=== PATIENT | male | born 1960 | race Caucasian/White ===

== ENCOUNTER 2018-07-02 23:09 | Emergency (ER) | payer MEDICARE, SELFPAY ==
[2018-07-02 23:13] VITALS: BP 109/74; PULSE 81; RESP 18; TEMP 36.6; O2SAT 94
[2018-07-02 23:22] VITALS: RESP 18
--- NOTE | 2018-07-02 23:46 | ED.GENADUL_ITS ---
Discharge Plan Disposition Patient Disposition: HOME Condition: Good Discharge Details Chief Complaint: GenMedical Clinical Impression: Encounter for post surgical wound check Primary Care Provider: Shalonda Neil ED Provider: Roman Chavez Meds and New Rx's Prescriptions: Continued furosemide 40 MG tablet 120 mg PO DAILY AM RF: 0 metformin 500 MG tablet 1,000 mg PO BID RF: 0 spironolactone 25 MG tablet 50 mg PO DAILY RF: 0 Xifaxan 550 MG tablet 550 mg PO BID RF: 0 carvedilol 6.25 MG tablet 1 tab PO BID RF: 0 Lantus U-100 Insulin 100 unit/mL Solution 30 unit subcut DAILY RF: 0 Victoza 2-Elías 0.6 MG/0.1 ML pen injector 1.2 mg SQ QPM RF: 0 Discharge Instructions Additional Instructions: Everything looks okay. Stitches are intact. Some oozing from the stitch site but nothing concerning. No evidence of infection. Gently clean area 2-3 times a day as we discussed. Continue to apply bacitracin. Follow-up with urologist next week if any concerns. Return to ED for uncontrolled bleeding, fever, increased swelling and pain. Referrals: [facility] [Provider Group] Medical Decision Making Surgical wound check for bleeding post circumcision. Little bit of oozing and clot at the stitch site. Otherwise looks fine. There is no active bleeding. There is no evidence of infection. No significant swelling. No overt wound care, cleaning, expectations. Patient and family report understanding of directions. Patient discharged home. HPI General Mode of arrival: ambulatory . Date/Time Provider Initiated Documentation: 07/02/18 23:30 . Limitations to Documentation: no limitations . Information obtained by: patient . HPI Narrative: Patient presents for wound check. He had a circumcision for phimosis done at [facility] yesterday. He has been having some bleeding this evening. He has not had increased pain or swelling. They contacted urology at [facility] who referred him into the ED for evaluation. Related Data Home Medications Medication Instructions Recorded Confirmed furosemide 120 mg PO DAILY AM 06/15/12 07/02/18 metformin 1,000 mg PO BID 06/15/12 07/02/18 spironolactone 50 mg PO DAILY 06/15/12 07/02/18 Xifaxan 550 mg PO BID 11/03/12 07/02/18 carvedilol 1 tab PO BID 11/07/15 07/02/18 Victoza 2-Elías 1.2 mg SQ QPM 09/08/17 07/02/18 Lantus U-100 Insulin 30 unit SUBCUT DAILY 07/02/18 07/02/18 Allergies Allergy/AdvReac Type Severity Reaction Status Date / Time oxycodone AdvReac Psychosis Unverified 07/02/18 23:24 General Stated Complaint: GenMedical KRYSTLE: 4 Review of Systems Review of Systems As documented in HPI otherwise negative as below. Const: no fever, chills, weakness Resp: no cough, SOB, pleuritic pain CV: no CP, diaphoresis, edema, syncope GI: no abdominal pain, nausea, vomiting, diarrhea Neuro: no headache, numbness, focal weakness, confusion PFSH Medical History Diabetes (Chronic) Cirrhosis of liver (Chronic) Hypertension (Chronic) Pancreatitis (Resolved) Esophageal varices (Chronic) Surgical History Hx of circumcision (Acute) S/P hernia repair (Inactive) Social History Smoking/Tobacco Use Status: Current every day Alcohol Intake: never Drug use: Never Do you feel safe in your relationship?: Yes Exam Const General: cooperative, comfortable and no acute distress Orientation: alert and oriented x3 Other: Scrotum and shaft of penis normal. Head of penis erythematous. Foreskin has been resected. Stitches are present and intact. There is no active bleeding. There is some mild oozing and clot at the stitch site. There is no sign of infection. Course Vital Signs Temperature 97.9 F 07/02/18 23:13 Pulse 81 07/02/18 23:13 Respiratory Rate 18 07/02/18 23:13 Blood Pressure 109/74 07/02/18 23:13 Pulse Oximetry 94 L 07/02/18 23:13 Temperature 97.9 F 07/02/18 23:13 Temperature Source Temporal Artery Scan 07/02/18 23:13 Pulse 81 07/02/18 23:13 Respiratory Rate 18 07/02/18 23:22 Respiratory Effort 07/02/18 23:22 Respiratory Depth Normal 07/02/18 23:22 Respiratory Pattern Normal 07/02/18 23:22 Blood Pressure 109/74 07/02/18 23:13 Pulse Oximetry 94 L 07/02/18 23:13 Oxygen Delivery Method Room Air 07/02/18 23:13 Oxygen Flow Rate 0 07/02/18 23:13 Pain Level 1 07/02/18 23:13
== END 2018-07-02 23:50 | disposition home or self-care (01) ==
PROVIDERS: Emergency Provider Emergency Medicine; PCP Internal Medicine
DX: N99.89 Other postprocedural complications and disorders of genitourinary system (principal)
CPT/HCPCS: 99281

== ENCOUNTER 2018-08-10 12:33 | Emergency (ER) | payer MEDICARE, SELFPAY ==
[2018-08-10 12:38] VITALS: BP 128/99; PULSE 80; RESP 18; TEMP 36.6; O2SAT 95
[2018-08-10] MEDS: Lidocaine 2% Viscous 15 ML CUP (12:45)
--- NOTE | 2018-08-10 12:47 | W.ED.GENAD ---
Discharge Plan Disposition Patient Disposition: HOME Condition: Good Discharge Details Chief Complaint: Sorethroat Clinical Impression: URI (upper respiratory infection), Acute sore throat Primary Care Provider: Shalonda Neil ED Provider: Hair Peters Home Meds and New Rx's Prescriptions: New loratadine 10 mg capsule 10 mg PO DAILY Qty: 10 RF: 0 No Action furosemide 40 MG tablet 120 mg PO DAILY AM RF: 0 metformin 500 MG tablet 1,000 mg PO BID RF: 0 spironolactone 25 MG tablet 50 mg PO DAILY RF: 0 Xifaxan 550 MG tablet 550 mg PO BID RF: 0 carvedilol 6.25 MG tablet 1 tab PO BID RF: 0 Lantus U-100 Insulin 100 unit/mL Solution 30 unit subcut DAILY RF: 0 Victoza 2-Elías 0.6 MG/0.1 ML pen injector 1.2 mg SQ QPM RF: 0 Discharge Instructions Instructions: Upper Respiratory Infection (ED) Additional Instructions: Please take the loratadine as needed for congestion and upper respiratory symptoms. Please follow-up with your vp customer service and your family doctor at your scheduled appointment this week. Please do not swallow your tobacco chew. If you notice any worsening of your symptoms, or any new symptoms such as vomiting, diarrhea, fever, chills, shortness of breath, chest pain, numbness, weakness, or fainting , please return immediately to the emergency department for reevaluation. Please follow up with your primary care provider as soon as possible for reassessment and reevaluation. As always, it was a pleasure participating in your medical care today. Referrals: Shalonda Neil [Primary Care Provider] - Medical Decision Making This is a pleasant 58-year-old male who presents for evaluation chief complaint of right ear congestion, nasal congestion mild sore throat. Physical exam demonstrates notable reassuring vital signs, no fever or tachycardia. Minimal erythema in the posterior oropharynx, no evidence of tonsillar exudate, tonsillar enlargement or other abnormality. No nuchal rigidity or signs of meningitis. Minimal clear serous fluid collection can the right tympanic membrane. No evidence of otitis media or externa. Signs and symptoms appear consistent with mild viral upper respiratory infection. We did give viscous lidocaine the patient had complete resolution of his sore throat. No evidence of paratracheal mass, blood weeks angina, and no clinical history of dysphasia or difficulty swallowing. Lung sounds are clear. With a notably reassuring physical exam, no evidence of strep infection, no evidence of meningitis or septicemia I do feel that he can be safely discharged. With his main complaint being his congestion right ear pain we will give a prescription for loratadine for the antihistamine component of the will be at his right ear. Recommend close follow-up with his already scheduled appointment on at [facility] later this week. I have extensively reviewed the treatment plan and discharge instructions with the patient. I have addressed all patient concerns at this time. The patient was made aware of what symptoms to monitor for that would warrant a return to the emergency department. Discussed the plan with the patient, they demonstrate verbal understanding and agreement with our assessment and plan at this time. [facility] General Date/Time Provider Initiated Documentation: 08/10/18 12:34. [facility] Narrative: This is a 58-year-old male with a past medical history of diabetes, cirrhosis of his liver, hypertension, who was scheduled to have a cardiac catheterization outpatient this Wednesday, who presents today for evaluation of mild sore throat, right-sided ear pain and congestion, and a mild cough. Patient states that the symptoms have been present for the last few days. He did contact [facility] because of the symptoms and they recommended that he be seen and evaluated by a physician. He denies any fever, chills, chest pain, shortness of breath, pleuritic chest pain, nausea, vomiting, diarrhea, headache, hearing changes. Does admit to mild nasal and frontal congestion, in conjunction with a sore throat and right ear pain. He denies any difficulty swallowing, but does have an irritated sensation in his posterior oropharynx when he swallows. He denies any recent nosebleeds, trauma, or blood thinner use. He does admit to blowing his nose a significant amount over the last 2 to 3 days ago because of the congestion. No other modifying factors. No dysphasia, choking, difficulty swallowing, or other abnormalities. Related Data Home Medications Medication Instructions Recorded Confirmed furosemide 120 mg PO DAILY AM 06/15/12 07/02/18 metformin 1,000 mg PO BID 06/15/12 07/02/18 spironolactone 50 mg PO DAILY 06/15/12 07/02/18 Xifaxan 550 mg PO BID 11/03/12 07/02/18 carvedilol 1 tab PO BID 11/07/15 07/02/18 Victoza 2-Elías 1.2 mg SQ QPM 09/08/17 07/02/18 Lantus U-100 Insulin 30 unit SUBCUT DAILY 07/02/18 07/02/18 loratadine 10 mg PO DAILY #10 cap 08/10/18 Previous Rx's Medication Instructions Recorded loratadine 10 mg PO DAILY #10 cap 08/10/18 Allergies Allergy/AdvReac Type Severity Reaction Status Date / Time oxycodone AdvReac Psychosis Unverified 07/02/18 23:24 General Stated Complaint: Sorethroat KRYSTLE: 4 Review of Systems Review of Systems All systems reviewed & are unremarkable except as noted in HPI and below PFSH Social History Smoking/Tobacco Use Status: Current every day Tobacco Type: smokeless tobacco Alcohol Intake: never Drug use: Never Do you feel safe at home: Yes Do you feel safe in your relationship?: Yes Exam Narrative Exam Narrative: 1.Const: Well-nourished, Well-developed, appearing stated age 2.Eyes: PERRL, no conjunctival injection, and symmetrical lids. 3.ENT: Atraumatic external nose and ears. Moist MM. Neck: Symmetric, trachea midline, No thyromegaly. Right ear demonstrates minimal clear serous fluid, no evidence of purulent discharge or bulging of the tympanic membrane. No evidence of otitis media or externa. Posterior oropharynx demonstrates mild erythema in the posterior pharynx, minimal cobblestoning. Tonsils are very small, no enlargement, no exudates. He does have a very small amount of dried crusted blood on the posterior oropharynx versus a retained tube product. No evidence of active bleeding. Evaluation of his nose and nares demonstrates no signs of bleeding or significant erythema. Mild runniness. Neck demonstrates no lymphadenopathy, no bulge, or mass. No clinical evidence of Lorenzo angina, paratracheal abscess, or other abnormality. 4.CVS: +S1/S2, No murmurs or gallops. Peripheral pulses 2+ and equal in all extremities. Brisk capillary refill in all extremities. 5.RESP: Unlabored respiratory effort. Clear to auscultation bilaterally. No wheezes rales or rhonchi 6.GI: Soft, Nontender/Nondistended, No hepatosplenomegaly. No guarding or rebound. 7.MSK: Normocephalic/Atraumatic, Extremities w/o deformity or ttp No cyanosis or clubbing, Normal movement of all extremities 8.Skin: Warm, Dry. No rashes or lesions. 9.Neuro: lease examiner II-XII grossly intact. Sensation grossly intact, no focal neurologic deficits. 10.Psych: (AAO) x3. Appropriate mood and affect Course Vital Signs Temperature 36.6 C 08/10/18 12:38 Pulse 80 08/10/18 12:38 Respiratory Rate 18 08/10/18 12:38 Blood Pressure 128/99 H 08/10/18 12:38 Pulse Oximetry 95 08/10/18 12:38 Temperature 36.6 C 08/10/18 12:38 Temperature Source Skin 08/10/18 12:38 Pulse 80 08/10/18 12:38 Respiratory Rate 18 08/10/18 12:38 Respiratory Effort Non-Labored 08/10/18 12:43 Blood Pressure 128/99 H 08/10/18 12:38 Blood Pressure Position Sitting 08/10/18 12:38 Pulse Oximetry 95 08/10/18 12:38 Oxygen Delivery Method Room Air 08/10/18 12:38 Oxygen Flow Rate 0 08/10/18 12:38
[2018-08-10 12:55] VITALS: BP 128/99; PULSE 80; RESP 18; TEMP 36.6; O2SAT 95
== END 2018-08-10 12:52 | disposition home or self-care (01) ==
PROVIDERS: Emergency Provider Student in an Organized Health Care Education/Training Program; PCP Internal Medicine
DX: J06.9 Acute upper respiratory infection, unspecified (principal); E11.9 Type 2 diabetes mellitus without complications; I10 Essential (primary) hypertension; Z79.4 Long term (current) use of insulin
CPT/HCPCS: 99283

== ENCOUNTER 2019-01-15 16:48 | Emergency (ER) | payer MEDICARE, SELFPAY ==
[2019-01-15] VITALS (29 sets, daily range): BP systolic 77–118; BP diastolic 51–68; PULSE 58–85; RESP 9–16; TEMP 36.6–36.9; O2SAT 94–99
[2019-01-15] MEDS: Normal Saline Flush 10 ML SYR IVP ×2 (17:15→18:51)
--- NOTE | 2019-01-15 17:22 | DI.CT_ITS ---
EXAM: CT ABDOMEN PELVIS W CLINICAL HISTORY: upper abd pain, h/o cirrhosis/liver CA. TECHNIQUE: The examination of the abdomen and pelvis was carried out with intravenous administration of 100 cc of Omnipaque 350. COMPARISON: CTA THORAX/ABDOMEN/PELVIS from 09/08/2017 FINDINGS: The liver is nodular and would be consistent with cirrhosis. Multiple regions of diminished absorpti on representing masses are demonstrated, the largest is in the right posterior hepatic lobe measuring 4.5 cm in diameter. A region within this mass reveals slight enhancement and possible washout, the findings could represent a hepatoma. Cholelithiasis is demonstrated without evidence of wall thicken ing. There is perhaps a trace of pericholecystic fluid. The main portal vein in the region of the pa ncreatic head is partially attenuated with calcification in this region. The spleen is enlarged. The adrenals are normal. Kidneys are intact. Multiple dilated proximal small bowel loops containing flu id and scattered articulate material are noted. The distal small bowel loops are partially collapsed with evidence of mild wall thickening. There is possible mild irregular wall thickening involving th e distal stomach. Note is made of a region of diminished density along the wall of the greater curva ture of the stomach which may be artifactual. Fluid in the colon would be consistent with diarrhea. There is no evidence of an acute appendix. Note is made of scattered mesenteric edema. There is a s mall quantity of ascites. There are atherosclerotic changes involving the aorta without evidence of an aneurysm. There are no enlarged lymph nodes. Note is made of bladder wall thickening which may b e on the basis of suboptimal distension. The reproductive organs as visualized are intact. There ar e degenerative changes involving the spine. Note is made of mild tissue anasarca. Note is made of a small right inguinal hernia. Note is made of periesophageal varices. Evidence of portosystemic chris aterals. IMPRESSION: Multiple dilated proximal small bowel loops containing fluid with scattered fecal material are identi fied. The distal small bowel loops are partially collapsed with evidence of mild thickening. The find ing could represent enteritis with superimposed partial obstruction. There is low-density fluid in th e colon consistent with diarrhea. The liver appears cirrhotic. Multiple hypoechoic enhancing masses i n the liver with the largest in the right posterior lobe measuring 4.5 cm. A mass within this area de monstrates slight enhancement with possible washout which could represent a hepatoma. Cholelithiasis with a trace amount of pericholecystic fluid. If clinically warranted, further assessment with ultras ound could be considered. Spleen is enlarged. Varices are identified. Note is made of partial attenua tion of the portal vein in the region of the pancreatic head with calcification. The possibility of c hronic portal vein thrombosis could not be excluded. There is a small amount of ascites. Scattered m esenteric edema is demonstrated. There is bladder wall thickening which is likely related to suboptim al distension. Atherosclerotic changes are identified. There is no evidence of an aortic aneurysm.
--- NOTE | 2019-01-15 17:28 | ED.GENADUL_ITS ---
Discharge Plan Disposition Patient Disposition: [facility] Condition: Stable Discharge Details Chief Complaint: Abd Prob Clinical Impression: Cholelithiasis, Thickening of wall of gallbladder, Small bowel obstruction Primary Care Provider: Shalonda Neil ED Provider: Angelia Chu Home Meds and New Rx's Prescriptions: No Action Xifaxan 550 MG tablet 550 mg PO BID RF: 0 carvedilol 6.25 MG tablet 1 tab PO BID RF: 0 Lantus U-100 Insulin 100 unit/mL Solution 30 unit subcut BID INSULIN RF: 0 spironolactone 100 mg Tablet 100 mg PO DAILY RF: 0 tadalafil 20 mg Tablet 20 mg PO BID RF: 0 Combivent Respimat 20-100 mcg/actuation Mist INHALATION RF: 0 furosemide 40 mg Tablet 80 mg PO DAILY AM RF: 0 Victoza 2-Elías 0.6 MG/0.1 ML pen injector 1.2 mg SQ QPM RF: 0 loratadine 10 mg capsule 10 mg PO DAILY Qty: 10 RF: 0 Discharge Data Discharge Date/Time-TO BE ENTERED AT DEPARTURE: 01/15/19 21:25 Medical Decision Making 58-year-old male with a history of diabetes, obesity, hypertension, cirrhosis, liver cancer and esophageal varices who presents with abdominal pain, bloating, belching and lower back pain since yesterday. Patient was recently treated for bacteremia possibly associated with a dental infection and was on antibiotics last month and developed similar symptoms 1 week ago with an resolved and returned yesterday. Its possible his symptoms are associated with altered gut bacteria with antibiotics. Vitals within normal limits. He appears nontoxic and comfortable. EKG done on arrival due to patient's age and history and notes a rate of 75, sinus with no acute ST ischemic changes. Abdomen soft and tender in the upper quadrants. Lungs clear. No lower extremity edema. Differential diagnosis includes complications associated with his chronic liver disease, small bowel obstruction, appendicitis, gastroenteritis. Will place an IV, bolus IV fluids, screening labs, CT abdomen pelvis and give a dose of morphine. 1755 --nurse call me to room for patient in severe pain. Patient given 2 mg morphine a few minutes ago. Systolic blood pressure 80s to 90s while patient sitting up on edge of bed. Bedside US no obvious acute aortic bleed/dissection. Liter IV fluids started. Systolic blood pressure improved to 100s and patient's pain improving. Will send for stat CT abdomen. Possible his hypotension due to morphine in the setting of pain/orthostatic/vasovagal. 1900 -- CT reviewed and notes findings concerning for SBO and cholelithiasis with GB wall thickening and fluid which could be cholecystitis. In the setting of pt w/ significant liver disease and thrombocytopenia, would be more beneficial to send pt to [facility] where he is followed and we also do not have ultrasound available at this time. Case discussed with [facility] general surgery and she accepts patient for transfer to the ED. Accepting physician Dr. Rainey. Patient is agreeable with plan. Blood pressure has remained stable. Medical Records Medical records reviewed: Yes I reviewed the patient's medical records. Imaging Data Radiologic Study: Radiologist's impression: CT Abdomen And Pelvis With Contrast Exam date and time: 01/15/2019 6:33 PM Clinical history: 58 years old, male; Other: Upper abd paim, h/o cirrhosis/ liver CA; Prior surgery; Surgery date: 6+ months; Surgery type: Hernia/? Biopsy of liver; Additional info: Biphasic liver exam TECHNIQUE: Imaging protocol: Computed tomography of the abdomen and pelvis with intravenous contrast. Radiation optimization: All CT scans at this facility use at least one of these dose optimization techniques: automated exposure control; mA and/or kV adjustment per patient size (includes targeted exams where dose is matched to clinical indication); or iterative reconstruction. Contrast material: OMNIPAQUE 350; Contrast volume: 100 ml; Contrast route: IV; COMPARISON: CTA THORAX/ABDOMEN/PELVIS 09/08/2017 1:31 PM FINDINGS: Liver: Nodular liver is compatible with cirrhosis. Multiple hypoenhancing masses in the liver with the largest in the right posterior hepatic lobe measuring 4.5 cm. An area within this mass demonstrate slight enhancement with possible washout and possibly represent hepatoma. Gallbladder and bile ducts: Cholelithiasis is noted with apparent gallbladder wall thickening. Trace pericholecystic fluid. Pancreas: The main portal vein in the region of the pancreatic head is partially attenuated, with a calcification in this region. Spleen: Splenomegaly. Adrenals: No mass. Kidneys and ureters: No hydronephrosis. Stomach and bowel: Multiple proximal small bowel loops are mildly dilated, containing fluid with scattered fecal material. The more distal small bowel loops are partially collapsed with evidence of mild wall thickening. Possible mild irregular wall thickening in the distal stomach, can be from nondistention. An area of low density along the wall at the greater curvature, series 11 image 248, can be artifactual. Low-density fluid is noted in the colon, suggesting diarrhea. Appendix: No evidence of appendicitis. Intraperitoneal space: Scattered mesentery edema and small ascites. Vasculature: Atherosclerotic disease. Lymph nodes: No enlarged lymph nodes. Bladder: Apparent mild circumferential bladder wall thickening, may be exaggerated by non-maximal distention. Reproductive: Unremarkable as visualized. Bones/joints: Scattered degenerative disease of the spine. Soft tissues: Mild subcutaneous soft tissue anasarca. Small fat-containing right inguinal hernia. Other findings: Portosystemic collaterals, including periesophageal varices. IMPRESSION: 1. Multiple proximal small bowel loops are mildly dilated, containing fluid with scattered fecal material. The more distal small bowel loops are partially collapsed with evidence of mild wall thickening. This finding may represent enteritis with superimposed partial obstruction. 2. Low-density fluid is noted in the colon, suggesting diarrhea. 3. Nodular liver is compatible with cirrhosis. Multiple hypoenhancing masses in the liver with the largest in the right posterior hepatic lobe measuring 4.5 cm. An area within this mass demonstrate slight enhancement with possible washout and possibly represent hepatoma. 4. Cholelithiasis is noted with apparent gallbladder wall thickening. Trace pericholecystic fluid. Correlate to rule out inflammation. 5. Splenomegaly. 6. Portosystemic collaterals, including periesophageal varices. 7. The main portal vein in the region of the pancreatic head is partially attenuated, with a calcification in this region. Given this finding, cannot rule out chronic portal vein thrombosis. 8. Scattered mesentery edema and small ascites. 9. Apparent mild circumferential bladder wall thickening, may be exaggerated by non-maximal distention. Correlation to rule out cystitis. 10. Atherosclerotic disease. Lab Data Lab results reviewed: Yes I reviewed the patient's lab results. Labs: Laboratory Tests Range/Units 01/15/19 01/15/19 01/15/19 17:40 17:40 17:40 WBC (4.4-10.8) k/cumm 2.56 L RBC (4.50-6.00) m/cumm 4.34 L Hgb (13.5-17.5) g/dL 14.1 Hct (40.0-50.0) % 40.2 MCV (80-95) fL 92.6 MCH (27.0-33.0) pg 32.5 MCHC (32.0-36.0) g/dL 35.1 RDW (11.8-14.1) % 14.1 Plt Count (130-400) x1000/uL 58 L MPV (8.0-11.0) fL 11.2 H Immature Gran % 0.0 Neutrophils % 72.6 Lymphocytes % 14.5 Monocytes % 6.6 Eosinophils % 5.5 Basophils % 0.8 Absolute Neutrophils (1.2-6.7) k/cumm 1.86 Absolute Lymphocytes (1.2-3.4) k/cumm 0.37 L Absolute Monocytes (0.11-0.7) k/cumm 0.17 Absolute Eosinophils (0.0-0.7) k/cumm 0.14 Absolute Basophils (0.0-0.2) k/cumm 0.02 Sodium (136-145) mmol/L 137 Potassium (3.5-5.1) mmol/L 3.5 Chloride (98-107) mmol/L 98 Carbon Dioxide (21.0-32.0) mmol/L 33.1 H Anion Gap (3-11) mmol/L 5.9 BUN (7-18) mg/dL 9 Creatinine (0.70-1.30) mg/dL 1.00 Estimated GFR/1.73 m2 (mL/min/1.73m2) >= 60.00 Glucose (70-100) mg/dL 284 H Calcium (8.5-10.1) mg/dL 8.2 L Magnesium (1.8-2.4) mg/dL 1.3 L Total Bilirubin (0.2-1.0) mg/dL 3.5 H AST (15-37) U/L 63 H ALT (16-63) U/L 30 Alkaline Phosphatase (46-116) U/L 320 H Troponin I (0.00-0.06) ng/mL < 0.05 Total Protein (6.4-8.2) g/dL 6.5 Albumin (3.4-5.0) g/dL 2.3 L Lipase (73-393) U/L 341 Range/Units 01/15/19 20:23 WBC (4.4-10.8) k/cumm RBC (4.50-6.00) m/cumm Hgb (13.5-17.5) g/dL Hct (40.0-50.0) % MCV (80-95) fL MCH (27.0-33.0) pg MCHC (32.0-36.0) g/dL RDW (11.8-14.1) % Plt Count (130-400) x1000/uL MPV (8.0-11.0) fL Immature Gran % Neutrophils % Lymphocytes % Monocytes % Eosinophils % Basophils % Absolute Neutrophils (1.2-6.7) k/cumm Absolute Lymphocytes (1.2-3.4) k/cumm Absolute Monocytes (0.11-0.7) k/cumm Absolute Eosinophils (0.0-0.7) k/cumm Absolute Basophils (0.0-0.2) k/cumm Sodium (136-145) mmol/L Potassium (3.5-5.1) mmol/L Chloride (98-107) mmol/L Carbon Dioxide (21.0-32.0) mmol/L Anion Gap (3-11) mmol/L BUN (7-18) mg/dL Creatinine (0.70-1.30) mg/dL Estimated GFR/1.73 m2 (mL/min/1.73m2) Glucose (70-100) mg/dL Calcium (8.5-10.1) mg/dL Magnesium (1.8-2.4) mg/dL Total Bilirubin (0.2-1.0) mg/dL AST (15-37) U/L ALT (16-63) U/L Alkaline Phosphatase (46-116) U/L Troponin I (0.00-0.06) ng/mL Cancelled Total Protein (6.4-8.2) g/dL Albumin (3.4-5.0) g/dL Lipase (73-393) U/L ECG Data Attestation: I personally reviewed and interpreted this ECG (s) as follows: Interpretation: Rate of 75, sinus, no acute ST elevation or depression. FL 164. QTc 462. QRS 92. HPI General Mode of arrival: ambulatory . Date/Time Provider Initiated Documentation: 01/15/19 16:50 . Limitations to Documentation: no limitations . Information obtained by: patient . HPI Narrative: Pt is a 58yo M with a history of nonalcoholic steatohepatitis, diabetes, cirrhosis, esophageal varices, pancreatitis who presents to the ED with a complaint of abdominal pain, bloating and belching, passing awful gas and lower back pain since yesterday. Patient describes the pain as gas-like pains and feels aching and currently 8/10. He states the pain is diffuse around his whole belly. He states he has been having regular bowel movements but states they are loose. He denies any rectal bleeding. He states he has not been passing much gas which is unusual for him. He states he has been able to eat normally. He denies any fever, nausea, vomiting, urinary symptoms, saddle anesthesia, leg pain weakness or numbness. He states he had similar symptoms 1 week ago after finishing antibiotics for bacteremia possibly associated with a dental infection at [facility] but states that resolved until yesterday. Related Data Home Medications Medication Instructions Recorded Confirmed Xifaxan 550 mg PO BID 11/03/12 01/15/19 carvedilol 1 tab PO BID 11/07/15 01/15/19 Victoza 2-Elías 1.2 mg SQ QPM 09/08/17 01/15/19 Lantus U-100 Insulin 30 unit SUBCUT BID INSULIN 07/02/18 01/15/19 loratadine 10 mg PO DAILY #10 cap 08/10/18 furosemide 80 mg PO DAILY AM 01/15/19 01/15/19 ipratropium-albuterol [Combivent INHALATION 01/15/19 Respimat] spironolactone 100 mg PO DAILY 01/15/19 01/15/19 tadalafil 20 mg PO BID 01/15/19 01/15/19 Previous Rx's Medication Instructions Recorded loratadine 10 mg PO DAILY #10 cap 08/10/18 Allergies Allergy/AdvReac Type Severity Reaction Status Date / Time oxycodone AdvReac Psychosis Unverified 01/15/19 17:03 General Stated Complaint: Abd Prob KRYSTLE: 2 Review of Systems Review of Systems ROS Unobtainable: All systems reviewed & are unremarkable except as noted in HPI and below Constitutional Constitutional: Reports as per HPI, Denies chills and Denies fever(s) Eyes Eyes: Denies blurry vision ENT Ears, Nose, Mouth, and Throat: Denies dizziness, Denies sore throat and Denies throat swelling Cardiovascular Cardiovascular: Denies chest pain and Denies dyspnea Respiratory Respiratory: Denies cough and Denies dyspnea Gastrointestinal Gastrointestinal: Reports abdominal pain, Reports belching, Reports bloating, Denies diarrhea and Denies vomiting Genitourinary Genitourinary: Denies hematuria and Denies dysuria Musculoskeletal Musculoskeletal: Reports back pain and Denies numbness Integumentary/Breasts Skin/Breast: Denies lesions and Denies rash Neurologic Neurologic: Denies dizziness, Denies focal weakness and Denies numbness Allergic/Immunologic Allergic/Immunologic: Denies throat swelling [facility] Medical History Cirrhosis of liver (Chronic) Diabetes (Chronic) Esophageal varices (Chronic) Hypertension (Chronic) Pancreatitis (Resolved) Surgical History Hx of circumcision (Acute) S/P hernia repair (Inactive) Social History Smoking/Tobacco Use Status: Current every day Tobacco Type: smokeless tobacco Alcohol Intake: never Drug use: Never Do you feel safe at home: Yes Do you feel safe in your relationship?: Yes Exam Const General: cooperative, healthy appearing and no acute distress HENMT Head: normal to inspection Face and sinus: normal facial exam Eyes General: appearance normal, both eyes and all related structures Pupils: PERRL EOM: EOM intact bilaterally Neck Neck: normal visual inspection and No submandibular swelling Lymphatic: no lymphadenopathy noted Chest Chest: normal inspection of the chest and no tenderness Resp Effort & Inspection: normal respiratory effort and able to speak in complete sentences Auscultation: clear to auscultation bilaterally Cardio Rate: regular rate Rhythm: regular rhythm GI Inspection: normal to inspection Palpation: soft, not firm, not rigid and tender (upper abdomen) Auscultation: hypoactive bowel sounds Back/Spine/Pelvis Back: no CVA tenderness Thoracic/Lumbar Spine: thoracic and lumbar spine normal to inspection Skin General skin exam: no rashes or lesions noted Neuro General: alert, awake and oriented x3 Cognition: normal cognition Speech: speech normal Motor: muscle tone normal throughout and strength 5/5 throughout Sensory Exam: no sensory deficits noted Other: B/L DP/PT pulses intact. Extrem General: normal to inspection, full ROM, normal capillary refill, no calf tenderness bilaterally and no edema Psych Appearance: grossly normal Mental Status: mental status grossly normal Speech and Movement: speech and movement normal Affect: normal affect Course Vital Signs Vital signs: Vital Signs Temperature 97.9 F 01/15/19 16:55 Pulse 74 01/15/19 16:55 Respiratory Rate 16 01/15/19 16:55 Blood Pressure 112/68 01/15/19 16:55 Pulse Oximetry 97 01/15/19 16:55 Temperature 97.9 F 01/15/19 16:55 Temperature Source Temporal Artery Scan 01/15/19 16:55 Pulse 74 01/15/19 16:55 Respiratory Rate 16 01/15/19 16:55 Respiratory Effort 01/15/19 17:01 Blood Pressure 112/68 01/15/19 16:55 Pulse Oximetry 97 01/15/19 16:55 Oxygen Delivery Method Room Air 01/15/19 16:55 Oxygen Flow Rate 0 01/15/19 16:55 Pain Level 8 01/15/19 16:55 Lab/Test Results Lab/Test Results: Laboratory Tests Range/Units 01/15/19 20:23 Troponin I Cancelled
[2019-01-15 17:45] LABS: Absolute Basophil Count 0.02 k/cumm (0.0-0.2); Absolute Eosinophil Count 0.14 k/cumm (0.0-0.7); Absolute Lymphocyte Count 0.37 k/cumm (1.2-3.4); Absolute Monocyte Count 0.17 k/cumm (0.11-0.7); Absolute Neutrophil Count 1.86 k/cumm (1.2-6.7); Basophils % 0.8; Eosinophils % 5.5; HCT 40.2 % (40.0-50.0); HGB 14.1 g/dL (13.5-17.5); Lymphocytes % 14.5; Mean Corp. HGB Concentration 35.1 g/dL (32.0-36.0); Mean Corpuscular Hemoglobin 32.5 pg (27.0-33.0); Mean Corpuscular Volume 92.6 fL (80-95); Mean Platelet Volume 11.2 fL (8.0-11.0); Monocytes % 6.6; Neutrophils % 72.6; RBC 4.34 m/cumm (4.50-6.00); RBC Distribution Width 14.1 % (11.8-14.1); White Blood Cell Count 2.56 k/cumm (4.4-10.8)
[2019-01-15] MEDS: Normal Saline 500 ML IV (17:45)
[2019-01-15 17:53] LABS: Lipase 341 U/L (73-393); Magnesium 1.3 mg/dL (1.8-2.4)
[2019-01-15 18:00] LABS: ALT 30 U/L (16-63); AST 63 U/L (15-37); Albumin 2.3 g/dL (3.4-5.0); Alkaline Phosphatase 320 U/L (46-116); Anion Gap 5.9 mmol/L (3-11); BUN 9 mg/dL (7-18); Bilirubin, Total 3.5 mg/dL (0.2-1.0); CO2 33.1 mmol/L (21.0-32.0); Calcium 8.2 mg/dL (8.5-10.1); Chloride 98 mmol/L (98-107); Glucose 284 mg/dL (70-100); Potassium 3.5 mmol/L (3.5-5.1); Sodium 137 mmol/L (136-145); Total Protein 6.5 g/dL (6.4-8.2)
[2019-01-15 18:01] LABS: Troponin I < 0.05 ng/mL (0.00-0.06)
[2019-01-15 18:04] LABS: Platelet Count 58 x1000/uL (130-400)
[2019-01-15] MEDS: Omnipaque 350 MG/ML 100 ML BTL IJ (18:50)
--- NOTE | 2019-01-15 19:25 | DI.VRAD_ITS ---
PROCEDURE INFORMATION: Exam: CT Abdomen And Pelvis With Contrast Exam date and time: 01/15/2019 6:33 PM Clinical history: 58 years old, male; Other: Upper abd paim, h/o cirrhosis/ liver CA; Prior surgery; Surgery date: 6+ months; Surgery type: Hernia/? Biopsy of liver; Additional info: Biphasic liver exam TECHNIQUE: Imaging protocol: Computed tomography of the abdomen and pelvis with intravenous contrast. Radiation optimization: All CT scans at this facility use at least one of these dose optimization techniques: automated exposure control; mA and/or kV adjustment per patient size (includes targeted exams where dose is matched to clinical indication); or iterative reconstruction. Contrast material: OMNIPAQUE 350; Contrast volume: 100 ml; Contrast route: IV; COMPARISON: CTA THORAX/ABDOMEN/PELVIS 09/08/2017 1:31 PM FINDINGS: Liver: Nodular liver is compatible with cirrhosis. Multiple hypoenhancing masses in the liver with the largest in the right posterior hepatic lobe measuring 4.5 cm. An area within this mass demonstrate slight enhancement with possible washout and possibly represent hepatoma. Gallbladder and bile ducts: Cholelithiasis is noted with apparent gallbladder wall thickening. Trace pericholecystic fluid. Pancreas: The main portal vein in the region of the pancreatic head is partially attenuated, with a calcification in this region. Spleen: Splenomegaly. Adrenals: No mass. Kidneys and ureters: No hydronephrosis. Stomach and bowel: Multiple proximal small bowel loops are mildly dilated, containing fluid with scattered fecal material. The more distal small bowel loops are partially collapsed with evidence of mild wall thickening. Possible mild irregular wall thickening in the distal stomach, can be from nondistention. An area of low density along the wall at the greater curvature, series 11 image 248, can be artifactual. Low-density fluid is noted in the colon, suggesting diarrhea. Appendix: No evidence of appendicitis. Intraperitoneal space: Scattered mesentery edema and small ascites. Vasculature: Atherosclerotic disease. Lymph nodes: No enlarged lymph nodes. Bladder: Apparent mild circumferential bladder wall thickening, may be exaggerated by non-maximal distention. Reproductive: Unremarkable as visualized. Bones/joints: Scattered degenerative disease of the spine. Soft tissues: Mild subcutaneous soft tissue anasarca. Small fat-containing right inguinal hernia. Other findings: Portosystemic collaterals, including periesophageal varices. IMPRESSION: 1. Multiple proximal small bowel loops are mildly dilated, containing fluid with scattered fecal material. The more distal small bowel loops are partially collapsed with evidence of mild wall thickening. This finding may represent enteritis with superimposed partial obstruction. 2. Low-density fluid is noted in the colon, suggesting diarrhea. 3. Nodular liver is compatible with cirrhosis. Multiple hypoenhancing masses in the liver with the largest in the right posterior hepatic lobe measuring 4.5 cm. An area within this mass demonstrate slight enhancement with possible washout and possibly represent hepatoma. 4. Cholelithiasis is noted with apparent gallbladder wall thickening. Trace pericholecystic fluid. Correlate to rule out inflammation. 5. Splenomegaly. 6. Portosystemic collaterals, including periesophageal varices. 7. The main portal vein in the region of the pancreatic head is partially attenuated, with a calcification in this region. Given this finding, cannot rule out chronic portal vein thrombosis. 8. Scattered mesentery edema and small ascites. 9. Apparent mild circumferential bladder wall thickening, may be exaggerated by non-maximal distention. Correlation to rule out cystitis. 10. Atherosclerotic disease. Dictated and Authenticated by: Chapo Pettit MD. Ordering:ANNE Galan MD
[2019-01-15] MEDS: Normal Saline 1,000 ML 125 ML IV (20:30)
== END 2019-01-15 21:25 | disposition short-term general hospital (02) ==
PROVIDERS: Emergency Provider Physician Assistant; PCP Internal Medicine
DX: K80.30 Calculus of bile duct with cholangitis, unspecified, without obstruction (principal); K56.609 Unspecified intestinal obstruction, unspecified as to partial versus complete obstruction; I10 Essential (primary) hypertension; E11.9 Type 2 diabetes mellitus without complications
CPT/HCPCS: 36415; 80053; 83690; 93005; 96361; 96374; 96376; 99285; 74177; 83735; 84484; 85025; 93010; J3490

== ENCOUNTER 2019-02-20 13:43 | Observation (INO) | payer MEDICARE, SELFPAY ==
[2019-02-20] VITALS (49 sets, daily range): BP systolic 102–129; BP diastolic 59–81; PULSE 69–86; RESP 18–20; TEMP 36.6–38; O2SAT 77–99
--- NOTE | 2019-02-20 14:28 | DI.RAD_ITS ---
EXAM: XR CHEST 2V PA AND LATERAL INDICATION: fever, on chemo. COMPARISON: CHEST 2 VIEWS PA,LAT from 05/12/2016 TECHNIQUE: 2D digital imaging was performed. FINDINGS: Heart size is normal. Lungs are suboptimally inflated but appear clear. No infiltrate or effusion i s seen. There is no pneumothorax. IMPRESSION: No acute abnormality.
[2019-02-20 14:52] LABS: Clarity Clear (Clear)
[2019-02-20 14:53] LABS: Bilirubin Color Interference (Negative); Blood Color Interference (Negative); Glucose Color Interference mg/dL (Negative); Ketones Color Interference mg/dL (Negative); Leukocyte Esterase Color Interference (Negative); Nitrite Color Interference (Negative); Specific Gravity 1.011 (1.005-1.025); Urobilinogen Color Interference EU/dL (Up TO 0.2)
[2019-02-20] MEDS: Normal Saline 250 ML 500 ML IV (15:05)
[2019-02-20 15:06] LABS: Epithelial Cells Few HPF (Negative); WBC 0-2 HPF (0-5)
[2019-02-20 15:07] LABS: Bacteria Few HPF (Negative); C & S Indicated? No; Casts Negative LPF (Negative); Crystals Negative HPF (Negative); Mucus Trace (Negative); Other Cells Rare Renal (Negative)
[2019-02-20 15:16] LABS: Abs Immature Grans 0.01 k/cumm (0.0-0.09); Absolute Basophil Count 0.01 k/cumm (0.0-0.2); Absolute Eosinophil Count 0.16 k/cumm (0.0-0.7); Absolute Lymphocyte Count 0.15 k/cumm (1.2-3.4); Absolute Monocyte Count 0.11 k/cumm (0.11-0.7); Absolute Neutrophil Count 1.53 k/cumm (1.2-6.7); Basophils % 0.5; Eosinophils % 8.1; HCT 42.4 % (40.0-50.0); Immature Grans % 0.5; Lymphocytes % 7.6; Mean Corp. HGB Concentration 35.4 g/dL (32.0-36.0); Mean Corpuscular Hemoglobin 32.4 pg (27.0-33.0); Mean Corpuscular Volume 91.6 fL (80-95); Monocytes % 5.6; Neutrophils % 77.7; RBC 4.63 m/cumm (4.50-6.00); RBC Distribution Width 14.4 % (11.8-14.1)
[2019-02-20 15:17] LABS: Lactate 1.7 mmol/L (0.6-1.4)
[2019-02-20 15:44] LABS: Diff Comment Diff Reviewed; Platelet Count 47 x1000/uL (130-400); RBC Morphology Normal; White Blood Cell Count 1.97 k/cumm (4.4-10.8)
[2019-02-20 15:45] LABS: ALT 71 U/L (16-63); AST 165 U/L (15-37); Albumin 2.2 g/dL (3.4-5.0); Alkaline Phosphatase 306 U/L (46-116); Anion Gap 9.6 mmol/L (3-11); BUN 10 mg/dL (7-18); Bilirubin, Total 4.4 mg/dL (0.2-1.0); CO2 26.4 mmol/L (21.0-32.0); CREATININE 0.99 mg/dL (0.70-1.30); Calcium 7.5 mg/dL (8.5-10.1); Chloride 99 mmol/L (98-107); Glucose 209 mg/dL (74-106); NT-proBNP 146 pg/mL (<300); Potassium 3.8 mmol/L (3.5-5.1); Sodium 135 mmol/L (136-145); Total Protein 6.5 g/dL (6.4-8.2)
--- NOTE | 2019-02-20 15:50 | ED.GENADUL_ITS ---
Discharge Plan Discharge Details Chief Complaint: Fever Primary Care Provider: Shalonda Neil ED Provider: Elizabeth Wilks Home Meds and New Rx's Prescriptions: No Action Xifaxan 550 MG tablet 550 mg PO BID RF: 0 carvedilol 6.25 MG tablet 1 tab PO BID RF: 0 Lantus U-100 Insulin 100 unit/mL Solution 30 unit subcut BID INSULIN RF: 0 spironolactone 100 mg Tablet 100 mg PO DAILY RF: 0 tadalafil 20 mg Tablet 20 mg PO BID RF: 0 Combivent Respimat 20-100 mcg/actuation Mist INHALATION RF: 0 furosemide 40 mg Tablet 80 mg PO DAILY AM RF: 0 Victoza 2-Elías 0.6 MG/0.1 ML pen injector 1.2 mg SQ QPM RF: 0 loratadine 10 mg capsule 10 mg PO DAILY Qty: 10 RF: 0 Medical Decision Making Ms. Osorio is a 59-year-old man with a history of hypertension, thrombocytopenia, nqz-hrghajk-yjipbwpsq diabetes, liver cancer currently on oral chemotherapy who presented to the emergency department with fever last night and at noon today, has not taken antipyretic since very early this morning. On exam patient is somewhat chronically ill but acutely nontoxic appearing. Benign cardiopulmonary exam, benign abdominal exam. No apparent source of fever at this time. Concern for neutropenic fever with unknown source. Exam/history is not consistent with acute coronary syndrome, meningitis, sepsis. Plan for screening labs, chest x-ray, UA, IV fluid hydration. Patient with ANC 1540. Thrombocytopenia and patient's typical range. UA and chest x-ray negative. No fever in the emergency department to this point (1600). Call placed to oncology at [facility]. 1617: Discussed patient presentation and lab results with Dr. Antoine Holley of oncology at [facility], she will give call back. Patient now with temp 100.3. He continues to report no symptoms other than feeling tired. I did discuss this with Dr. Antoine Holley of oncology, who requested patient be admitted at [facility] with Patricia with plan to follow cultures. Pgdzi-ea-ynoa bedside ultrasound performed, no free fluid in Morison's pouch, left upper quadrant, or pelvis, splenomegaly noted. During ultrasound examination, patient does note that he is been having gas pains that feels somewhat worse than usual over the past week but are not currently occurring. As no other source of fever identified at this time, plan for CT abdomen pelvis, flu swab. Clinical impression: Fever Disposition: [facility] inpatient Medical Records Medical records reviewed: Yes I reviewed the patient's medical records. Imaging Data Radiologic Study: Attestation: I personally reviewed and interpreted this imaging study as follows: Radiologist's impression: EXAM: XR CHEST 2V PA AND LATERAL INDICATION: fever, on chemo. COMPARISON: CHEST 2 VIEWS PA,LAT from 05/12/2016 TECHNIQUE: 2D digital imaging was performed. FINDINGS: Heart size is normal. Lungs are suboptimally inflated but appear clear. No infiltrate or effusion is seen. There is no pneumothorax. IMPRESSION: No acute abnormality. Lab Data Lab results reviewed: Yes I reviewed the patient's lab results. Labs: 02/20/19 15:47 Blood Blood Culture - Pending 02/20/19 15:00 Blood Blood Culture - Pending Laboratory Tests Range/Units 02/20/19 02/20/19 02/20/19 14:40 15:00 15:00 WBC (4.4-10.8) k/cumm RBC (4.50-6.00) m/cumm Hgb (13.5-17.5) g/dL Hct (40.0-50.0) % MCV (80-95) fL MCH (27.0-33.0) pg MCHC (32.0-36.0) g/dL RDW (11.8-14.1) % Plt Count (130-400) x1000/uL MPV (8.0-11.0) fL Immature Gran % Neutrophils % Lymphocytes % Monocytes % Eosinophils % Basophils % Absolute Neutrophils (1.2-6.7) k/cumm Absolute Lymphocytes (1.2-3.4) k/cumm Absolute Monocytes (0.11-0.7) k/cumm Absolute Eosinophils (0.0-0.7) k/cumm Absolute Basophils (0.0-0.2) k/cumm Differential Comment RBC Morphology Sodium (136-145) mmol/L 135 L Potassium (3.5-5.1) mmol/L 3.8 Chloride (98-107) mmol/L 99 Carbon Dioxide (21.0-32.0) mmol/L 26.4 Anion Gap (3-11) mmol/L 9.6 BUN (7-18) mg/dL 10 Creatinine (0.70-1.30) mg/dL 0.99 Estimated GFR/1.73 m2 (mL/min/1.73m2) >= 60.00 Glucose (74-106) mg/dL 209 H Lactate (0.6-1.4) mmol/L 1.7 H Calcium (8.5-10.1) mg/dL 7.5 L Total Bilirubin (0.2-1.0) mg/dL 4.4 H AST (15-37) U/L 165 H ALT (16-63) U/L 71 H Alkaline Phosphatase (46-116) U/L 306 H NT-Pro-B Natriuret Pep (<300) pg/mL 146 Total Protein (6.4-8.2) g/dL 6.5 Albumin (3.4-5.0) g/dL 2.2 L Urine Color (Yellow) [place] Urine Clarity (Clear) Clear Urine pH Not Applicable Ur Specific [place] (1.005-1.025) 1.011 Urine Protein (Negative) mg/dL Color interference Urine Ketones (Negative) mg/dL Color interference Urine Blood (Negative) Color interference Urine Nitrite (Negative) Color interference Urine Bilirubin (Negative) Color interference Urine Urobilinogen (Up TO 0.2) EU/dL Color interference Ur Leukocyte Esterase (Negative) Color interference Urine RBC (0-2) HPF 3-5 H Urine WBC (0-5) HPF 0-2 Ur Epithelial Cells (Negative) HPF Few Urine Crystals (Negative) HPF Negative Urine Bacteria (Negative) HPF Few Urine Casts (Negative) LPF Negative Urine Mucus (Negative) Trace Urine Other (Negative) Rare renal Ur Culture Indicated? No Urine Glucose (Negative) mg/dL Color interference Range/Units 02/20/ 15:00 WBC (4.4-10.8) k/cumm 1.97 L* RBC (4.50-6.00) m/cumm 4.63 Hgb (13.5-17.5) g/dL 15.0 Hct (40.0-50.0) % 42.4 MCV (80-95) fL 91.6 MCH (27.0-33.0) pg 32.4 MCHC (32.0-36.0) g/dL 35.4 RDW (11.8-14.1) % 14.4 H Plt Count (130-400) x1000/uL 47 L MPV (8.0-11.0) fL 12.0 H Immature Gran % 0.5 Neutrophils % 77.7 Lymphocytes % 7.6 Monocytes % 5.6 Eosinophils % 8.1 Basophils % 0.5 Absolute Neutrophils (1.2-6.7) k/cumm 1.53 Absolute Lymphocytes (1.2-3.4) k/cumm 0.15 L Absolute Monocytes (0.11-0.7) k/cumm 0.11 Absolute Eosinophils (0.0-0.7) k/cumm 0.16 Absolute Basophils (0.0-0.2) k/cumm 0.01 Differential Comment Diff reviewed RBC Morphology Normal Sodium (136-145) mmol/L Potassium (3.5-5.1) mmol/L Chloride (98-107) mmol/L Carbon Dioxide (21.0-32.0) mmol/L Anion Gap (3-11) mmol/L BUN (7-18) mg/dL Creatinine (0.70-1.30) mg/dL Estimated GFR/1.73 m2 (mL/min/1.73m2) Glucose (74-106) mg/dL Lactate (0.6-1.4) mmol/L Calcium (8.5-10.1) mg/dL Total Bilirubin (0.2-1.0) mg/dL AST (15-37) U/L ALT (16-63) U/L Alkaline Phosphatase (46-116) U/L NT-Pro-B Natriuret Pep (<300) pg/mL Total Protein (6.4-8.2) g/dL Albumin (3.4-5.0) g/dL Urine Color (Yellow) Urine Clarity (Clear) Urine pH Ur Specific [place] (1.005-1.025) Urine Protein (Negative) mg/dL Urine Ketones (Negative) mg/dL Urine Blood (Negative) Urine Nitrite (Negative) Urine Bilirubin (Negative) Urine Urobilinogen (Up TO 0.2) EU/dL Ur Leukocyte Esterase (Negative) Urine RBC (0-2) HPF Urine WBC (0-5) HPF Ur Epithelial Cells (Negative) HPF Urine Crystals (Negative) HPF Urine Bacteria (Negative) HPF Urine Casts (Negative) LPF Urine Mucus (Negative) Urine Other (Negative) Ur Culture Indicated? Urine Glucose (Negative) mg/dL HPI General Mode of arrival: ambulatory . Date/Time Provider Initiated Documentation: 02/20/19 14:28 . Limitations to Documentation: no limitations . Information obtained by: patient, RN notes reviewed and old records reviewed . HPI Narrative: Discomforts and is a 59-year-old man with a history of hypertension, thrombocytopenia, kkx-qnseovw-kezthhysr diabetes, liver cancer on chemotherapy presenting to the emergency department with fever. Patient reports that he has had multiple liver resections for cancer, with last resection October 2018. Patient reports that he started taking oral chemotherapy proximal he 3 weeks ago, and takes pills twice daily. He has been taking these as prescribed. Patient reports that last night in the middle of the night he woke up and had a temperature of 100.4. Patient took Tylenol at that time and had a normal temp this morning when he woke up. This morning at approximately noon he had a temperature of 100.8. Did not take Tylenol or ibuprofen for that fever. Patient reports that he has felt more fatigued than usual in the past few days. Patient reports that he has no other symptoms, denies vomiting, diarrhea, constipation, any pain, shortness of breath, cough, dysuria, numbness, weakness. Patient sees Dr. Martinez for oncology. Related Data Home Medications Medication Instructions Recorded Confirmed Xifaxan 550 mg PO BID 11/03/12 02/20/19 carvedilol 1 tab PO BID 11/07/15 02/20/19 Victoza 2-Elías 1.2 mg SQ QPM 09/08/17 02/20/19 Lantus U-100 Insulin 30 unit SUBCUT BID INSULIN 07/02/18 02/20/19 loratadine 10 mg PO DAILY #10 cap 08/10/18 02/20/19 furosemide 80 mg PO DAILY AM 01/15/19 02/20/19 ipratropium-albuterol [Combivent INHALATION 01/15/19 Respimat] spironolactone 100 mg PO DAILY 01/15/19 02/20/19 tadalafil 20 mg PO BID 01/15/19 02/20/19 Previous Rx's Medication Instructions Recorded loratadine 10 mg PO DAILY #10 cap 08/10/18 Allergies Allergy/AdvReac Type Severity Reaction Status Date / Time oxycodone AdvReac Psychosis Unverified 02/20/19 13:58 General Stated Complaint: Fever KRYSTLE: 3 Review of Systems Narrative: Constitutional: Reports fatigue, fevers Eyes: denies eye pain ENT: denies facial pain, dental pain, sore throat Cardiovascular: denies chest pain, edema Respiratory: denies SOB, cough GI: denies abdominal pain, vomiting, diarrhea : denies flank pain MSK: denies back pain, neck pain, arthralgias, myalgias Skin: denies rash Neuro: denies headaches, numbness, weakness PFSH Medical History Cirrhosis of liver (Chronic) Diabetes (Chronic) Esophageal varices (Chronic) Hypertension (Chronic) Pancreatitis (Resolved) Social History Smoking/Tobacco Use Status: Current every day Tobacco Type: smokeless tobacco Alcohol Intake: never Drug use: Never Do you feel safe at home: Yes Do you feel safe in your relationship?: Yes Exam Narrative Exam Narrative: Constitutional: Somewhat chronically ill but acutely [id number]-wjhersxgt, pleasant, conversing normally HENT: head atraumatic/normocephalic/normal inspection, mucous membranes mildly dry Eyes: conjunctiva normal, sclera normal, pupils 3mm b/l Neck: no stridor, normal ROM, trachea midline Chest: normal inspection Resp: normal work of breathing, LCTAB Cardio: normal rate, normal rhythm, no murmur appreciated GI: abdomen soft, non-tender, non-distended Skin: warm, dry, normal color, no rash Neuro: alert, not altered, grossly non-focal, normal tone Ext: no edema, no posterior calf tenderness to palpation Psych: normal mood, normal affect, normal behavior Course Vital Signs Vital signs: Vital Signs Pulse 80 02/20/19 13:54 Blood Pressure 129/72 02/20/19 13:54 Pulse Oximetry 99 02/20/19 13:54 Temperature 36.6 C 02/20/19 14:58 Temperature Source Temporal Artery Scan 02/20/19 14:58 Pulse 81 02/20/19 15:31 Respiratory Rate 20 02/20/19 13:55 Respiratory Effort Non-Labored 02/20/19 13:57 Blood Pressure 115/65 02/20/19 15:31 Blood Pressure Mean 76 02/20/19 15:31 Blood Pressure Position Supine 02/20/19 13:55 Pulse Oximetry 94 L 02/20/19 15:32 Oxygen Delivery Method Room Air 02/20/19 13:55 Oxygen Flow Rate 0 02/20/19 13:55 Pain Level 0 02/20/19 13:55 Lab/Test Results Lab/Test Results: 02/20/19 15:00 Blood Blood Culture - Pending 02/20/19 14:28 Blood Blood Culture - Pending Laboratory Tests Range/Units 02/20/19 02/20/19 02/20/19 14:40 15:00 15:00 WBC (4.4-10.8) k/cumm 1.97 L* RBC (4.50-6.00) m/cumm 4.63 Hgb (13.5-17.5) g/dL 15.0 Hct (40.0-50.0) % 42.4 MCV (80-95) fL 91.6 MCH (27.0-33.0) pg 32.4 MCHC (32.0-36.0) g/dL 35.4 RDW (11.8-14.1) % 14.4 H Plt Count (130-400) x1000/uL 47 L MPV (8.0-11.0) fL 12.0 H Immature Gran % 0.5 Neutrophils % 77.7 Lymphocytes % 7.6 Monocytes % 5.6 Eosinophils % 8.1 Basophils % 0.5 Absolute Neutrophils (1.2-6.7) k/cumm 1.53 Absolute Lymphocytes (1.2-3.4) k/cumm 0.15 L Absolute Monocytes (0.11-0.7) k/cumm 0.11 Absolute Eosinophils (0.0-0.7) k/cumm 0.16 Absolute Basophils (0.0-0.2) k/cumm 0.01 Differential Comment Diff reviewed RBC Morphology Normal Lactate (0.6-1.4) mmol/L 1.7 H Urine Color (Yellow) [place] Urine Clarity (Clear) Clear Urine pH Not Applicable Ur Specific [place] (1.005-1.025) 1.011 Urine Protein (Negative) mg/dL Color interference Urine Ketones (Negative) mg/dL Color interference Urine Blood (Negative) Color interference Urine Nitrite (Negative) Color interference Urine Bilirubin (Negative) Color interference Urine Urobilinogen (Up TO 0.2) EU/dL Color interference Ur Leukocyte Esterase (Negative) Color interference Urine RBC (0-2) HPF 3-5 H Urine WBC (0-5) HPF 0-2 Ur Epithelial Cells (Negative) HPF Few Urine Crystals (Negative) HPF Negative Urine Bacteria (Negative) HPF Few Urine Casts (Negative) LPF Negative Urine Mucus (Negative) Trace Urine Other (Negative) Rare renal Ur Culture Indicated? No Urine Glucose (Negative) mg/dL Color interference
[2019-02-20] MEDS: PIPERACILLIN/TAZO 4.5 GM in Normal Saline 100 ML IVPB (17:27)
--- NOTE | 2019-02-20 17:39 | DI.CT_ITS ---
EXAM: CT ABDOMEN PELVIS W CLINICAL HISTORY: fever, abd pain TECHNIQUE: Post IV contrast. 100 cc's of Omnipaque 350 was used. COMPARISON: UPPER ABD WITH CONTRAST (P) from 05/05/2011 HEAD WITHOUT CONTRAST from 07/08/2012 CTA THORAX/ABDOMEN/PELVIS from 09/08/2017 CT ABDOMEN PELVIS W from 01/15/2019 FINDINGS: The visualized portions of the heart are unremarkable. The lung bases are clear. The liver again chapa s a nodular, cirrhotic appearance. There are stable numerous low-density lesions throughout the live r, the largest posteriorly in the right lobe. Marked splenomegaly and varices are unchanged. Cholel ithiasis is again noted. There is mild gallbladder wall thickening, likely secondary to cirrhosis. There is no biliary dilatation. The pancreas, kidneys and adrenals are unremarkable. There has been interval resolution of previously noted dilated small bowel. The appendix appears normal. There ar e diverticula of the sigmoid region but no evidence of diverticulitis. Colon is relatively free of s tool. There is diffuse bladder wall thickening. The prostate is slightly enlarged. No free air, fr ee fluid or abscess is seen. There is a right fatty containing inguinal hernia. The aorta is normal in diameter. There is also a stable small fatty containing umbilical hernia. IMPRESSION: 1. Interval improvement in small bowel dilatation. 2. Stable appearance of cirrhotic liver, splenomegaly and cholelithiasis. 3. Diffuse bladder wall thickening which could be secondary to cystitis or bladder outlet obstruction .
[2019-02-20 18:18] LABS: Procalcitonin 0.3 ng/mL
--- NOTE | 2019-02-20 18:30 | NUR.NOTE ---
pt ate 1/2 sandwichNursing Note:
[2019-02-20] MEDS: Omnipaque 350 MG/ML 100 ML BTL IJ (18:35)
[2019-02-20 18:36] LABS: Lactate 1.7 mmol/L (0.6-1.4)
--- NOTE | 2019-02-20 19:15 | DI.VRAD_ITS ---
PROCEDURE INFORMATION: Exam: CT Abdomen And Pelvis With Contrast Exam date and time: 02/20/2019 5:40 PM Age: 59 years old Clinical history: Abdominal pain; Patient HX: Fever TECHNIQUE: Imaging protocol: Computed tomography of the abdomen and pelvis with intravenous contrast. COMPARISON: CT ABDOMEN PELVIS W 01/15/2019 6:35 PM FINDINGS: Lungs: The lungs are normal. Mediastinum: Small hiatal hernia. Liver: Cirrhosis. Unchanged numerous hypoenhancing lesions in the liver measuring up to 4.5 cm and hepatic segment 6. There is possible mild enhancement within the largest segment 6 and segment 5/4 lesions. Gallbladder and bile ducts: Cholelithiasis with distended gallbladder and mild pericholecystic fluid. There is no intrahepatic bile duct dilation. Pancreas: Normal. No ductal dilation. Spleen: Unchanged Splenomegaly. Adrenals: The adrenal glands are normal. Kidneys and ureters: The kidneys are normal. Stomach and bowel: Resolution of prior mildly dilated loops of small bowel. Relative hypoenhancement of the ascending colon (see series 4, image 39). Appendix: A normal appendix is identified. Intraperitoneal space: Unremarkable. No free air. No significant fluid collection. Vasculature: Again seen is gastroesophageal varices and portosystemic collaterals. Unchanged non-specific calcification at the portosplenic confluence. Lymph nodes: Unremarkable. No enlarged lymph nodes. Bladder: Circumferential bladder wall thickening. Reproductive: Unremarkable as visualized. Bones/joints: Stable degenerative changes of the visualized spine. No suspicious osseous lesion. Soft tissues: Unremarkable. IMPRESSION: 1. Cholelithiasis with mild gallbladder wall thickening and pericholecystic fluid. Findings are favored secondary to cirrhosis though acute cholecystitis cannot be excluded in the appropriate clinical setting. 2. Subtle hypoenhancement of the ascending colon is favored artifactual or secondary to portal colopathy. Bowel wall edema and ischemia is a less likely differential consideration. 3. Resolution of prior small bowel dilation. 4. Nonspecific circumferential bladder wall thickening. Recommend clinical correlation for cystitis. 5. Cirrhosis with sequela of portal hypertension. Numerous hypoenhancing lesions in the liver appear unchanged. Dictated and Authenticated by: Alexander Xei MD. Ordering:KASANDRA Johnson MD
[2019-02-21] VITALS (8 sets, daily range): BP systolic 99–117; BP diastolic 62–79; PULSE 65–84; RESP 14–18; TEMP 36–38.2; O2SAT 92–96
--- NOTE | 2019-02-21 01:38 | HPE_ITS ---
Date of service: 02/20/19 Time of Service: 20:00 Assessment and Plan Assessment and plan (1) Neutropenic fever: Status: Acute Assessment and plan: await blood culture results; continue Zosyn pending blood culture results. Clinically he does not appear to have acute cholecystitis despite his GB wall thickening and cholelithiasis and pericholecystic fluid. He has had this all along. Because of his severe liver disease his specialist have been reluctant to perform surgery. 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 If his blood cultures show no growth and no focalizing symptoms develope to help determine source of his fever then perhaps a WBC nuclear scan would be appropriate. It may be that his fevers are due to his new anti cancer drug, Sorafenib. I am holding his Sorafenib until we have determined that there is no underlying infection. His ANC remains acceptable at 1500 otherwise I would consider giving him Neupogen. (2) Diabetes: Status: Chronic Assessment and plan: continue his Lantus and Victoza and use sliding scale Novolog for coverage of elevated glucose readings. Qualifiers: Diabetes mellitus complication status: without complication Diabetes mellitus intermediate school teacher insulin use: with mcc use Diabetes mellitus type: type 2 Qualified Code(s): E11.9 - Type 2 diabetes mellitus without complications; Z79.4 - retirement (current) use of insulin (3) Hypertension: Status: Chronic Assessment and plan: resume his home meds of carvedilol, spironolactone. He is also on Tadalafil for PHTN. (systolic PA pressure of upwards of 70 mm). Qualifiers: Hypertension type: essential hypertension Qualified Code(s): I10 - Essential (primary) hypertension History of Present Illness History of Present Illness Chief Complaint: fevers Narrative: 59-year-old male with a history of advanced hepatocellular carcinoma currently on oral chemotherapy with sorafenib, history of nonalcoholic steatohepatitis, cirrhosis, hepatic encephalopathy, portal hypertension with esophageal varices status post banding, splenomegaly, diabetes mellitus type 2 requiring insulin and Victoza, obstructive sleep apnea treated with CPAP who presents emergency department with acute onset of fevers beginning last night. Had a low-grade fevers of 100.5 last night and 100.8 this afternoon. He called his oncologist office Dr. Wesley Martinez and was advised to present to the emergency department. Patient gets all of his care through [facility] his primary care provider is Dr. Shalonda Hamilton and is health analyst is Dr. Rylee Garibay. Patient was just recently started on sorafenib 200 mg twice a day beginning February 03, 2019 after his most recent MRI from December was reviewed by [facility] and they concluded that he is no longer a candidate for liver transplant because he now has diffuse infiltrative hepatocellular carcinoma. Previously he had had multiple liver nodules that had undergone radiofrequency ablative therapy. Patient denies any cough or shortness of breath or sputum production. He has no rigors. He denies any dysuria or hematuria. He does complain of a lot of gas including belching and passing flatus but is still able to move his bowels. His GI history is also significant for small bowel obstruction for which she was treated at [facility] January 15, 2019. He has a history of cholelithiasis and has chronic gallbladder wall thickening and chronic pericholecystic fluid but because of his advanced liver disease his physicians have been reluctant to perform a cholecystectomy. Work-up was performed in the emergency room by Dr. Elizabeth Wilks who reviewed his case with the on-call oncology fellow Dr. James who recommended hospitalization and initiation of IV Zosyn. Work-up in the emergency department included routine CBC that shows a leukopenia of 1970 with an ANC of 1530. No anemia and chronic stable thrombocytopenia of 47,000. CMP demonstrated normal electrolytes and normal BUN and creatinine. Glucose was 209. Blood lactate was 1.7. Calcium is low at 7.5 but corrected for his low albumin of 2.2. He has chronically elevated liver transaminases with an AST of 165, ALT 71, alkaline phosphatase 306 and a chronically elevated total bilirubin 4.4. His BNP was normal. Chest x-ray showed no acute abnormalities. CT of his abdomen and p dawna demonstrated chronic cholelithiasis and chronic mild gallbladder wall thickening with pericholecystic fluid. These are unchanged from previous exams. He has subtle hypoenhancement of the ascending colon but the radiologist favored artifactual versus portal colopathy. He has nonspecific circumferential bladder wall thickening. He has cirrhosis with portal hypertension and numerous hypoenhancing lesions in his liver. Patient was given a bolus of IV fluids in the ER and started on Zosyn 4.5 g IV. Patient is now being admitted for evaluation and treatment of neutropenic fevers in the setting of advanced hepatocellular carcinoma. Review of Systems Narrative: 10 system review of systems is negative except as listed in HPI. Specifically he denies any headaches sinus congestion sinus pressure or nasal discharge or drainage or earache. Denies any chest pain pressure palpitations. He denies a shortness of breath cough or sputum production. GI review of systems as listed in HPI. He denies abdominal pain has had flatus and a lot of belching and some loose stools but not profuse watery diarrhea and no melena nor hematochezia. he denies any dysuria or hematuria or urgency. Dermatologic he denies any skin rash bruising bleeding or skin ulcerations. [facility] Medical History Cirrhosis of liver (Chronic) Diabetes (Chronic) Esophageal varices (Chronic) Hypertension (Chronic) Pancreatitis (Resolved) Social History Smoking/Tobacco Use Status: Current every day Tobacco Type: smokeless tobacco Alcohol Intake: never Drug use: Never Do you feel safe at home: Yes Do you feel safe in your relationship?: Yes Meds Home Medications and Allergies Home Medications Medication Instructions Recorded Confirmed Type Xifaxan 550 mg PO BID 11/03/12 02/20/19 History carvedilol 1 tab PO BID 11/07/15 02/20/19 History Victoza 2-Elías 1.2 mg SQ QPM 09/08/17 02/20/19 History Lantus U-100 Insulin 30 unit SUBCUT BID INSULIN 07/02/18 02/20/19 History loratadine 10 mg PO DAILY #10 cap 08/10/18 02/20/19 Rx furosemide 80 mg PO DAILY AM 01/15/19 02/20/19 History ipratropium-albuterol [Combivent INHALATION 01/15/19 History Respimat] spironolactone 100 mg PO DAILY 01/15/19 02/20/19 History tadalafil 20 mg PO BID 01/15/19 02/20/19 History acetaminophen [Acetaminophen Extra 1,000 mg PO .Q 24H PRN MDD 1000 02/20/19 02/20/19 History Strength] sorafenib [Nexavar] 200 mg PO BID 02/21/19 02/21/19 History Allergies Allergy/AdvReac Type Severity Reaction Status Date / Time oxycodone AdvReac Psychosis Unverified 02/20/19 13:58 Exam Narrative Exam Narrative: 59-year-old male who is alert and oriented person place time circumstance. Lying in bed in semi-taylor position in no acute distress. HEENT is unremarkable. Specifically TMs are intact without erythema or bulging nares is moist without epistaxis or purulent discharge. There is no sinus tenderness to palpation oropharynx is noninjected he is edentulous. He has no exudates. Neck is supple without JVD normal carotid pulses no bruits no thyromegaly no cervical lymph adenopathy. Lungs are clear to auscultation and percussion. Heart is regular rate and rhythm without audible murmur rub or gallop no thrill heave. Abdomen is obese soft nontender there is no rebound tenderness and no guarding. No palpable pulsatile masses. He does have palpable hepatosplenomegaly. Bowel sounds are normal. Lower extremities without peripheral cyanosis or edema. There is no skin ulcerations over his feet. Pedal pulses are normal. Neurologic exam is grossly intact no facial asymmetry no dysarthric speech full extraocular motion intact. No gross motor or sensory deficits. Results Imaging Chest x-ray: report reviewed Abdomen CT scan report/results: report reviewed Labs Result diagrams: 02/21/19 06:23 02/21/19 06:23 Labs: Laboratory Results - last 24 hr 02/20/19 02/20/19 02/20/19 14:40 15:00 15:00 WBC RBC Hgb Hct MCV MCH MCHC RDW Plt Count MPV Immature Gran % Neutrophils % Lymphocytes % Monocytes % Eosinophils % Basophils % Absolute Neutrophils Absolute Lymphocytes Absolute Monocytes Absolute Eosinophils Absolute Basophils Differential Comment RBC Morphology Sodium 135 L Potassium 3.8 Chloride 99 Carbon Dioxide 26.4 Anion Gap 9.6 BUN 10 Creatinine 0.99 Estimated GFR/1.73 m2 >= 60.00 Glucose 209 H Lactate 1.7 H Calcium 7.5 L Total Bilirubin 4.4 H AST 165 H ALT 71 H Alkaline Phosphatase 306 H NT-Pro-B Natriuret Pep 146 Total Protein 6.5 Albumin 2.2 L Procalcitonin Urine Color [place] Urine Clarity Clear Urine pH Not Applicable Ur Specific [place] 1.011 Urine Protein Color interference Urine Ketones Color interference Urine Blood Color interference Urine Nitrite Color interference Urine Bilirubin Color interference Urine Urobilinogen Color interference Ur Leukocyte Esterase Color interference Urine RBC 3-5 H Urine WBC 0-2 Ur Epithelial Cells Few Urine Crystals Negative Urine Bacteria Few Urine Casts Negative Urine Mucus Trace Urine Other Rare renal Ur Culture Indicated? No Urine Glucose Color interference 02/20/19 02/20/19 02/20/19 15:00 15:00 18:30 WBC 1.97 L* RBC 4.63 Hgb 15.0 Hct 42.4 MCV 91.6 MCH 32.4 MCHC 35.4 RDW 14.4 H Plt Count 47 L MPV 12.0 H Immature Gran % 0.5 Neutrophils % 77.7 Lymphocytes % 7.6 Monocytes % 5.6 Eosinophils % 8.1 Basophils % 0.5 Absolute Neutrophils 1.53 Absolute Lymphocytes 0.15 L Absolute Monocytes 0.11 Absolute Eosinophils 0.16 Absolute Basophils 0.01 Differential Comment Diff reviewed RBC Morphology Normal Sodium Potassium Chloride Carbon Dioxide Anion Gap BUN Creatinine Estimated GFR/1.73 m2 Glucose Lactate 1.7 H Calcium Total Bilirubin AST ALT Alkaline Phosphatase NT-Pro-B Natriuret Pep Total Protein Albumin Procalcitonin 0.3 Urine Color Urine Clarity Urine pH Ur Specific [place] Urine Protein Urine Ketones Urine Blood Urine Nitrite Urine Bilirubin Urine Urobilinogen Ur Leukocyte Esterase Urine RBC Urine WBC Ur Epithelial Cells Urine Crystals Urine Bacteria Urine Casts Urine Mucus Urine Other Ur Culture Indicated? Urine Glucose Last Vital Signs Temp 38.2 C H 02/21/19 00:05 Pulse 84 02/21/19 00:05 Resp 16 02/21/19 00:05 BP 104/66 02/21/19 00:05 Pulse Ox 96 02/21/19 00:05
[2019-02-21] MEDS: Normal Saline Flush 10 ML SYR IVP ×3 (01:43→17:16)
[2019-02-21] MEDS: PIPERACILLIN/TAZO 4.5 GM in Normal Saline 100 ML IVPB ×3 (01:45→17:57)
[2019-02-21] MEDS: Furosemide 40 MG TAB 80 MG PO (05:31)
[2019-02-21 06:45] LABS: Lactate 1.2 mmol/L (0.6-1.4)
[2019-02-21 07:03] LABS: Absolute Basophil Count 0.01 k/cumm (0.0-0.2); Absolute Eosinophil Count 0.21 k/cumm (0.0-0.7); Absolute Monocyte Count 0.15 k/cumm (0.11-0.7); Absolute Neutrophil Count 0.83 k/cumm (1.2-6.7); Basophils % 0.7; HCT 39.1 % (40.0-50.0); HGB 13.6 g/dL (13.5-17.5); Mean Corp. HGB Concentration 34.8 g/dL (32.0-36.0); Mean Corpuscular Hemoglobin 31.7 pg (27.0-33.0); Mean Corpuscular Volume 91.1 fL (80-95); Mean Platelet Volume 11.6 fL (8.0-11.0); Neutrophils % 55.3; RBC 4.29 m/cumm (4.50-6.00); RBC Distribution Width 14.2 % (11.8-14.1)
[2019-02-21 07:04] LABS: ALT 62 U/L (16-63); AST 147 U/L (15-37); Albumin 1.9 g/dL (3.4-5.0); Alkaline Phosphatase 237 U/L (46-116); Anion Gap 8.5 mmol/L (3-11); BUN 9 mg/dL (7-18); Bilirubin, Total 3.1 mg/dL (0.2-1.0); CO2 23.5 mmol/L (21.0-32.0); CREATININE 0.91 mg/dL (0.70-1.30); Calcium 7.2 mg/dL (8.5-10.1); Chloride 105 mmol/L (98-107); Glucose 106 mg/dL (74-106); Magnesium 1.5 mg/dL (1.8-2.4); Potassium 3.5 mmol/L (3.5-5.1); Sodium 137 mmol/L (136-145); TSH (W/Ref FT4) 2.67 uIU/mL (0.36-3.74); Total Protein 5.7 g/dL (6.4-8.2)
[2019-02-21 07:05] LABS: INR 1.3 (0.9-1.1); Prothrombin Time 13.1 sec (9.3-11.0)
[2019-02-21 07:15] LABS: Platelet Count 44 x1000/uL (130-400)
[2019-02-21 07:16] LABS: Diff Comment Agrees w/ Instrument
[2019-02-21 07:17] LABS: RBC Morphology Normal
[2019-02-21 08:07] LABS: Procalcitonin 0.2 ng/mL
[2019-02-21] MEDS: Ipratropium/Albuterol 4 GM 120 PUFF INH IH ×4 (08:40→19:47)
[2019-02-21] MEDS: Spironolactone 50 MG TAB 100 MG PO (09:15)
[2019-02-21] MEDS: Carvedilol 6.25 MG TAB PO ×2 (09:16→19:48)
[2019-02-21] MEDS: Rifaximin 550 MG TAB PO ×2 (09:16→19:48)
[2019-02-21] MEDS: Insulin Glargine 300 UNITS/3 ML PEN 30 UNITS SC ×2 (10:33→19:49)
[2019-02-21] MEDS: MAGNESIUM SULFATE 2 GM/50 ML BAG IVPB (13:00)
[2019-02-21] MEDS: Potassium Chloride 20 MEQ TABCR 40 MEQ PO (13:04)
[2019-02-21] MEDS: Insulin Aspart 300 UNITS/3 ML PEN SC ×2 (13:05→17:15)
--- NOTE | 2019-02-21 14:10 | W.PM.PROGNOT ---
Date of Service Date of service: 02/21/19 Time of Service: 14:10 Assessment and Plan Assessment and plan (1) Fever: Status: Acute Assessment and plan: Fevers along with low WBC, borderline neutropenic this morning. According to discussion in the ED with Oncology, patient was initiated on antibiotic therapy with Pip-Iraj. Source unclear. - Continue Pipercillin Tazobactam, day #2. - CXR negative for infection. - Influenza checked and negative. - Urinalysis difficult to interpret, but without WBCs. CT with bladder wall thickening. - Complaints of diarrhea - C.Diff negative, but fecal Leukocytes +. Cultures pending. - Blood Cultures pending at this time. - Currently appears stable. Continue to monitor culture results, vitals, and WBC. Also noted - Mr. Osorio has only recently started treatment with Sorafenib - known side effects of Diarrhea (common finding), Neutropenia, elevated LFTs, and Fevers (11%), in addition to known increase risk in infection. Symptoms may be medication induced as well. (2) Thrombocytopenia: Status: Chronic Assessment and plan: Secondary to known underlying Cirrhosis. Platelet count low but stable. Monitor. (3) Diabetes: Status: Chronic Assessment and plan: Continue basal insulin, sliding scale coverage, and ADA diet. Qualifiers: Diabetes mellitus type: type 2 Diabetes mellitus medical terminologist insulin use: with detention use Diabetes mellitus complication status: without complication Qualified Code(s): E11.9 - Type 2 diabetes mellitus without complications; Z79.4 - custodial (current) use of insulin (4) HCA (hepatocellular adenoma): Status: Acute Assessment and plan: Following with oncology. Continue Sorafenib. (5) DVT prophylaxis: Status: Acute Assessment and plan: Continue SCDs, Tele. Avoid chemical prophylaxis for now given thrombocytopenia. Subjective Subjective Interval history since last seen: 59-year-old man with a prior history of advanced HCCa on chemotherapy, admitted from [facility] Emergency Department with a diagnosis of Fever. Mr. Osorio has a past Medical History significant for advanced Hepatocellular Carcinoma, currently on oral Chemotherapy with Sorafenib - the patient had apparently been treated with Radiofrequency Ablation in the past, and was a transplant candidate until review of his recent MRI from December by [facility] [place] [facility] concluded worsening diffuse infiltrative HCCa. He has known Cirrhosis from ORTIZ, with concurrent Portal hypertension, hepatic encephalopathy, Esophageal Varices with bleeding s/p banding in 2017, and Splenomegally. His other history includes DM, BRIANDA on CPAP, HTN, PHTN (PAPs in the 70's). He was also recently admitted at [facility] (01/15-01/16) with potential SBO which improved with conservative management. Mr. Osorio presented to the ED with onset of fevers on the night prior to his admission, reportedly upwards of 100.8. Following a discussion with his Oncologist's office (Dr. Wesley Martinez) he presented to the ED. Initial evaluation was pertinent for leukopenia without true neutropenia, thrombocytopenia that appeared chronic, mildly elevated Lactate, chronically elevated Bilirubin, worsening AST/ALT values, and Procalcitonin of 0.3.CXR showed no acute abnormality, and CT a/p showed interval improvement in small bowel dilation, stable cirrhosis, and diffuse bladder wall thickening secondary to either cystitis or bladder outlet obstruction - urinalysis however showed no evidence of WBCs (Leukocyte Esterase & Nitrite interpretation with color interference due to discoloration of urine from likely high levels of bilirubin). There was also note of gallbladder wall thickening and cholelithiasis with pericholecystic fluid, which appears to be a chronic finding and attributed to patient's cirrhosis. He was referred for admission for further evaluation and treatment. This morning Mr. Osorio feels improved, and has remained afebrile since approximately midnight. He complains of loose stools and diarrhea, along with stomach cramping. Labwork shows worsening leukopenia, with development of a low absolute neutrophil count at 0.8. No other events reported overnight. Exam Narrative Exam Narrative: General: Patient appears comfortable, AAOX3, NAD Neck: Supple CV: Regular, nontachycardic, S1S2, No rubs, murmurs, or gallops. Pulmonary: Clear to auscultation bilaterally, no crackles, wheezing, or rhonchi Abdomen: + Bowel Sounds, soft, nontender, nondistended, obese in contour Vascular: Mild b/l lower extremity edema Psych: Normal mood and affect. Objective Objective Clinical Data: Abnormal lab results 02/20/19 02/20/19 02/20/19 Range/Units 14:40 15:00 15:00 WBC (4.4-10.8) k/cumm RBC (4.50-6.00) m/cumm Hct (40.0-50.0) % RDW (11.8-14.1) % Plt Count (130-400) x1000/uL MPV (8.0-11.0) fL Absolute Neutrophils (1.2-6.7) k/cumm Absolute Lymphocytes (1.2-3.4) k/cumm PT (9.3-11.0) sec INR (0.9-1.1) Sodium 135 L (136-145) mmol/L Glucose 209 H (74-106) mg/dL Lactate 1.7 H (0.6-1.4) mmol/L Calcium 7.5 L (8.5-10.1) mg/dL Magnesium (1.8-2.4) mg/dL Total Bilirubin 4.4 H (0.2-1.0) mg/dL AST 165 H (15-37) U/L ALT 71 H (16-63) U/L Alkaline Phosphatase 306 H (46-116) U/L Total Protein (6.4-8.2) g/dL Albumin 2.2 L (3.4-5.0) g/dL Urine RBC 3-5 H (0-2) HPF 02/20/19 02/20/19 02/21/19 Range/Units 15:00 18:30 06:23 WBC 1.97 L* (4.4-10.8) k/cumm RBC (4.50-6.00) m/cumm Hct (40.0-50.0) % RDW 14.4 H (11.8-14.1) % Plt Count 47 L (130-400) x1000/uL MPV 12.0 H (8.0-11.0) fL Absolute Neutrophils (1.2-6.7) k/cumm Absolute Lymphocytes 0.15 L (1.2-3.4) k/cumm PT (9.3-11.0) sec INR (0.9-1.1) Sodium (136-145) mmol/L Glucose (74-106) mg/dL Lactate 1.7 H (0.6-1.4) mmol/L Calcium 7.2 L (8.5-10.1) mg/dL Magnesium 1.5 L (1.8-2.4) mg/dL Total Bilirubin 3.1 H (0.2-1.0) mg/dL AST 147 H (15-37) U/L ALT (16-63) U/L Alkaline Phosphatase 237 H (46-116) U/L Total Protein 5.7 L (6.4-8.2) g/dL Albumin 1.9 L (3.4-5.0) g/dL Urine RBC (0-2) HPF 02/21/19 02/21/19 Range/Units 06:23 06:23 WBC 1.50 L* (4.4-10.8) k/cumm RBC 4.29 L (4.50-6.00) m/cumm Hct 39.1 L (40.0-50.0) % RDW 14.2 H (11.8-14.1) % Plt Count 44 L (130-400) x1000/uL MPV 11.6 H (8.0-11.0) fL Absolute Neutrophils 0.83 L (1.2-6.7) k/cumm Absolute Lymphocytes 0.30 L (1.2-3.4) k/cumm PT 13.1 H (9.3-11.0) sec INR 1.3 H (0.9-1.1) Sodium (136-145) mmol/L Glucose (74-106) mg/dL Lactate (0.6-1.4) mmol/L Calcium (8.5-10.1) mg/dL Magnesium (1.8-2.4) mg/dL Total Bilirubin (0.2-1.0) mg/dL AST (15-37) U/L ALT (16-63) U/L Alkaline Phosphatase (46-116) U/L Total Protein (6.4-8.2) g/dL Albumin (3.4-5.0) g/dL Urine RBC (0-2) HPF Vital Signs Temperature 36.7 C 02/21/19 07:30 Temperature Source Tympanic 02/21/19 07:30 Pulse 78 02/21/19 07:30 Pulse Rhythm Regular 02/20/19 18:50 Respiratory Rate 17 02/21/19 07:30 Respiratory Effort Non-Labored 02/20/19 18:50 Respiratory Depth Normal 02/20/19 18:50 Respiratory Pattern Normal 02/20/19 18:50 Blood Pressure 106/67 02/21/19 07:30 Blood Pressure Mean 78 02/20/19 18:24 Blood Pressure Position Supine 02/20/19 13:55 Pulse Oximetry 94 L 02/21/19 07:30 Oxygen Delivery Method Room Air 02/21/19 07:30 Oxygen Flow Rate 0 02/21/19 07:30 Pain Level 0 02/21/19 13:54 Comment 02/21/19 04:00 Intake & Output 02/20/19 02/21/19 02/21/19 23:59 11:59 23:59 Intake Total 1300 / 1300 100 / 100 Output Total 800 / 800 200 / 200 Balance 500 / 500 -100 / -100 Weight 105.4 kg 103.9 kg Intake: IV 1100 / 1100 100 / 100 Oral 200 / 200 Output: Urine 400 / 400 200 / 200 Stool 400 / 400 Other: Urine Color Straw Urine Appearance Clear Clear Urine Odor Normal Normal Comment unable to assess urine. pt voiding ad neto in toilet; urine not assessed at this time. pt denies issues at this time Stool Size Moderate Stool Characteristics Liquid Liquid Green Voiding Methods Toilet Toilet Laboratory Results WBC 1.50 k/cumm (4.4-10.8) L* 02/21/19 06:23 RBC 4.29 m/cumm (4.50-6.00) L 02/21/19 06:23 Hgb 13.6 g/dL (13.5-17.5) 02/21/19 06:23 Hct 39.1 % (40.0-50.0) L 02/21/19 06:23 MCV 91.1 fL (80-95) 02/21/19 06:23 MCH 31.7 pg (27.0-33.0) 02/21/19 06:23 MCHC 34.8 g/dL (32.0-36.0) 02/21/19 06:23 RDW 14.2 % (11.8-14.1) H 02/21/19 06:23 Plt Count 44 x1000/uL (130-400) L 02/21/19 06:23 MPV 11.6 fL (8.0-11.0) H 02/21/19 06:23 Immature Gran % 0.0 02/21/19 06:23 Neutrophils % 55.3 02/21/19 06:23 Lymphocytes % 20.0 02/21/19 06:23 Monocytes % 10.0 02/21/19 06:23 Eosinophils % 14.0 02/21/19 06:23 Basophils % 0.7 02/21/19 06:23 Absolute Neutrophils 0.83 k/cumm (1.2-6.7) L 02/21/19 06:23 Absolute Lymphocytes 0.30 k/cumm (1.2-3.4) L 02/21/19 06:23 Absolute Monocytes 0.15 k/cumm (0.11-0.7) 02/21/19 06:23 Absolute Eosinophils 0.21 k/cumm (0.0-0.7) 02/21/19 06:23 Absolute Basophils 0.01 k/cumm (0.0-0.2) 02/21/19 06:23 Differential Comment Agrees w/ instrument 02/21/19 06:23 RBC Morphology Normal 02/21/19 06:23 PT 13.1 sec (9.3-11.0) H 02/21/19 06:23 INR 1.3 (0.9-1.1) H 02/21/19 06:23 Sodium 137 mmol/L (136-145) 02/21/19 06:23 Potassium 3.5 mmol/L (3.5-5.1) 02/21/19 06:23 Chloride 105 mmol/L (98-107) 02/21/19 06:23 Carbon Dioxide 23.5 mmol/L (21.0-32.0) 02/21/19 06:23 Anion Gap 8.5 mmol/L (3-11) 02/21/19 06:23 BUN 9 mg/dL (7-18) 02/21/19 06:23 Creatinine 0.91 mg/dL (0.70-1.30) 02/21/19 06:23 Estimated GFR/1.73 m2 >= 60.00 (mL/min/1.73m2) 02/21/19 06:23 Glucose 106 mg/dL (74-106) D 02/21/19 06:23 Lactate Cancelled 02/21/19 21:30 Calcium 7.2 mg/dL (8.5-10.1) L 02/21/19 06:23 Magnesium 1.5 mg/dL (1.8-2.4) L 02/21/19 06:23 Total Bilirubin 3.1 mg/dL (0.2-1.0) H 02/21/19 06:23 AST 147 U/L (15-37) H 02/21/19 06:23 ALT 62 U/L (16-63) 02/21/19 06:23 Alkaline Phosphatase 237 U/L (46-116) H 02/21/19 06:23 NT-Pro-B Natriuret Pep 146 pg/mL (<300) 02/20/19 15:00 Total Protein 5.7 g/dL (6.4-8.2) L 02/21/19 06:23 Albumin 1.9 g/dL (3.4-5.0) L 02/21/19 06:23 Procalcitonin 0.2 ng/mL 02/21/19 06:23 TSH 2.67 uIU/mL (0.36-3.74) 02/21/19 06:23 Urine Color [place] (Yellow) 02/20/19 14:40 Urine Clarity Clear (Clear) 02/20/19 14:40 Urine pH Not Applicable 02/20/19 14:40 Ur Specific [place] 1.011 (1.005-1.025) 02/20/19 14:40 Urine Protein Color interference mg/dL (Negative) 02/20/19 14:40 Urine Ketones Color interference mg/dL (Negative) 02/20/19 14:40 Urine Blood Color interference (Negative) 02/20/19 14:40 Urine Nitrite Color interference (Negative) 02/20/19 14:40 Urine Bilirubin Color interference (Negative) 02/20/19 14:40 Urine Urobilinogen Color interference EU/dL (Up TO 0.2) 02/20/19 14:40 Ur Leukocyte Esterase Color interference (Negative) 02/20/19 14:40 Urine RBC 3-5 HPF (0-2) H 02/20/19 14:40 Urine WBC 0-2 HPF (0-5) 02/20/19 14:40 Ur Epithelial Cells Few HPF (Negative) 02/20/19 14:40 Urine Crystals Negative HPF (Negative) 02/20/19 14:40 Urine Bacteria Few HPF (Negative) 02/20/19 14:40 Urine Casts Negative LPF (Negative) 02/20/19 14:40 Urine Mucus Trace (Negative) 02/20/19 14:40 Urine Other Rare renal (Negative) 02/20/19 14:40 Ur Culture Indicated? No 02/20/19 14:40 Urine Glucose Color interference mg/dL (Negative) 02/20/19 14:40
--- NOTE | 2019-02-21 14:38 | PDOC.CMIN ---
- If Service Date Differs Date of service: 02/21/19 Time of Service: 14:41 Care Management Initial Assess REASON FOR HOSPITALIZATION:: Neutropenic fever. PAST MEDICAL HISTORY/PAST SURGICAL HISTORY:: Medical History: GERD, H/O idiopathic thrombocytopenia purpura, Cirrhosis of the liver, H/O hepatic cancer & esophageal varices, Diabetes, Hypertension, and Pancreatitis (Resolved). Surgical History: Hernia repair, Banding of esophageal varices, Lap procedure to remove cancer from liver, H/O nasal surgery for deviated septum. PREVIOUS FUNCTIONAL STATUS/SOCIAL/FAMILY SUPPORTS:: Flash resides in a farmhouse in [place]. He is . Shortly after the of his 9 months ago, a cousin and her two young sons moved into the home with him. He has three daughters, one whom lives locally. Flash states his oldest daughter is a nurse at [employer] and he stays with her when he goes [place] [facility] [place]. He reports that all three of his children are supportive. Flash states he cooks, cleans, drives, and is independent in his ADLs. CURRENT FUNCTIONAL STATUS:: Flash is sitting in a chair watching television when CM comes to meet with him. He is pleasant and easily engages in conversation. He talks about his daughters and 9 grandchildren. He also talks about some of his medical issues and shares that he feels fine and is ready to return home. ADVANCE DIRECTIVES:: None on file. Has patient been provided with information about the portal?: Yes Did the patient sign up for the portal?: No CODE STATUS:: Full Code INSURANCE COVERAGE / FINANCIAL ISSUES:: Medicare CURRENT HOME/COMMUNITY SERVICES/EQUIPMENT:: Flash reports he has a CPAP but states since losing 100 lbs he no longer needs it. Flash receives all of his services at [facility]. PRIMARY CARE PHYSICIAN:: Shalonda Neil MD POTENTIAL DISCHARGE NEEDS:: Follow-up with primary care physician and [facility] providers. PATIENT/FAMILY EDUCATION NEEDS:: Review discharge plan, limitations, and follow-up plan of care, including Ask Me Three and self-management. ANTICIPATED BARRIERS TO DISCHARGE:: None anticipated at this time. TRANSPORTATION:: Family member will transport Flash home via private vehicle when ready. PLAN:: Flash will be discharged home when medically cleared by provider. Anticipate no additional services needed at time of discharge. Family member will transport patient home upon discharge.
--- NOTE | 2019-02-21 15:59 | CHAPLAIN ---
Flash reminded me that his 9 months ago, and both his parents within a few months of his . He shared some experiences about grieving for his and said he has been surprised by the small things that have triggered memories and grief. He occasionally gets away to [place] to visit a friend and that time is helpful and relaxing, he said. He talked about caring for his and the last day of her life. Flash seems to be comfortable talking about his grief and his experience with missing his . I will continue to visit him.
[2019-02-22] MEDS: Normal Saline Flush 10 ML SYR IVP (02:18)
[2019-02-22] MEDS: PIPERACILLIN/TAZO 4.5 GM in Normal Saline 100 ML IVPB (02:18)
[2019-02-22] MEDS: Furosemide 40 MG TAB 80 MG PO (06:23)
[2019-02-22 07:19] LABS: Abs Immature Grans 0.01 k/cumm (0.0-0.09); Absolute Basophil Count 0.02 k/cumm (0.0-0.2); Absolute Eosinophil Count 0.47 k/cumm (0.0-0.7); Absolute Lymphocyte Count 0.48 k/cumm (1.2-3.4); Absolute Monocyte Count 0.25 k/cumm (0.11-0.7); Basophils % 0.7; Eosinophils % 17.2; HGB 14.7 g/dL (13.5-17.5); Immature Grans % 0.4; Lymphocytes % 17.6; Mean Corpuscular Hemoglobin 31.5 pg (27.0-33.0); Mean Corpuscular Volume 89.9 fL (80-95); Mean Platelet Volume 11.7 fL (8.0-11.0); Monocytes % 9.2; Neutrophils % 54.9; RBC 4.67 m/cumm (4.50-6.00); RBC Distribution Width 14.3 % (11.8-14.1); White Blood Cell Count 2.73 k/cumm (4.4-10.8)
[2019-02-22 07:20] LABS: ALT 67 U/L (16-63); AST 168 U/L (15-37); Alkaline Phosphatase 272 U/L (46-116); Anion Gap 7.7 mmol/L (3-11); BUN 12 mg/dL (7-18); CO2 22.3 mmol/L (21.0-32.0); Calcium 7.9 mg/dL (8.5-10.1); Chloride 108 mmol/L (98-107); Glucose 80 mg/dL (74-106); Magnesium 1.8 mg/dL (1.8-2.4); Potassium 3.6 mmol/L (3.5-5.1); Sodium 138 mmol/L (136-145); Total Protein 5.9 g/dL (6.4-8.2)
[2019-02-22 07:31] LABS: Diff Comment RBC Morph Reviewed; Platelet Count 55 x1000/uL (130-400)
[2019-02-22 07:32] LABS: RBC Morphology Normal
[2019-02-22 07:40] VITALS: BP 108/72; PULSE 68; RESP 18; TEMP 36.8; O2SAT 99
[2019-02-22] MEDS: Ipratropium/Albuterol 4 GM 120 PUFF INH IH ×2 (09:18→11:25)
[2019-02-22] MEDS: Spironolactone 50 MG TAB 100 MG PO (09:39)
[2019-02-22] MEDS: Carvedilol 6.25 MG TAB PO (09:39)
[2019-02-22] MEDS: Rifaximin 550 MG TAB PO (09:39)
[2019-02-22] MEDS: Insulin Glargine 300 UNITS/3 ML PEN 30 UNITS SC (09:41)
[2019-02-22] MEDS: Magnesium Oxide 400 MG TAB PO (10:04)
[2019-02-22] MEDS: Potassium Chloride 20 MEQ TABCR 40 MEQ PO (10:04)
[2019-02-22 11:14] LABS: Campylobacter PCR Negative (Negative); Salmonella PCR Negative (Negative); Shiga Toxin PCR Negative (Negative); Shigella/Enteroinvasive Ecoli Negative (Negative)
--- NOTE | 2019-02-22 11:16 | DSE_ITS ---
Date of service: 02/22/19 Time of Service: 11:16 DS: Diagnosis Discharge Diagnosis (1) Fever: Status: Acute (2) Thrombocytopenia: Status: Chronic (3) Diabetes: Status: Chronic (4) HCA (hepatocellular adenoma): Status: Acute (5) DVT prophylaxis: Status: Acute Discharge Plan Disposition Patient Disposition: HOME Condition: Stable Discharge Details Chief Complaint: Fever Reason For Visit: NEUTROPENIC FEVER Admit Date/Time: 02/20/19 17:32 Admit Provider: Bret Ayers Attending Provider: Bret Ayers Primary Care Provider: Shalonda Neil ED Provider: Elizabeth Wilks [place] [facility] Course Hospital Course: Chief Complaint: Fever HPI: 59-year-old man with a prior history of advanced HCCa on chemotherapy, admitted from [facility] Emergency Department on 02/22 with a diagnosis of Fever. Mr. Osorio has a past Medical History significant for advanced Hepatocellular Carcinoma, currently on oral Chemotherapy with Sorafenib - the patient had apparently been treated with Radiofrequency Ablation in the past, and was a transplant candidate until review of his recent MRI from December by [facility] concluded worsening diffuse infiltrative HCCa. He has known Cirrhosis from ORTIZ, with concurrent Portal hypertension, hepatic encephalopathy, Esophageal Varices with bleeding s/p banding in 2017, and Splenomegally. His other history includes DM, BRIANDA on CPAP, HTN, and PHTN with PAPs in the 70's. He was also recently admitted at [facility] (01/15-01/16) with potential SBO which improved with conservative management. Mr. Osorio presented to the ED with onset of fevers on the night prior to his admission, reportedly upwards of 100.8 at home. Following a discussion with his Oncologist's office (Dr. Wesley Martinez) he presented to the ED. Initial evaluation was pertinent for leukopenia without true neutropenia, thrombocytopenia that appeared chronic, mildly elevated Lactate, chronically elevated Bilirubin, worsening AST/ALT values (likely related to recent oral chemo initiation with Sorafenib), and Procalcitonin of 0.3. CXR showed no acute abnormality, and CT a/p showed interval improvement in small bowel dilation, stable cirrhosis, and diffuse bladder wall thickening secondary to either cystitis or bladder outlet obstruction - urinalysis however showed no evidence of WBCs (Leukocyte Esterase & Nitrite interpretation with color interference due to discoloration of urine from likely high levels of bilirubin). There was also note of gallbladder wall thickening and cholelithiasis with pericholecystic fluid, which appears to be a chronic finding and attributed to patient's cirrhosis. He also complained of abdominal cramping and loose stools. He was referred for admission for further evaluation and treatment. This morning Mr. Osorio feels improved, and reports resolution of diarrhea. He has remained afebrile since approximately midnight of 02/21, over 35 hours ago. His lactate has normalized. Labwork shows improved but ongoing leukopenia, with a normal absolute neutrophil count at 1.5. Culture results remain negative. No other events reported overnight. Hospital Course: (1) Fever: Fevers along with low WBC, not neutropenic. According to discussion in the ED with Oncology, patient was initiated on antibiotic therapy with Pip-Iraj and admitted for obervation. Source of fever unclear. - CXR negative for infection. - Influenza checked and negative. - Urinalysis difficult to interpret, but without WBCs, and Urine Cultures negative X48 hours. CT with bladder wall thickening (infectious vs. obstructive). - Complaints of diarrhea - C.Diff negative, but fecal Leukocytes +. Cultures pending, but patient reports resolution of diarrhea. - Blood Cultures with no growth at time of discharge. - Currently appears stable. Discussed with Oncology - initial plan was for discontinuation of antibiotics with monitoring over 24 hours - however, Mr. Osorio is requesting to go home. Will tentatively discharge, with patient to monitor temperature and symptoms closely at home. He will call his Oncology office with any change in status. Also noted - Mr. Osorio has only recently started treatment with Sorafenib - known side effects of Diarrhea (common finding), Neutropenia, elevated LFTs, and Fevers (11), in addition to known increase risk in infection. Symptoms may be medication induced as well. If diarrhea continues may need reduction in dose. (2) Thrombocytopenia: Secondary to known underlying Cirrhosis. Platelet count low but stable. Monitor. (3) Diabetes: Continue basal insulin, and resume Victoza at discharge. (4) HCA (hepatocellular adenoma): Following with oncology. Continue Sorafenib. Home Meds and New Rx's Prescriptions: Continued Xifaxan 550 MG tablet 550 mg PO BID RF: 0 carvedilol 6.25 MG tablet 1 tab PO BID RF: 0 Lantus U-100 Insulin 100 unit/mL Solution 30 unit subcut BID INSULIN RF: 0 spironolactone 100 mg Tablet 100 mg PO DAILY RF: 0 tadalafil 20 mg Tablet 40 mg PO DAILY RF: 0 Combivent Respimat 20-100 mcg/actuation Mist INHALATION RF: 0 furosemide 40 mg Tablet 80 mg PO DAILY AM RF: 0 Victoza 2-Elías 0.6 MG/0.1 ML pen injector 1.2 mg SQ QPM RF: 0 loratadine 10 mg capsule 10 mg PO DAILY Qty: 10 RF: 0 acetaminophen [Acetaminophen Extra Strength] 500 mg Tablet 1,000 mg PO .Q 24H MDD 1000 PRNRF: 0 Nexavar 200 mg Tablet 200 mg PO BID RF: 0 Discharge Instructions Activity:: No strenuous activity Equipment/Supplies:: No Equipment Needed Diet:: Liver diet Discharge Orders Discharge Orders: Discharge Order (Routine); Ordered 02/22/19 Ordered By: Berhane Goldman DS: Summary Status at Discharge Functional status at discharge: independent ambulation Overall status at discharge: patient is back to baseline Mental Status: mental status grossly normal Speech and Movement: speech and movement normal Mood: congruent mood Affect: normal affect Exam Psych Mental Status: mental status grossly normal Speech and Movement: speech and movement normal Mood: congruent mood Affect: normal affect DS: Data Vitals/I&O Vitals and I&O: Vital Signs Temperature 36.8 C 02/22/19 07:40 Temperature Source Tympanic 02/22/19 07:40 Pulse 68 02/22/19 07:40 Pulse Rhythm Regular 02/22/19 02:36 Respiratory Rate 18 02/22/19 07:40 Respiratory Effort Non-Labored 02/22/19 02:36 Respiratory Depth Normal 02/22/19 02:36 Respiratory Pattern Normal 02/22/19 02:36 Blood Pressure 108/72 02/22/19 07:40 Blood Pressure Mean 78 02/20/19 18:24 Blood Pressure Position Supine 02/20/19 13:55 Pulse Oximetry 99 02/22/19 07:40 Oxygen Delivery Method Room Air 02/22/19 07:40 Oxygen Flow Rate 0 02/22/19 07:40 Pain Level 0 02/22/19 07:40 Comment 02/21/19 04:00 Intake & Output 11/26/19 11/26/19 11/27/19 11:59 23:59 11:59 Intake Total 100 / 1320 1220 / 1320 110 / 110 Output Total 200 / 200 300 / 300 Balance -100 / 1120 1220 / 1120 -190 / -190 Weight 103.9 kg 103.8 kg Intake: IV 100 / 360 260 / 360 110 / 110 Oral 960 / 960 Output: Urine 200 / 200 300 / 300 Other: Urine Color Straw Pale Light Chrystal Yellow Urine Appearance Clear Clear Clear Urine Odor Normal None Normal Comment INDEPENDENT VOID. Stool Characteristics Liquid Green Voiding Methods Toilet Toilet Data Completed and Pending Completed studies during hospitalization [Text1]: Exam(s) a RAD:XR chest 2V PA & lateral EXAM: XR CHEST 2V PA AND LATERAL INDICATION: fever, on chemo. COMPARISON: CHEST 2 VIEWS PA,LAT from 05/12/2016 TECHNIQUE: 2D digital imaging was performed. FINDINGS: Heart size is normal. Lungs are suboptimally inflated but appear clear. No infiltrate or effusion is seen. There is no pneumothorax. IMPRESSION: No acute abnormality. Exam(s) a CT:CT abdomen & pelvis w EXAM: CT ABDOMEN PELVIS W CLINICAL HISTORY: fever, abd pain TECHNIQUE: Post IV contrast. 100 cc's of Omnipaque 350 was used. COMPARISON: UPPER ABD WITH CONTRAST (P) from 05/05/2011 HEAD WITHOUT CONTRAST from 07/08/2012 CTA THORAX/ABDOMEN/PELVIS from 09/08/2017 CT ABDOMEN PELVIS W from 01/15/2019 FINDINGS: The visualized portions of the heart are unremarkable. The lung bases are clear. The liver again has a nodular, cirrhotic appearance. There are stable numerous low-density lesions throughout the liver, the largest posteriorly in the right lobe. Marked splenomegaly and varices are unchanged. Cholelithiasis is again noted. There is mild gallbladder wall thickening, likely secondary to cirrhosis. There is no biliary dilatation. The pancreas, kidneys and adrenals are unremarkable. There has been interval resolution of previously noted dilated small bowel. The appendix appears normal. There are diverticula of the sigmoid region but no evidence of diverticulitis. Colon is relatively free of stool. There is diffuse bladder wall thickening. The prostate is slightly enlarged. No free air, free fluid or abscess is seen. There is a right fatty containing inguinal hernia. The aorta is normal in diameter. There is also a stable small fatty containing umbilical hernia. IMPRESSION: 1. Interval improvement in small bowel dilatation. 2. Stable appearance of cirrhotic liver, splenomegaly and cholelithiasis. 3. Diffuse bladder wall thickening which could be secondary to cystitis or bladder outlet obstruction. Labs on day of discharge: Labs from last 24 hours 02/22/19 02/22/19 06:40 06:40 WBC 2.73 L D RBC 4.67 Hgb 14.7 Hct 42.0 MCV 89.9 MCH 31.5 MCHC 35.0 RDW 14.3 H Plt Count 55 L MPV 11.7 H Immature Gran % 0.4 Neutrophils % 54.9 Lymphocytes % 17.6 Monocytes % 9.2 Eosinophils % 17.2 Basophils % 0.7 Absolute Neutrophils 1.50 Absolute Lymphocytes 0.48 L Absolute Monocytes 0.25 Absolute Eosinophils 0.47 Absolute Basophils 0.02 Differential Comment Rbc morph reviewed RBC Morphology Normal Sodium 138 Potassium 3.6 Chloride 108 H Carbon Dioxide 22.3 Anion Gap 7.7 BUN 12 Creatinine 0.80 Estimated GFR/1.73 m2 >= 60.00 Glucose 80 Calcium 7.9 L Magnesium 1.8 Total Bilirubin 3.0 H AST 168 H ALT 67 H Alkaline Phosphatase 272 H Total Protein 5.9 L Albumin 2.0 L Preliminary micro results at discharge 02/20/19 15:47 Blood Culture - Preliminary Blood NO GROWTH 24 HOURS 02/20/19 15:00 Blood Culture - Preliminary Blood NO GROWTH 24 HOURS C Difficile Screen Final 02/21/19-1342 C Difficile Antigen Negative C Difficile Toxin Negative Interpretation Negative for toxigenic Clostridium difficile Lactoferrin Detection Final 02/21/19-11 RESULT POSITIVE Rapid Influenza A & B Final 02/20/19-180 RESULT NEGATIVE FOR FLU A AND B ANTIGENS. Urine Culture Final 02/22/19-0845 Day 1 Result NO GROWTH 24 HOURS Day 2 Result NO GROWTH 48 HOURS [facility] Medical History Cirrhosis of liver (Chronic) Diabetes (Chronic) Esophageal varices (Chronic) Hypertension (Chronic) Pancreatitis (Resolved) Surgical History Hx of circumcision (Acute) S/P hernia repair (Inactive) Social History Smoking/Tobacco Use Status: Current every day Tobacco Type: smokeless tobacco Alcohol Intake: never Drug use: Never Do you feel safe at home: Yes Do you feel safe in your relationship?: Yes
[2019-02-22] MEDS: Insulin Aspart 300 UNITS/3 ML PEN SC (12:11)
--- NOTE | 2019-02-22 15:38 | DIABASSESS_ITS ---
DESCRIPTION/ASSESSMENT: Appreciate diabetes consult for Mr. Osorio who is hospitalized for neutropenia secondary to cancer treatment; is eating well and choosing foods well for diabetes management. A1c is not current. BMI 33 He takes 30u Twice daily and Liraglutide at home, here with basal insulin and sensitive correction. Blood sugars primarily in the 100s with a couple in the 200s later in the day. INTERVENTION: No intervention suggested. As he is being placed in rehab no self management support at this time is warranted. ACTION PLAN: Will await further referral as outpatient as needed.
--- NOTE | 2019-02-22 17:38 | PDOC.CMDIS ---
LACE Index Scoring Tool - Questions: Length of Stay (in days): 2 Acuity (Admit via E.D.?): Yes Comorbidities: Diabetes w/o Complication, Any Tumor, Liver or Renal Disease E.D. Visits: 4 - Answers: Total Score: 14 Risk of Readmission: High Risk Care Management Discharge Reason for Hospitalization: Neutropenic fever. Discharge Plan: Flash will be discharged home when medically cleared by provider. Anticipate no additional services needed at time of discharge. Family member will transport patient home upon discharge. Patient/Family Education Needs: Review discharge instructions, discuss Ask Me Three.
== END 2019-02-22 13:06 | disposition home or self-care (01) ==
LOC: ER 17:58 → MS 18:44
PROVIDERS: Admitting Provider Internal Medicine; Emergency Provider Student in an Organized Health Care Education/Training Program; PCP Internal Medicine; Visit Provider Internal Medicine
DX: R50.9 Fever, unspecified (principal); C22.0 Liver cell carcinoma; K74.69 Other cirrhosis of liver; K75.81 Nonalcoholic steatohepatitis (NASH); Z79.899 Other long term (current) drug therapy; D69.59 Other secondary thrombocytopenia; E11.9 Type 2 diabetes mellitus without complications; Z79.4 Long term (current) use of insulin; I10 Essential (primary) hypertension; G47.33 Obstructive sleep apnea (adult) (pediatric); F17.220 Nicotine dependence, chewing tobacco, uncomplicated; Z71.3 Dietary counseling and surveillance
CPT/HCPCS: 36415; 80053; 84145; 87040; 87449; 87505; 94640; 96361; 96365; 99223; 99233; 99238; 99285; 71046; 74177; 81003; 81015; 83605; 83630; 83735; 83880; 84443; 85025; 85610; 87086; 87324; 99217; 99220; 99284; G0378; J1815; J2543; J3490

== ENCOUNTER 2019-03-02 12:54 | Outpatient (CLI) | payer MEDICARE, SELFPAY ==
[2019-03-02 14:18] LABS: Anion Gap 6.3 mmol/L (3-11); BUN 11 mg/dL (7-18); CO2 30.7 mmol/L (21.0-32.0); CREATININE 0.97 mg/dL (0.70-1.30); Calcium 8.3 mg/dL (8.5-10.1); Chloride 100 mmol/L (98-107); Glucose 251 mg/dL (74-106); Magnesium 1.3 mg/dL (1.8-2.4); Potassium 3.8 mmol/L (3.5-5.1); Sodium 137 mmol/L (136-145)
[2019-03-02 14:33] LABS: Hemoglobin A1C 7.4 % (4.5-6.2)
== END 2019-03-02 13:14 ==
PROVIDERS: PCP Internal Medicine; Visit Provider Internal Medicine
DX: K74.60 Unspecified cirrhosis of liver (principal); E11.9 Type 2 diabetes mellitus without complications; Z79.4 Long term (current) use of insulin
CPT/HCPCS: 36415; 80048; 83036; 83735

== ENCOUNTER 2019-03-24 12:34 | Outpatient (CLI) | payer MEDICARE, SELFPAY ==
[2019-03-24 12:52] LABS: Abs Immature Grans 0.01 k/cumm (0.0-0.09); Absolute Basophil Count 0.02 k/cumm (0.0-0.2); Absolute Eosinophil Count 0.24 k/cumm (0.0-0.7); Absolute Lymphocyte Count 0.39 k/cumm (1.2-3.4); Absolute Monocyte Count 0.17 k/cumm (0.11-0.7); Absolute Neutrophil Count 1.21 k/cumm (1.2-6.7); Eosinophils % 11.8; HCT 39.7 % (40.0-50.0); Immature Grans % 0.5; Lymphocytes % 19.1; Mean Corp. HGB Concentration 35.3 g/dL (32.0-36.0); Mean Corpuscular Hemoglobin 32.9 pg (27.0-33.0); Mean Corpuscular Volume 93.2 fL (80-95); Mean Platelet Volume 10.1 fL (8.0-11.0); Monocytes % 8.3; Neutrophils % 59.3; RBC 4.26 m/cumm (4.50-6.00); RBC Distribution Width 15.2 % (11.8-14.1); White Blood Cell Count 2.04 k/cumm (4.4-10.8)
[2019-03-24 13:04] LABS: Diff Comment PLT Morph Reviewed; Platelet Count 52 x1000/uL (130-400); RBC Morphology Normal
[2019-03-24 13:06] LABS: ALT 98 U/L (16-63); AST 178 U/L (15-37); Alkaline Phosphatase 350 U/L (46-116); Anion Gap 5.9 mmol/L (3-11); BUN 13 mg/dL (7-18); Bilirubin, Total 3.9 mg/dL (0.2-1.0); CO2 28.1 mmol/L (21.0-32.0); Calcium 8.4 mg/dL (8.5-10.1); Chloride 103 mmol/L (98-107); Glucose 215 mg/dL (74-106); Sodium 137 mmol/L (136-145); Total Protein 6.3 g/dL (6.4-8.2)
[2019-03-27 10:38] LABS: AFP Tumor Marker 110.6 ng/mL (<8.1)
== END 2019-03-24 12:54 ==
PROVIDERS: PCP Internal Medicine; Visit Provider Internal Medicine Hematology & Oncology
DX: C22.0 Liver cell carcinoma (principal)
CPT/HCPCS: 36415; 80053; 82105; 85025

== ENCOUNTER 2019-04-01 22:22 | Inpatient (IN) | payer MEDICARE, SELFPAY ==
[2019-04-01 22:17] VITALS: BP 107/55; PULSE 78; RESP 18; TEMP 36.7; O2SAT 97
--- NOTE | 2019-04-01 22:20 | ED.GENADUL_ITS ---
Discharge Plan Disposition Patient Disposition: [facility] INPATIENT Condition: Fair Discharge Details Chief Complaint: Abd Prob Clinical Impression: Abdominal pain, Hepatocellular carcinoma Primary Care Provider: Shalonda Neil ED Provider: Roman Chavez [place] Meds and New Rx's Prescriptions: No Action Xifaxan 550 MG tablet 550 mg PO BID RF: 0 carvedilol 6.25 MG tablet 1 tab PO BID RF: 0 Lantus U-100 Insulin 100 unit/mL Solution 50 unit subcut BID INSULIN RF: 0 spironolactone 100 mg Tablet 100 mg PO DAILY RF: 0 tadalafil 20 mg Tablet 40 mg PO DAILY RF: 0 Combivent Respimat 20-100 mcg/actuation Mist 2 puff INHALATION BID RF: 0 furosemide 40 mg Tablet 80 mg PO DAILY AM RF: 0 Victoza 2-Elías 0.6 MG/0.1 ML pen injector 1.8 mg SQ QPM RF: 0 loratadine 10 mg capsule 10 mg PO DAILY Qty: 10 RF: 0 acetaminophen [Acetaminophen Extra Strength] 500 mg Tablet 1,000 mg PO .Q 24H MDD 1000 PRNRF: 0 Opdivo 240 mg/24 mL Solution 240 mg IV Q2W RF: 0 Medical Decision Making Patient presenting with upper abdominal pain which he reports he has had previously. He is afebrile. His vital signs are normal. His abdomen is benign. He does have palpable liver and spleen but it is nontender. Patient thinks pain is related to discontinuation of his omeprazole. IV established laboratory studies ordered. Reglan, Pepcid and Carafate ordered to see if helps with pain. Medication did not help. Laboratory studies significant for white count of 1.85. ANC is greater than 500. Liver function is all worse than previous. Lipase normal. Magnesium low with history of same. Case discussed with Dr. Reyes, heme-onc at [facility], especially regarding elevated liver function. [place] that this could possibly be related to the new chemo drug but could also just be advancing hepatocellular carcinoma. They could work this up prior to his next dose of chemo and did not feel he needed transfer or admission down there. Patient now actually complaining of generalized abdominal pain. Exam remains benign. He is given [address] of the abdomen pelvis ordered. The CT shows some trace stranding around the gallbladder and pancreas. He has gallstones. They have been present previously. His lipase is normal. He does not have right upper quadrant tenderness or Westfall sign. He also was found to have some dilated loops of small bowel. Likely ileus. Patient did have large soft bowel movement here. Patient does feel better after the morphine but is concerned that his pain will return at discharge. Requesting admission to be sure he is able to tolerate pain and oral intake. He has been able to sip weston michelle here. Case discussed with hospitalist. Patient will be taken as an observation admit for abdominal pain. Medical Records Medical records reviewed: Yes I reviewed the patient's medical records. Lab Data Lab results reviewed: Yes I reviewed the patient's lab results. HPI General Mode of arrival: EMS . Date/Time Provider Initiated Documentation: 04/01/19 22:29 . Limitations to Documentation: no limitations . Information obtained by: patient, RN notes reviewed and old records reviewed . HPI Narrative: Patient presents to ED with upper abdominal pain. Patient has history of hepatocellular carcinoma and received new chemotherapy drug on March 27. Has been doing relatively well subsequently. However, this evening, about 4 hours prior to arrival, he developed upper abdominal pain, nausea and belching. Pain got progressively worse and ultimately EMS was called to bring patient in. He has had no fever. He has had no vomiting. States pain feels similar to what he has had in the past with admissions both here and [facility] with no definite diagnosis. Once he was placed on omeprazole pain seemed to get much better. With the new chemo drug the omeprazole was discontinued. Patient's afraid that may be the discontinuation of the omeprazole as well as having pain again. Related Data Home Medications Medication Instructions Recorded Confirmed Xifaxan 550 mg PO BID 11/03/12 04/02/19 carvedilol 1 tab PO BID 11/07/15 04/02/19 Victoza 2-Elías 1.8 mg SQ QPM 09/08/17 04/02/19 Lantus U-100 Insulin 50 unit SUBCUT BID INSULIN 07/02/18 04/02/19 loratadine 10 mg PO DAILY #10 cap 08/10/18 04/02/19 Combivent Respimat 2 puff INHALATION BID 01/15/19 04/02/19 furosemide 80 mg PO DAILY AM 01/15/19 04/02/19 spironolactone 100 mg PO DAILY 01/15/19 04/02/19 tadalafil 40 mg PO DAILY 01/15/19 04/02/19 acetaminophen [Acetaminophen Extra 1,000 mg PO .Q 24H PRN MDD 1000 02/20/19 04/02/19 Strength] nivolumab [Opdivo] 240 mg IV Q2W 04/01/19 04/02/19 Previous Rx's Medication Instructions Recorded loratadine 10 mg PO DAILY #10 cap 08/10/18 Allergies Allergy/AdvReac Type Severity Reaction Status Date / Time oxycodone AdvReac Unknown Psychosis Unverified 04/01/19 22:28 General KRYSTLE: 3 Review of Systems Narrative: 01/09 Review of Systems completed and is negative except as stated above in HPI (Systems reviewed: Const, Eyes, ENT, Resp, CV, GI, , MSK, Skin, Neuro) PFSH Medical History Cirrhosis of liver (Chronic) Diabetes (Chronic) Esophageal varices (Chronic) Hepatocellular carcinoma (Acute) Hypertension (Chronic) Pancreatitis (Resolved) 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 Normal vitals and room air pulse ox. Const: WDWN male in NAD. HEENT: NC/AT. Normal facial exam. Eyes: Normal conjunctiva, mild icterus noted. Neck: Supple. Trachea midline. Lungs: Normal respiratory effort. Lungs are clear. Cor: RRR without murmur/gallop. Good radial pulses. GI: Soft. NT/ND. No guarding or rebound. There is no right upper quadrant tenderness. There is enlarged liver and spleen. Neuro: A+O x 3. Normal speech, mentation. No gross motor or sensory deficit. Ext: No C/C/E. Skin: Warm and dry without rash.
[2019-04-01] MEDS: Sucralfate 1 GM TAB PO (22:59)
[2019-04-01] MEDS: Metoclopramide 10 MG/2 ML VIAL IVP (23:20)
[2019-04-01] MEDS: FAMOTIDINE 20 MG/50 ML BAG 100 MG IVPB (23:21)
[2019-04-01] MEDS: Normal Saline 1,000 ML 125 ML IV (23:22)
[2019-04-01 23:44] LABS: Absolute Basophil Count 0.01 k/cumm (0.0-0.2); Absolute Eosinophil Count 0.07 k/cumm (0.0-0.7); Absolute Lymphocyte Count 0.18 k/cumm (1.2-3.4); Absolute Monocyte Count 0.14 k/cumm (0.11-0.7); Absolute Neutrophil Count 1.45 k/cumm (1.2-6.7); Basophils % 0.5; Eosinophils % 3.8; HCT 38.8 % (40.0-50.0); HGB 13.6 g/dL (13.5-17.5); Lymphocytes % 9.7; Mean Corp. HGB Concentration 35.1 g/dL (32.0-36.0); Mean Corpuscular Hemoglobin 33.2 pg (27.0-33.0); Mean Corpuscular Volume 94.6 fL (80-95); Mean Platelet Volume 11.2 fL (8.0-11.0); Monocytes % 7.6; Neutrophils % 78.4; RBC Distribution Width 15.6 % (11.8-14.1)
[2019-04-01 23:56] LABS: White Blood Cell Count 1.85 k/cumm (4.4-10.8)
[2019-04-01 23:57] LABS: ALT 127 U/L (16-63); AST 318 U/L (15-37); Albumin 1.9 g/dL (3.4-5.0); Alkaline Phosphatase 320 U/L (46-116); Anion Gap 5.5 mmol/L (3-11); BUN 12 mg/dL (7-18); Bilirubin, Total 4.4 mg/dL (0.2-1.0); CO2 28.5 mmol/L (21.0-32.0); Calcium 7.9 mg/dL (8.5-10.1); Chloride 103 mmol/L (98-107); Glucose 229 mg/dL (74-106); Lipase 211 U/L (73-393); Magnesium 1.5 mg/dL (1.8-2.4); Platelet Count 60 x1000/uL (130-400); Potassium 4.1 mmol/L (3.5-5.1); Sodium 137 mmol/L (136-145); Total Protein 6.1 g/dL (6.4-8.2)
[2019-04-02] VITALS (11 sets, daily range): BP systolic 87–125; BP diastolic 56–80; PULSE 69–94; RESP 16–18; TEMP 36.8–38.3; O2SAT 94–97
[2019-04-02] MEDS: Breeza Beverage 473 ML BTL PO ×2 (01:00→01:01)
[2019-04-02] MEDS: Omnipaque 350 MG/ML 50 ML BTL PO (01:00)
[2019-04-02] MEDS: MORPHine 10 MG/ML VIAL 2 MG IVP ×2 (01:20→04:35)
[2019-04-02] MEDS: Omnipaque 350 MG/ML 100 ML BTL IJ (01:31)
[2019-04-02] MEDS: Normal Saline Flush 10 ML SYR IVP ×4 (01:52→18:42)
--- NOTE | 2019-04-02 01:58 | DI.CT_ITS ---
EXAM: CT ABDOMEN PELVIS W CLINICAL HISTORY: abdominal pain/nausea TECHNIQUE: Post IV, 100 cc's of Omnipaque 350 and oral contrast. COMPARISON: CT ABDOMEN PELVIS W from 02/20/2019 FINDINGS: Contrast is seen in the stomach and proximal small bowel. There is minimal bowel dilatation without d efinite findings of obstruction. The colon is mainly fluid-filled, not abnormally distended. The appe ndix appears normal. Liver again has a cirrhotic appearance. There are several low-density lesions i n the liver which appear unchanged. Stones are noted in the gallbladder. There is mild gallbladder w all thickening which appears unchanged from the previous exam. There is a trace amount of ascites. Th e spleen is markedly enlarged, unchanged. Splenic varices are again noted. There is no evidence of hy dronephrosis or urinary tract calculi. The bladder shows mild diffuse wall thickening. The pancreas a nd adrenals are unremarkable. The lung bases are clear. IMPRESSION: Mildly dilated loops of small bowel without definite obstruction. Cirrhotic appearing liver and spl enomegaly, stable. Cholelithiasis without definite cholecystitis.
--- NOTE | 2019-04-02 02:28 | DI.VRAD_ITS ---
PROCEDURE INFORMATION: Exam: CT Abdomen And Pelvis With Contrast Exam date and time: 04/02/2019 12:56 AM Age: 59 years old Clinical indication: Abdominal pain; Localized; Right upper quadrant (ruq); Patient HX: Hcca with ruq pain now diffuse with nausea TECHNIQUE: Imaging protocol: Computed tomography of the abdomen and pelvis with intravenous contrast. COMPARISON: CT ABDOMEN PELVIS W 02/20/2019 6:35 PM FINDINGS: Liver: Hepatic cirrhosis with hepatic cysts up to 4.8 cm. Multiple low-density foci throughout the liver, too small to characterize. Gallbladder and bile ducts: Cholelithiasis with trace pericholecystic stranding, recommend clinical exclusion of cholecystitis. Pancreas: Trace stranding adjacent to the pancreas and duodenum, nonspecific but could indicate trace element of pancreatitis or duodenal disease. Spleen: Moderate splenomegaly. Adrenals: 2 cm left adrenal gland nodule. Kidneys and ureters: Normal. No hydronephrosis. Stomach and bowel: Nonspecific dilated proximal small bowel loops a couple borderline dilated distal small bowel loops, could indicate focal ileus but with element of obstruction not entirely excluded. Appendix: No evidence of appendicitis. Intraperitoneal space: Trace intraperitoneal free fluid. Vasculature: Varices suggest portal venous hypertension. Lymph nodes: Unremarkable. No enlarged lymph nodes. Bladder: Unremarkable as visualized. Reproductive: Unremarkable as visualized. Bones/joints: Unremarkable. No acute fracture. Soft tissues: Fat containing right inguinal hernia. IMPRESSION: 1. Cholelithiasis with trace pericholecystic stranding, recommend clinical exclusion of cholecystitis. Sonogram can be obtained for further evaluation if clinically warranted. 2. Trace stranding adjacent to the pancreas and duodenum, nonspecific but could indicate trace element of pancreatitis or duodenal disease. 3. Nonspecific dilated proximal small bowel loops a couple borderline dilated distal small bowel loops, could indicate focal ileus but with element of obstruction not entirely excluded. Dictated and Authenticated by: Alek Mcbride MD. Ordering:NATHALY Owens MD
[2019-04-02 02:44] LABS: *AMPHETAMINES SCREEN URINE Negative (Negative); *BARBITURATES SCREEN URINE Negative (Negative); *BENZODIAZEPINES SCREEN URINE Negative (Negative); Cannabinoids THC Negative (Negative); Cocaine Screen,Urine Negative (Negative); METHADONE URINE SCREEN Negative (Negative); OPIATES URINE SCREEN Negative (Negative)
[2019-04-02 02:46] LABS: Tricyclic Antidepressants Negative (Negative)
--- NOTE | 2019-04-02 03:30 | W.PM.HP.N ---
Date of service: 04/02/19 Time of Service: 03:30 Assessment and Plan Assessment and plan (1) Abdominal pain, acute: Status: Resolved Assessment and plan: We will give him a trial of clear liquids, IV fluids, narcotic analgesics, antiemetics. We will plan for an abdominal ultrasound on Wednesday. He was afebrile in the emergency department but after admission to the floor developed a low-grade fever of 38.3 temporal and 38.1 rectal. Because of his leukopenia we will plan on getting blood cultures and empirically cover him with a carbapenem for presumptive cholecystitis. (2) Cholelithiasis: Status: Chronic Assessment and plan: As above. Qualifiers: Biliary obstruction: without biliary obstruction Cholecystitis acuity: unspecified acuity Cholecystitis presence: with cholecystitis Cholelithiasis location: gallbladder Qualified Code(s): K80.10 - Calculus of gallbladder with chronic cholecystitis without obstruction (3) Fever: Status: Acute Assessment and plan: Proceed with acute febrile work-up in a leukopenic cancer patient. Fevers very well may be induced by his liver necrosis or may be secondary to his chemotherapy. Will obtain blood and urine cultures and check a chest x-ray. However if there is infection I suspect that this biliary source given his chronic cholelithiasis and pericholecystic fluid. Qualifiers: Fever type: unspecified Qualified Code(s): R50.9 - Fever, unspecified (4) Hypomagnesemia: Status: Acute Assessment and plan: We will replace with parenteral magnesium and repeat his levels. (5) Cirrhosis of liver: Status: Chronic Assessment and plan: History of cirrhosis secondary to Vaughan. Worsening transaminitis is probably due to progression of his hepatocellular carcinoma. Qualifiers: Hepatic cirrhosis type: other cirrhosis Qualified Code(s): K74.69 - Other cirrhosis of liver (6) Diabetes: Status: Chronic Assessment and plan: We will monitor blood sugars before meals and at bedtime and cover with sliding scale insulin for corrective insulin scale along with carbohydrate coverage. Qualifiers: Diabetes mellitus complication status: without complication Diabetes mellitus nursing home insulin use: with nursing home use Diabetes mellitus type: type 2 Qualified Code(s): E11.9 - Type 2 diabetes mellitus without complications; Z79.4 - [facility] (current) use of insulin (7) Hepatocellular carcinoma: Status: Chronic Assessment and plan: Patient's hepatocellular carcinoma is diffuse and infiltrative and patient is no longer on the liver transplant list after review of his MRI by [facility] earlier this fall. Patient has failed chemotherapy. Patient would benefit from a palliative care consult to discuss end-of-life goals. He is currently a full code. History of Present Illness History of Present Illness Chief Complaint: abdominal pain Narrative: 59-year-old male with a history of advanced diffuse infiltrative hepatocellular carcinoma which is been failing to respond to chemotherapy. He also has a history of chronic cholelithiasis, cirrhosis from [place], portal hypertension, hepatic encephalopathy, esophageal varices with bleeding status post banding in 2017, splenomegaly, diabetes mellitus type 2 requiring insulin, BRIANDA on CPAP, central hypertension, pulmonary hypertension and prior small bowel obstruction requiring hospitalization at [facility] January 18 January 16, 2019 and a more recent hospitalization at [facility] from February 20, 2018 through February 22, 2019 because of leukopenic fever. Previous work-up and treatment for his leukopenic fever showed no infectious source. He had been empirically treated with Zosyn for couple of days. Blood cultures and urine cultures came back negative. Despite his diarrhea his C. difficile study was negative. He now presents emergency department with complaints of upper abdominal pain that began a few hours prior to arrival to the emergency department. This is associated with nausea and belching but no vomiting. He has been passing flatus and has had 2 very loose bowel movements. He denies any fever or rigors or chills. Patient was seen in the emergency department by Dr. Roman Chavez and clinical work-up included a CBC that again shows leukopenia with an absolute white cell count of 1850. With an ANC of 1450. He has a chronic thrombocytopenia 60,000 and no anemia. Chemistry panel showed normal renal function with a BUN of 12 creatinine 1.0. Glucose was elevated to 129 with a normal anion gap of 5.5. Electrolytes demonstrate a low magnesium of 1.5. LFTs demonstrate elevated transaminase with an AST of 318, ALT 127, alkaline phosphatase 320 with a total bilirubin of 4.4. Lipase is normal at 211. These are comparable although slightly elevated compared to his last lab values on March 24, 2019. Imaging included a CT scan with oral contrast which again demonstrates cholelithiasis with a trace of pericholecystic stranding as well as a trace of stranding adjacent to the pancreas and duodenum and nonspecific dilated small bowel loops. Patient's omeprazole was recently discontinued by his oncologist because of recent change in his chemotherapy to include Opdivo. Patient was treated for symptoms in the emergency department with with Reglan, Pepcid, and Carafate. As these medications did not help he was given some IV morphine which did help with his pain. Dr. Chavez discussed the case with Dr. Reyes, wash house worker/oncologist at [facility] regarding the rising LFTs. Dr. Reyes felt that they could possibly be related to his new chemotherapy drug or could just be due to advancing hepatocellular carcinoma but did not feel that the patient needed transfer to [facility]. Dr. Chavez felt that the patient may be developing an ileus or may have a viral gastroenteritis. Because the patient did have a couple of large soft bowel movements in the emergency department it was felt that he did not have a small bowel obstruction. He also did not have a Westfall sign or significant right upper quadrant tenderness and was not felt to have acute cholecystitis despite the pericholecystic fluid and cholelithiasis. Of note he has had this chronic pericholecystic fluid and cholelithiasis on previous admissions. Patient was admitted under observation for pain control and to observe for any evolving acute abdominal process. Review of Systems Constitutional Constitutional: Reports as per HPI ENT Ears, Nose, Mouth, and Throat: Reports system reviewed and no additional complaints, except as docu Cardiovascular Cardiovascular: Reports system reviewed and no additional complaints, except as docu Respiratory Respiratory: Reports system reviewed and no additional complaints, except as docu Gastrointestinal Gastrointestinal: Reports abdominal pain, Reports belching, Reports loose stools, Reports nausea and Denies vomiting Genitourinary Genitourinary: Reports system reviewed and no additional complaints, except as docu Musculoskeletal Musculoskeletal: Reports system reviewed and no additional complaints, except as docu Integumentary/Breasts Skin/Breast: Reports system reviewed and no additional complaints, except as docu Neurologic Neurologic: Reports system reviewed and no additional complaints, except as docu Endocrine Endocrine: Reports system reviewed and no additional complaints, except as docu Hematologic/Lymphatic Hematologic/Lymphatic: Reports system reviewed and no additional complaints, except as docu Allergic/Immunologic Allergic/Immunologic: Reports system reviewed and no additional complaints, except as docu [facility] Medical History (Updated 04/06/19 @ 13:37 by Charlotte Hugo MD) Cholelithiasis (Chronic) Cirrhosis of liver (Chronic) Diabetes (Chronic) Esophageal varices (Chronic) Hepatocellular carcinoma (Chronic) Hypertension (Chronic) Pancreatitis (Resolved) 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) Surgical History Hx of circumcision (Acute) S/P hernia repair (Inactive) Social History Smoking/Tobacco Use Status: Never Alcohol Intake: never Drug use: Never Substance use type: does not use Do you feel safe at home: Yes Do you feel safe in your relationship?: Yes Meds Home Medications and Allergies Home Medications Medication Instructions Recorded Confirmed Type Xifaxan 550 mg PO BID 11/03/12 04/02/19 History carvedilol 1 tab PO BID 11/07/15 04/02/19 History Victoza 2-Elías 1.8 mg SQ DAILY 09/08/17 04/05/19 History Lantus U-100 Insulin 30 unit SUBCUT BID INSULIN 07/02/18 04/05/19 History furosemide 80 mg PO DAILY AM 01/15/19 04/02/19 History spironolactone 100 mg PO QPM 01/15/19 04/05/19 History tadalafil 40 mg PO DAILY 01/15/19 04/02/19 History acetaminophen [Acetaminophen Extra 1,000 mg PO .Q 24H PRN MDD 1000 02/20/19 04/05/19 History Strength] Opdivo 240 mg IV Q2W 04/01/19 04/02/19 History omeprazole 40 mg PO DAILY #30 cap 04/06/19 Rx prednisone 10 mg PO DAILY #3 tab 04/06/19 Rx Allergies Allergy/AdvReac Type Severity Reaction Status Date / Time oxycodone AdvReac Unknown Psychosis Unverified 04/01/19 22:28 Exam Narrative Exam Narrative: Middle-aged obese male lying in the ER bed in supine position. He is alert and oriented person place time circumstance. HEENT is unremarkable. Specifically TMs are normal, oropharynx without exudate or erythema, nares moist and without epistaxis. Neck is supple without JVD or lymphadenopathy. Normal carotid pulses. No thyromegaly. Lungs are clear to auscultation Heart is regular rate and rhythm without murmur rub or gallop Abdomen is obese with active bowel sounds in all 4 quadrants. There is some mild epigastric tenderness and right upper quadrant tenderness without guarding or rebound tenderness. Patient has palpable hepatosplenomegaly. No bruits. Negative Westfall sign. Lower extremities without peripheral cyanosis or edema or calf tenderness. Normal pedal pulses. Neurologic exam is grossly intact without focal motor or sensory deficits. Results Imaging Abdomen CT scan report/results: report reviewed Labs Result diagrams: 04/06/19 06:15 04/06/19 06:15 Labs: Laboratory Results - last 24 hr 04/01/19 04/01/19 04/02/19 23:40 23:40 02:21 WBC 1.85 L* RBC 4.10 L Hgb 13.6 Hct 38.8 L MCV 94.6 MCH 33.2 H MCHC 35.1 RDW 15.6 H Plt Count 60 L MPV 11.2 H Immature Gran % 0.0 Neutrophils % 78.4 Lymphocytes % 9.7 Monocytes % 7.6 Eosinophils % 3.8 Basophils % 0.5 Absolute Neutrophils 1.45 Absolute Lymphocytes 0.18 L Absolute Monocytes 0.14 Absolute Eosinophils 0.07 Absolute Basophils 0.01 Sodium 137 Potassium 4.1 Chloride 103 Carbon Dioxide 28.5 Anion Gap 5.5 BUN 12 Creatinine 1.00 Estimated GFR/1.73 m2 >= 60.00 Glucose 229 H Calcium 7.9 L Magnesium 1.5 L Total Bilirubin 4.4 H AST 318 H ALT 127 H Alkaline Phosphatase 320 H Total Protein 6.1 L Albumin 1.9 L Lipase 211 Urine Opiates Screen Negative Urine Methadone Screen Negative Ur Barbiturates Screen Negative Ur Tricyclics Screen Negative Ur Amphetamines Screen Negative U Benzodiazepines Scrn Negative Urine Cocaine Screen Negative Ur THC Screen Negative Last Vital Signs Temp 36.7 C 04/01/19 22:17 Pulse 91 H 04/02/19 01:20 Resp 18 04/02/19 01:20 BP 117/68 04/02/19 01:20 Pulse Ox 96 04/02/19 01:20
[2019-04-02] MEDS: Pantoprazole 40 MG VIAL IVP (06:12)
[2019-04-02] MEDS: Normal Saline Flush 10 ML SYR ×4 (06:12→16:12)
[2019-04-02] MEDS: MAGNESIUM SULFATE 4 GM/100 ML BAG IVPB (06:13)
[2019-04-02 07:44] LABS: Abs Immature Grans 0.01 k/cumm (0.0-0.09); Absolute Basophil Count 0.01 k/cumm (0.0-0.2); Absolute Eosinophil Count 0.06 k/cumm (0.0-0.7); Absolute Lymphocyte Count 0.17 k/cumm (1.2-3.4); Absolute Monocyte Count 0.19 k/cumm (0.11-0.7); Absolute Neutrophil Count 1.12 k/cumm (1.2-6.7); Basophils % 0.6; Eosinophils % 3.8; HCT 36.9 % (40.0-50.0); HGB 12.9 g/dL (13.5-17.5); Immature Grans % 0.6 %; Lymphocytes % 10.9; Mean Corpuscular Hemoglobin 33.3 pg (27.0-33.0); Mean Corpuscular Volume 95.3 fL (80-95); Mean Platelet Volume 10.7 fL (8.0-11.0); Monocytes % 12.2; Neutrophils % 71.9; RBC 3.87 m/cumm (4.50-6.00); RBC Distribution Width 15.6 % (11.8-14.1)
[2019-04-02 08:00] LABS: ALT 123 U/L (16-63); AST 329 U/L (15-37); Albumin 1.6 g/dL (3.4-5.0); Alkaline Phosphatase 277 U/L (46-116); Anion Gap 9.5 mmol/L (3-11); BUN 9 mg/dL (7-18); Bilirubin, Total 3.9 mg/dL (0.2-1.0); CO2 23.5 mmol/L (21.0-32.0); CREATININE 0.79 mg/dL (0.70-1.30); Calcium 7.4 mg/dL (8.5-10.1); Chloride 102 mmol/L (98-107); Glucose 166 mg/dL (74-106); Magnesium 1.9 mg/dL (1.8-2.4); Potassium 3.3 mmol/L (3.5-5.1); Sodium 135 mmol/L (136-145); Total Protein 5.6 g/dL (6.4-8.2)
[2019-04-02 08:02] LABS: Platelet Count 54 x1000/uL (130-400); White Blood Cell Count 1.56 k/cumm (4.4-10.8)
[2019-04-02 08:03] LABS: Anisocytosis 1+; Diff Comment Diff Reviewed; Poikilocytes 1+
[2019-04-02 08:07] LABS: Procalcitonin 0.3 ng/mL
[2019-04-02] MEDS: MEROPENEM 1 GM in Normal Saline 100 ML IVPB ×2 (08:18→17:12)
--- NOTE | 2019-04-02 09:45 | DI.US_ITS ---
EXAM: US ABDOMEN LIMITED CLINICAL HISTORY: FEVER, GALL STONES, HCC, abd. pain TECHNIQUE: Ultrasound performed using standard protocol. COMPARISON: CT ABDOMEN PELVIS W from 04/02/2019 FINDINGS: A cirrhotic appearing liver is again noted. There are stones in the gallbladder. There is mild gall bladder wall thickening. No sonographic Westfall's sign was present. There is no biliary dilatation. Portal vein was not well seen. The tail of the pancreas was also not visualized. The right kidney i s unremarkable. There is a trace amount of fluid at the border of the liver. IMPRESSION: Heterogeneous cirrhotic appearing liver. Cholelithiasis. No definite evidence of acute cholecystitis.
[2019-04-02 09:47] LABS: Bilirubin Small (Negative); Blood Trace-lysed (Negative); Clarity Clear (Clear); Glucose Negative (Negative); Ketones Negative (Negative); Leukocyte Esterase Negative (Negative); Nitrite Negative (Negative); Urobilinogen 0.2 EU/dL (Up TO 0.2)
[2019-04-02 09:56] LABS: Bacteria Rare HPF (Negative); Casts Negative LPF (Negative); Crystals Negative HPF (Negative); Epithelial Cells Few HPF (Negative); Mucus Trace (Negative); RBC Negative HPF (0-2); WBC 0-2 HPF (0-5)
--- NOTE | 2019-04-02 09:56 | DI.RAD_ITS ---
EXAM: XR CHEST 2V PA LATERAL INDICATION: leukopenic fevers. COMPARISON: XR CHEST 2V PA LATERAL from 02/20/2019 TECHNIQUE: 2D digital imaging was performed. FINDINGS: Heart size is normal. The lungs are clear. There are old left rib fractures. Degenerative changes are seen in the spine. IMPRESSION: No acute abnormality.
[2019-04-02 09:57] LABS: C & S Indicated? C&S Done As Ordered
--- NOTE | 2019-04-02 10:29 | DI.VRAD_ITS ---
PROCEDURE INFORMATION: Exam: XR Chest, 2 Views Exam date and time: 04/02/2019 9:57 AM Age: 59 years old Clinical indication: Fever TECHNIQUE: Imaging protocol: XR of the chest Views: 2 views. COMPARISON: CTA THORAX/ABDOMEN/PELVIS 09/08/2017 1:31 PM FINDINGS: Lungs: Patchy opacities in both bases may represent atelectasis or pneumonia. Pleural space: Unremarkable. No pleural effusion. No pneumothorax. Heart/Mediastinum: Unremarkable. No cardiomegaly. Bones/joints: Degenerative changes in the thoracic spine IMPRESSION: Patchy opacities in both bases may represent atelectasis or pneumonia. Dictated and Authenticated by: Jeff Girard MD. Ordering:[facility] Andria Queen MD
--- NOTE | 2019-04-02 10:32 | DI.VRAD_ITS ---
Addendum created by Jeff Girard MD on 04/02/2019 10:38:58 AM EST THIS REPORT CONTAINS FINDINGS THAT MAY BE CRITICAL TO PATIENT CARE. The findings were verbally communicated via telephone conference with Dr. Hugo at 10:37 AM EST on 04/02/2019. The findings were acknowledged and understood. Initial report created on 04/02/2019 10:31:54 AM EST PROCEDURE INFORMATION: Exam: US Abdomen Limited, Right Upper Quadrant Exam date and time: 04/02/2019 9:56 AM Age: 59 years old Clinical indication: Abdominal pain; Localized; Right upper quadrant (ruq) TECHNIQUE: Imaging protocol: Real-time ultrasound of the abdomen with image documentation. Examination was focused on the right upper quadrant. COMPARISON: CT ABDOMEN PELVIS W 04/02/2019 1:58 AM FINDINGS: Liver: Lobulated liver consistent with cirrhosis. Heterogeneous echotexture of the liver consistent with patient's history of hepatocellular carcinoma. The hepatic masses seen on CT are not well delineated on the ultrasound. Liver measures 17.3 cm Gallbladder: Gallstones in the gallbladder. Gallbladder wall measures 8.7 mm.. There is pericholecystic fluid Findings may reflect acute cholecystitis. Common bile duct: Common bile duct 4.5 mm Pancreas: The pancreas is poorly-visualized due to overlying bowel gas. Right kidney: Right kidney 11.2 cm. No hydronephrosis. IMPRESSION: 1. Lobulated liver consistent with cirrhosis. Heterogeneous echotexture of the liver consistent with patient's history of hepatocellular carcinoma. The hepatic masses seen on CT are not well delineated on the ultrasound. 2. Gallstones in the gallbladder. Gallbladder wall measures 8.7 mm.. There is pericholecystic fluid Findings may reflect acute cholecystitis. Dictated and Authenticated by: Jeff Girard MD. Ordering:[facility] Andria Queen MD
[2019-04-02] MEDS: Carvedilol 6.25 MG TAB PO ×2 (10:57→20:18)
[2019-04-02] MEDS: Sucralfate 1 GM TAB PO ×3 (10:57→22:35)
[2019-04-02] MEDS: Rifaximin 550 MG TAB PO ×2 (10:57→20:18)
[2019-04-02 11:44] LABS: INR 1.2 (0.9-1.1); PTT Activated 29.5 sec (21.0-31.4); Prothrombin Time 12.3 sec (9.3-11.0)
[2019-04-02] MEDS: FAMOTIDINE 20 MG/50 ML BAG 200 MG IVPB (12:52)
--- NOTE | 2019-04-02 13:04 | PGE_ITS ---
Date of Service Date of service: 04/02/19 Time of Service: 13:04 Subjective Subjective Interval history since last seen: Mr Devon states that his RUQ pain is better. Denies dizziness, chest pain, shortness of breath, nausea. He just does not feel well generally. Labs and imaging reviewed. I spoke with Dr Alston of [facility] this morning, who felt that the images represented acute cholecystitis. Discussed case with Dr Carreon, who felt that the patient would be too high of a surgical risk for our facility based on his many comorbidities including but not limited to thrombocytopenia, HCC, varices, lack of platelets at our facility. Images were sent to [facility], and case discussed with general surgery there. Per Dr Mariano, the patient does not definitively have acute cholecystitis based on information provided, though he could be - his gallbladder wall edema/pericholecystic fluid could be due to his malignancy/immunotherapy. He recommended obtaining a HIDA scan and observing. If HIDA scan is inconclusive, a percutanous cholecystostomy tube would be considered. Additionally, there are no beds at [facility] at this time, and the patient is refusing [facility]. Will continue meropenem. I will make him NPO after midnight; permit clear liquids tonight. Per Dr Carreon, should the patient get sicker, we would not be able to take care of him here. Objective Objective Clinical Data: Abnormal lab results 04/01/19 04/01/19 04/02/19 Range/Units 23:40 23:40 06:55 WBC 1.85 L* (4.4-10.8) k/cumm RBC 4.10 L (4.50-6.00) m/cumm Hgb (13.5-17.5) g/dL Hct 38.8 L (40.0-50.0) % MCV (80-95) fL MCH 33.2 H (27.0-33.0) pg RDW 15.6 H (11.8-14.1) % Plt Count 60 L (130-400) x1000/uL MPV 11.2 H (8.0-11.0) fL Absolute Neutrophils (1.2-6.7) k/cumm Absolute Lymphocytes 0.18 L (1.2-3.4) k/cumm PT (9.3-11.0) sec INR (0.9-1.1) Sodium 135 L (136-145) mmol/L Potassium 3.3 L (3.5-5.1) mmol/L Glucose 229 H 166 H (74-106) mg/dL Calcium 7.9 L 7.4 L (8.5-10.1) mg/dL Magnesium 1.5 L (1.8-2.4) mg/dL Total Bilirubin 4.4 H 3.9 H (0.2-1.0) mg/dL AST 318 H 329 H (15-37) U/L ALT 127 H 123 H (16-63) U/L Alkaline Phosphatase 320 H 277 H (46-116) U/L Total Protein 6.1 L 5.6 L (6.4-8.2) g/dL Albumin 1.9 L 1.6 L (3.4-5.0) g/dL Urine Blood (Negative) Urine Bilirubin (Negative) 04/02/19 04/02/19 04/02/19 Range/Units 06:55 08:30 11:20 WBC 1.56 L* (4.4-10.8) k/cumm RBC 3.87 L (4.50-6.00) m/cumm Hgb 12.9 L (13.5-17.5) g/dL Hct 36.9 L (40.0-50.0) % MCV 95.3 H (80-95) fL MCH 33.3 H (27.0-33.0) pg RDW 15.6 H (11.8-14.1) % Plt Count 54 L (130-400) x1000/uL MPV (8.0-11.0) fL Absolute Neutrophils 1.12 L (1.2-6.7) k/cumm Absolute Lymphocytes 0.17 L (1.2-3.4) k/cumm PT 12.3 H (9.3-11.0) sec INR 1.2 H (0.9-1.1) Sodium (136-145) mmol/L Potassium (3.5-5.1) mmol/L Glucose (74-106) mg/dL Calcium (8.5-10.1) mg/dL Magnesium (1.8-2.4) mg/dL Total Bilirubin (0.2-1.0) mg/dL AST (15-37) U/L ALT (16-63) U/L Alkaline Phosphatase (46-116) U/L Total Protein (6.4-8.2) g/dL Albumin (3.4-5.0) g/dL Urine Blood Trace-lysed H (Negative) Urine Bilirubin Small H (Negative) Vital Signs Temperature 37.8 C H 04/02/19 11:03 Temperature Source Tympanic 04/02/19 11:03 Pulse 89 04/02/19 11:03 Pulse Rhythm Regular 04/02/19 09:17 Respiratory Rate 18 04/02/19 11:03 Respiratory Effort Non-Labored 04/02/19 09:17 Respiratory Depth Normal 04/02/19 09:17 Respiratory Pattern Normal 04/02/19 09:17 Blood Pressure 120/80 04/02/19 11:03 Blood Pressure Position Supine 04/01/19 22:17 Pulse Oximetry 95 04/02/19 11:03 Oxygen Delivery Method Room Air 04/02/19 11:03 Oxygen Flow Rate 0 04/02/19 11:03 Pain Level 0 04/02/19 11:03 Comment 04/02/19 08:00 Intake & Output 04/01/19 04/02/19 04/02/19 23:59 11:59 23:59 Intake Total 1050 / 1150 100 / 1150 Output Total 300 / 300 Balance 750 / 850 100 / 850 Weight 104.326 kg 104.326 kg Intake: IV 1050 / 1150 100 / 1150 Output: Urine 300 / 300 Other: Urine Color Light Chrystal Urine Appearance Clear Urine Odor None Voiding Methods Toilet Laboratory Results WBC 1.56 k/cumm (4.4-10.8) L* 04/02/19 06:55 RBC 3.87 m/cumm (4.50-6.00) L 04/02/19 06:55 Hgb 12.9 g/dL (13.5-17.5) L 04/02/19 06:55 Hct 36.9 % (40.0-50.0) L 04/02/19 06:55 MCV 95.3 fL (80-95) H 04/02/19 06:55 MCH 33.3 pg (27.0-33.0) H 04/02/19 06:55 MCHC 35.0 g/dL (32.0-36.0) 04/02/19 06:55 RDW 15.6 % (11.8-14.1) H 04/02/19 06:55 Plt Count 54 x1000/uL (130-400) L 04/02/19 06:55 MPV 10.7 fL (8.0-11.0) 04/02/19 06:55 Immature Gran % 0.6 % 04/02/19 06:55 Neutrophils % 71.9 04/02/19 06:55 Lymphocytes % 10.9 04/02/19 06:55 Monocytes % 12.2 04/02/19 06:55 Eosinophils % 3.8 04/02/19 06:55 Basophils % 0.6 04/02/19 06:55 Absolute Neutrophils 1.12 k/cumm (1.2-6.7) L 04/02/19 06:55 Absolute Lymphocytes 0.17 k/cumm (1.2-3.4) L 04/02/19 06:55 Absolute Monocytes 0.19 k/cumm (0.11-0.7) 04/02/19 06:55 Absolute Eosinophils 0.06 k/cumm (0.0-0.7) 04/02/19 06:55 Absolute Basophils 0.01 k/cumm (0.0-0.2) 04/02/19 06:55 Differential Comment Diff reviewed 04/02/19 06:55 RBC Morphology See below 04/02/19 06:55 Poikilocytosis 1+ 04/02/19 06:55 Anisocytosis 1+ 04/02/19 06:55 PT 12.3 sec (9.3-11.0) H 04/02/19 11:20 INR 1.2 (0.9-1.1) H 04/02/19 11:20 APTT 29.5 sec (21.0-31.4) 04/02/19 11:20 Sodium 135 mmol/L (136-145) L 04/02/19 06:55 Potassium 3.3 mmol/L (3.5-5.1) L 04/02/19 06:55 Chloride 102 mmol/L (98-107) 04/02/19 06:55 Carbon Dioxide 23.5 mmol/L (21.0-32.0) 04/02/19 06:55 Anion Gap 9.5 mmol/L (3-11) 04/02/19 06:55 BUN 9 mg/dL (7-18) 04/02/19 06:55 Creatinine 0.79 mg/dL (0.70-1.30) 04/02/19 06:55 Estimated GFR/1.73 m2 >= 60.00 (mL/min/1.73m2) 04/02/19 06:55 Glucose 166 mg/dL (74-106) H 04/02/19 06:55 Calcium 7.4 mg/dL (8.5-10.1) L 04/02/19 06:55 Magnesium 1.9 mg/dL (1.8-2.4) 04/02/19 06:55 Total Bilirubin 3.9 mg/dL (0.2-1.0) H 04/02/19 06:55 AST 329 U/L (15-37) H 04/02/19 06:55 ALT 123 U/L (16-63) H 04/02/19 06:55 Alkaline Phosphatase 277 U/L (46-116) H 04/02/19 06:55 Total Protein 5.6 g/dL (6.4-8.2) L 04/02/19 06:55 Albumin 1.6 g/dL (3.4-5.0) L 04/02/19 06:55 Lipase 211 U/L (73-393) 04/01/19 23:40 Procalcitonin 0.3 ng/mL 04/02/19 06:55 Urine Color [place] (Yellow) 04/02/19 08:30 Urine Clarity Clear (Clear) 04/02/19 08:30 Urine pH 5.0 (5-8) 04/02/19 08:30 Ur Specific [place] 1.020 (1.005-1.025) 04/02/19 08:30 Urine Protein Negative mg/dL (Negative) 04/02/19 08:30 Urine Ketones Negative mg/dL (Negative) 04/02/19 08:30 Urine Blood Trace-lysed (Negative) H 04/02/19 08:30 Urine Nitrite Negative (Negative) 04/02/19 08:30 Urine Bilirubin Small (Negative) H 04/02/19 08:30 Urine Urobilinogen 0.2 EU/dL (Up TO 0.2) 04/02/19 08:30 Ur Leukocyte Esterase Negative (Negative) 04/02/19 08:30 Urine RBC Negative HPF (0-2) 04/02/19 08:30 Urine WBC 0-2 HPF (0-5) 04/02/19 08:30 Ur Epithelial Cells Few HPF (Negative) 04/02/19 08:30 Urine Crystals Negative HPF (Negative) 04/02/19 08:30 Urine Bacteria Rare HPF (Negative) 04/02/19 08:30 Urine Casts Negative LPF (Negative) 04/02/19 08:30 Urine Mucus Trace (Negative) 04/02/19 08:30 Ur Culture Indicated? C&s done as ordered 04/02/19 08:30 Urine Glucose Negative mg/dL (Negative) 04/02/19 08:30 Urine Opiates Screen Negative (Negative) 04/02/19 02:21 Urine Methadone Screen Negative (Negative) 04/02/19 02:21 Ur Barbiturates Screen Negative (Negative) 04/02/19 02:21 Ur Tricyclics Screen Negative (Negative) 04/02/19 02:21 Ur Amphetamines Screen Negative (Negative) 04/02/19 02:21 U Benzodiazepines Scrn Negative (Negative) 04/02/19 02:21 Urine Cocaine Screen Negative (Negative) 04/02/19 02:21 Ur THC Screen Negative (Negative) 04/02/19 02:21
[2019-04-02] MEDS: POTASSIUM CHLORIDE 20 MEQ/100 ML BAG 50 MEQ IVPB (13:33)
[2019-04-02] MEDS: Insulin Aspart 300 UNITS/3 ML PEN SC ×2 (17:13)
[2019-04-02] MEDS: Patient's Own Medication 1 EACH MISC 1.8 EACH SC (22:05)
[2019-04-02] MEDS: Acetaminophen 325 MG TAB PO (22:35)
[2019-04-03] MEDS: FAMOTIDINE 20 MG/50 ML BAG 200 MG IVPB ×2 (00:46→12:17)
[2019-04-03] MEDS: MEROPENEM 1 GM in Normal Saline 100 ML IVPB ×3 (00:46→15:46)
[2019-04-03] MEDS: Normal Saline Flush 10 ML SYR IVP ×5 (00:47→20:53)
[2019-04-03] MEDS: Mylanta Suspension 30 ML CUP PO ×4 (02:07→22:03)
[2019-04-03] MEDS: Pantoprazole 40 MG VIAL IVP (02:44)
[2019-04-03 07:35] VITALS: BP 103/70; PULSE 78; RESP 18; TEMP 36.6; O2SAT 94
[2019-04-03] MEDS: Carvedilol 6.25 MG TAB PO ×2 (09:13→20:29)
[2019-04-03] MEDS: Sucralfate 1 GM TAB PO ×4 (09:13→22:03)
[2019-04-03] MEDS: Rifaximin 550 MG TAB PO ×2 (09:13→20:29)
[2019-04-03 10:41] LABS: Abs Immature Grans 0.01 k/cumm (0.0-0.09); Absolute Basophil Count 0.01 k/cumm (0.0-0.2); Absolute Eosinophil Count 0.07 k/cumm (0.0-0.7); Absolute Lymphocyte Count 0.23 k/cumm (1.2-3.4); Absolute Monocyte Count 0.16 k/cumm (0.11-0.7); Absolute Neutrophil Count 0.61 k/cumm (1.2-6.7); Basophils % 0.9; Eosinophils % 6.4; HCT 39.7 % (40.0-50.0); HGB 13.8 g/dL (13.5-17.5); Immature Grans % 0.9 %; Lymphocytes % 21.1; Mean Corp. HGB Concentration 34.8 g/dL (32.0-36.0); Mean Corpuscular Hemoglobin 33.1 pg (27.0-33.0); Mean Corpuscular Volume 95.2 fL (80-95); Mean Platelet Volume 11.3 fL (8.0-11.0); Monocytes % 14.7; RBC 4.17 m/cumm (4.50-6.00); RBC Distribution Width 15.4 % (11.8-14.1)
--- NOTE | 2019-04-03 10:50 | PDOC.CMIN ---
- If Service Date Differs Date of service: 04/03/19 Time of Service: 10:50 Care Management Initial Assess REASON FOR HOSPITALIZATION:: Abdominal pain PAST MEDICAL HISTORY/PAST SURGICAL HISTORY:: Medical History: Cirrhosis of liver (Chronic). Diabetes (Chronic). Esophageal varices (Chronic). Hepatocellular carcinoma (Acute). Hypertension (Chronic). Pancreatitis (Resolved). 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 Surgical History : Hx of circumcision (Acute). S/P hernia repair (Inactive) PREVIOUS FUNCTIONAL STATUS/SOCIAL/FAMILY SUPPORTS:: Flash resides in a farmhouse in [place]. He is . After the of his , a cousin and her two young sons moved into the home with him. He has three daughters, one whom lives locally. Flash states his oldest daughter is a nurse at [employer] and he stays with her when he goes to [facility] for appointments. He reports that all three of his children are supportive. Flash states he cooks, cleans, drives, and is independent in his ADLs. CURRENT FUNCTIONAL STATUS:: Flash was lying in bed when CM met with him. He stated that he is in a lot of pain and that he is unable to receive morphine because he is to have a HIDA scan tomorrow. He also stated that he was told he could go to [facility] for an alternative procedure if he is unable to tolerate the pain and needs the morphine. He is unsure at this point what he will do. ADVANCE DIRECTIVES:: Has none and is not interested at this time. I'm not ready for that yet. Has patient been provided with information about the portal?: Yes Did the patient sign up for the portal?: No (no computer access) CODE STATUS:: Full Code INSURANCE COVERAGE / FINANCIAL ISSUES:: Medicare CURRENT HOME/COMMUNITY SERVICES/EQUIPMENT:: none currently PRIMARY CARE PHYSICIAN:: Shalonda Neil MD POTENTIAL DISCHARGE NEEDS:: follow up with PCP and [facility] team and discharge plan of care PATIENT/FAMILY EDUCATION NEEDS:: Discharge and follow up plans, limitations, Ask Me Three TRANSPORTATION:: via private vehicle with family when ready PLAN:: Flash will likely return home with no new services if he does not require any invasive procedures. He will follow up with his PCP and provisders at [facility]. CM will continue to provide support to patient, family and discharge planning considerations.
[2019-04-03 10:53] LABS: ALT 122 U/L (16-63); AST 336 U/L (15-37); Albumin 1.7 g/dL (3.4-5.0); Alkaline Phosphatase 227 U/L (46-116); Anion Gap 7.2 mmol/L (3-11); BUN 10 mg/dL (7-18); Bilirubin, Direct 2.59 mg/dL (0.00-0.20); Bilirubin, Total 4.1 mg/dL (0.2-1.0); C-Reactive Protein 2.59 mg/dL (0.0-0.3); CO2 24.8 mmol/L (21.0-32.0); CREATININE 1.07 mg/dL (0.70-1.30); Calcium 7.8 mg/dL (8.5-10.1); Chloride 103 mmol/L (98-107); Glucose 155 mg/dL (74-106); Magnesium 1.6 mg/dL (1.8-2.4); Sodium 135 mmol/L (136-145); Total Protein 5.7 g/dL (6.4-8.2)
[2019-04-03 11:18] LABS: White Blood Cell Count 1.09 k/cumm (4.4-10.8)
[2019-04-03 11:19] LABS: Platelet Count 48 x1000/uL (130-400)
[2019-04-03 11:20] LABS: Ammonia < 10 umol/L (11-32); Anisocytosis 1+; Diff Comment Agrees w/ Instrument; Polychromasia Present
[2019-04-03] MEDS: Insulin Aspart 300 UNITS/3 ML PEN SC ×2 (12:01)
[2019-04-03] MEDS: Acetaminophen 325 MG TAB PO ×2 (12:01→20:30)
--- NOTE | 2019-04-03 13:16 | W.SURGCON ---
Date of service: 04/03/19 Time of Service: 13:16 Assessment and Plan Assessment and plan (1) Cholelithiasis: Status: Chronic Assessment and plan: Please see HPI Qualifiers: Cholelithiasis location: gallbladder Cholecystitis presence: with cholecystitis Cholecystitis acuity: unspecified acuity Biliary obstruction: without biliary obstruction Qualified Code(s): K80.10 - Calculus of gallbladder with chronic cholecystitis without obstruction (2) Thrombocytopenia due to hypersplenism: Status: Chronic (3) Hepatocellular carcinoma: Status: Acute (4) Thrombocytopenia: Status: Chronic (5) Diabetes: Status: Chronic Qualifiers: Diabetes mellitus type: type 2 Diabetes mellitus long term care phlebotomist insulin use: with senior care use Diabetes mellitus complication status: without complication Qualified Code(s): E11.9 - Type 2 diabetes mellitus without complications; Z79.4 - intermediate (current) use of insulin (6) Esophageal varices: Status: Chronic Qualifiers: Esophageal varices type: secondary Esophageal varices bleeding: without bleeding Qualified Code(s): I85.10 - Secondary esophageal varices without bleeding History of Present Illness Narrative: 59-year-old male with a history of advanced diffuse infiltrative hepatocellular carcinoma which is been failing to respond to chemotherapy. He also has a history of chronic cholelithiasis, cirrhosis from [place], portal hypertension, hepatic encephalopathy, esophageal varices with bleeding status post banding in 2017, splenomegaly, diabetes mellitus type 2 requiring insulin, BRIANDA on CPAP, central hypertension, pulmonary hypertension and prior small bowel obstruction requiring hospitalization at [facility] January 18 January 16, 2019 and a more recent hospitalization at [facility] from February 20, 2018 through February 22, 2019 because of leukopenic fever. Previous work-up and treatment for his leukopenic fever showed no infectious source. He had been empirically treated with Zosyn for couple of days. Blood cultures and urine cultures came back negative. Despite his diarrhea his C. difficile study was negative. He now presents emergency department with complaints of upper abdominal pain that began a few hours prior to arrival to the emergency department. This is associated with nausea and belching but no vomiting. He has been passing flatus and has had 2 very loose bowel movements. He denies any fever or rigors or chills. Patient was seen in the emergency department by Dr. Roman Chavez and clinical work-up included a CBC that again shows leukopenia with an absolute white cell count of 1850. With an ANC of 1450. He has a chronic thrombocytopenia 60,000 and no anemia. Chemistry panel showed normal renal function with a BUN of 12 creatinine 1.0. Glucose was elevated to 129 with a normal anion gap of 5.5. Electrolytes demonstrate a low magnesium of 1.5. LFTs demonstrate elevated transaminase with an AST of 318, ALT 127, alkaline phosphatase 320 with a total bilirubin of 4.4. Lipase is normal at 211. These are comparable although slightly elevated compared to his last lab values on March 24, 2019. Imaging included a CT scan with oral contrast which again demonstrates cholelithiasis with a trace of pericholecystic stranding as well as a trace of stranding adjacent to the pancreas and duodenum and nonspecific dilated small bowel loops. Patient's omeprazole was recently discontinued by his oncologist because of recent change in his chemotherapy to include Opdivo. Patient was treated for symptoms in the emergency department with with Reglan, Pepcid, and Carafate. As these medications did not help he was given some IV morphine which did help with his pain. Dr. Chavez discussed the case with Dr. Reyes, associate professor of theatre/oncologist at [facility] regarding the rising LFTs. Dr. Reyes felt that they could possibly be related to his new chemotherapy drug or could just be due to advancing hepatocellular carcinoma but did not feel that the patient needed transfer to [facility]. Dr. Chavez felt that the patient may be developing an ileus or may have a viral gastroenteritis. Because the patient did have a couple of large soft bowel movements in the emergency department it was felt that he did not have a small bowel obstruction. He also did not have a Westfall sign or significant right upper quadrant tenderness and was not felt to have acute cholecystitis despite the pericholecystic fluid and cholelithiasis. Of note he has had this chronic pericholecystic fluid and cholelithiasis on previous admissions. Patient was admitted under observation for pain control and to observe for any evolving acute abdominal process. We were consulted for consideration of Lap. Tamiko. due to US findings suggestive of Cholecystitis. I reviewed the US and CT scan and do not feel the patient has cholecystitis. I think that the inflammation noted is due to his Hepatic cancer. The wall thickening is most likely infiltration of tumour from liver to gallbladder. Paigaldino has had intermittent RUQ pain which could be caused by his Liver Tumors. [facility] General Surgery was contacted yesterday and they also did not feel that the patient had Cholecystitis and recommended a HIDA scan which is scheduled for tomorrow because he had morphine in the ER on 04/01/19. Patient is neutropenic and his PLTS are low and decreasing over the last 2 days. I did not see the patient as he is an extremely high risk for surgery and I do not believe that he would survive the surgery. Regardless of what the HIDA scan shows tomorrow this patient is not a candidate for surgery. If his HIDA scan shows a blockage then a Cystostomy tube for palliation may be an option. I agree with Palliative Consult. If Cystostomy tube is warranted then would again contact IR at [facility]. 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) Surgical History Hx of circumcision (Acute) S/P hernia repair (Inactive) Social History Smoking/Tobacco Use Status: Never Alcohol Intake: never Drug use: Never Substance use type: does not use Do you feel safe at home: Yes Do you feel safe in your relationship?: Yes Results Last Vital Signs Temp 97.9 F 04/03/19 07:35 Pulse 78 04/03/19 07:35 Resp 18 04/03/19 07:35 BP 103/70 04/03/19 07:35 Pulse Ox 94 L 04/03/19 07:35 Labs Result diagrams: 04/03/19 10:28 04/03/19 10:28 Labs: Laboratory Results - last 24 hr 04/03/19 04/03/19 04/03/19 10:28 10:28 10:28 WBC 1.09 L* D RBC 4.17 L Hgb 13.8 Hct 39.7 L MCV 95.2 H MCH 33.1 H MCHC 34.8 RDW 15.4 H Plt Count 48 L MPV 11.3 H Immature Gran % 0.9 Neutrophils % 56.0 Lymphocytes % 21.1 Monocytes % 14.7 Eosinophils % 6.4 Basophils % 0.9 Absolute Neutrophils 0.61 L Absolute Lymphocytes 0.23 L Absolute Monocytes 0.16 Absolute Eosinophils 0.07 Absolute Basophils 0.01 Differential Comment Agrees w/ instrument RBC Morphology See below Polychromasia Present Anisocytosis 1+ Sodium 135 L Potassium 4.0 D Chloride 103 Carbon Dioxide 24.8 Anion Gap 7.2 BUN 10 Creatinine 1.07 Estimated GFR/1.73 m2 >= 60.00 Glucose 155 H Calcium 7.8 L Magnesium 1.6 L Total Bilirubin 4.1 H Conjugated Bilirubin 2.59 H AST 336 H ALT 122 H Alkaline Phosphatase 227 H Ammonia < 10 L C-Reactive Protein 2.59 H Total Protein 5.7 L Albumin 1.7 L
--- NOTE | 2019-04-03 15:01 | W.NUTCONSULT ---
Date of service: 04/03/19 Time of Service: 15:01 Nutritional Consult ASSESSMENT: 59 year old male admitted for cholelithiasis. PMH: hepatocelular carcinoma, poorly controlled diabetes, cirrohosis of liver, esophageal varices, unable to complete chemotherapy at [facility]. NPO today at breakfast. DM consult and pallative consult pending. BMI indicates class 2 obesity. At high nutritional risk in view of advanced untreatable cancer, poorly controlled IDDM, liver cirrhosis, varices and obesity. Will follow and adjust meal plan for optimal blood sugar and weight control. MONITORING AND EVALUATION: po intake and weight trends Time Spent in Nutritional Counseling and Treatment: 0 time spent face to face
--- NOTE | 2019-04-03 15:59 | PHARADMIT ---
Addendum entered by Debbie Dowell 04/04/19 17:41: Pharmacy Note Subjective Continues to have abdominal pain Objective AST/ALT 284/113; Bilirubin 2.82; Assessment Start steroids Plan 0.5-1 or 1-2mg/kg prednisone equivalents per drug mfgr based on severity of symptoms... per the Immune-Mediated Adverse Reactions Management Guide; Opdivo may have to be permanently dc'd depending on severity of symptoms Original Note: Admission Pharmacy Clinical Review abdominal pain Code Status Full Code Current Weight 108.6 kg Renally Cleared and Narrow Therapeutic Index Meds Crcl over 72 mL/min current meds okay QTc Value / Action Taken none BP Control, Fever BP 103/70 afebrile today, tmax 38.3 yesterday Electrolytes reviewed Na 135 mag 1.6 DVT Prophylaxis none.... plt 48 Opiate Usage / Scheduled Bowel Regimen Ordered prn/prn Plt/SCr for Heparin / Enoxaparin plt 48 SCr 1.07 INR for Warfarin n/a H/H stable, WBC/Bands h/h 13.8/39.7 WBC 1.09 Antibiotic appropriateness meropenem and rifaxamin Cultures and Sensitivities blood and urine cultures- no growth @ 24 hours C.diff negative Surgical ABX d/c within 24 hr n/a DM control / Insulin Dosing BG 155 insulin glargine on hold, scheduled and sliding scale aspart Heart Failure (Check EF%) (JONY's, B-Block, Diuretics) carvedilol, IV to PO Switch n/a Home Meds Reviewed -carvedilol may diminish the bronchodilatory effect of albuterol. avoid use of nonselective betablockers or monitor closely for diminished bronchodilatory effects -ipratropium may enhance the anticholinergic effects of loratadine -victoza may enhance the hypoglycemic effect of insulin, watch when starting or adjusting doses Home Meds Not Ordered furosemide, loratadine, nivolumab, spironolactone Comments pts own tadalafil and victoza ordered HIDA scan tomorrow
--- NOTE | 2019-04-03 18:38 | W.PM.PROGNOT ---
Date of Service Date of service: 04/03/19 Time of Service: 16:00 Assessment and Plan Assessment and plan (1) Neutropenic fever: Status: Acute Assessment and plan: Most likely source is intraabdominal, considering possibility of cholecystitis. If patient is able to tolerate pain without narcotics and undergo HIDA scan tomorrow, we will hopefully know the answer. For now, continue empiric meropenem. Monitor fever curve. (2) Cholecystitis: Status: Suspected Assessment and plan: As above. For HIDA scan tomorrow if can avoid narcotic pain medications. However, if he cannot, I will arranged for an IR cholecystostomy with a possible procedure to ensure that there is no billiary obstruction. (3) Hepatocellular carcinoma: Status: Acute Assessment and plan: With cirrhosis, varices, thrombocytopenia. Patient is on last-line therapy (immunotherapy), per him, with Opdivo, having failed chemo. Prognosis extremely guarded. Consult palliative care (4) Thrombocytopenia due to hypersplenism: Status: Chronic Assessment and plan: Monitor for bleeding. Not a surgical candidate at our facility. (5) DVT prophylaxis: Status: Acute Assessment and plan: TEDs/SCDs (6) Discharge planning issues: Status: Acute Assessment and plan: Full code Considering a [id number] vs definitive transfer to [facility] [place] (if bed available, which there have not been for the last 48 hours). Subjective Subjective Interval history since last seen: Mr Osorio reports diffuse abdominal pain, but today it mostly seems to be in LLQ. He said it was in RUQ earlier. He understands that VQ scan cannot be done if he had had narcotics anyway and he is going to hold off on taking them unless he absolutely needs them, but he thinks that he may not be able to handle his pain. His pain does get better with belching and walking around. We discussed that, if he is not able to abstain from narcotic pain medications tonight, HIDA scan would be cancelled and we could consider cholecystostomy at [facility] [place]. He denies dizziness, chest pain, shortness of breath, nausea. He was again febrile at 5 am and at 4 pm today. He is neutropenic with ANC of 0.61 today. He agrees to a palliative care consult. Exam Narrative Exam Narrative: General: Very pleasant, uncomfortable obese male, A&Ox3, laying in bed HEENT: EOMI, MMM Heart: RRR, no m/r/g Lungs: CTAB Abdomen: Tender in LUQ/LLQ Extremities: trace edema BLE's, no c/c. Objective Objective Clinical Data: Abnormal lab results 04/03/19 04/03/19 04/03/19 Range/Units 10:28 10:28 10:28 WBC 1.09 L* D (4.4-10.8) k/cumm RBC 4.17 L (4.50-6.00) m/cumm Hct 39.7 L (40.0-50.0) % MCV 95.2 H (80-95) fL MCH 33.1 H (27.0-33.0) pg RDW 15.4 H (11.8-14.1) % Plt Count 48 L (130-400) x1000/uL MPV 11.3 H (8.0-11.0) fL Absolute Neutrophils 0.61 L (1.2-6.7) k/cumm Absolute Lymphocytes 0.23 L (1.2-3.4) k/cumm Sodium 135 L (136-145) mmol/L Glucose 155 H (74-106) mg/dL Calcium 7.8 L (8.5-10.1) mg/dL Magnesium 1.6 L (1.8-2.4) mg/dL Total Bilirubin 4.1 H (0.2-1.0) mg/dL Conjugated Bilirubin 2.59 H (0.00-0.20) mg/dL AST 336 H (15-37) U/L ALT 122 H (16-63) U/L Alkaline Phosphatase 227 H (46-116) U/L Ammonia < 10 L (11-32) umol/L C-Reactive Protein 2.59 H (0.0-0.3) mg/dL Total Protein 5.7 L (6.4-8.2) g/dL Albumin 1.7 L (3.4-5.0) g/dL Vital Signs Temperature 36.6 C 04/03/19 07:35 Temperature Source Tympanic 04/03/19 07:35 Pulse 78 04/03/19 07:35 Pulse Rhythm Regular 04/03/19 11:11 Respiratory Rate 18 04/03/19 07:35 Respiratory Effort Non-Labored 04/03/19 11:11 Respiratory Depth Normal 04/03/19 11:11 Respiratory Pattern Normal 04/03/19 11:11 Blood Pressure 103/70 04/03/19 07:35 Blood Pressure Position Supine 04/01/19 22:17 Pulse Oximetry 94 L 04/03/19 07:35 Oxygen Delivery Method Room Air 04/03/19 07:35 Oxygen Flow Rate 0 04/03/19 07:35 Pain Level 3 04/03/19 13:01 Comment 04/02/19 16:05 Intake & Output 04/02/19 04/03/19 04/03/19 23:59 11:59 23:59 Intake Total 1170 / 2220 400 / 950 550 / 950 Balance 1170 / 1920 400 / 950 550 / 950 Weight 108.6 kg Intake: IV 350 / 1400 150 / 400 250 / 400 Oral 820 / 820 250 / 550 300 / 550 Other: Urine Color Yellow Yellow Urine Appearance Clear Clear Comment voids independently to the bathroom voids independently to the bathroom voids independantly in toilet Stool Size Small Moderate Small Stool Characteristics Soft Liquid Liquid Brown Brown Brown Voiding Methods Toilet Toilet Toilet Laboratory Results WBC 1.09 k/cumm (4.4-10.8) L* D 04/03/19 10:28 RBC 4.17 m/cumm (4.50-6.00) L 04/03/19 10:28 Hgb 13.8 g/dL (13.5-17.5) 04/03/19 10:28 Hct 39.7 % (40.0-50.0) L 04/03/19 10:28 MCV 95.2 fL (80-95) H 04/03/19 10:28 MCH 33.1 pg (27.0-33.0) H 04/03/19 10:28 MCHC 34.8 g/dL (32.0-36.0) 04/03/19 10:28 RDW 15.4 % (11.8-14.1) H 04/03/19 10:28 Plt Count 48 x1000/uL (130-400) L 04/03/19 10:28 MPV 11.3 fL (8.0-11.0) H 04/03/19 10:28 Immature Gran % 0.9 % 04/03/19 10:28 Neutrophils % 56.0 04/03/19 10:28 Lymphocytes % 21.1 04/03/19 10:28 Monocytes % 14.7 04/03/19 10:28 Eosinophils % 6.4 04/03/19 10:28 Basophils % 0.9 04/03/19 10:28 Absolute Neutrophils 0.61 k/cumm (1.2-6.7) L 04/03/19 10:28 Absolute Lymphocytes 0.23 k/cumm (1.2-3.4) L 04/03/19 10:28 Absolute Monocytes 0.16 k/cumm (0.11-0.7) 04/03/19 10:28 Absolute Eosinophils 0.07 k/cumm (0.0-0.7) 04/03/19 10:28 Absolute Basophils 0.01 k/cumm (0.0-0.2) 04/03/19 10:28 Differential Comment Agrees w/ instrument 04/03/19 10:28 RBC Morphology See below 04/03/19 10:28 Polychromasia Present 04/03/19 10:28 Poikilocytosis 1+ 04/02/19 06:55 Anisocytosis 1+ 04/03/19 10:28 PT 12.3 sec (9.3-11.0) H 04/02/19 11:20 INR 1.2 (0.9-1.1) H 04/02/19 11:20 APTT 29.5 sec (21.0-31.4) 04/02/19 11:20 Sodium 135 mmol/L (136-145) L 04/03/19 10:28 Potassium 4.0 mmol/L (3.5-5.1) D 04/03/19 10:28 Chloride 103 mmol/L (98-107) 04/03/19 10:28 Carbon Dioxide 24.8 mmol/L (21.0-32.0) 04/03/19 10:28 Anion Gap 7.2 mmol/L (3-11) 04/03/19 10:28 BUN 10 mg/dL (7-18) 04/03/19 10:28 Creatinine 1.07 mg/dL (0.70-1.30) 04/03/19 10:28 Estimated GFR/1.73 m2 >= 60.00 (mL/min/1.73m2) 04/03/19 10:28 Glucose 155 mg/dL (74-106) H 04/03/19 10:28 Calcium 7.8 mg/dL (8.5-10.1) L 04/03/19 10:28 Magnesium 1.6 mg/dL (1.8-2.4) L 04/03/19 10:28 Total Bilirubin 4.1 mg/dL (0.2-1.0) H 04/03/19 10:28 Conjugated Bilirubin 2.59 mg/dL (0.00-0.20) H 04/03/19 10:28 AST 336 U/L (15-37) H 04/03/19 10:28 ALT 122 U/L (16-63) H 04/03/19 10:28 Alkaline Phosphatase 227 U/L (46-116) H 04/03/19 10:28 Ammonia < 10 umol/L (11-32) L 04/03/19 10:28 C-Reactive Protein 2.59 mg/dL (0.0-0.3) H 04/03/19 10:28 Total Protein 5.7 g/dL (6.4-8.2) L 04/03/19 10:28 Albumin 1.7 g/dL (3.4-5.0) L 04/03/19 10:28 Lipase 211 U/L (73-393) 04/01/19 23:40 Procalcitonin 0.3 ng/mL 04/02/19 06:55 Urine Color [place] (Yellow) 04/02/19 08:30 Urine Clarity Clear (Clear) 04/02/19 08:30 Urine pH 5.0 (5-8) 04/02/19 08:30 Ur Specific [place] 1.020 (1.005-1.025) 04/02/19 08:30 Urine Protein Negative mg/dL (Negative) 04/02/19 08:30 Urine Ketones Negative mg/dL (Negative) 04/02/19 08:30 Urine Blood Trace-lysed (Negative) H 04/02/19 08:30 Urine Nitrite Negative (Negative) 04/02/19 08:30 Urine Bilirubin Small (Negative) H 04/02/19 08:30 Urine Urobilinogen 0.2 EU/dL (Up TO 0.2) 04/02/19 08:30 Ur Leukocyte Esterase Negative (Negative) 04/02/19 08:30 Urine RBC Negative HPF (0-2) 04/02/19 08:30 Urine WBC 0-2 HPF (0-5) 04/02/19 08:30 Ur Epithelial Cells Few HPF (Negative) 04/02/19 08:30 Urine Crystals Negative HPF (Negative) 04/02/19 08:30 Urine Bacteria Rare HPF (Negative) 04/02/19 08:30 Urine Casts Negative LPF (Negative) 04/02/19 08:30 Urine Mucus Trace (Negative) 04/02/19 08:30 Ur Culture Indicated? C&s done as ordered 04/02/19 08:30 Urine Glucose Negative mg/dL (Negative) 04/02/19 08:30 Urine Opiates Screen Negative (Negative) 04/02/19 02:21 Urine Methadone Screen Negative (Negative) 04/02/19 02:21 Ur Barbiturates Screen Negative (Negative) 04/02/19 02:21 Ur Tricyclics Screen Negative (Negative) 04/02/19 02:21 Ur Amphetamines Screen Negative (Negative) 04/02/19 02:21 U Benzodiazepines Scrn Negative (Negative) 04/02/19 02:21 Urine Cocaine Screen Negative (Negative) 04/02/19 02:21 Ur THC Screen Negative (Negative) 04/02/19 02:21
[2019-04-03] MEDS: MAGNESIUM SULFATE 4 GM/100 ML BAG IVPB (20:30)
[2019-04-03] MEDS: Patient's Own Medication 1 EACH MISC 1.8 EACH SC (20:36)
[2019-04-03 22:52] VITALS: BP 103/65; PULSE 75; RESP 16; TEMP 37.2; O2SAT 98
[2019-04-04] MEDS: FAMOTIDINE 20 MG/50 ML BAG 200 MG IVPB ×3 (00:23→23:57)
[2019-04-04] MEDS: MEROPENEM 1 GM in Normal Saline 100 ML IVPB ×3 (01:03→20:24)
[2019-04-04] MEDS: Normal Saline Flush 10 ML SYR IVP ×6 (04:03→20:27)
[2019-04-04] MEDS: Pantoprazole 40 MG VIAL IVP (04:04)
[2019-04-04 04:14] VITALS: BP 100/60; PULSE 78; RESP 18; TEMP 37; O2SAT 99
[2019-04-04 07:20] VITALS: BP 107/66; PULSE 82; RESP 17; TEMP 36.6; O2SAT 94
[2019-04-04 07:25] LABS: Absolute Basophil Count 0.01 k/cumm (0.0-0.2); Absolute Eosinophil Count 0.09 k/cumm (0.0-0.7); Absolute Lymphocyte Count 0.26 k/cumm (1.2-3.4); Absolute Monocyte Count 0.13 k/cumm (0.11-0.7); Absolute Neutrophil Count 0.82 k/cumm (1.2-6.7); Basophils % 0.8; Eosinophils % 6.9; HCT 36.9 % (40.0-50.0); Lymphocytes % 19.8; Mean Corp. HGB Concentration 35.2 g/dL (32.0-36.0); Mean Corpuscular Hemoglobin 32.9 pg (27.0-33.0); Mean Corpuscular Volume 93.4 fL (80-95); Mean Platelet Volume 10.5 fL (8.0-11.0); Monocytes % 9.9; Neutrophils % 62.6; RBC 3.95 m/cumm (4.50-6.00); RBC Distribution Width 15.2 % (11.8-14.1)
[2019-04-04 07:34] LABS: ALT 113 U/L (16-63); AST 284 U/L (15-37); Albumin 1.7 g/dL (3.4-5.0); Alkaline Phosphatase 192 U/L (46-116); Anion Gap 8.4 mmol/L (3-11); BUN 10 mg/dL (7-18); Bilirubin, Total 4.2 mg/dL (0.2-1.0); CO2 22.6 mmol/L (21.0-32.0); CREATININE 0.87 mg/dL (0.70-1.30); Calcium 7.4 mg/dL (8.5-10.1); Chloride 105 mmol/L (98-107); Glucose 114 mg/dL (74-106); Magnesium 1.8 mg/dL (1.8-2.4); Potassium 3.5 mmol/L (3.5-5.1); Sodium 136 mmol/L (136-145); Total Protein 5.3 g/dL (6.4-8.2)
[2019-04-04 07:50] LABS: Diff Comment Manual Differential; Platelet Count 48 x1000/uL (130-400); Poikilocytes 1+; White Blood Cell Count 1.31 k/cumm (4.4-10.8)
--- NOTE | 2019-04-04 07:50 | DI.NM_ITS ---
EXAM: NM HEPATOBILIARY SCAN GRP CLINICAL HISTORY: suspected acute cholecystitis. COMPARISON: US ABDOMEN LIMITED from 04/02/2019 CT ABDOMEN PELVIS W from 04/02/2019 FINDINGS: 5.0 millicuries of technetium 99 M mebrofenin were administered IV. Images were performed from 0-60 minutes followed by static images at 90 minutes and 4 hours. No CCK was administered due to presenc e of gallstones. The gallbladder is visualized at 40 minutes. There is delay in small bowel visualization which was s een on the on the 4 hour images. IMPRESSION: No evidence of acute cholecystitis. There is delay in excretion into the small bowel.
[2019-04-04 07:52] LABS: Ammonia 42 umol/L (11-32)
[2019-04-04] MEDS: Carvedilol 6.25 MG TAB PO ×2 (11:30→20:23)
[2019-04-04] MEDS: Rifaximin 550 MG TAB PO ×2 (11:30→20:23)
[2019-04-04] MEDS: Sucralfate 1 GM TAB PO ×3 (11:30→22:52)
--- NOTE | 2019-04-04 12:49 | W.NUTRFU ---
Date of service: 04/04/19 Time of Service: 12:49 Nutritional Follow up NOTE: CDE has reviewed chart. No new recommendations at this time. Time Spent in Nutritional Counseling and Treatment: 0 time spent face to face
--- NOTE | 2019-04-04 12:55 | W.PALLCONSUL ---
Date of service: 04/04/19 History of Present Illness History of Present Illness Chief Complaint: recurrent admissions for RUQ pain: cholecystitis vs exacerbation of HCC Narrative: I met with Luis as Flash is known. He was by himself. His , Malu, 10 months ago from cancer, on hospice. He feels his cancer is under good control. He's hoping that he can have surgery to resect his liver cancer. I reviewed his notes. They indicate that he is not a surgical candidate. They cannot do a transplant as his cancer is metastatic. He is hospice appropriate. However, Luis is still a full code. He recently started an immunotherapy known as OPDIVO, which is a last line therapy. He failed usual chemo, with progression of disease despite receiving treatment. He was admitted to [facility] for a 4th episode of RUQ pain. He has chronic ascites and a distended abdomen. He is scheduled to have a HIDA scan today. He is known to be a very poor surgical candidate, not only at [facility], but also at [facility]. Apparently, GI at [facility] said they would not do surgery, though they might do some procedures on him. Consults Consult date: 04/04/19 Requesting physician: Charlotte Hugo Assessment and Plan Assessment and plan (1) Goals of care, counseling/discussion: Status: Acute Assessment and plan: Luis is very much in treatment mode. Doesn't want to consider any options other than those that are most likely to cure him. Doesn't seem to understand that his cancer is incurable, even though he says My cancer is treatable, not curable. Doesn't want to talk about it today. Might do so with Dr Martinez. Hoping that science will come up with more treatment soon. He wants to remain a FULL CODE. He is recently . Doesn't have a new DPOA since his . Note that she received aggressive care not far before her . He is determined to get to the cause of his RUQ pain This is his 4th admission for same; he has been to both [facility] and [facility] for treatment. (2) Hepatocellular carcinoma: Status: Chronic Assessment and plan: Did not respond to usual chemo. Now on immunotherapy. Not a surgical candidate. Has been to [facility] for second opinion and to investigate clincial trials. (3) Recurrent abdominal pain: Status: Acute Assessment and plan: Frustrated that he's not getting better. Hoping that the HIDA scan, scheduled for later today, will bring him the answers he needs. (4) Palliative care patient: Status: Acute Assessment and plan: Will see him when he is next admitted. Doesn't want to follow regularly for now. Dr Crockett cared for his during her terminal illness; he may prefer to work with her. Will have CM ask him his preferences. (5) Cirrhosis of liver: Status: Chronic Assessment and plan: Likely due to his obesity and ORTIZ. Qualifiers: Hepatic cirrhosis type: other cirrhosis Qualified Code(s): K74.69 - Other cirrhosis of liver Review of Systems Constitutional Constitutional: Reports body ache(s), Reports daytime sleepiness, Reports fatigue, Reports poor appetite, Reports stops breathing during sleep and Reports weakness Eyes Eyes: Reports dry eyes, Reports requires corrective lenses and Reports other (sometimes the whites of his eyes look yellow to him) ENT Ears, Nose, Mouth, and Throat: Reports halitosis, Reports dry mouth and Reports disequilibrium Cardiovascular Cardiovascular: Reports rapid heart rate, Reports lightheadedness, Reports palpitations, Reports dyspnea and Reports dyspnea on exertion Respiratory Respiratory: Reports dyspnea and Reports dyspnea on exertion Gastrointestinal Gastrointestinal: Reports abdominal pain, Reports bloating, Reports constipation, Reports early satiety, Reports dyspepsia and Reports nausea Genitourinary Genitourinary: Reports difficulty urinating Musculoskeletal Musculoskeletal: Reports arthralgias and Reports muscle weakness Integumentary/Breasts Skin/Breast: Reports dry skin, Reports pruritus and Reports jaundice (comes and goes; sallow skin at time of visit) Neurologic Neurologic: Reports memory loss (hard to concentrate), Reports disequilibrium and Reports weakness Psychiatric Psychiatric: Reports abnormal sleep pattern, Reports difficulty concentrating and Reports memory loss (hard to concentrate) Endocrine Endocrine: Reports fatigue and Reports palpitations Hematologic/Lymphatic Hematologic/Lymphatic: Reports easy bruising [facility] Medical History (Updated 04/26/19 @ 13:28 by Jaz Silveira MD) Ascites (Acute) Cholelithiasis (Chronic) Cirrhosis of liver (Chronic) Diabetes (Chronic) Esophageal varices (Chronic) Goals of care, counseling/discussion (Acute) Hepatocellular carcinoma (Chronic) History of HIDA scan (Acute) Hypertension (Chronic) Immunotherapy (Acute) Obesity (Chronic) Palliative care patient (Acute) Pancreatitis (Resolved) Recurrent abdominal pain (Acute) 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 Social History (Updated 04/26/19 @ 13:24 by Jaz Silveira MD) Smoking/Tobacco Use Status: Never Alcohol Intake: never Drug use: Never Substance use type: does not use Caregiver/Support person: No Household members: family Number of Children: 1 number of grandchildren: 4 What is your relationship status?: How often do you talk on the phone with friends or family?: once per week How often do you get together with friends or relatives?: three or more times per week Panel score (0-1 are the most socially isolated patients): 1 What type of physical activity do you participate in: sedentary lifestyle Seatbelt use: always Do you feel safe at home: Yes Do you feel safe in your relationship?: Yes Additional Social history: His 28 yo female cousin lives with him, along with her kids. They sort of take care of each other. His in April 2018. She of metastatic breast cancer and fought it right up to the end. He is inclined to do the same with his HCC. He doesn't feel he is as sick as everyone else thinks he is. Exam Narrative Exam Narrative: General: pleasant, uncomfortable obese male, lying in bed, sallow complexion, looks chronically ill. gets dyspneic with prolonged conversation HEENT: EOMI, MMM Heart: RRR, no m/r/g Lungs: CTAB Abdomen: tender diffusely; jumps when I press on RUQ, distended, probable ascites Extremities: trace edema BLE's, no c/c psych: very optimistic, wants to proceed agressively with any treatments offered neuro: A and O x 3, able to make his own decisions. skin: sallow, but not jaundiced Head: atraumatic Results Last Vital Signs Temp 97.9 F 04/04/19 07:20 Pulse 82 04/04/19 07:20 Resp 17 04/04/19 07:20 BP 107/66 01/07/20 07:20 Pulse Ox 94 L 04/04/19 07:20 Labs Result diagrams: 04/06/19 06:15 04/06/19 06:15 Labs: Laboratory Results - last 24 hr 04/04/19 04/04/19 04/04/19 07:00 07:00 07:00 WBC 1.31 L* RBC 3.95 L Hgb 13.0 L Hct 36.9 L MCV 93.4 MCH 32.9 MCHC 35.2 RDW 15.2 H Plt Count 48 L MPV 10.5 Immature Gran % 0.0 Neutrophils % 62.6 Lymphocytes % 19.8 Monocytes % 9.9 Eosinophils % 6.9 Basophils % 0.8 Absolute Neutrophils 0.82 L Absolute Lymphocytes 0.26 L Absolute Monocytes 0.13 Absolute Eosinophils 0.09 Absolute Basophils 0.01 Differential Comment Manual differential RBC Morphology See below Poikilocytosis 1+ Sodium 136 Potassium 3.5 Chloride 105 Carbon Dioxide 22.6 Anion Gap 8.4 BUN 10 Creatinine 0.87 Estimated GFR/1.73 m2 >= 60.00 Glucose 114 H Calcium 7.4 L Magnesium 1.8 Total Bilirubin 4.2 H AST 284 H ALT 113 H Alkaline Phosphatase 192 H Ammonia 42 H Total Protein 5.3 L Albumin 1.7 L
--- NOTE | 2019-04-04 13:53 | CMPROGNOTE_ITS ---
- If Service Date Differs Date of service: 04/04/19 Time of Service: 13:53 Care Management Progress Note S/O:Luis was sitting up in bed smiling broadly when CM met with him. He shared the results of his HIDA scan which he stated indicated that the pain he is experiencing is not from his gallbladder. He stated that he is very happy that he does not need surgery. He talked further about his earlier concerns and the fact that he is very confident that he will improve and be able to go home soon. A: Flash Smith is a 59 year old gentleman admitted on 04/02/2019 with abdominal pain P:Flash will likely return home with no new services. He will follow up with his PCP and providers at [facility] [place] [place]. CM will continue to provide support to patient, family and discharge planning considerations.
[2019-04-04 14:42] LABS: Bilirubin, Direct 2.82 mg/dL (0.00-0.20); C-Reactive Protein 2.63 mg/dL (0.0-0.3)
--- NOTE | 2019-04-04 15:39 | PGE_ITS ---
Date of Service Date of service: 04/04/19 Time of Service: 15:40 Assessment and Plan Assessment and plan (1) Neutropenic fever: Status: Resolved Assessment and plan: Neutropenia has improved. No cholecystitis, per HIDA. Dr Martinez also had the images reviewed by [facility] [place] [place], who also do not see acute cholecystitis. At this point, it could possibly be patient's immune-mediated reaction to Opdivo, in which case steroids should be helpful. I would like to add steroids to patient's regimen today (2) Diarrhea: Status: Acute Assessment and plan: C. diff negative. Possibly due to immune-mediated colitis. As above - will trial steroids. (3) Cholecystitis: Status: Ruled-out (4) Hepatocellular carcinoma: Status: Acute Assessment and plan: With cirrhosis, varices, thrombocytopenia. Patient is on last-line therapy (immunotherapy), per him, with Opdivo, having failed chemo. Prognosis poor. Met with palliative care today. Would like to remain full code. 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 Not a surgical candidate at our facility. (6) DVT prophylaxis: Status: Acute Assessment and plan: TEDs/SCDs (7) Discharge planning issues: Status: Acute Assessment and plan: Full code Subjective Subjective Interval history since last seen: Mr Osorio states that he continues to have abdominal pain, both RUQ and throughout the rest of his abdomen. He has not had an appetite, though no nausea. He has continued to have diarrhea and has been passing flatus. He does not feel better today. He would like to remain full code. He states that, if opdivo fails, he has a plan to go to [place], where they were able to treat one his friends with liver cancer who has survived 31 years so far. I discussed the case with Dr Martinez who had called me to check on the patient. He questioned if it is possible that Mr Osorio is having an immune-mediated reaction to Opdivo, in which case steroids might be helpful. He also stated that Opdivo is effective in 20% of patients and that his prognosis is poor. He has defervesced. Exam Narrative Exam Narrative: General: Very pleasant, uncomfortable obese male, laying in bed HEENT: EOMI, MMM Heart: RRR, no m/r/g Lungs: CTAB Abdomen: tender diffusely; jumps when I press on RUQ Extremities: trace edema BLE's, no c/c. Objective Objective Clinical Data: Abnormal lab results 04/04/19 04/04/19 04/04/19 Range/Units 07:00 07:00 07:00 WBC 1.31 L* (4.4-10.8) k/cumm RBC 3.95 L (4.50-6.00) m/cumm Hgb 13.0 L (13.5-17.5) g/dL Hct 36.9 L (40.0-50.0) % RDW 15.2 H (11.8-14.1) % Plt Count 48 L (130-400) x1000/uL Absolute Neutrophils 0.82 L (1.2-6.7) k/cumm Absolute Lymphocytes 0.26 L (1.2-3.4) k/cumm Glucose 114 H (74-106) mg/dL Calcium 7.4 L (8.5-10.1) mg/dL Total Bilirubin 4.2 H (0.2-1.0) mg/dL Conjugated Bilirubin 2.82 H (0.00-0.20) mg/dL AST 284 H (15-37) U/L ALT 113 H (16-63) U/L Alkaline Phosphatase 192 H (46-116) U/L Ammonia 42 H (11-32) umol/L C-Reactive Protein 2.63 H (0.0-0.3) mg/dL Total Protein 5.3 L (6.4-8.2) g/dL Albumin 1.7 L (3.4-5.0) g/dL Vital Signs Temperature 36.6 C 04/04/19 07:20 Temperature Source Tympanic 04/04/19 07:20 Pulse 82 04/04/19 07:20 Pulse Rhythm Irregular 04/04/19 11:30 Respiratory Rate 17 04/04/19 07:20 Respiratory Effort Non-Labored 04/04/19 11:30 Respiratory Depth Normal 04/04/19 11:30 Respiratory Pattern Normal 04/04/19 11:30 Blood Pressure 107/66 04/04/19 07:20 Blood Pressure Position Supine 04/01/19 22:17 Pulse Oximetry 94 L 04/04/19 07:20 Oxygen Delivery Method Room Air 04/04/19 07:20 Oxygen Flow Rate 0 04/04/19 07:20 Pain Level 0 04/04/19 07:20 Comment 04/02/19 16:05 Intake & Output 04/03/19 04/04/19 04/04/19 23:59 11:59 23:59 Intake Total 790 / 1190 250 / 400 150 / 400 Output Total 300 / 300 Balance 490 / 890 250 / 400 150 / 400 Weight 107.1 kg Intake: IV 250 / 400 250 / 400 150 / 400 Oral 540 / 790 Output: Urine 300 / 300 Other: Urine Color Dark [place] Pale Yellow Urine Appearance Clear Clear Urine Odor None Comment voids independantly in toilet Stool Size Small Stool Characteristics Liquid Brown Voiding Methods Toilet Toilet Laboratory Results WBC 1.31 k/cumm (4.4-10.8) L* 04/04/19 07:00 RBC 3.95 m/cumm (4.50-6.00) L 04/04/19 07:00 Hgb 13.0 g/dL (13.5-17.5) L 04/04/19 07:00 Hct 36.9 % (40.0-50.0) L 04/04/19 07:00 MCV 93.4 fL (80-95) 04/04/19 07:00 MCH 32.9 pg (27.0-33.0) 04/04/19 07:00 MCHC 35.2 g/dL (32.0-36.0) 04/04/19 07:00 RDW 15.2 % (11.8-14.1) H 04/04/19 07:00 Plt Count 48 x1000/uL (130-400) L 04/04/19 07:00 MPV 10.5 fL (8.0-11.0) 04/04/19 07:00 Immature Gran % 0.0 % 04/04/19 07:00 Neutrophils % 62.6 04/04/19 07:00 Lymphocytes % 19.8 04/04/19 07:00 Monocytes % 9.9 04/04/19 07:00 Eosinophils % 6.9 04/04/19 07:00 Basophils % 0.8 04/04/19 07:00 Absolute Neutrophils 0.82 k/cumm (1.2-6.7) L 04/04/19 07:00 Absolute Lymphocytes 0.26 k/cumm (1.2-3.4) L 04/04/19 07:00 Absolute Monocytes 0.13 k/cumm (0.11-0.7) 04/04/19 07:00 Absolute Eosinophils 0.09 k/cumm (0.0-0.7) 04/04/19 07:00 Absolute Basophils 0.01 k/cumm (0.0-0.2) 04/04/19 07:00 Differential Comment Manual differential 04/04/19 07:00 RBC Morphology See below 04/04/19 07:00 Polychromasia Present 04/03/19 10:28 Poikilocytosis 1+ 04/04/19 07:00 Anisocytosis 1+ 04/03/19 10:28 PT 12.3 sec (9.3-11.0) H 04/02/19 11:20 INR 1.2 (0.9-1.1) H 04/02/19 11:20 APTT 29.5 sec (21.0-31.4) 04/02/19 11:20 Sodium 136 mmol/L (136-145) 04/04/19 07:00 Potassium 3.5 mmol/L (3.5-5.1) 04/04/19 07:00 Chloride 105 mmol/L (98-107) 04/04/19 07:00 Carbon Dioxide 22.6 mmol/L (21.0-32.0) 04/04/19 07:00 Anion Gap 8.4 mmol/L (3-11) 04/04/19 07:00 BUN 10 mg/dL (7-18) 04/04/19 07:00 Creatinine 0.87 mg/dL (0.70-1.30) 04/04/19 07:00 Estimated GFR/1.73 m2 >= 60.00 (mL/min/1.73m2) 04/04/19 07:00 Glucose 114 mg/dL (74-106) H 04/04/19 07:00 Calcium 7.4 mg/dL (8.5-10.1) L 04/04/19 07:00 Magnesium 1.8 mg/dL (1.8-2.4) 04/04/19 07:00 Total Bilirubin 4.2 mg/dL (0.2-1.0) H 04/04/19 07:00 Conjugated Bilirubin 2.82 mg/dL (0.00-0.20) H 04/04/19 07:00 AST 284 U/L (15-37) H 04/04/19 07:00 ALT 113 U/L (16-63) H 04/04/19 07:00 Alkaline Phosphatase 192 U/L (46-116) H 04/04/19 07:00 Ammonia 42 umol/L (11-32) H 04/04/19 07:00 C-Reactive Protein 2.63 mg/dL (0.0-0.3) H 04/04/19 07:00 Total Protein 5.3 g/dL (6.4-8.2) L 04/04/19 07:00 Albumin 1.7 g/dL (3.4-5.0) L 04/04/19 07:00 Lipase 211 U/L (73-393) 04/01/19 23:40 Procalcitonin 0.3 ng/mL 04/02/19 06:55 Urine Color [place] (Yellow) 04/02/19 08:30 Urine Clarity Clear (Clear) 04/02/19 08:30 Urine pH 5.0 (5-8) 04/02/19 08:30 Ur Specific [place] 1.020 (1.005-1.025) 04/02/19 08:30 Urine Protein Negative mg/dL (Negative) 04/02/19 08:30 Urine Ketones Negative mg/dL (Negative) 04/02/19 08:30 Urine Blood Trace-lysed (Negative) H 04/02/19 08:30 Urine Nitrite Negative (Negative) 04/02/19 08:30 Urine Bilirubin Small (Negative) H 04/02/19 08:30 Urine Urobilinogen 0.2 EU/dL (Up TO 0.2) 04/02/19 08:30 Ur Leukocyte Esterase Negative (Negative) 04/02/19 08:30 Urine RBC Negative HPF (0-2) 04/02/19 08:30 Urine WBC 0-2 HPF (0-5) 04/02/19 08:30 Ur Epithelial Cells Few HPF (Negative) 04/02/19 08:30 Urine Crystals Negative HPF (Negative) 04/02/19 08:30 Urine Bacteria Rare HPF (Negative) 04/02/19 08:30 Urine Casts Negative LPF (Negative) 04/02/19 08:30 Urine Mucus Trace (Negative) 04/02/19 08:30 Ur Culture Indicated? C&s done as ordered 04/02/19 08:30 Urine Glucose Negative mg/dL (Negative) 04/02/19 08:30 Urine Opiates Screen Negative (Negative) 04/02/19 02:21 Urine Methadone Screen Negative (Negative) 04/02/19 02:21 Ur Barbiturates Screen Negative (Negative) 04/02/19 02:21 Ur Tricyclics Screen Negative (Negative) 04/02/19 02:21 Ur Amphetamines Screen Negative (Negative) 04/02/19 02:21 U Benzodiazepines Scrn Negative (Negative) 04/02/19 02:21 Urine Cocaine Screen Negative (Negative) 04/02/19 02:21 Ur THC Screen Negative (Negative) 04/02/19 02:21 HIDA scan: No evidence of acute cholecystitis. There is delay in excretion into the small bowel.
[2019-04-04 15:45] VITALS: BP 104/60; PULSE 82; RESP 18; TEMP 36.8; O2SAT 95
[2019-04-04] MEDS: Insulin Aspart 300 UNITS/3 ML PEN SC ×2 (17:24→22:49)
[2019-04-04] MEDS: methylPREDNISolone SUCC 125 MG VIAL 60 MG IVP (18:12)
[2019-04-04 20:20] VITALS: BP 118/62; PULSE 99; RESP 19; TEMP 37.3; O2SAT 92
[2019-04-04] MEDS: Patient's Own Medication 1 EACH MISC 1.8 EACH SC (22:47)
[2019-04-05] MEDS: MEROPENEM 1 GM in Normal Saline 100 ML IVPB ×2 (03:41→12:54)
[2019-04-05] MEDS: Normal Saline Flush 10 ML SYR IVP ×6 (03:42→19:39)
[2019-04-05] MEDS: Pantoprazole 40 MG VIAL IVP (03:42)
[2019-04-05 03:52] VITALS: BP 122/68; PULSE 86; RESP 18; TEMP 36.5; O2SAT 94
[2019-04-05] MEDS: methylPREDNISolone SUCC 125 MG VIAL 60 MG IVP (06:12)
[2019-04-05 07:14] LABS: Abs Immature Grans 0.01 k/cumm (0.0-0.09); Absolute Basophil Count 0.02 k/cumm (0.0-0.2); Absolute Lymphocyte Count 0.18 k/cumm (1.2-3.4); Absolute Monocyte Count 0.11 k/cumm (0.11-0.7); Basophils % 1.4; HCT 35.8 % (40.0-50.0); HGB 12.7 g/dL (13.5-17.5); Immature Grans % 0.7 %; Lymphocytes % 12.7; Mean Corp. HGB Concentration 35.5 g/dL (32.0-36.0); Mean Corpuscular Hemoglobin 32.9 pg (27.0-33.0); Mean Corpuscular Volume 92.7 fL (80-95); Monocytes % 7.7; Neutrophils % 77.5; RBC 3.86 m/cumm (4.50-6.00); RBC Distribution Width 14.8 % (11.8-14.1)
[2019-04-05 07:31] LABS: ALT 103 U/L (16-63); AST 239 U/L (15-37); Albumin 1.6 g/dL (3.4-5.0); Alkaline Phosphatase 193 U/L (46-116); Bilirubin, Direct 3.33 mg/dL (0.00-0.20); Bilirubin, Total 4.7 mg/dL (0.2-1.0); CREATININE 0.99 mg/dL (0.70-1.30); Calcium 7.4 mg/dL (8.5-10.1); Chloride 99 mmol/L (98-107); Magnesium 1.6 mg/dL (1.8-2.4); Potassium 3.8 mmol/L (3.5-5.1); Sodium 130 mmol/L (136-145); Total Protein 5.5 g/dL (6.4-8.2)
[2019-04-05 07:33] LABS: Platelet Count 43 x1000/uL (130-400); White Blood Cell Count 1.42 k/cumm (4.4-10.8)
[2019-04-05 07:34] LABS: Diff Comment Diff Reviewed; RBC Morphology Normal
[2019-04-05 07:35] VITALS: BP 125/79; PULSE 87; RESP 20; TEMP 35.7; O2SAT 93
[2019-04-05 07:41] LABS: BUN 19 mg/dL (7-18); Glucose 343 mg/dL (74-106)
--- NOTE | 2019-04-05 07:45 | W.INDIABCONS ---
Date of service: 04/05/19 Time of Service: 07:45 Diabetes Inpatient Consult DESCRIPTION/ASSESSMENT: Appreciate diabetes consult for Mr Osorio who is hospitalized with abdominal pain, fever with liver cancer. Blood sugars good during the day yesterday 99-110 except for bedtime at 226 taking moderate insulin correction and eating ~30grams carbohdyrate at a meal. Prior day blood sugars 2-300s without explanation. At home he manages diabetes with 50u Lantus twice daily with A1c 7.4. INTERVENTION: GIven Mr. Osorio's co-morbidities and fluid blood sugars without his usual insulin dosing, current management appears safe for him during this illness. No intervention suggested at this time. PLAN: Will follow blood sugars and be available as needed for self management support. Time Spent in Nutritional Counseling and Treatment: 0 minutes face to face
[2019-04-05] MEDS: Rifaximin 550 MG TAB PO ×2 (08:20→19:35)
[2019-04-05] MEDS: Carvedilol 6.25 MG TAB PO ×2 (08:20→19:35)
[2019-04-05] MEDS: Sucralfate 1 GM TAB PO ×4 (08:20→21:14)
[2019-04-05] MEDS: Insulin Aspart 300 UNITS/3 ML PEN SC ×7 (08:23→21:14)
--- NOTE | 2019-04-05 09:01 | CMPROGNOTE_ITS ---
Care Management Progress Note S/O: Luis remains pleasant in interaction at this time, he spoke in length about his life, including the loss of his a year ago. Flash resides in his great-grandparent's farm house with seven rooms. He reports his niece moved in with him for a period of time and then moved out. More recently, his cousin; a young female and her two children have moved into his home. He reports at first, it was a difficult transition but now he is quite happy to have so much life in his home. 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 reports consulting with his [facility] provider with determination his symptoms are a likely reaction to his current immunotherapy, he will be started on steroids. Flash disagrees with this determination. He feels his symptoms are connected to the disruption of his Prilosec per Oncology direction. Flash reports Prilosec has resumed at this time. He shares that his appetite is returning, he ate breakfast and lunch and reports having some gas; but shares it is likely due to his food choices. Flash is showing signs of improvement. CM continues to follow. A: Flash Smith is a 59 year old gentleman admitted on 04/02/2019 with abdominal pain P: Flash will likely return home with no new services. He will follow up with his PCP and providers at [facility]. CM will continue to provide support to patient, family and discharge planning considerations.
[2019-04-05] MEDS: Insulin Glargine 300 UNITS/3 ML PEN 30 UNITS SC ×2 (09:08→19:35)
[2019-04-05] MEDS: MAGNESIUM SULFATE 2 GM/50 ML BAG IVPB (09:09)
[2019-04-05] MEDS: FAMOTIDINE 20 MG/50 ML BAG 200 MG IVPB ×2 (12:22→23:49)
--- NOTE | 2019-04-05 16:04 | PGE_ITS ---
Date of Service Date of service: 04/05/19 Time of Service: 16:05 Assessment and Plan Assessment and plan (1) Neutropenic fever: Status: Resolved Assessment and plan: Neutropenia improving. No cholecystitis, per HIDA. Likely due to immune-mediated reaction due to opdivo. Responding to steroids - we will start to taper these, per recommendation of Dr Martinez. D/c meropenem. (2) Diarrhea: Status: Acute Assessment and plan: C. diff negative. Due to immune-mediated colitis. Responding to steroids. D/c meropenem. (3) Cholecystitis: Status: Ruled-out Assessment and plan: As above. HIDA negative. (4) Hepatocellular carcinoma: Status: Acute Assessment and plan: With cirrhosis, varices, thrombocytopenia. Patient is on last-line therapy (immunotherapy), per him, with Opdivo, having failed chemo. Prognosis poor. S/p palliative care consult. Would like to remain full code. 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 Not a surgical candidate at our facility. (6) DVT prophylaxis: Status: Acute Assessment and plan: TEDs/SCDs (7) Discharge planning issues: Status: Acute Assessment and plan: Full code Subjective Subjective Interval history since last seen: Flash feels much better today. He states his abdominal pain is mild, and even though temporarily he felt better after he got the steroids, he is arguing with me that it was before. He has an appetite today. He denies dizziness, chest pain, shortness of breath, nausea. He would like me to liberalize his salt intake and is argumentative when I explain that salt makes him retain water and that he needs to restrict his salt intake to 2 grams per day. He believes that a high sodium diet is good for him and is not open to what I have to say about it. Exam Narrative Exam Narrative: General: obese male, walking around the room, looks much better, A&Ox3 HEENT: EOMI, MMM Heart: RRR, no m/r/g Lungs: CTAB Abdomen: distended, nontender Extremities: trace edema BLE's, no c/c. Objective Objective Clinical Data: Abnormal lab results 04/05/19 04/05/19 Range/Units 06:10 06:10 WBC 1.42 L* (4.4-10.8) k/cumm RBC 3.86 L (4.50-6.00) m/cumm Hgb 12.7 L (13.5-17.5) g/dL Hct 35.8 L (40.0-50.0) % RDW 14.8 H (11.8-14.1) % Plt Count 43 L (130-400) x1000/uL Absolute Neutrophils 1.10 L (1.2-6.7) k/cumm Absolute Lymphocytes 0.18 L (1.2-3.4) k/cumm Sodium 130 L (136-145) mmol/L Carbon Dioxide 20.0 L (21.0-32.0) mmol/L BUN 19 H D (7-18) mg/dL Glucose 343 H D (74-106) mg/dL Calcium 7.4 L (8.5-10.1) mg/dL Magnesium 1.6 L (1.8-2.4) mg/dL Total Bilirubin 4.7 H (0.2-1.0) mg/dL Conjugated Bilirubin 3.33 H (0.00-0.20) mg/dL AST 239 H (15-37) U/L ALT 103 H (16-63) U/L Alkaline Phosphatase 193 H (46-116) U/L Total Protein 5.5 L (6.4-8.2) g/dL Albumin 1.6 L (3.4-5.0) g/dL Vital Signs Temperature 35.7 C L 04/05/19 07:35 Temperature Source Tympanic 04/05/19 07:35 Pulse 87 04/05/19 07:35 Pulse Rhythm Irregular 04/05/19 09:05 Respiratory Rate 20 04/05/19 07:35 Respiratory Effort Non-Labored 04/05/19 09:05 Respiratory Depth Normal 04/05/19 09:05 Respiratory Pattern Normal 04/05/19 09:05 Blood Pressure 125/79 04/05/19 07:35 Blood Pressure Position Supine 04/01/19 22:17 Pulse Oximetry 93 L 04/05/19 07:35 Oxygen Delivery Method Room Air 04/05/19 07:35 Oxygen Flow Rate 0 04/05/19 07:35 Pain Level 0 04/05/19 07:35 Comment 01/05/20 16:05 Intake & Output 04/04/19 04/05/19 04/05/19 23:59 11:59 23:59 Intake Total 1859 780 / 1510 730 / 1510 Balance 1859 780 / 1510 730 / 1510 Intake: IV 150 / 400 180 / 280 100 / 280 Oral 1710 / 1710 600 / 1230 630 / 1230 Other: Urine Color Pale Yellow Urine Appearance Clear Urine Odor None Comment pt voiding independently in the toilet Voiding Methods Toilet Toilet Laboratory Results WBC 1.42 k/cumm (4.4-10.8) L* 04/05/19 06:10 RBC 3.86 m/cumm (4.50-6.00) L 04/05/19 06:10 Hgb 12.7 g/dL (13.5-17.5) L 04/05/19 06:10 Hct 35.8 % (40.0-50.0) L 04/05/19 06:10 MCV 92.7 fL (80-95) 04/05/19 06:10 MCH 32.9 pg (27.0-33.0) 04/05/19 06:10 MCHC 35.5 g/dL (32.0-36.0) 04/05/19 06:10 RDW 14.8 % (11.8-14.1) H 04/05/19 06:10 Plt Count 43 x1000/uL (130-400) L 04/05/19 06:10 MPV 11.0 fL (8.0-11.0) 04/05/19 06:10 Immature Gran % 0.7 % 04/05/19 06:10 Neutrophils % 77.5 04/05/19 06:10 Lymphocytes % 12.7 04/05/19 06:10 Monocytes % 7.7 04/05/19 06:10 Eosinophils % 0.0 04/05/19 06:10 Basophils % 1.4 04/05/19 06:10 Absolute Neutrophils 1.10 k/cumm (1.2-6.7) L 04/05/19 06:10 Absolute Lymphocytes 0.18 k/cumm (1.2-3.4) L 04/05/19 06:10 Absolute Monocytes 0.11 k/cumm (0.11-0.7) 04/05/19 06:10 Absolute Eosinophils 0.00 k/cumm (0.0-0.7) 04/05/19 06:10 Absolute Basophils 0.02 k/cumm (0.0-0.2) 04/05/19 06:10 Differential Comment Diff reviewed 04/05/19 06:10 RBC Morphology Normal 04/05/19 06:10 Polychromasia Present 04/03/19 10:28 Poikilocytosis 1+ 04/04/19 07:00 Anisocytosis 1+ 04/03/19 10:28 PT 12.3 sec (9.3-11.0) H 04/02/19 11:20 INR 1.2 (0.9-1.1) H 04/02/19 11:20 APTT 29.5 sec (21.0-31.4) 04/02/19 11:20 Sodium 130 mmol/L (136-145) L 04/05/19 06:10 Potassium 3.8 mmol/L (3.5-5.1) 04/05/19 06:10 Chloride 99 mmol/L (98-107) 04/05/19 06:10 Carbon Dioxide 20.0 mmol/L (21.0-32.0) L 04/05/19 06:10 Anion Gap 11.0 mmol/L (3-11) 04/05/19 06:10 BUN 19 mg/dL (7-18) H D 04/05/19 06:10 Creatinine 0.99 mg/dL (0.70-1.30) 04/05/19 06:10 Estimated GFR/1.73 m2 >= 60.00 (mL/min/1.73m2) 04/05/19 06:10 Glucose 343 mg/dL (74-106) H D 04/05/19 06:10 Calcium 7.4 mg/dL (8.5-10.1) L 04/05/19 06:10 Magnesium 1.6 mg/dL (1.8-2.4) L 04/05/19 06:10 Total Bilirubin 4.7 mg/dL (0.2-1.0) H 04/05/19 06:10 Conjugated Bilirubin 3.33 mg/dL (0.00-0.20) H 04/05/19 06:10 AST 239 U/L (15-37) H 04/05/19 06:10 ALT 103 U/L (16-63) H 04/05/19 06:10 Alkaline Phosphatase 193 U/L (46-116) H 04/05/19 06:10 Ammonia 42 umol/L (11-32) H 04/04/19 07:00 C-Reactive Protein 2.63 mg/dL (0.0-0.3) H 04/04/19 07:00 Total Protein 5.5 g/dL (6.4-8.2) L 04/05/19 06:10 Albumin 1.6 g/dL (3.4-5.0) L 04/05/19 06:10 Lipase 211 U/L (73-393) 04/01/19 23:40 Procalcitonin 0.3 ng/mL 04/02/19 06:55 Urine Color [place] (Yellow) 04/02/19 08:30 Urine Clarity Clear (Clear) 04/02/19 08:30 Urine pH 5.0 (5-8) 04/02/19 08:30 Ur Specific [place] 1.020 (1.005-1.025) 04/02/19 08:30 Urine Protein Negative mg/dL (Negative) 04/02/19 08:30 Urine Ketones Negative mg/dL (Negative) 04/02/19 08:30 Urine Blood Trace-lysed (Negative) H 04/02/19 08:30 Urine Nitrite Negative (Negative) 04/02/19 08:30 Urine Bilirubin Small (Negative) H 04/02/19 08:30 Urine Urobilinogen 0.2 EU/dL (Up TO 0.2) 04/02/19 08:30 Ur Leukocyte Esterase Negative (Negative) 04/02/19 08:30 Urine RBC Negative HPF (0-2) 04/02/19 08:30 Urine WBC 0-2 HPF (0-5) 04/02/19 08:30 Ur Epithelial Cells Few HPF (Negative) 04/02/19 08:30 Urine Crystals Negative HPF (Negative) 04/02/19 08:30 Urine Bacteria Rare HPF (Negative) 04/02/19 08:30 Urine Casts Negative LPF (Negative) 04/02/19 08:30 Urine Mucus Trace (Negative) 04/02/19 08:30 Ur Culture Indicated? C&s done as ordered 04/02/19 08:30 Urine Glucose Negative mg/dL (Negative) 04/02/19 08:30 Urine Opiates Screen Negative (Negative) 04/02/19 02:21 Urine Methadone Screen Negative (Negative) 04/02/19 02:21 Ur Barbiturates Screen Negative (Negative) 04/02/19 02:21 Ur Tricyclics Screen Negative (Negative) 04/02/19 02:21 Ur Amphetamines Screen Negative (Negative) 04/02/19 02:21 U Benzodiazepines Scrn Negative (Negative) 04/02/19 02:21 Urine Cocaine Screen Negative (Negative) 04/02/19 02:21 Ur THC Screen Negative (Negative) 04/02/19 02:21
[2019-04-05] MEDS: Furosemide 40 MG TAB PO (16:19)
[2019-04-05] MEDS: Simethicone 80 MG CHEW PO (16:41)
--- NOTE | 2019-04-05 16:49 | NUR.NOTE ---
Nursing Note: At approximately [address] this RN rounded with Dr. Hugo. Patient was argumentative and resistive to all explanations and suggestions by the MD. Patient refuses to be on a low sodium diet. He states that he has to eat salt, often pouring it in his hand, wetting his finger, sticking it in the salt and then placing it under his tongue to stop or prevent cramps. Dr Hugo attempted to explain that he is on Lasix and Sprinolactone to pull the extra fluid off that he retains from eating salt and that salt does not stop cramps. The patient disagreed and stated that he would continue eating salt liberally. Dr Hugo told the patient that doing so would be against medical advice
[2019-04-05 16:59] VITALS: BP 103/67; PULSE 76; RESP 16; TEMP 37; O2SAT 96
[2019-04-05] MEDS: Spironolactone 50 MG TAB 100 MG PO (19:35)
[2019-04-05 20:40] VITALS: BP 130/56; PULSE 79; RESP 17; TEMP 35.6; O2SAT 96
[2019-04-06] MEDS: Pantoprazole 40 MG VIAL IVP (04:45)
[2019-04-06] MEDS: Normal Saline Flush 10 ML SYR IVP ×3 (04:46→09:59)
[2019-04-06 07:11] LABS: HCT 35.9 % (40.0-50.0); HGB 12.6 g/dL (13.5-17.5); Mean Corp. HGB Concentration 35.1 g/dL (32.0-36.0); Mean Corpuscular Hemoglobin 32.2 pg (27.0-33.0); Mean Corpuscular Volume 91.8 fL (80-95); Mean Platelet Volume 11.2 fL (8.0-11.0); RBC 3.91 m/cumm (4.50-6.00); RBC Distribution Width 14.8 % (11.8-14.1)
[2019-04-06 07:20] VITALS: BP 107/64; PULSE 72; RESP 18; TEMP 37; O2SAT 95
[2019-04-06 07:29] LABS: ALT 98 U/L (16-63); AST 187 U/L (15-37); Albumin 1.7 g/dL (3.4-5.0); Alkaline Phosphatase 209 U/L (46-116); Anion Gap 8.8 mmol/L (3-11); BUN 18 mg/dL (7-18); Bilirubin, Direct 2.33 mg/dL (0.00-0.20); Bilirubin, Total 3.4 mg/dL (0.2-1.0); CO2 23.2 mmol/L (21.0-32.0); CREATININE 0.78 mg/dL (0.70-1.30); Calcium 7.8 mg/dL (8.5-10.1); Chloride 103 mmol/L (98-107); Glucose 195 mg/dL (74-106); Magnesium 1.7 mg/dL (1.8-2.4); Sodium 135 mmol/L (136-145); Total Protein 5.7 g/dL (6.4-8.2)
[2019-04-06 07:42] LABS: Absolute Lymphocyte Count 0.19 k/cumm (1.2-3.4)
[2019-04-06 07:43] LABS: Absolute Monocyte Count 0.22 k/cumm (0.11-0.7); Polychromasia Present
[2019-04-06 07:44] LABS: Platelet Count 54 x1000/uL (130-400)
[2019-04-06 07:45] LABS: Diff Comment Manual Differential
[2019-04-06 08:03] LABS: Anisocytosis 1+
[2019-04-06] MEDS: Carvedilol 6.25 MG TAB PO (08:07)
[2019-04-06] MEDS: Rifaximin 550 MG TAB PO (08:08)
[2019-04-06] MEDS: Furosemide 80 MG TAB PO (08:08)
[2019-04-06] MEDS: predniSONE 20 MG TAB 40 MG PO (08:08)
[2019-04-06] MEDS: Sucralfate 1 GM TAB PO ×2 (08:08→11:33)
[2019-04-06] MEDS: Insulin Aspart 300 UNITS/3 ML PEN SC ×4 (08:14→12:37)
[2019-04-06] MEDS: Insulin Glargine 300 UNITS/3 ML PEN 30 UNITS SC (08:16)
[2019-04-06] MEDS: MAGNESIUM SULFATE 2 GM/50 ML BAG IVPB (11:33)
--- NOTE | 2019-04-06 13:36 | DSE_ITS ---
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 (7) Cirrhosis of liver: Status: Chronic Discharge Plan Disposition Patient Disposition: HOME Condition: Fair Discharge Details Chief Complaint: Abd Prob Clinical Impression: Abdominal pain, Hepatocellular carcinoma Reason For Visit: ABDOMINAL PAIN Admit Date/Time: 04/02/19 11:30 Admit Provider: Bret Ayers Attending Provider: Bret Ayers Primary Care Provider: Shalonda Neil ED Provider: [facility] Hospital Course: Mr Osorio is a 59 year old male with PMHx of hepatocellular carcinoma, recently initiated on Opdivo therapy, as well as h/o cholelithiasis, cirrhosis with portal hypertension, esophageal varices, and hepatic encephalopathy, and IDDM2, admitted to [facility] on 04/02/2019 with acute RUQ abdominal pain and diarrhea. His workup revealed elevated LFTs, more so than his chronic, and because of the location of his pain, cholecystitis had to be ruled out. CT of the abdomen and the ultrasound were difficult to interpret due to perihepatic/pericholecystic ascites and general inflammation in the area, but the HIDA scan was negative. The patient was febrile and became neutropenic. His septic workup was negative, including blood, urine cultures, stool for C. Diff, and chest imaging. The patient was empirically treated with meropenem. Dr Martinez suggested that the patient could be having an immune-mediated reaction post Opdivo, which can sometimes cause pseudoprogression of disease, which typically responds to steroid therapy. The patient was trialed on steroid therapy with response within hours, including improvement/resolution of abdominal pain, diarrhea, and decrease in patient's LFT's, and improvement in WBC and platelet counts. He has tolerated being off of antibiotics for 24 hours. His steroids are being quickly tapered (2 days left). He is asked to follow up with Dr Martinez within a week. The patient did meet with palliative care on this admission. He remains optimistic about his prognosis, though he has heard from multiple sources now that his prognosis is not good. He would like to remain full code at this time. Care for patient as well as preparation of his discharge summary and instructions took 45 mninutes. Home Meds and New Rx's Prescriptions: New prednisone 10 mg tablet 10 mg PO DAILY Qty: 3 RF: 0 omeprazole 40 mg capsule,delayed release(DR/EC) 40 mg PO DAILY Qty: 30 RF: 0 Continued Xifaxan 550 MG tablet 550 mg PO BID RF: 0 carvedilol 6.25 MG tablet 1 tab PO BID RF: 0 Lantus U-100 Insulin 100 unit/mL Solution 30 unit subcut BID INSULIN RF: 0 spironolactone 100 mg Tablet 100 mg PO QPM RF: 0 tadalafil 20 mg Tablet 40 mg PO DAILY RF: 0 furosemide 40 mg Tablet 80 mg PO DAILY AM RF: 0 Victoza 2-Elías 0.6 MG/0.1 ML pen injector 1.8 mg SQ DAILY RF: 0 acetaminophen [Acetaminophen Extra Strength] 500 mg Tablet 1,000 mg PO .Q 24H MDD 1000 PRNRF: 0 Opdivo 240 mg/24 mL Solution 240 mg IV Q2W RF: 0 Discharge Instructions Additional Instructions: Return to the hospital with any fever, bleeding, chest pain, shortness of breath. Finish your prednisone taper as prescribed: 20 mg of prednisone tomorrow, and 10 mg the day after. Follow up with Dr Martinez on 04/14/2019. Stand Alone Forms: Nursing Discharge Form Referrals: Shalonda Neil [Primary Care Provider] - Jaz Silveira MD [ [facility] STAFF PHYSICIAN] - Wesley Martinez MD [ CONSULTING PHYSICIAN] - 04/14/19 11:00 am Activity:: Activity as Tolerated Equipment/Supplies:: No Equipment Needed Diet:: low sodium diabetic Discharge Orders Discharge Orders: Discharge Order (Routine); Ordered 04/06/19 Ordered By: Charlotte Hugo DS: Summary Status at Discharge Functional status at discharge: independent ambulation Overall status at discharge: patient is back to baseline Mental Status: mental status grossly normal Speech and Movement: speech and movement normal Mood: congruent mood Affect: normal affect Exam Narrative Exam Narrative: General: obese male, walking around the room, looks much better, A&Ox3 HEENT: EOMI, MMM Heart: RRR, no m/r/g Lungs: CTAB Abdomen: distended, nontender Extremities: trace edema BLE's, no c/c. Psych Mental Status: mental status grossly normal Speech and Movement: speech and movement normal Mood: congruent mood Affect: normal affect DS: Data Vitals/I&O Vitals and I&O: Vital Signs Temperature 37.0 C 04/06/19 07:20 Temperature Source Tympanic 04/06/19 07:20 Pulse 72 04/06/19 07:20 Pulse Rhythm Regular 04/06/19 07:50 Respiratory Rate 18 04/06/19 07:20 Respiratory Effort Non-Labored 04/06/19 07:50 Respiratory Depth Normal 04/06/19 07:50 Respiratory Pattern Normal 04/06/19 07:50 Blood Pressure 107/64 04/06/19 07:20 Blood Pressure Position Supine 04/01/19 22:17 Pulse Oximetry 95 04/06/19 07:20 Oxygen Delivery Method Room Air 04/06/19 07:20 Oxygen Flow Rate 0 04/06/19 07:20 Pain Level 0 04/06/19 07:20 Comment 04/02/19 16:05 Intake & Output 04/05/19 04/06/19 04/06/19 23:59 11:59 23:59 Intake Total 1040 / 1870 1470 / 1470 Balance 1040 / 1870 1470 / 1470 Weight 106.4 kg Intake: IV 170 / 400 40 / 40 Oral 870 / 1470 1430 / 1430 Other: Urine Color Yellow Yellow Urine Appearance Clear Clear Urine Odor Normal Stool Size Small Stool Characteristics Soft Voiding Methods Toilet Toilet Data Completed and Pending Completed studies during hospitalization [Text1]: CT abdomen/pelvis 04/02/2019: Mildly dilated loops of small bowel without definite obstruction. Cirrhotic appearing liver and splenomegaly, stable. Cholelithiasis without definite cholecystitis. US abdomen 04/02/2019: Heterogeneous cirrhotic appearing liver. Cholelithiasis. No definite evidence of acute cholecystitis. CXR 04/02/2019: No acute abnormality. HIDA 04/04/2019: No evidence of acute cholecystitis. There is delay in excretion into the small bowel. Labs on day of discharge: Labs from last 24 hours 04/06/19 04/06/19 06:15 06:15 WBC 3.10 L D RBC 3.91 L Hgb 12.6 L Hct 35.9 L MCV 91.8 MCH 32.2 MCHC 35.1 RDW 14.8 H Plt Count 54 L MPV 11.2 H Immature Gran % See Differential Neutrophils % 83.0 Band Neutrophils % 4.0 Lymphocytes % 4.0 Atypical Lymphs % 2.0 Monocytes % 7.0 Eosinophils % 0.0 Basophils % 0.0 Absolute Neutrophils 2.70 Absolute Lymphocytes 0.19 L Absolute Monocytes 0.22 Absolute Eosinophils 0.00 Absolute Basophils 0.00 Differential Comment Manual differential RBC Morphology See below Polychromasia Present Anisocytosis 1+ Sodium 135 L Potassium 4.0 Chloride 103 Carbon Dioxide 23.2 Anion Gap 8.8 BUN 18 Creatinine 0.78 Estimated GFR/1.73 m2 >= 60.00 Glucose 195 H D Calcium 7.8 L Magnesium 1.7 L Total Bilirubin 3.4 H Conjugated Bilirubin 2.33 H AST 187 H ALT 98 H Alkaline Phosphatase 209 H Total Protein 5.7 L Albumin 1.7 L Preliminary micro results at discharge 04/02/19 08:06 Blood Culture - Preliminary Blood NO GROWTH 96 HOURS 04/02/19 08:05 Blood Culture - Preliminary Blood NO GROWTH 96 HOURS [facility] Medical History (Updated 04/06/19 @ 13:37 by Charlotte Hugo MD) Cholelithiasis (Chronic) Cirrhosis of liver (Chronic) Diabetes (Chronic) Esophageal varices (Chronic) Hepatocellular carcinoma (Chronic) Hypertension (Chronic) Pancreatitis (Resolved) 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) Surgical History Hx of circumcision (Acute) S/P hernia repair (Inactive) Social History Smoking/Tobacco Use Status: Never Alcohol Intake: never Drug use: Never Substance use type: does not use Do you feel safe at home: Yes Do you feel safe in your relationship?: Yes
[2019-04-06] MEDS: FAMOTIDINE 20 MG/50 ML BAG 200 MG IVPB (14:17)
--- NOTE | 2019-04-06 18:41 | CMDISCH_ITS ---
- If Service Date Differs Date of service: 04/06/19 Time of Service: 18:41 LACE Index Scoring Tool - Questions: Length of Stay (in days): 4 - 6 Acuity (Admit via E.D.?): Yes Comorbidities: Diabetes w/o Complication, Liver or Renal Disease E.D. Visits: 5 - Answers: Total Score: 16 Risk of Readmission: High Risk Care Management Discharge Reason for Hospitalization: Abdominal pain Discharge Plan: Flash will return home with no additional services at this time. He will follow up with his PCP and his providers at [facility], as recommended. Palliative will also follow him in the community. He will be driven home by family via private vehicle. Patient/Family Education Needs: Review discharge instructions, discussion of health care goals and wishes.
== END 2019-04-06 15:49 | disposition home or self-care (01) | DRG 392 ==
LOC: ER 04-02 04:07 → MS 04-02 04:52
PROVIDERS: Admitting Provider Internal Medicine; Emergency Provider Emergency Medicine; PCP Internal Medicine; Visit Provider Internal Medicine
DX: R10.11 Right upper quadrant pain (principal); C22.0 Liver cell carcinoma; R18.8 Other ascites; K52.1 Toxic gastroenteritis and colitis; K76.6 Portal hypertension; I85.10 Secondary esophageal varices without bleeding; D70.9 Neutropenia, unspecified; R50.81 Fever presenting with conditions classified elsewhere; Z79.899 Other long term (current) drug therapy; T45.1X5A Adverse effect of antineoplastic and immunosuppressive drugs, initial encounter; K74.69 Other cirrhosis of liver; R94.5 Abnormal results of liver function studies; K75.81 Nonalcoholic steatohepatitis (NASH); E83.42 Hypomagnesemia; Z51.5 Encounter for palliative care; E11.9 Type 2 diabetes mellitus without complications; Z79.4 Long term (current) use of insulin; I10 Essential (primary) hypertension; R16.1 Splenomegaly, not elsewhere classified; D69.59 Other secondary thrombocytopenia; G47.33 Obstructive sleep apnea (adult) (pediatric); I27.20 Pulmonary hypertension, unspecified; Z71.3 Dietary counseling and surveillance
CPT/HCPCS: 36410; 36415; 36569; 78227; 80048; 80053; 80076; 80307; 83690; 84145; 87040; 96361; 96365; 96375; 96376; 99220; 99221; 99232; 99233; 99239; 99252; 99255; 99285; NC; 71046; 74177; 76705; 81003; 81015; 82140; 83735; 85025; 85610; 85730; 86140; 87086; 87324; 99219; 99222; G0378; J1815; J2270; J2765; J2930; J3475; J3480; J3490; J7512; Q9967

== ENCOUNTER 2019-04-14 09:45 | Outpatient (CLI) | payer MEDICARE, SELFPAY ==
[2019-04-14 10:01] LABS: Abs Immature Grans 0.02 k/cumm (0.0-0.09); Absolute Basophil Count 0.03 k/cumm (0.0-0.2); Absolute Eosinophil Count 0.08 k/cumm (0.0-0.7); Absolute Lymphocyte Count 0.26 k/cumm (1.2-3.4); Absolute Monocyte Count 0.24 k/cumm (0.11-0.7); Absolute Neutrophil Count 0.71 k/cumm (1.2-6.7); Basophils % 2.2; HCT 38.2 % (40.0-50.0); HGB 13.2 g/dL (13.5-17.5); Immature Grans % 1.5 %; Lymphocytes % 19.4; Mean Corp. HGB Concentration 34.6 g/dL (32.0-36.0); Mean Corpuscular Volume 95.5 fL (80-95); Mean Platelet Volume 10.4 fL (8.0-11.0); Monocytes % 17.9; RBC Distribution Width 15.1 % (11.8-14.1)
[2019-04-14 10:22] LABS: ALT 119 U/L (16-63); AST 247 U/L (15-37); Albumin 1.8 g/dL (3.4-5.0); Alkaline Phosphatase 318 U/L (46-116); BUN 11 mg/dL (7-18); Bilirubin, Total 3.6 mg/dL (0.2-1.0); CREATININE 1.12 mg/dL (0.70-1.30); Calcium 7.9 mg/dL (8.5-10.1); Chloride 102 mmol/L (98-107); FREE T4 1.29 ng/dL (0.76-1.46); Glucose 117 mg/dL (74-106); Potassium 3.5 mmol/L (3.5-5.1); Sodium 137 mmol/L (136-145); TSH 2.86 uIU/mL (0.36-3.74); Total Protein 5.6 g/dL (6.4-8.2)
[2019-04-14 10:23] LABS: White Blood Cell Count 1.34 k/cumm (4.4-10.8)
[2019-04-14 10:25] LABS: Platelet Count 39 x1000/uL (130-400)
[2019-04-14 10:26] LABS: Anisocytosis 1+; Diff Comment Diff Reviewed; Polychromasia Present
[2019-04-14 10:27] LABS: Poikilocytes 1+
[2019-04-17 09:23] LABS: AFP Tumor Marker 130.2 ng/mL (<8.1)
== END 2019-04-14 10:05 ==
PROVIDERS: PCP Internal Medicine; Visit Provider Internal Medicine Hematology & Oncology
DX: C22.0 Liver cell carcinoma (principal); R53.83 Other fatigue
CPT/HCPCS: 36415; 80053; 82105; 84439; 84443; 85025

== ENCOUNTER 2019-04-17 13:42 | Outpatient (CLI) | payer MEDICARE, SELFPAY ==
[2019-04-17 14:04] LABS: Abs Immature Grans 0.03 k/cumm (0.0-0.09); Absolute Basophil Count 0.01 k/cumm (0.0-0.2); Absolute Eosinophil Count 0.04 k/cumm (0.0-0.7); Absolute Lymphocyte Count 0.31 k/cumm (1.2-3.4); Absolute Monocyte Count 0.15 k/cumm (0.11-0.7); Absolute Neutrophil Count 2.85 k/cumm (1.2-6.7); Basophils % 0.3; Eosinophils % 1.2; HGB 13.6 g/dL (13.5-17.5); Immature Grans % 0.9 %; Lymphocytes % 9.1; Mean Corpuscular Hemoglobin 32.5 pg (27.0-33.0); Mean Corpuscular Volume 95.7 fL (80-95); Mean Platelet Volume 11.1 fL (8.0-11.0); Monocytes % 4.4; Neutrophils % 84.1; RBC 4.18 m/cumm (4.50-6.00); RBC Distribution Width 15.3 % (11.8-14.1); White Blood Cell Count 3.39 k/cumm (4.4-10.8)
[2019-04-17 14:31] LABS: Diff Comment Diff Reviewed; Platelet Count 43 x1000/uL (130-400); RBC Morphology Normal
[2019-04-17 14:41] LABS: ALT 126 U/L (16-63); AST 225 U/L (15-37); Albumin 2.1 g/dL (3.4-5.0); Alkaline Phosphatase 341 U/L (46-116); Anion Gap 7.8 mmol/L (3-11); BUN 12 mg/dL (7-18); Bilirubin, Total 3.3 mg/dL (0.2-1.0); CO2 27.2 mmol/L (21.0-32.0); CREATININE 0.95 mg/dL (0.70-1.30); Calcium 8.3 mg/dL (8.5-10.1); Chloride 104 mmol/L (98-107); Glucose 153 mg/dL (74-106); Potassium 3.5 mmol/L (3.5-5.1); Sodium 139 mmol/L (136-145); Total Protein 5.9 g/dL (6.4-8.2)
== END 2019-04-17 14:02 ==
PROVIDERS: PCP Internal Medicine; Visit Provider Internal Medicine Hematology & Oncology
DX: C22.0 Liver cell carcinoma (principal)
CPT/HCPCS: 36415; 80053; 85025

== ENCOUNTER 2019-04-20 13:39 | Outpatient (CLI) | payer MEDICARE, SELFPAY ==
[2019-04-20 14:13] LABS: Abs Immature Grans 0.03 k/cumm (0.0-0.09); Absolute Basophil Count 0.02 k/cumm (0.0-0.2); Absolute Eosinophil Count 0.12 k/cumm (0.0-0.7); Absolute Lymphocyte Count 0.43 k/cumm (1.2-3.4); Absolute Monocyte Count 0.27 k/cumm (0.11-0.7); Absolute Neutrophil Count 2.26 k/cumm (1.2-6.7); Basophils % 0.6; Eosinophils % 3.8; HCT 40.3 % (40.0-50.0); HGB 13.9 g/dL (13.5-17.5); Lymphocytes % 13.7; Mean Corp. HGB Concentration 34.5 g/dL (32.0-36.0); Mean Corpuscular Hemoglobin 32.8 pg (27.0-33.0); Monocytes % 8.6; Neutrophils % 72.3; RBC 4.24 m/cumm (4.50-6.00); RBC Distribution Width 15.3 % (11.8-14.1); White Blood Cell Count 3.13 k/cumm (4.4-10.8)
[2019-04-20 14:35] LABS: ALT 118 U/L (16-63); AST 154 U/L (15-37); Albumin 2.1 g/dL (3.4-5.0); Alkaline Phosphatase 450 U/L (46-116); Anion Gap 4.4 mmol/L (3-11); BUN 15 mg/dL (7-18); Bilirubin, Total 3.9 mg/dL (0.2-1.0); CO2 31.6 mmol/L (21.0-32.0); CREATININE 1.06 mg/dL (0.70-1.30); Calcium 8.5 mg/dL (8.5-10.1); Chloride 101 mmol/L (98-107); Diff Comment PLT Morph Reviewed; FREE T4 1.35 ng/dL (0.76-1.46); Glucose 309 mg/dL (74-106); Potassium 3.6 mmol/L (3.5-5.1); RBC Morphology Normal; Sodium 137 mmol/L (136-145); TSH 3.15 uIU/mL (0.36-3.74); Total Protein 6.2 g/dL (6.4-8.2)
[2019-04-20 14:36] LABS: Platelet Count 49 x1000/uL (130-400)
[2019-04-21 10:02] LABS: AFP Tumor Marker 252.9 ng/mL (<8.1)
== END 2019-04-20 13:59 ==
PROVIDERS: PCP Internal Medicine; Visit Provider Internal Medicine Hematology & Oncology
DX: C22.0 Liver cell carcinoma (principal); R53.83 Other fatigue
CPT/HCPCS: 36415; 80053; 82105; 84439; 84443; 85025

== ENCOUNTER 2019-04-25 11:54 | Outpatient (CLI) | payer MEDICARE, SELFPAY ==
[2019-04-25 12:22] LABS: Abs Immature Grans 0.08 k/cumm (0.0-0.09); Absolute Basophil Count 0.01 k/cumm (0.0-0.2); Absolute Eosinophil Count 0.07 k/cumm (0.0-0.7); Absolute Lymphocyte Count 0.28 k/cumm (1.2-3.4); Absolute Monocyte Count 0.37 k/cumm (0.11-0.7); Absolute Neutrophil Count 3.37 k/cumm (1.2-6.7); Basophils % 0.2; Eosinophils % 1.7; HCT 40.9 % (40.0-50.0); HGB 14.1 g/dL (13.5-17.5); Immature Grans % 1.9 %; Lymphocytes % 6.7; Mean Corp. HGB Concentration 34.5 g/dL (32.0-36.0); Mean Corpuscular Hemoglobin 32.9 pg (27.0-33.0); Mean Corpuscular Volume 95.3 fL (80-95); Mean Platelet Volume 11.6 fL (8.0-11.0); Monocytes % 8.9; Neutrophils % 80.6; RBC 4.29 m/cumm (4.50-6.00); White Blood Cell Count 4.18 k/cumm (4.4-10.8)
[2019-04-25 12:43] LABS: ALT 120 U/L (16-63); AST 143 U/L (15-37); Albumin 2.1 g/dL (3.4-5.0); Alkaline Phosphatase 506 U/L (46-116); BUN 20 mg/dL (7-18); Bilirubin, Total 5.1 mg/dL (0.2-1.0); CREATININE 1.23 mg/dL (0.70-1.30); Calcium 8.3 mg/dL (8.5-10.1); Chloride 98 mmol/L (98-107); Estimated GFR 59.82 (mL/min/1.73m2); FREE T4 1.37 ng/dL (0.76-1.46); Glucose 427 mg/dL (74-106); Potassium 4.3 mmol/L (3.5-5.1); Sodium 133 mmol/L (136-145); TSH 2.25 uIU/mL (0.36-3.74)
[2019-04-25 12:44] LABS: Diff Comment PLT Morph Reviewed; Platelet Count 45 x1000/uL (130-400); RBC Morphology Normal
[2019-04-26 11:09] LABS: AFP Tumor Marker 275.3 ng/mL (<8.1)
== END 2019-04-25 12:14 ==
PROVIDERS: PCP Internal Medicine; Visit Provider Internal Medicine Hematology & Oncology
DX: C22.0 Liver cell carcinoma (principal); R53.83 Other fatigue
CPT/HCPCS: 36415; 80053; 82105; 84439; 84443; 85025

== ENCOUNTER 2019-04-25 17:41 | Emergency (ER) | payer MEDICARE, SELFPAY ==
[2019-04-25 17:45] VITALS: BP 135/76; PULSE 71; RESP 18; TEMP 37
--- NOTE | 2019-04-25 17:57 | ED.GENADUL_ITS ---
Discharge Plan Disposition Patient Disposition: HOME Condition: Stable Discharge Details Chief Complaint: Diabetes Clinical Impression: Steroid-induced hyperglycemia Primary Care Provider: Shalonda Neil ED Provider: Alek Magdaleno Home Meds and New Rx's Prescriptions: Continued acetaminophen [Acetaminophen Extra Strength] 500 mg Tablet 1,000 mg PO .Q 24H MDD 1000 PRNRF: 0 omeprazole 40 mg capsule,delayed release(DR/EC) 40 mg PO DAILY Qty: 30 RF: 0 No Action Xifaxan 550 MG tablet 550 mg PO BID RF: 0 carvedilol 6.25 MG tablet 1 tab PO BID RF: 0 Lantus U-100 Insulin 100 unit/mL Solution 32 unit subcut BID INSULIN RF: 0 spironolactone 100 mg Tablet 100 mg PO QPM RF: 0 tadalafil 20 mg Tablet 40 mg PO DAILY RF: 0 furosemide 40 mg Tablet 80 mg PO DAILY AM RF: 0 Victoza 2-Elías 0.6 MG/0.1 ML pen injector 1.8 mg SQ DAILY RF: 0 Opdivo 240 mg/24 mL Solution 240 mg IV Q2W RF: 0 prednisone 10 mg tablet 80 mg PO DAILY RF: 0 Discharge Instructions Instructions: Diabetic Hyperglycemia (ED) Additional Instructions: Your blood sugars are higher due to the steroid follow up with your primary care provider, if the steroid is going to be con tinued you may need to have a short acting insulin prescribed if you have fevers, difficulty breathing or feel more ill return to the emergency department Medical Decision Making 59 year old male with PMHx of hepatocellular carcinoma, recently initiated on Opdivo therapy, as well as h/o cholelithiasis, cirrhosis with portal hypertension, esophageal varices, and hepatic encephalopathy, and IDDM2 who is on steroids to prevent reactions to his chemotherapy agent, comes in with high blood sugars for a few days and has no symptoms. Denies repiratory, gi symptoms, no weakness, no numbness, no abdominal pain or vomit. His sugar here is noted to be 438. Given no symptoms and known trigger for increase in his blood sugar will tx with one time dose of regular insulin. He is supposed to increase his lantus to 32 units bid starting tonight from 30 bid and he will do this. Advised to f/u with pcp this week and return precautions given Differential Diagnosis Differential Diagnosis: steroid induced hyperglycemia, hhs, dka HPI General Mode of arrival: ambulatory . Date/Time Provider Initiated Documentation: 04/25/19 17:45 . Limitations to Documentation: no limitations . Information obtained by: patient . History of Present Illness 59 year old M presents to the emergency department with the chief complaint of high blood sugar, described as moderate, No relieving factors improve symptom(s), No exacerbating factors reported . Patient notes no other symptoms.. Related Data Home Medications Medication Instructions Recorded Confirmed Xifaxan 550 mg PO BID 11/03/12 04/25/19 carvedilol 1 tab PO BID 11/07/15 04/25/19 Victoza 2-Elías 1.8 mg SQ DAILY 09/08/17 04/25/19 Lantus U-100 Insulin 32 unit SUBCUT BID INSULIN 07/02/18 04/25/19 furosemide 80 mg PO DAILY AM 01/15/19 04/25/19 spironolactone 100 mg PO QPM 01/15/19 04/25/19 tadalafil 40 mg PO DAILY 01/15/19 04/25/19 acetaminophen [Acetaminophen Extra 1,000 mg PO .Q 24H PRN MDD 1000 02/20/19 04/25/19 Strength] Opdivo 240 mg IV Q2W 04/01/19 04/25/19 omeprazole 40 mg PO DAILY #30 cap 04/06/19 04/25/19 prednisone 80 mg PO DAILY 04/25/19 04/25/19 Previous Rx's Medication Instructions Recorded omeprazole 40 mg PO DAILY #30 cap 04/06/19 Allergies Allergy/AdvReac Type Severity Reaction Status Date / Time oxycodone AdvReac Unknown Psychosis Unverified 04/25/19 18:00 General Stated Complaint: Diabetes KRYSTLE: 3 Review of Systems All systems reviewed & are unremarkable except as noted in HPI and below Constitutional Constitutional: Denies chills, Denies fever(s) and Denies weakness Cardiovascular Cardiovascular: Denies chest pain and Denies dyspnea Respiratory Respiratory: Denies dyspnea Gastrointestinal Gastrointestinal: Denies abdominal pain, Denies nausea and Denies vomiting Integumentary/Breasts Skin/Breast: Denies rash Neurologic Neurologic: Denies weakness Endocrine Endocrine: Denies heat intolerance ON LICENSE OF [facility] Medical History (Updated 04/25/19 @ 17:59 by Alek Magdaleno MD) Cholelithiasis (Chronic) Cirrhosis of liver (Chronic) Diabetes (Chronic) Esophageal varices (Chronic) Hepatocellular carcinoma (Chronic) Hypertension (Chronic) Pancreatitis (Resolved) 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) Surgical History Hx of circumcision (Acute) S/P hernia repair (Inactive) Social History Smoking/Tobacco Use Status: Never Alcohol Intake: never Drug use: Never Substance use type: does not use Do you feel safe at home: Yes Do you feel safe in your relationship?: Yes Exam Const General: no acute distress Orientation: alert HENMT Head: normal to inspection Ears: external ears normal General nose exam: external nose normal Mouth: moist mucous membranes Eyes General: appearance normal, both eyes and all related structures Neck Neck: normal visual inspection Resp Effort & Inspection: normal respiratory effort and able to speak in complete sentences Cardio Rate: regular rate Skin General skin exam: no rashes or lesions noted Neuro General: alert and oriented x3 Extrem General: normal to inspection Psych Mental Status: mental status grossly normal Course Vital Signs Vital signs: Vital Signs Temperature 37.0 C 04/25/19 17:45 Pulse 71 04/25/19 17:45 Respiratory Rate 18 04/25/19 17:45 Blood Pressure 135/76 04/25/19 17:45 Temperature 37.0 C 04/25/19 17:45 Temperature Source Skin 04/25/19 17:45 Pulse 71 04/25/19 17:45 Respiratory Rate 18 04/25/19 17:45 Respiratory Effort 04/25/19 17:48 Blood Pressure 135/76 04/25/19 17:45 Oxygen Delivery Method Room Air 04/25/19 17:45 Oxygen Flow Rate 0 04/25/19 17:45 Pain Level 0 04/25/19 17:45
[2019-04-25] MEDS: Insulin REGULAR-Human 100 UNITS/ML UNIT SC (18:17)
== END 2019-04-25 18:24 | disposition home or self-care (01) ==
PROVIDERS: Emergency Provider Emergency Medicine; PCP Internal Medicine
DX: E11.65 Type 2 diabetes mellitus with hyperglycemia (principal); T38.0X5A Adverse effect of glucocorticoids and synthetic analogues, initial encounter; Z79.4 Long term (current) use of insulin; C22.0 Liver cell carcinoma; Z79.899 Other long term (current) drug therapy; I10 Essential (primary) hypertension
CPT/HCPCS: 36415; 36416; 80053; 82962; 96372; 99284; 82105; 84439; 84443; 85025

== ENCOUNTER 2019-05-01 18:19 | Emergency (ER) | payer MEDICARE, SELFPAY ==
[2019-05-01 18:26] VITALS: BP 101/56; PULSE 67; RESP 20; TEMP 36.1; O2SAT 94
--- NOTE | 2019-05-01 18:54 | W.ED.GENAD ---
Discharge Plan Disposition Patient Disposition: HOME Condition: Improving Discharge Details Chief Complaint: Abd Prob Clinical Impression: Gastritis, Cirrhosis of liver, Thrombocytopenia Primary Care Provider: Shalonda Neil ED Provider: Joseph Oh Home Meds and New Rx's Prescriptions: New sucralfate [Carafate] 1 gram tablet 1 gm PO BID Qty: 20 RF: 0 Continued Xifaxan 550 MG tablet 550 mg PO BID RF: 0 carvedilol 6.25 MG tablet 1 tab PO BID RF: 0 Lantus U-100 Insulin 100 unit/mL Solution 32 unit subcut BID INSULIN RF: 0 spironolactone 100 mg Tablet 100 mg PO QPM RF: 0 tadalafil 20 mg Tablet 40 mg PO DAILY RF: 0 furosemide 40 mg Tablet 80 mg PO DAILY AM RF: 0 Victoza 2-Elías 0.6 MG/0.1 ML pen injector 1.8 mg SQ DAILY RF: 0 Opdivo 240 mg/24 mL Solution 240 mg IV Q2W RF: 0 omeprazole 40 mg capsule,delayed release(DR/EC) 40 mg PO DAILY Qty: 30 RF: 0 prednisone 10 mg tablet 80 mg PO DAILY RF: 0 No Action acetaminophen [Acetaminophen Extra Strength] 500 mg Tablet 1,000 mg PO .Q 24H MDD 1000 PRNRF: 0 Discharge Instructions Additional Instructions: Please follow-up with Dr. Martinez at the cancer center as planned this week. Please continue your omeprazole. May begin Carafate tomorrow as prescribed. Home to rest this evening. Return to the ER for any acute concern. I recommend you avoid taking Tylenol as this can worsen your liver condition Medical Decision Making 59-year-old male presents with days of recurrent abdominal pain after outpatient endoscopy at [facility]. Patient has a history of advanced diffuse infiltrative hepatocellular carcinoma, poorly responsive to chemotherapy. He also has a history of chronic cholelithiasis, portal hypertension, esophageal varices. States that he did well after upper endoscopy at [facility] this past , now with 2 days of recurrent upper abdominal pain. He has been able to take liquids and solids intermittently. He has not had a fever. Patient's vital signs reveal a temp of 36, pulse 67, blood pressure 101/56. Referred for frontal and applied views of the abdomen which reveals no bowel dilatation, no free air. Laboratories with evidence of known chronic hepatic failure. Today total bili 7.7, AST 482, ALT 219. CBC with white blood cell count of 2.6, hematocrit 41, platelets 32. The patient has had leukopenia and thrombocytopenia for months. He improved with GI cocktail. He has follow-up with Dr. Martinez at the cancer center this week. I do feel he would benefit from additional suppression of acid and gastritis. He will continue his omeprazole and I will add Carafate as it ought not to be absorbed, nor affect the liver. HPI General Mode of arrival: ambulatory. Date/Time Provider Initiated Documentation: 05/01/19 18:21. Limitations to Documentation: no limitations. Information obtained by: patient. History of Present Illness 59 year old M presents to the emergency department with the chief complaint of Recurrent upper abdominal pain, history of same, described as mild, moderate and similar to prior episodes, and is localized to the abdomen. Patient reports no radiation. Patient started experiencing this hour(s) and it has been intermittent. No relieving factors improve symptom(s), No exacerbating factors reported . Patient notes other (Belching, eating intermittently tolerant of p.o.). Patient did receive the following treatments prior to arrival, none Related Data Home Medications Medication Instructions Recorded Confirmed Xifaxan 550 mg PO BID 11/03/12 05/01/19 carvedilol 1 tab PO BID 11/07/15 05/01/19 Victoza 2-Elías 1.8 mg SQ DAILY 09/08/17 05/01/19 Lantus U-100 Insulin 32 unit SUBCUT BID INSULIN 07/02/18 05/01/19 furosemide 80 mg PO DAILY AM 01/15/19 05/01/19 spironolactone 100 mg PO QPM 01/15/19 05/01/19 tadalafil 40 mg PO DAILY 01/15/19 05/01/19 acetaminophen [Acetaminophen Extra 1,000 mg PO .Q 24H PRN MDD 1000 02/20/19 05/01/19 Strength] Opdivo 240 mg IV Q2W 04/01/19 05/01/19 omeprazole 40 mg PO DAILY #30 cap 04/06/19 05/01/19 prednisone 80 mg PO DAILY 04/25/19 05/01/19 sucralfate [Carafate] 1 gm PO BID #20 tab 05/01/19 Previous Rx's Medication Instructions Recorded omeprazole 40 mg PO DAILY #30 cap 04/06/19 sucralfate [Carafate] 1 gm PO BID #20 tab 05/01/19 Allergies Allergy/AdvReac Type Severity Reaction Status Date / Time oxycodone AdvReac Unknown Psychosis Unverified 05/01/19 18:33 General Stated Complaint: Abd Prob KRYSTLE: 3 Review of Systems Narrative: Able to take home medications. No fever. Normal bowel movement today. 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 Social History Smoking/Tobacco Use Status: Never Alcohol Intake: never Drug use: Never Substance use type: does not use Caregiver/Support person: No Household members: family Number of Children: 1 number of grandchildren: 4 What is your relationship status?: How often do you talk on the phone with friends or family?: once per week How often do you get together with friends or relatives?: three or more times per week Panel score (0-1 are the most socially isolated patients): 1 What type of physical activity do you participate in: sedentary lifestyle Seatbelt use: always Do you feel safe at home: Yes Do you feel safe in your relationship?: Yes Additional Social history: His 28 yo female cousin lives with him, along with her kids. They sort of take care of each other. His in April 2018. She of metastatic breast cancer and fought it right up to the end. He is inclined to do the same with his HCC. He doesn't feel he is as sick as everyone else thinks he is. Exam Narrative Exam Narrative: GEN: awake, alert, oriented 3. Pleasant, well groomed, interactive. HEAD: Normocephalic, atraumatic ENT: Mucous membranes moist, oropharynx unremarkable, External ear exam unremarkable EYES: PERRL, EOMI NECK: Full ROM, no AMADA, no menigismus CHEST/RESP: Nontender, clear to auscultation bilateral, no wheeze/rhonchi/rales CARDIOVASCULAR: RRR, no murmur, rub kirsty. 2+ Rad pulse bilateral ABDOMEN: Soft, minimal epigastric tenderness without rebound or guarding, no mass. +Bowel sounds EXT: Full ROM, no edema, no rash Neuro: Grossly normal neurologic exam, conversant, interactive. Psych: Speech fluent, thoughts congruent, affect normal Course Vital Signs Vital signs: Vital Signs Temperature 36.1 C L 05/01/19 18:26 Pulse 67 05/01/19 18:26 Respiratory Rate 20 05/01/19 18:26 Blood Pressure 101/56 L 05/01/19 18:26 Pulse Oximetry 94 L 05/01/19 18:26 Temperature 36.1 C L 05/01/19 18:26 Temperature Source Skin 05/01/19 18:26 Pulse 67 05/01/19 18:26 Respiratory Rate 20 05/01/19 18:26 Blood Pressure 101/56 L 05/01/19 18:26 Blood Pressure Position Sitting 05/01/19 18:26 Pulse Oximetry 94 L 05/01/19 18:26 Oxygen Delivery Method Room Air 05/01/19 18:26 Oxygen Flow Rate 0 05/01/19 18:26 Pain Level 7 05/01/19 18:26
--- NOTE | 2019-05-01 19:31 | DI.RAD_ITS ---
EXAM: XR ABDOMEN FLAT UPRIGHT INDICATION: Pain after upper endoscopy. COMPARISON: ABD FLAT UPRIGHT PA CHEST from 05/06/2011 CT ABDOMEN PELVIS W from 02/20/2019 CT ABDOMEN PELVIS W from 04/02/2019 TECHNIQUE: 2D digital imaging was performed. FINDINGS: The visualized lung bases are clear. The bowel gas pattern is nonspecific. No evidence of obstructi on. There is no evidence of pneumoperitoneum or organomegaly. Degenerative changes are seen in the spine. IMPRESSION: No evidence of an acute abdomen. No pneumoperitoneum.
[2019-05-01 19:35] LABS: Abs Immature Grans 0.04 k/cumm (0.0-0.09); Absolute Basophil Count 0.01 k/cumm (0.0-0.2); Absolute Eosinophil Count 0.02 k/cumm (0.0-0.7); Absolute Lymphocyte Count 0.13 k/cumm (1.2-3.4); Absolute Monocyte Count 0.15 k/cumm (0.11-0.7); Absolute Neutrophil Count 2.29 k/cumm (1.2-6.7); Basophils % 0.4; Eosinophils % 0.8; HCT 41.1 % (40.0-50.0); HGB 14.5 g/dL (13.5-17.5); Immature Grans % 1.5 %; Lymphocytes % 4.9; Mean Corp. HGB Concentration 35.3 g/dL (32.0-36.0); Mean Corpuscular Hemoglobin 32.9 pg (27.0-33.0); Mean Corpuscular Volume 93.2 fL (80-95); Monocytes % 5.7; Neutrophils % 86.7; RBC 4.41 m/cumm (4.50-6.00); RBC Distribution Width 16.5 % (11.8-14.1); White Blood Cell Count 2.64 k/cumm (4.4-10.8)
[2019-05-01 19:48] LABS: ALT 219 U/L (16-63); AST 482 U/L (15-37); Albumin 1.9 g/dL (3.4-5.0); Alkaline Phosphatase 386 U/L (46-116); Anion Gap 5.2 mmol/L (3-11); BUN 20 mg/dL (7-18); Bilirubin, Total 7.7 mg/dL (0.2-1.0); CO2 28.8 mmol/L (21.0-32.0); CREATININE 1.11 mg/dL (0.70-1.30); Chloride 98 mmol/L (98-107); Glucose 307 mg/dL (74-106); Potassium 4.4 mmol/L (3.5-5.1); Sodium 132 mmol/L (136-145); Total Protein 5.7 g/dL (6.4-8.2)
--- NOTE | 2019-05-01 19:57 | DI.VRAD_ITS ---
PROCEDURE INFORMATION: Exam: XR Abdomen, 2 Views Exam date and time: 05/01/2019 7:32 PM Age: 59 years old Clinical indication: Abdominal pain; Generalized; Patient HX: Pain after upper endoscopy TECHNIQUE: Imaging protocol: XR of the abdomen. Frontal supine and upright views of the abdomen. Views: 2 Views. COMPARISON: [place] HEPATOBILIARY SCAN [facility] 04/04/2019 7:50 AM FINDINGS: Gastrointestinal tract: Normal. No bowel dilation. Intraperitoneal space: Normal. No free air. Bones/joints: Unremarkable for age. IMPRESSION: No acute findings. No free air. Dictated and Authenticated by: Alexander Xie MD. Ordering:MURIEL Ruiz MD
[2019-05-01 20:02] LABS: Diff Comment PLT Morph Reviewed; Platelet Count 32 x1000/uL (130-400); RBC Morphology Normal
[2019-05-01] MEDS: Sucralfate 1 GM TAB PO (20:45)
--- NOTE | 2019-05-01 20:46 | NUR.NOTE ---
Lori PO fluids. Discharge instructions reviewed with verbal understanding. aware to f/u [facility] as scheduled. Ambulated to exit with steady gait.
[2019-05-01 21:19] LABS: FREE T4 1.55 ng/dL (0.76-1.46)
[2019-05-03 11:38] LABS: AFP Tumor Marker 160.1 ng/mL (<8.1)
== END 2019-05-01 20:40 | disposition home or self-care (01) ==
PROVIDERS: Emergency Provider Emergency Medicine; PCP Internal Medicine
DX: K29.00 Acute gastritis without bleeding (principal); D69.6 Thrombocytopenia, unspecified; K74.60 Unspecified cirrhosis of liver; R10.10 Upper abdominal pain, unspecified; G89.18 Other acute postprocedural pain; C22.0 Liver cell carcinoma; E11.9 Type 2 diabetes mellitus without complications; Z79.4 Long term (current) use of insulin; I10 Essential (primary) hypertension
CPT/HCPCS: 36415; 80053; 99284; 74019; 82105; 84439; 85025

== ENCOUNTER 2019-05-08 14:14 | Outpatient (CLI) | payer MEDICARE, SELFPAY ==
[2019-05-08 14:48] LABS: Abs Immature Grans 0.05 k/cumm (0.0-0.09); Absolute Basophil Count 0.01 k/cumm (0.0-0.2); Absolute Eosinophil Count 0.05 k/cumm (0.0-0.7); Absolute Monocyte Count 0.41 k/cumm (0.11-0.7); Absolute Neutrophil Count 3.63 k/cumm (1.2-6.7); Basophils % 0.2; Eosinophils % 1.1; HCT 40.2 % (40.0-50.0); HGB 14.1 g/dL (13.5-17.5); Immature Grans % 1.1 %; Lymphocytes % 6.7; Mean Corp. HGB Concentration 35.1 g/dL (32.0-36.0); Mean Corpuscular Hemoglobin 32.9 pg (27.0-33.0); Mean Corpuscular Volume 93.9 fL (80-95); Monocytes % 9.2; Neutrophils % 81.7; RBC 4.28 m/cumm (4.50-6.00); White Blood Cell Count 4.45 k/cumm (4.4-10.8)
[2019-05-08 15:14] LABS: Diff Comment PLT Morph Reviewed; Platelet Count 37 x1000/uL (130-400); RBC Morphology Normal
[2019-05-08 16:10] LABS: ALT 133 U/L (16-63); AST 223 U/L (15-37); Albumin 1.5 g/dL (3.4-5.0); Alkaline Phosphatase 353 U/L (46-116); Anion Gap 6.1 mmol/L (3-11); BUN 18 mg/dL (7-18); Bilirubin, Total 13.1 mg/dL (0.2-1.0); CO2 26.9 mmol/L (21.0-32.0); CREATININE 1.18 mg/dL (0.70-1.30); Calcium 7.6 mg/dL (8.5-10.1); Chloride 96 mmol/L (98-107); FREE T4 1.42 ng/dL (0.76-1.46); Glucose 239 mg/dL (74-106); Sodium 129 mmol/L (136-145); TSH 1.77 uIU/mL (0.36-3.74)
[2019-05-10 11:45] LABS: AFP Tumor Marker 100.7 ng/mL (<8.1)
== END 2019-05-08 14:34 ==
PROVIDERS: PCP Internal Medicine; Visit Provider Internal Medicine Hematology & Oncology
DX: C22.0 Liver cell carcinoma (principal); R53.83 Other fatigue
CPT/HCPCS: 36415; 80053; 82105; 84439; 84443; 85025

== ENCOUNTER 2019-05-13 15:04 | Emergency (ER) | payer MEDICARE, SELFPAY ==
[2019-05-13 15:07] VITALS: BP 106/57; PULSE 78; TEMP 36.7; O2SAT 97
[2019-05-13 15:20] LABS: Bilirubin Large (Negative); Blood Trace-lysed (Negative); Clarity Clear (Clear); Glucose 100 mg/dL (Negative); Ketones Negative (Negative); Leukocyte Esterase Trace (Negative); Nitrite Negative (Negative); Specific Gravity 1.015 (1.005-1.025); pH 5.5 (5-8)
[2019-05-13 15:52] LABS: Bacteria Negative HPF (Negative); Crystals Moderate Amorphous HPF (Negative); Epithelial Cells Few HPF (Negative); Mucus Moderate (Negative); Other Cells Few Renal (Negative); RBC Negative HPF (0-2)
[2019-05-13 15:53] LABS: C & S Indicated? Yes
[2019-05-13 16:47] LABS: Abs Immature Grans 0.04 k/cumm (0.0-0.09); Absolute Basophil Count 0.01 k/cumm (0.0-0.2); Absolute Eosinophil Count 0.03 k/cumm (0.0-0.7); Absolute Lymphocyte Count 0.21 k/cumm (1.2-3.4); Absolute Monocyte Count 0.28 k/cumm (0.11-0.7); Absolute Neutrophil Count 2.47 k/cumm (1.2-6.7); Basophils % 0.3; HCT 37.3 % (40.0-50.0); HGB 13.2 g/dL (13.5-17.5); Immature Grans % 1.3 %; Lymphocytes % 6.9; Mean Corp. HGB Concentration 35.4 g/dL (32.0-36.0); Mean Corpuscular Hemoglobin 32.8 pg (27.0-33.0); Mean Corpuscular Volume 92.6 fL (80-95); Mean Platelet Volume 11.3 fL (8.0-11.0); Monocytes % 9.2; Neutrophils % 81.3; RBC 4.03 m/cumm (4.50-6.00); RBC Distribution Width 16.5 % (11.8-14.1); White Blood Cell Count 3.04 k/cumm (4.4-10.8)
[2019-05-13 16:57] LABS: Platelet Count 62 x1000/uL (130-400)
[2019-05-13 17:10] LABS: ALT 91 U/L (16-63); AST 156 U/L (15-37); Albumin 1.4 g/dL (3.4-5.0); Alkaline Phosphatase 429 U/L (46-116); BUN 14 mg/dL (7-18); Bilirubin, Total 12.5 mg/dL (0.2-1.0); CREATININE 1.18 mg/dL (0.70-1.30); Calcium 7.4 mg/dL (8.5-10.1); Chloride 96 mmol/L (98-107); Glucose 150 mg/dL (74-106); Potassium 3.7 mmol/L (3.5-5.1); Sodium 131 mmol/L (136-145); Total Protein 5.3 g/dL (6.4-8.2)
[2019-05-13 17:34] LABS: Diff Comment PLT Morph Reviewed
--- NOTE | 2019-05-13 17:53 | W.ED.GENAD ---
Discharge Plan Disposition Patient Disposition: HOME Discharge Details Chief Complaint: Urinary Clinical Impression: Acute UTI, Hyperbilirubinemia Primary Care Provider: Shalonda Neil ED Provider: Pola Wilks Home Meds and New Rx's Prescriptions: New cephalexin [Keflex] 500 mg capsule 500 mg PO QID Qty: 39 RF: 0 Continued Xifaxan 550 MG tablet 550 mg PO BID RF: 0 Lantus U-100 Insulin 100 unit/mL Solution 30 unit subcut BID INSULIN RF: 0 spironolactone 100 mg Tablet 100 mg PO QPM RF: 0 tadalafil 20 mg Tablet 40 mg PO DAILY RF: 0 furosemide 40 mg Tablet 80 mg PO DAILY AM RF: 0 sucralfate [Carafate] 1 gram tablet 1 gm PO BID Qty: 20 RF: 0 Victoza 2-Elías 0.6 MG/0.1 ML pen injector 1.8 mg SQ DAILY RF: 0 acetaminophen [Acetaminophen Extra Strength] 500 mg Tablet 1,000 mg PO .Q 24H MDD 1000 PRNRF: 0 Opdivo 240 mg/24 mL Solution 240 mg IV Q2W RF: 0 omeprazole 40 mg capsule,delayed release(DR/EC) 40 mg PO DAILY Qty: 30 RF: 0 Discharge Instructions Instructions: Urinary Tract Infection in Men (ED) Additional Instructions: Please take full course of antibiotic as prescribed. Your bilirubin was elevated today. Be sure to discuss this with your inside account representative. Please contact your primary care physician to arrange follow-up. Return to the ER for any worsening or new concerning symptoms. Referrals: Shalonda Neil [Primary Care Provider] - Medical Decision Making 59-year-old male with hepatocellular carcinoma, here with dysuria over the past 2 to 3 days. Recent steroid use. Urinalysis reviewed and does reveal 5-10 WBCs, trace leukocyte esterase, negative nitrite. Plan to treat with ceftriaxone and continue treatment with Keflex. Labs reviewed: Hypocalcemia noted. Thrombocytopenia noted. Elevated LFTs noted. Patient does have elevated bilirubin of 12.5. This is decreased slightly from recent prior 13.1 on 1210. I did call and speak with gastroenterology at [facility] about the patient's presentation today and abnormal labs. They are aware of elevated bilirubin and have no additional recommendations at this time. Plan will be for patient to continue with treatment for hepatocellular carcinoma. He will be following up with them in clinic. All results were discussed with the patient. Disposition decision was made weighing the risks and benefits of hospitalization versus outpatient treatment, the risk for further decompensation, and the patient's wishes. The patient was stable and requested discharge. Prior to discharge, my usual and customary return precautions were reviewed with the patient - this included follow-up instructions and reason to return to the emergency department if condition worsens, does not improve as expected, or other new concerns arise. Lab Data Lab results reviewed: Yes I reviewed the patient's lab results. HPI General Mode of arrival: ambulatory. Date/Time Provider Initiated Documentation: 05/13/19 15:07. Limitations to Documentation: no limitations. Information obtained by: patient. HPI Narrative: 59-year-old male with history of hepatocellular carcinoma, here with dysuria. Symptoms started about 2 to 3 days ago. Patient notes burning with urination. No associated penile discharge. No testicular pain. No associated fever although now does feel some chills in the emergency department. No associate abdominal pain. Related Data Home Medications Medication Instructions Recorded Confirmed Xifaxan 550 mg PO BID 11/03/12 05/13/19 Victoza 2-Elías 1.8 mg SQ DAILY 09/08/17 05/13/19 Lantus U-100 Insulin 30 unit SUBCUT BID INSULIN 07/02/18 05/13/19 furosemide 80 mg PO DAILY AM 01/15/19 05/13/19 spironolactone 100 mg PO QPM 01/15/19 05/13/19 tadalafil 40 mg PO DAILY 01/15/19 05/13/19 acetaminophen [Acetaminophen Extra 1,000 mg PO .Q 24H PRN MDD 1000 02/20/19 05/13/19 Strength] Opdivo 240 mg IV Q2W 04/01/19 05/13/19 omeprazole 40 mg PO DAILY #30 cap 04/06/19 05/13/19 sucralfate [Carafate] 1 gm PO BID #20 tab 05/01/19 05/13/19 cephalexin [Keflex] 500 mg PO QID #39 cap 05/13/19 Previous Rx's Medication Instructions Recorded omeprazole 40 mg PO DAILY #30 cap 04/06/19 sucralfate [Carafate] 1 gm PO BID #20 tab 05/01/19 cephalexin [Keflex] 500 mg PO QID #39 cap 05/13/19 Allergies Allergy/AdvReac Type Severity Reaction Status Date / Time oxycodone AdvReac Unknown Psychosis Unverified 05/13/19 15:12 General Stated Complaint: Urinary KRYSTLE: 3 Review of Systems Constitutional Constitutional: Reports as per HPI Gastrointestinal Gastrointestinal: Denies nausea, Denies vomiting and Denies other (Rectal pain) Genitourinary Genitourinary: Reports as per HPI [facility] Medical History Ascites (Acute) Cholelithiasis (Chronic) Cirrhosis of liver (Chronic) Diabetes (Chronic) Esophageal varices (Chronic) Goals of care, counseling/discussion (Acute) Hepatocellular carcinoma (Chronic) History of HIDA scan (Acute) Hypertension (Chronic) Immunotherapy (Acute) Obesity (Chronic) Palliative care patient (Acute) Pancreatitis (Resolved) Recurrent abdominal pain (Acute) 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 Social History Smoking/Tobacco Use Status: Never Alcohol Intake: never Drug use: Never Substance use type: does not use Caregiver/Support person: No Household members: family Number of Children: 1 number of grandchildren: 4 What is your relationship status?: How often do you talk on the phone with friends or family?: once per week How often do you get together with friends or relatives?: three or more times per week Panel score (0-1 are the most socially isolated patients): 1 What type of physical activity do you participate in: sedentary lifestyle Seatbelt use: always Do you feel safe at home: Yes Do you feel safe in your relationship?: Yes Additional Social history: His 28 yo female cousin lives with him, along with her kids. They sort of take care of each other. His in April 2018. She of metastatic breast cancer and fought it right up to the end. He is inclined to do the same with his HCC. He doesn't feel he is as sick as everyone else thinks he is. Exam Const General: cooperative and no acute distress HENMT Mouth: moist mucous membranes Eyes Conjunctivae: normal conjunctivae Neck Neck: no JVD Resp Auscultation: clear to auscultation bilaterally, no rales, no rhonchi and no wheezes Cardio Jugular venous pressure: no JVD Rate: regular rate and not tachycardic Rhythm: regular rhythm GI Palpation: soft, not firm, no guarding, no masses, not rigid and nontender Back/Spine/Pelvis Back: no CVA tenderness Skin General skin exam: jaundice Neuro General: alert, awake and tone normal Extrem General: edema Laterality: bilateral (1+ pitting up to shins) Psych Appearance: grossly normal Mental Status: mental status grossly normal Course Vital Signs Vital signs: Vital Signs Temperature 36.7 C 05/13/19 15:07 Pulse 78 05/13/19 15:07 Blood Pressure 106/57 L 05/13/19 15:07 Pulse Oximetry 97 05/13/19 15:07 Temperature 36.7 C 05/13/19 15:07 Temperature Source Temporal Artery Scan 05/13/19 15:07 Pulse 78 05/13/19 15:07 Respiratory Effort Non-Labored 05/13/19 15:11 Blood Pressure 106/57 L 05/13/19 15:07 Blood Pressure Position Sitting 05/13/19 15:07 Pulse Oximetry 97 05/13/19 15:07 Oxygen Delivery Method Room Air 05/13/19 15:07 Oxygen Flow Rate 0 05/13/19 15:07 Pain Level 0 05/13/19 15:12 Lab/Test Results Lab/Test Results: 05/13/19 15:14 Urine - Reflex from Ua Urine Culture - Pending Laboratory Tests Range/Units 05/13/19 05/13/19 05/13/19 15:14 16:42 16:42 WBC (4.4-10.8) k/cumm 3.04 L RBC (4.50-6.00) m/cumm 4.03 L Hgb (13.5-17.5) g/dL 13.2 L Hct (40.0-50.0) % 37.3 L MCV (80-95) fL 92.6 MCH (27.0-33.0) pg 32.8 MCHC (32.0-36.0) g/dL 35.4 RDW (11.8-14.1) % 16.5 H Plt Count (130-400) x1000/uL 62 L D MPV (8.0-11.0) fL 11.3 H Immature Gran % % 1.3 Neutrophils % 81.3 Lymphocytes % 6.9 Monocytes % 9.2 Eosinophils % 1.0 Basophils % 0.3 Absolute Neutrophils (1.2-6.7) k/cumm 2.47 Absolute Lymphocytes (1.2-3.4) k/cumm 0.21 L Absolute Monocytes (0.11-0.7) k/cumm 0.28 Absolute Eosinophils (0.0-0.7) k/cumm 0.03 Absolute Basophils (0.0-0.2) k/cumm 0.01 Differential Comment Plt morph reviewed Sodium (136-145) mmol/L 131 L Potassium (3.5-5.1) mmol/L 3.7 Chloride (98-107) mmol/L 96 L Carbon Dioxide (21.0-32.0) mmol/L 29.0 Anion Gap (3-11) mmol/L 6.0 BUN (7-18) mg/dL 14 Creatinine (0.70-1.30) mg/dL 1.18 Estimated GFR/1.73 m2 (mL/min/1.73m2) >= 60.00 Glucose (74-106) mg/dL 150 H Calcium (8.5-10.1) mg/dL 7.4 L Total Bilirubin (0.2-1.0) mg/dL 12.5 H AST (15-37) U/L 156 H ALT (16-63) U/L 91 H Alkaline Phosphatase (46-116) U/L 429 H Total Protein (6.4-8.2) g/dL 5.3 L Albumin (3.4-5.0) g/dL 1.4 L Urine Color (Yellow) [place] Urine Clarity (Clear) Clear Urine pH (5-8) 5.5 Ur Specific [place] (1.005-1.025) 1.015 Urine Protein (Negative) mg/dL Negative Urine Ketones (Negative) mg/dL Negative Urine Blood (Negative) Trace-lysed H Urine Nitrite (Negative) Negative Urine Bilirubin (Negative) Large H Urine Urobilinogen (Up TO 0.2) EU/dL 1.0 H Ur Leukocyte Esterase (Negative) Trace H Urine RBC (0-2) HPF Negative Urine WBC (0-5) HPF 5-10 Ur Epithelial Cells (Negative) HPF Few Urine Crystals (Negative) HPF Moderate amorphous Urine Bacteria (Negative) HPF Negative Urine Casts (Negative) LPF 5-10 fine granular Urine Mucus (Negative) Moderate Urine Other (Negative) Few renal Ur Culture Indicated? Yes Urine Glucose (Negative) mg/dL 100
[2019-05-13] MEDS: Cephalexin 500 MG CAP PO (18:35)
[2019-05-13] MEDS: cefTRIAXone 1 GM/50 ML BAG IVPB (18:35)
[2019-05-13 19:06] VITALS: BP 122/87; PULSE 78; RESP 18; TEMP 36.7; O2SAT 97
== END 2019-05-13 19:10 | disposition home or self-care (01) ==
PROVIDERS: Emergency Provider Student in an Organized Health Care Education/Training Program; PCP Internal Medicine
DX: N39.0 Urinary tract infection, site not specified (principal); E80.6 Other disorders of bilirubin metabolism; R74.8 Abnormal levels of other serum enzymes; C22.0 Liver cell carcinoma; E11.9 Type 2 diabetes mellitus without complications; Z79.4 Long term (current) use of insulin; I10 Essential (primary) hypertension
CPT/HCPCS: 36415; 80053; 96365; 99284; 81003; 81015; 85025; 87086; J0696

== ENCOUNTER 2019-05-15 11:46 | Outpatient (CLI) | payer MEDICARE, SELFPAY ==
[2019-05-15 12:16] LABS: Abs Immature Grans 0.04 k/cumm (0.0-0.09); Absolute Basophil Count 0.02 k/cumm (0.0-0.2); Absolute Eosinophil Count 0.06 k/cumm (0.0-0.7); Absolute Monocyte Count 0.34 k/cumm (0.11-0.7); Absolute Neutrophil Count 2.41 k/cumm (1.2-6.7); Basophils % 0.7; HCT 37.3 % (40.0-50.0); HGB 13.2 g/dL (13.5-17.5); Immature Grans % 1.3 %; Lymphocytes % 6.5; Mean Corp. HGB Concentration 35.4 g/dL (32.0-36.0); Mean Corpuscular Volume 93.3 fL (80-95); Mean Platelet Volume 11.5 fL (8.0-11.0); Monocytes % 11.1; Neutrophils % 78.4; RBC Distribution Width 16.3 % (11.8-14.1); White Blood Cell Count 3.07 k/cumm (4.4-10.8)
[2019-05-15 12:33] LABS: INR 1.3 (0.9-1.1); Prothrombin Time 12.6 sec (9.3-11.0)
[2019-05-15 12:36] LABS: ALT 79 U/L (16-63); AST 155 U/L (15-37); Albumin 1.4 g/dL (3.4-5.0); Alkaline Phosphatase 416 U/L (46-116); Anion Gap 5.5 mmol/L (3-11); BUN 13 mg/dL (7-18); Bilirubin, Total 13.2 mg/dL (0.2-1.0); CO2 29.5 mmol/L (21.0-32.0); CREATININE 1.08 mg/dL (0.70-1.30); Calcium 7.6 mg/dL (8.5-10.1); Chloride 93 mmol/L (98-107); Glucose 233 mg/dL (74-106); Potassium 3.6 mmol/L (3.5-5.1); Sodium 128 mmol/L (136-145); Total Protein 5.4 g/dL (6.4-8.2)
[2019-05-15 14:32] LABS: Platelet Count 68 x1000/uL (130-400)
== END 2019-05-15 12:06 ==
PROVIDERS: PCP Internal Medicine; Visit Provider Internal Medicine Hematology & Oncology
DX: C22.0 Liver cell carcinoma (principal)
CPT/HCPCS: 36415; 80053; 85025; 85610

== ENCOUNTER 2019-05-18 15:56 | Outpatient (CLI) | payer MEDICARE, SELFPAY ==
[2019-05-18 16:35] LABS: INR 1.3 (0.9-1.1)
[2019-05-18 16:51] LABS: Abs Immature Grans 0.09 k/cumm (0.0-0.09); Absolute Basophil Count 0.02 k/cumm (0.0-0.2); Absolute Eosinophil Count 0.07 k/cumm (0.0-0.7); Absolute Lymphocyte Count 0.25 k/cumm (1.2-3.4); Absolute Monocyte Count 0.41 k/cumm (0.11-0.7); Absolute Neutrophil Count 2.56 k/cumm (1.2-6.7); Basophils % 0.6; Eosinophils % 2.1; HCT 36.8 % (40.0-50.0); Immature Grans % 2.6 %; Lymphocytes % 7.4; Mean Corp. HGB Concentration 35.3 g/dL (32.0-36.0); Mean Corpuscular Hemoglobin 32.7 pg (27.0-33.0); Mean Corpuscular Volume 92.5 fL (80-95); Mean Platelet Volume 9.9 fL (8.0-11.0); Monocytes % 12.1; Neutrophils % 75.2; Platelet Count 83 x1000/uL (130-400); RBC 3.98 m/cumm (4.50-6.00); RBC Distribution Width 16.2 % (11.8-14.1)
[2019-05-18 17:06] LABS: ALT 76 U/L (16-63); AST 167 U/L (15-37); Albumin 1.3 g/dL (3.4-5.0); Alkaline Phosphatase 444 U/L (46-116); Anion Gap 8.1 mmol/L (3-11); BUN 15 mg/dL (7-18); CO2 26.9 mmol/L (21.0-32.0); CREATININE 1.06 mg/dL (0.70-1.30); Calcium 7.2 mg/dL (8.5-10.1); Chloride 94 mmol/L (98-107); FREE T4 1.49 ng/dL (0.76-1.46); Glucose 141 mg/dL (74-106); Potassium 3.3 mmol/L (3.5-5.1); Sodium 129 mmol/L (136-145); TSH 2.75 uIU/mL (0.36-3.74); Total Protein 5.2 g/dL (6.4-8.2)
[2019-05-18 17:36] LABS: Diff Comment PLT Morph Reviewed
[2019-05-18 17:37] LABS: RBC Morphology Normal
[2019-05-22 11:11] LABS: AFP Tumor Marker 129.3 ng/mL (<8.1)
== END 2019-05-18 16:16 ==
PROVIDERS: PCP Internal Medicine; Visit Provider Internal Medicine Hematology & Oncology
DX: C22.0 Liver cell carcinoma (principal); R53.83 Other fatigue
CPT/HCPCS: 36415; 80053; 82105; 84439; 84443; 85025; 85610

== ENCOUNTER 2019-05-22 08:45 | Inpatient (IN) | payer MEDICARE, SELFPAY ==
[2019-05-22] VITALS (21 sets, daily range): BP systolic 94–114; BP diastolic 55–71; PULSE 76–83; RESP 18–20; TEMP 36.5–36.7; O2SAT 93–99
--- NOTE | 2019-05-22 08:55 | W.ED.GENAD ---
Discharge Plan Disposition Patient Disposition: [facility] INPATIENT Condition: Improving Discharge Details Chief Complaint: Abd Prob Clinical Impression: Acute UTI, Ileus Admit Date/Time: 05/22/19 13:03 Admit Provider: Bret Ayers Attending Provider: Bret Ayers Primary Care Provider: Shalonda Neil ED Provider: Hair Peters Discharge Data Discharge Date/Time-TO BE ENTERED AT DEPARTURE: 05/22/19 13:53 Medical Decision Making This is a 59-year-old male with a past medical history of hepatocellular carcinoma, who is no longer on Opdivo therapy per patient, with history of cholelithiasis, cirrhosis with portal hypertension, esophageal varices, and previous hepatic encephalopathy with type 2 diabetes and insulin dependence, chronic hyperbilirubinemia, who was recently diagnosed with a urinary tract infection 1 week ago and started on Keflex. He presents today for evaluation of diarrhea abdominal pain and malaise. Patient states that he has had very mild loose stool since he started the antibiotic, however over the last 1 to 2 days he has had notable increase in the diarrhea, no bloody dark or tarry stool. The abdominal pain has notably gotten worse in the lower abdominal quadrants, but he denies any recent foreign travel, or other complaints. He denies any vomiting, chest pain, shortness of breath. He does admit that he stopped taking his Carafate, and his omeprazole 1 week ago, because he ran out of the medication and then started about 2 to 3 days ago. He states that his symptoms seem to be in conjunction with stopping the medication. He states that this is happened before in the past, and he feels that this is the aggravating event. He is otherwise been taking his medications as prescribed. He denies any other complaints. No other modifying factors. Physical exam is relatively unremarkable, mild lower abdominal tenderness, no signs of an acute surgical abdomen though. No evidence of severe ascites., And no genital abnormality, no signs of Isrreal's gangrene. Patient is notably jaundiced but this is chronic. Differential is broad, but includes C. difficile colitis, mild generalized colitis, or other abnormality. We will gently rehydrate, and a CT scan to evaluate for acute abdominal pathology, closely monitor and reassess. 2 PM Laboratory work-up demonstrates no significant white count, platelets are 63 which appears to be near his normal. No bandemia or significant left shift. Potassium low at 3.3, we are currently repleting. Ammonia level unremarkable, lipase normal. TSH normal. Urinalysis does show evidence of elevated WBCs, previous cultures were nonspecific with contaminant. With the notable bilirubin elevation of 14.5 which is certainly near his normal, as has obstructed the remainder of the urinalysis in regards to leuk esterase and nitrates. Upon review of records [facility] was notably unconcerned with his elevated bilirubin in the past, and CT scan shows no evidence of acute significant change for his hepatobiliary tract. He does have notable lesions noted on his CT scan, increased compared to before. In conjunction with his hepatocellular carcinoma. He does have evidence of mild to moderate ileus noted throughout, with no evidence of significant obstruction though. With the patient's notable ileus, and his urinalysis that appears to show nontreated UTI after treatment with Keflex, I do feel that he would benefit from admission, gentle IV fluids, and change in antibiotic therapy. Will add Levaquin. Also of note bedside exam shows no evidence of a significant amount of ascites that could be safely tapped. And his signs and symptoms at this time appear clinically inconsistent with spontaneous bacterial peritonitis. Discussed the case with the hospitalist Dr. Gracia, he agrees with the assessment and plan. I have extensively reviewed the treatment plan with the patient. I have addressed all patient concerns at this time. I have also discussed the plan with the admitting physician and they agree with the current assessment and plan and have agreed to assume responsibility for the patient. All parties demonstrate verbal understanding and agreement with our assessment and plan at this time. EKG 9: 14 Rate 80, sinus rhythm, no significant ST elevations or depressions, no significant T wave inversions except for in V1. No evidence of STEMI. No Q waves. FINDINGS: The patient reportedly has a history of hepatocellular carcinoma. Examination is compared with prior study of April 02. Images obtained through the lung bases are unremarkable. There is moderate generalized abdominal ascites which has increased markedly since the prior study. Innumerable hepatic lesions are present in a cirrhotic liver consistent with the diagnosis of hepatoma. Multiple new lesions appear to be present in comparison with previous examination. Marked splenomegaly and upper abdominal varices again noted. Pancreas grossly unremarkable. Adrenals and kidneys grossly unremarkable. No significant vascular abnormality of the abdomen. Bilateral fat containing inguinal hernias noted. No gross abdominal or pelvic adenopathy. There is moderate small bowel distention which is nonspecific. No focal narrowing identified. Moderate colonic distention also noted. Findings as described are consistent with an ileus. No focal bowel wall mass identified. IMPRESSION: Worsening ascites and presumed ileus in a patient with history of hepatoma. Probable new additional multifocal hepatic lesions noted. No other significant interval change from April 02. HPI General Date/Time Provider Initiated Documentation: 05/22/19 08:53. HPI Narrative: This is a 59-year-old male with a past medical history of hepatocellular carcinoma, who is no longer on Opdivo therapy per patient, with history of cholelithiasis, cirrhosis with portal hypertension, esophageal varices, and previous hepatic encephalopathy with type 2 diabetes and insulin dependence, chronic hyperbilirubinemia, who was recently diagnosed with a urinary tract infection 1 week ago and started on Keflex. He presents today for evaluation of diarrhea abdominal pain and malaise. Patient states that he has had very mild loose stool since he started the antibiotic, however over the last 1 to 2 days he has had notable increase in the diarrhea, no bloody dark or tarry stool. The abdominal pain has notably gotten worse in the lower abdominal quadrants, but he denies any recent foreign travel, or other complaints. He denies any vomiting, chest pain, shortness of breath. He does admit that he stopped taking his Carafate, and his omeprazole 1 week ago, because he ran out of the medication and then started about 2 to 3 days ago. He states that his symptoms seem to be in conjunction with stopping the medication. He states that this is happened before in the past, and he feels that this is the aggravating event. He is otherwise been taking his medications as prescribed. He denies any other complaints. No other modifying factors. Related Data Home Medications Medication Instructions Recorded Confirmed Xifaxan 550 mg PO BID 11/03/12 05/22/19 Victoza 2-Elías 1.8 mg SQ DAILY 09/08/17 05/22/19 Lantus U-100 Insulin 30 unit SUBCUT BID INSULIN 07/02/18 05/22/19 furosemide 80 mg PO DAILY AM 01/15/19 05/22/19 spironolactone 100 mg PO QPM 01/15/19 05/22/19 tadalafil 40 mg PO DAILY 01/15/19 05/22/19 acetaminophen [Acetaminophen Extra 1,000 mg PO .Q 24H PRN MDD 1000 02/20/19 05/22/19 Strength] Opdivo 240 mg IV Q2W 04/01/19 05/22/19 omeprazole 40 mg PO DAILY #30 cap 04/06/19 05/22/19 sucralfate [Carafate] 1 gm PO BID #20 tab 05/01/19 05/22/19 cephalexin [Keflex] 500 mg PO QID #39 cap 05/13/19 05/22/19 Previous Rx's Medication Instructions Recorded omeprazole 40 mg PO DAILY #30 cap 04/06/19 sucralfate [Carafate] 1 gm PO BID #20 tab 05/01/19 cephalexin [Keflex] 500 mg PO QID #39 cap 05/13/19 Allergies Allergy/AdvReac Type Severity Reaction Status Date / Time oxycodone AdvReac Unknown Psychosis Unverified 05/13/19 15:12 General KRYSTLE: 3 Review of Systems All systems reviewed & are unremarkable except as noted in HPI and below PFSH Medical History Ascites (Acute) Cholelithiasis (Chronic) Cirrhosis of liver (Chronic) Diabetes (Chronic) Esophageal varices (Chronic) Goals of care, counseling/discussion (Acute) Hepatocellular carcinoma (Chronic) History of HIDA scan (Acute) Hypertension (Chronic) Immunotherapy (Acute) Obesity (Chronic) Palliative care patient (Acute) Pancreatitis (Resolved) Recurrent abdominal pain (Acute) 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 Social History Smoking/Tobacco Use Status: Never Alcohol Intake: never Drug use: Never Substance use type: does not use Caregiver/Support person: No Household members: family Number of Children: 1 number of grandchildren: 4 What is your relationship status?: How often do you talk on the phone with friends or family?: once per week How often do you get together with friends or relatives?: three or more times per week Panel score (0-1 are the most socially isolated patients): 1 What type of physical activity do you participate in: sedentary lifestyle Seatbelt use: always Do you feel safe at home: Yes Do you feel safe in your relationship?: Yes Additional Social history: His 28 yo female cousin lives with him, along with her kids. They sort of take care of each other. His in April 2018. She of metastatic breast cancer and fought it right up to the end. He is inclined to do the same with his HCC. He doesn't feel he is as sick as everyone else thinks he is. Exam Narrative Exam Narrative: 1.Const: Well-nourished, Well-developed, appearing stated age 2.Eyes: PERRL, no conjunctival injection, and symmetrical lids. 3.ENT: Atraumatic external nose and ears. Moist MM. Neck: Symmetric, trachea midline, No thyromegaly. 4.CVS: +S1/S2, No murmurs or gallops. Peripheral pulses 2+ and equal in all extremities. Brisk capillary refill in all extremities. 5.RESP: Unlabored respiratory effort. Clear to auscultation bilaterally. No wheezes rales or rhonchi 6.GI: Soft, o hepatosplenomegaly. No guarding or rebound. Abdominal exam demonstrates minimal abdominal distention, minimal lower quadrant abdominal tenderness on both left and the right. Genital exam demonstrates normal male genitalia, no evidence of testicular or penile tenderness, crepitus, or evidence of Isrrael's gangrene. 7.MSK: Normocephalic/Atraumatic, Extremities w/o deformity or ttp No cyanosis or clubbing, Normal movement of all extremities. No evidence of asterixis. No significant pitting edema. 8.Skin: Warm, Dry. No rashes or lesions. Notably jaundiced 9.Neuro: internet merchant II-XII grossly intact. Sensation grossly intact, no focal neurologic deficits. No evidence of confusion or altered mental status. 10.Psych: (AAO) x3. Appropriate mood and affect
--- NOTE | 2019-05-22 09:04 | DI.CT_ITS ---
EXAM: CT ABDOMEN PELVIS W CLINICAL HISTORY: diarrhea, lower abdominal pain, known hepatic path TECHNIQUE: The examination of the abdomen and pelvis was performed with bolus infusion of 100 cc of Omnipaque 350 and ingestion of dilute barium. COMPARISON: CT ABDOMEN PELVIS W from 04/02/2019 FINDINGS: The patient reportedly has a history of hepatocellular carcinoma. Examination is compared with prior study of April 02. Images obtained through the lung bases are unremarkable. There is moderate generalized abdominal ascites which has increased markedly since the prior study. Innumerable hepatic lesions are present in a cirrhotic liver consistent with the diagnosis of hepatom a. Multiple new lesions appear to be present in comparison with previous examination. Marked spleno megaly and upper abdominal varices again noted. Pancreas grossly unremarkable. Adrenals and kidneys grossly unremarkable. No significant vascular abnormality of the abdomen. Bila teral fat containing inguinal hernias noted. No gross abdominal or pelvic adenopathy. There is moderate small bowel distention which is nonspecific. No focal narrowing identified. Moder ate colonic distention also noted. Findings as described are consistent with an ileus. No focal bow el wall mass identified. IMPRESSION: Worsening ascites and presumed ileus in a patient with history of hepatoma. Probable new additional multifocal hepatic lesions noted. No other significant interval change from April 02.
[2019-05-22] MEDS: Normal Saline 1,000 ML 150 ML IV (09:50)
[2019-05-22] MEDS: HYDROmorphone 2 MG/ML VIAL 0.5 MG IVP (10:23)
[2019-05-22 10:26] LABS: BE (Venous) 5.2 mmol/L (-3-3); HCO3 (Venous) 29 mmol/L (22-28); O2 Sat (Venous) 65 % (70-80); TCO2 (Venous) 26 mmol/L (22-29); pCO2 (Venous) 39 mm/Hg (34-47); pH (Venous) 7.48 (7.35-7.45); pO2 (Venous) 34 mm/Hg (28-44)
[2019-05-22 10:33] LABS: Lactate 2.2 mmol/L (0.6-1.4)
[2019-05-22 10:43] LABS: Abs Immature Grans 0.03 k/cumm (0.0-0.09); Absolute Basophil Count 0.03 k/cumm (0.0-0.2); Absolute Eosinophil Count 0.04 k/cumm (0.0-0.7); Absolute Lymphocyte Count 0.27 k/cumm (1.2-3.4); Absolute Monocyte Count 0.33 k/cumm (0.11-0.7); Absolute Neutrophil Count 2.58 k/cumm (1.2-6.7); Basophils % 0.9; Eosinophils % 1.2; HCT 37.3 % (40.0-50.0); Immature Grans % 0.9 %; Lymphocytes % 8.2; Mean Corp. HGB Concentration 34.9 g/dL (32.0-36.0); Mean Corpuscular Hemoglobin 32.5 pg (27.0-33.0); Mean Corpuscular Volume 93.3 fL (80-95); Mean Platelet Volume 10.8 fL (8.0-11.0); Monocytes % 10.1; Neutrophils % 78.7; RBC Distribution Width 16.6 % (11.8-14.1); White Blood Cell Count 3.28 k/cumm (4.4-10.8)
[2019-05-22 10:50] LABS: INR 1.3 (0.9-1.1); PTT Activated 28.9 sec (21.0-31.4)
[2019-05-22 11:03] LABS: Anisocytosis 1+; Diff Comment PLT Morph Reviewed; Platelet Count 63 x1000/uL (130-400)
[2019-05-22 11:04] LABS: Poikilocytes 1+; Polychromasia Present
[2019-05-22 11:10] LABS: ALT 58 U/L (16-63); AST 145 U/L (15-37); Albumin 1.2 g/dL (3.4-5.0); Alkaline Phosphatase 334 U/L (46-116); Anion Gap 7.3 mmol/L (3-11); BUN 17 mg/dL (7-18); Bilirubin, Total 14.5 mg/dL (0.2-1.0); CO2 27.7 mmol/L (21.0-32.0); CREATININE 1.09 mg/dL (0.70-1.30); Calcium 7.6 mg/dL (8.5-10.1); Chloride 95 mmol/L (98-107); Glucose 188 mg/dL (74-106); Lipase 157 U/L (73-393); Potassium 3.3 mmol/L (3.5-5.1); Sodium 130 mmol/L (136-145); TSH (W/Ref FT4) 3.25 uIU/mL (0.36-3.74)
[2019-05-22 11:23] LABS: Ammonia < 10 umol/L (11-32)
[2019-05-22] MEDS: Omnipaque 350 MG/ML 100 ML BTL IJ (11:38)
[2019-05-22] MEDS: Normal Saline Flush 10 ML SYR IVP ×2 (11:39→16:27)
[2019-05-22 11:48] LABS: Clarity Sl Cloudy (Clear)
[2019-05-22 11:57] LABS: Specific Gravity 1.021 (1.005-1.025)
[2019-05-22 11:59] LABS: Bilirubin Color Interference (Negative); Blood Color Interference (Negative); Glucose Color Interference mg/dL (Negative); Ketones Color Interference mg/dL (Negative); Leukocyte Esterase Color Interference (Negative); Nitrite Color Interference (Negative); Urobilinogen Color Interference EU/dL (Up TO 0.2)
[2019-05-22 12:15] LABS: Epithelial Cells Moderate HPF (Negative); RBC Negative HPF (0-2); WBC 20-50 HPF (0-5)
[2019-05-22 12:16] LABS: Bacteria Many HPF (Negative); Crystals Negative HPF (Negative); Mucus Moderate (Negative); Other Cells Few Renal (Negative)
[2019-05-22 12:19] LABS: C & S Indicated? C&S Done As Ordered
[2019-05-22] MEDS: POTASSIUM CHLORIDE 20 MEQ/100 ML BAG 50 MEQ IVPB (12:25)
[2019-05-22 12:36] LABS: Magnesium 1.7 mg/dL (1.8-2.4)
[2019-05-22] MEDS: levoFLOXacin 750 MG/150 ML BAG 100 MG IVPB (13:00)
[2019-05-22] MEDS: MAGNESIUM SULFATE 2 GM/50 ML BAG IVPB (14:49)
--- NOTE | 2019-05-22 14:54 | HPE_ITS ---
Date of service: 05/22/19 Time of Service: 14:54 Assessment and Plan Assessment and plan (1) Ileus: Start date: 05/22/19 Start time: 15:45 Status: Acute Assessment and plan: Ileus with moderate amount ascitis found by imaging. C/o liquid stool and abdominal pain last night. No nausea or vomiting. Consulted surgery. Will keep NPO overnight. IVF, replete electrolytes and continue to monitor. Not a surgical candidate due to poor prognosis. May need to have paracentsis for symptom management will defer to surgery. (2) UTI (urinary tract infection): Start date: 05/22/19 Start time: 15:43 Status: Acute Assessment and plan: Present prior to admission. Patient seen a week ago by this ED and diagnosed with UTI. Placed on bactrim, returns today with weakness, diarrhea, levaquin started in the ED. Will continue levaquin (3) Hepatocellular carcinoma: Start date: 05/22/19 Start time: 15:44 Status: Chronic Assessment and plan: Failed treatment, poor prognosis, unrealistic about illness. recently stopped opvido and wants to start a trial medication from [facility]. Palliative care has tried to work with patient in past, will consult them again. At this time he wants to remain a full code. (4) Immunotherapy: Start date: 05/22/19 Start time: 15:49 Status: Acute Assessment and plan: Recently on opvido. (5) Ascites: Start date: 05/22/19 Start time: 15:49 Status: Acute Assessment and plan: Moderate amount found on imaging. See above. (6) Diarrhea: Start date: 05/22/19 Start time: 15:49 Status: Resolved Assessment and plan: Per patient having loose stool, though this does not appear to be new. Continue to [facility]. (7) DVT prophylaxis: Start date: 05/22/19 Start time: 15:50 Status: Acute Assessment and plan: Will give subcu heparin. Hold for platelet count under 50,000 in a patient with cancer that is high risk. (8) Hypertension: Start date: 05/22/19 Start time: 15:52 Status: Chronic Assessment and plan: Blood pressures are soft at this time. parameters on blood pressure medications, elevated lactate, continue IVF and recheck lactate at 1900 Qualifiers: Hypertension type: essential hypertension Qualified Code(s): I10 - Ess ential (primary) hypertension (9) Cirrhosis of liver: Start date: 05/22/19 Start time: 15:53 Status: Chronic Assessment and plan: with cancer, continue to monitor. Patient is jaundice with ictera Qualifiers: Hepatic cirrhosis type: other cirrhosis Qualified Code(s): K74.69 - Other cirrhosis of liver (10) Diabetes: Start date: 05/22/19 Start time: 15:53 Status: Chronic Assessment and plan: NPO at this time. Will monitor b.s q 6 hours. Continue lantus. Add meal coverage when patient starts eating. Qualifiers: Diabetes mellitus type: type 2 Diabetes mellitus superintendent container terminal insulin use: with superintendent container terminal use Diabetes mellitus complication status: without complication Qualified Code(s): E11.9 - Type 2 diabetes mellitus without complications; Z79.4 - termite exterminator (current) use of insulin History of Present Illness History of Present Illness Chief Complaint: UTI, Ileus Narrative: 59 y.o male with PMH of hepatocellular carcinoma, cirrohsis protal HTN, Esophageal varicies, type 2 DM insulin dependent, HTN presents to [facility] after having diarrhea, weakness and abdominal pain keeping him up overnight. He was seen a week ago in the ED diagnosed with UTI, placed on bactrim for 10 days. Labs in the ED remarkable for 3.3 potassium, mag 1.7, platelets 63,000, UTI unable to be determined, levaquin started in ED will continue. Imaging revealing for ileus with moderate amount ascites. Surgery consulted. Patient is not a surgical candidate given poor prognosis. He is NPO, bowel rest, electrolyte replacement, antiemetics and analgesics for pain. He denies N/V. Palliative care has seen him in the past, at the time he was not ready to discuss options for care. He recently stopped taking opdivo but wants to start a trial medication from [facility]. He is being admitted to med/surg for further management of UTI, and ileus. He is ambulatory, c/o being hungry and having liquid stools. Afebrile. He denies CP, SOB. 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 Social History Smoking/Tobacco Use Status: Never Alcohol Intake: never Drug use: Never Substance use type: does not use Caregiver/Support person: No Household members: family Number of Children: 1 number of grandchildren: 4 What is your relationship status?: How often do you talk on the phone with friends or family?: once per week How often do you get together with friends or relatives?: three or more times per week Panel score (0-1 are the most socially isolated patients): 1 What type of physical activity do you participate in: sedentary lifestyle Seatbelt use: always Do you feel safe at home: Yes Do you feel safe in your relationship?: Yes Additional Social history: His 28 yo female cousin lives with him, along with her kids. They sort of take care of each other. His in April 2018. She of metastatic breast cancer and fought it right up to the end. He is inclined to do the same with his HCC. He doesn't feel he is as sick as everyone else thinks he is. Meds Home Medications and Allergies Home Medications Medication Instructions Recorded Confirmed Type Xifaxan 550 mg PO BID 11/03/12 05/22/19 History Victoza 2-Elías 1.8 mg SQ DAILY 09/08/17 05/22/19 History Lantus U-100 Insulin 30 unit SUBCUT BID INSULIN 07/02/18 05/22/19 History furosemide 80 mg PO DAILY AM 01/15/19 05/22/19 History spironolactone 100 mg PO QPM 01/15/19 05/22/19 History tadalafil 40 mg PO DAILY 01/15/19 05/22/19 History acetaminophen [Acetaminophen Extra 1,000 mg PO .Q 24H PRN MDD 1000 02/20/19 05/22/19 History Strength] Opdivo 240 mg IV Q2W 04/01/19 05/22/19 History omeprazole 40 mg PO DAILY #30 cap 04/06/19 05/22/19 Rx sucralfate [Carafate] 1 gm PO BID #20 tab 05/01/19 05/22/19 Rx cephalexin [Keflex] 500 mg PO QID #39 cap 05/13/19 05/22/19 Rx Allergies Allergy/AdvReac Type Severity Reaction Status Date / Time oxycodone AdvReac Unknown Psychosis Unverified 05/13/19 15:12 Exam Const General: cooperative, no acute distress and ill appearing chronically Nutritional Appearance: obese morbidly obese Orientation: alert, awake and oriented x3 HENMT Head: normocephalic and atraumatic Face and sinus: normal facial exam Mouth: moist mucous membranes Eyes Sclera: scleral abnormality (Icteric) bilaterally Pupils: PERRL EOM: EOM intact bilaterally Neck Neck: full ROM and no lymphadenopathy Thyroid: thyroid normal Lymphatic: no lymphedema noted Chest Chest: normal inspection of the chest Resp Effort & Inspection: abnormal respiratory pattern other Auscultation: clear to auscultation bilaterally Cardio Jugular venous pressure: no JVD Rate: regular rate Rhythm: regular rhythm Heart Sounds: S1 normal and S2 normal GI Inspection: distended Palpation: no hepatosplenomegaly and firm Percussion: dullness to percussion Auscultation: hypoactive bowel sounds General: deferred Back/Spine/Pelvis Back: no CVA tenderness Skin General skin exam: jaundice Neuro General: alert, awake and oriented x3 Cognition: normal cognition Extrem General: full ROM and no clubbing, cyanosis or edema Psych Appearance: other Speech and Movement: speech and movement normal Mood: congruent mood Affect: normal affect Attitude: cooperative Results Labs Result diagrams: 05/22/19 10:20 05/22/19 10:20 Labs: Laboratory Results - last 24 hr 05/22/19 05/22/19 05/22/19 10:09 10:20 10:20 WBC RBC Hgb Hct MCV MCH MCHC RDW Plt Count MPV Immature Gran % Neutrophils % Lymphocytes % Monocytes % Eosinophils % Basophils % Absolute Neutrophils Absolute Lymphocytes Absolute Monocytes Absolute Eosinophils Absolute Basophils Differential Comment RBC Morphology Polychromasia Poikilocytosis Anisocytosis PT INR APTT VBG pH VBG pCO2 VBG pO2 VBG HCO3 VBG Total CO2 VBG O2 Saturation VBG Base Excess Sodium 130 L Potassium 3.3 L Chloride 95 L Carbon Dioxide 27.7 Anion Gap 7.3 BUN 17 Creatinine 1.09 Estimated GFR/1.73 m2 >= 60.00 Glucose 188 H Lactate 2.2 H* Calcium 7.6 L Magnesium Total Bilirubin 14.5 H AST 145 H ALT 58 Alkaline Phosphatase 334 H Ammonia Total Protein 5.0 L Albumin 1.2 L Lipase 157 TSH 3.25 Urine Color Brown Urine Clarity Sl cloudy Urine pH Ur Specific [place] 1.021 Urine Protein Color interference Urine Ketones Color interference Urine Blood Color interference Urine Nitrite Color interference Urine Bilirubin Color interference Urine Urobilinogen Color interference Ur Leukocyte Esterase Color interference Urine RBC Negative Urine WBC 20-50 H Ur Epithelial Cells Moderate Urine Crystals Negative Urine Bacteria Many Urine Casts Urine Mucus Moderate Urine Other Few renal Ur Culture Indicated? C&s done as ordered Urine Glucose Color interference 05/22/19 05/22/19 05/22/19 10:20 10:20 10:20 WBC 3.28 L RBC 4.00 L Hgb 13.0 L Hct 37.3 L MCV 93.3 MCH 32.5 MCHC 34.9 RDW 16.6 H Plt Count 63 L MPV 10.8 Immature Gran % 0.9 Neutrophils % 78.7 Lymphocytes % 8.2 Monocytes % 10.1 Eosinophils % 1.2 Basophils % 0.9 Absolute Neutrophils 2.58 Absolute Lymphocytes 0.27 L Absolute Monocytes 0.33 Absolute Eosinophils 0.04 Absolute Basophils 0.03 Differential Comment Plt morph reviewed RBC Morphology See below Polychromasia Present Poikilocytosis 1+ Anisocytosis 1+ PT 13.0 H INR 1.3 H APTT 28.9 VBG pH 7.48 H VBG pCO2 39 VBG pO2 34 VBG HCO3 29 H VBG Total CO2 26 VBG O2 Saturation 65 L VBG Base Excess 5.2 H Sodium Potassium Chloride Carbon Dioxide Anion Gap BUN Creatinine Estimated GFR/1.73 m2 Glucose Lactate Calcium Magnesium Total Bilirubin AST ALT Alkaline Phosphatase Ammonia Total Protein Albumin Lipase TSH Urine Color Urine Clarity Urine pH Ur Specific [place] Urine Protein Urine Ketones Urine Blood Urine Nitrite Urine Bilirubin Urine Urobilinogen Ur Leukocyte Esterase Urine RBC Urine WBC Ur Epithelial Cells Urine Crystals Urine Bacteria Urine Casts Urine Mucus Urine Other Ur Culture Indicated? Urine Glucose 05/22/19 05/22/19 05/22/19 10:20 10:20 13:12 WBC RBC Hgb Hct MCV MCH MCHC RDW Plt Count MPV Immature Gran % Neutrophils % Lymphocytes % Monocytes % Eosinophils % Basophils % Absolute Neutrophils Absolute Lymphocytes Absolute Monocytes Absolute Eosinophils Absolute Basophils Differential Comment RBC Morphology Polychromasia Poikilocytosis Anisocytosis PT INR APTT VBG pH VBG pCO2 VBG pO2 VBG HCO3 VBG Total CO2 VBG O2 Saturation VBG Base Excess Sodium Cancelled Potassium Cancelled Chloride Cancelled Carbon Dioxide Cancelled Anion Gap Cancelled BUN Cancelled Creatinine Cancelled Estimated GFR/1.73 m2 Cancelled Glucose Cancelled Lactate Calcium Cancelled Magnesium 1.7 L Total Bilirubin AST ALT Alkaline Phosphatase Ammonia < 10 L Total Protein Albumin Lipase TSH Urine Color Urine Clarity Urine pH Ur Specific [place] Urine Protein Urine Ketones Urine Blood Urine Nitrite Urine Bilirubin Urine Urobilinogen Ur Leukocyte Esterase Urine RBC Urine WBC Ur Epithelial Cells Urine Crystals Urine Bacteria Urine Casts Urine Mucus Urine Other Ur Culture Indicated? Urine Glucose Last Vital Signs Temp 36.6 C 05/22/19 14:25 Pulse 81 05/22/19 14:25 Resp 18 05/22/19 14:25 BP 95/60 L 05/22/19 14:25 Pulse Ox 97 05/22/19 14:25
[2019-05-22] MEDS: Furosemide 20 MG/2 ML VIAL IVP (16:26)
[2019-05-22] MEDS: HYDROmorphone 2 MG/ML VIAL 1 MG IVP (16:26)
[2019-05-22] MEDS: POTASSIUM CHLORIDE 10 MEQ/100 ML BAG 100 MEQ IVPB ×2 (16:27→18:14)
[2019-05-22] MEDS: Heparin 5,000 UNITS/ML VIAL 5000 UNITS SC (16:40)
--- NOTE | 2019-05-22 18:33 | PDOC.CMIN ---
Care Management Initial Assess REASON FOR HOSPITALIZATION:: UTI, Ileus PAST MEDICAL HISTORY/PAST SURGICAL HISTORY:: Ascities, emmy PREVIOUS FUNCTIONAL STATUS/SOCIAL/FAMILY SUPPORTS:: Flash resides in a farmhouse in [place]. He is . After the of his , a cousin and her two young sons moved into the home with him. He has three daughters, one whom lives locally. Flash states his oldest daughter is a nurse at [employer] and he stays with her when he goes to [facility] for appointments. He reports that all three of his children are supportive. Flash states he cooks, cleans, drives, and is independent in his ADLs. CURRENT FUNCTIONAL STATUS:: Luis remains pleasant in interaction at this time, he spoke in length about his life, including the loss of his a year ago. Flash resides in his great-grandparent's farm house with seven rooms. He reports his niece moved in with him for a period of time and then moved out. More recently, his cousin; a young female and her two children have moved into his home. He reports at first, it was a difficult transition but now he is quite happy to have so much life in his home. 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 ADVANCE DIRECTIVES:: Not interested at this time. Has patient been provided with information about the portal?: Yes Did the patient sign up for the portal?: No CODE STATUS:: Full Code INSURANCE COVERAGE / FINANCIAL ISSUES:: Medicare CURRENT HOME/COMMUNITY SERVICES/EQUIPMENT:: Bedside commode PRIMARY CARE PHYSICIAN:: Shalonda Neil MD POTENTIAL DISCHARGE NEEDS:: Prescription support; unable to fill stomach medication last week. PATIENT/FAMILY EDUCATION NEEDS:: Discharge and follow up plans, limitations; discuss Ask Me Three. ANTICIPATED BARRIERS TO DISCHARGE:: None anticipated. TRANSPORTATION:: Via private vehicle with family. PLAN:: Flash will likely return home with no new services. He will follow up with his PCP and providers at [facility]. He will transport via private vehicle with family. CM will continue to provide support to patient, family and discharge planning considerations.
[2019-05-22 19:21] LABS: Lactate 1.5 mmol/L (0.6-1.4)
[2019-05-22] MEDS: Spironolactone 50 MG TAB 100 MG PO (19:34)
[2019-05-22] MEDS: DEXTROSE 5%-WATER 1,000 ML 50 ML IV (20:48)
[2019-05-23] VITALS: BP 106/60; PULSE 84; RESP 18; TEMP 37; O2SAT 92
[2019-05-23 03:05] VITALS: BP 100/59; PULSE 85; RESP 17; TEMP 36.6; O2SAT 90
[2019-05-23] MEDS: Furosemide 40 MG TAB 80 MG PO (06:31)
[2019-05-23 07:03] LABS: Abs Immature Grans 0.04 k/cumm (0.0-0.09); Absolute Basophil Count 0.03 k/cumm (0.0-0.2); Absolute Eosinophil Count 0.06 k/cumm (0.0-0.7); Absolute Lymphocyte Count 0.24 k/cumm (1.2-3.4); Absolute Monocyte Count 0.39 k/cumm (0.11-0.7); Basophils % 0.9; Eosinophils % 1.8; HCT 37.3 % (40.0-50.0); HGB 13.3 g/dL (13.5-17.5); Immature Grans % 1.2 %; Lymphocytes % 7.4; Mean Corp. HGB Concentration 35.7 g/dL (32.0-36.0); Mean Corpuscular Hemoglobin 32.8 pg (27.0-33.0); Mean Corpuscular Volume 91.9 fL (80-95); Mean Platelet Volume 10.1 fL (8.0-11.0); Neutrophils % 76.7; RBC 4.06 m/cumm (4.50-6.00); RBC Distribution Width 16.5 % (11.8-14.1); White Blood Cell Count 3.26 k/cumm (4.4-10.8)
[2019-05-23 07:19] LABS: Anion Gap 6.7 mmol/L (3-11); BUN 17 mg/dL (7-18); CO2 26.3 mmol/L (21.0-32.0); CREATININE 0.99 mg/dL (0.70-1.30); Calcium 7.6 mg/dL (8.5-10.1); Chloride 96 mmol/L (98-107); Glucose 82 mg/dL (74-106); Magnesium 1.8 mg/dL (1.8-2.4); Potassium 3.3 mmol/L (3.5-5.1); Sodium 129 mmol/L (136-145)
[2019-05-23 07:20] VITALS: BP 106/60; PULSE 94; RESP 17; TEMP 36.1; O2SAT 94
[2019-05-23 07:33] LABS: Platelet Count 72 x1000/uL (130-400)
[2019-05-23 07:34] LABS: Anisocytosis 1+; Diff Comment RBC Morph Reviewed; Poikilocytes 1+; Polychromasia Present
[2019-05-23] MEDS: Spironolactone 50 MG TAB 100 MG PO ×2 (07:57→20:35)
[2019-05-23] MEDS: Pantoprazole 40 MG VIAL IVP (07:58)
[2019-05-23] MEDS: Normal Saline Flush 10 ML SYR IVP ×2 (08:00→12:41)
[2019-05-23] MEDS: Heparin 5,000 UNITS/ML VIAL 5000 UNITS SC ×3 (08:01→17:10)
--- NOTE | 2019-05-23 09:00 | W.PM.PROGNOT ---
Date of Service Date of service: 05/23/19 Time of Service: 09:00 Assessment and Plan Assessment and plan (1) Ileus: Status: Acute Assessment and plan: He is asymptomatic after some bowel rest. Will start clears. Can ADAT Ascites is present but his abdomen is not tense and he has no complaints. Do not advise paracentesis at this time. Subjective Subjective Interval history since last seen: Patient states he felt gassy the day prior to admission, with some epigastric discomfort. This has resolved. Currently denies abdominal pain. No N/V Passed flatus and had small BM today. Exam Narrative Exam Narrative: No acute distress. Jaundiced. Abdomen soft, nondistended, non tender. Objective Objective Clinical Data: Abnormal lab results 05/22/19 05/22/19 05/22/19 Range/Units 10:09 10:20 10:20 WBC (4.4-10.8) k/cumm RBC (4.50-6.00) m/cumm Hgb (13.5-17.5) g/dL Hct (40.0-50.0) % RDW (11.8-14.1) % Plt Count (130-400) x1000/uL Absolute Lymphocytes (1.2-3.4) k/cumm PT (9.3-11.0) sec INR (0.9-1.1) VBG pH (7.35-7.45) VBG HCO3 (22-28) mmol/L VBG O2 Saturation (70-80) % VBG Base Excess (-3-3) mmol/L Sodium 130 L (136-145) mmol/L Potassium 3.3 L (3.5-5.1) mmol/L Chloride 95 L (98-107) mmol/L Glucose 188 H (74-106) mg/dL Lactate 2.2 H* (0.6-1.4) mmol/L Calcium 7.6 L (8.5-10.1) mg/dL Magnesium (1.8-2.4) mg/dL Total Bilirubin 14.5 H (0.2-1.0) mg/dL AST 145 H (15-37) U/L Alkaline Phosphatase 334 H (46-116) U/L Ammonia (11-32) umol/L Total Protein 5.0 L (6.4-8.2) g/dL Albumin 1.2 L (3.4-5.0) g/dL Urine WBC 20-50 H (0-5) HPF 05/22/19 05/22/19 05/22/19 Range/Units 10:20 10:20 10:20 WBC 3.28 L (4.4-10.8) k/cumm RBC 4.00 L (4.50-6.00) m/cumm Hgb 13.0 L (13.5-17.5) g/dL Hct 37.3 L (40.0-50.0) % RDW 16.6 H (11.8-14.1) % Plt Count 63 L (130-400) x1000/uL Absolute Lymphocytes 0.27 L (1.2-3.4) k/cumm PT 13.0 H (9.3-11.0) sec INR 1.3 H (0.9-1.1) VBG pH 7.48 H (7.35-7.45) VBG HCO3 29 H (22-28) mmol/L VBG O2 Saturation 65 L (70-80) % VBG Base Excess 5.2 H (-3-3) mmol/L Sodium (136-145) mmol/L Potassium (3.5-5.1) mmol/L Chloride (98-107) mmol/L Glucose (74-106) mg/dL Lactate (0.6-1.4) mmol/L Calcium (8.5-10.1) mg/dL Magnesium (1.8-2.4) mg/dL Total Bilirubin (0.2-1.0) mg/dL AST (15-37) U/L Alkaline Phosphatase (46-116) U/L Ammonia (11-32) umol/L Total Protein (6.4-8.2) g/dL Albumin (3.4-5.0) g/dL Urine WBC (0-5) HPF 05/22/19 05/22/19 05/22/19 Range/Units 10:20 10:20 19:14 WBC (4.4-10.8) k/cumm RBC (4.50-6.00) m/cumm Hgb (13.5-17.5) g/dL Hct (40.0-50.0) % RDW (11.8-14.1) % Plt Count (130-400) x1000/uL Absolute Lymphocytes (1.2-3.4) k/cumm PT (9.3-11.0) sec INR (0.9-1.1) VBG pH (7.35-7.45) VBG HCO3 (22-28) mmol/L VBG O2 Saturation (70-80) % VBG Base Excess (-3-3) mmol/L Sodium (136-145) mmol/L Potassium (3.5-5.1) mmol/L Chloride (98-107) mmol/L Glucose (74-106) mg/dL Lactate 1.5 H (0.6-1.4) mmol/L Calcium (8.5-10.1) mg/dL Magnesium 1.7 L (1.8-2.4) mg/dL Total Bilirubin (0.2-1.0) mg/dL AST (15-37) U/L Alkaline Phosphatase (46-116) U/L Ammonia < 10 L (11-32) umol/L Total Protein (6.4-8.2) g/dL Albumin (3.4-5.0) g/dL Urine WBC (0-5) HPF 05/23/19 05/23/19 Range/Units 06:28 06:28 WBC 3.26 L (4.4-10.8) k/cumm RBC 4.06 L (4.50-6.00) m/cumm Hgb 13.3 L (13.5-17.5) g/dL Hct 37.3 L (40.0-50.0) % RDW 16.5 H (11.8-14.1) % Plt Count 72 L (130-400) x1000/uL Absolute Lymphocytes 0.24 L (1.2-3.4) k/cumm PT (9.3-11.0) sec INR (0.9-1.1) VBG pH (7.35-7.45) VBG HCO3 (22-28) mmol/L VBG O2 Saturation (70-80) % VBG Base Excess (-3-3) mmol/L Sodium 129 L (136-145) mmol/L Potassium 3.3 L (3.5-5.1) mmol/L Chloride 96 L (98-107) mmol/L Glucose (74-106) mg/dL Lactate (0.6-1.4) mmol/L Calcium 7.6 L (8.5-10.1) mg/dL Magnesium (1.8-2.4) mg/dL Total Bilirubin (0.2-1.0) mg/dL AST (15-37) U/L Alkaline Phosphatase (46-116) U/L Ammonia (11-32) umol/L Total Protein (6.4-8.2) g/dL Albumin (3.4-5.0) g/dL Urine WBC (0-5) HPF Vital Signs Temperature 97.0 F L 05/23/19 07:20 Temperature Source Tympanic 05/23/19 07:20 Pulse 94 H 05/23/19 07:20 Pulse Rhythm Regular 05/23/19 03:05 Pulse Strength Normal 05/22/19 11:55 Respiratory Rate 17 05/23/19 07:20 Respiratory Effort 05/23/19 03:05 Respiratory Depth Normal 05/23/19 03:05 Respiratory Pattern Normal 05/23/19 03:05 Blood Pressure 106/60 05/23/19 07:20 Blood Pressure Mean 69 05/22/19 13:15 Blood Pressure Position Supine 05/22/19 11:55 Pulse Oximetry 94 L 05/23/19 07:20 Oxygen Delivery Method Room Air 05/23/19 07:20 Oxygen Flow Rate 0 05/23/19 07:20 Pain Level 5 05/22/19 16:26 Comment 05/23/19 03:05 Intake & Output 05/22/19 05/22/19 05/23/19 11:59 23:59 11:59 Intake Total 1419 1400 / 1420 Balance 1419 1400 / 1420 Weight 145 lb 0.004 oz 145 lb 0.004 oz Intake: IV 1419 1400 / 1420 Other: Urine Color Yellow Urine Appearance Clear Clear Stool Size Moderate Large Stool Characteristics Liquid Liquid Brown Voiding Methods Bedside Commode Bedside Commode Laboratory Results WBC 3.26 k/cumm (4.4-10.8) L 05/23/19 06:28 RBC 4.06 m/cumm (4.50-6.00) L 05/23/19 06:28 Hgb 13.3 g/dL (13.5-17.5) L 05/23/19 06:28 Hct 37.3 % (40.0-50.0) L 05/23/19 06: MCV 91.9 fL (80-95) 05/23/19 06:28 MCH 32.8 pg (27.0-33.0) 05/23/19 06: MCHC 35.7 g/dL (32.0-36.0) 05/23/19 06: RDW 16.5 % (11.8-14.1) H 05/23/19 06:28 Plt Count 72 x1000/uL (130-400) L 05/23/19 06:28 MPV 10.1 fL (8.0-11.0) 05/23/19 06: Immature Gran % 1.2 % 05/23/19 06: Neutrophils % 76.7 05/23/19 06: Lymphocytes % 7.4 05/23/19 06:28 Monocytes % 12.0 05/23/19 06:28 Eosinophils % 1.8 05/23/19 06: Basophils % 0.9 05/23/19 06:28 Absolute Neutrophils 2.50 k/cumm (1.2-6.7) 05/23/19 06: Absolute Lymphocytes 0.24 k/cumm (1.2-3.4) L 05/23/19 06:28 Absolute Monocytes 0.39 k/cumm (0.11-0.7) 05/23/19 06: Absolute Eosinophils 0.06 k/cumm (0.0-0.7) 05/23/19 06: Absolute Basophils 0.03 k/cumm (0.0-0.2) 05/23/19 06:28 Differential Comment Rbc morph reviewed 05/23/19 06:28 RBC Morphology See below 05/23/19 06:28 Polychromasia Present 05/23/19 06:28 Poikilocytosis 1+ 05/23/19 06:28 Anisocytosis 1+ 05/23/19 06: PT 13.0 sec (9.3-11.0) H 05/22/19 10:20 INR 1.3 (0.9-1.1) H 05/22/19 10:20 APTT 28.9 sec (21.0-31.4) 05/22/19 10:20 VBG pH 7.48 (7.35-7.45) H 05/22/19 10:20 VBG pCO2 39 mm/Hg (34-47) 05/22/19 10:20 VBG pO2 34 mm/Hg (28-44) 05/22/19 10:20 VBG HCO3 29 mmol/L (22-28) H 05/22/19 10:20 VBG Total CO2 26 mmol/L (22-29) 05/22/19 10:20 VBG O2 Saturation 65 % (70-80) L 05/22/19 10:20 VBG Base Excess 5.2 mmol/L (-3-3) H 05/22/19 10:20 Sodium 129 mmol/L (136-145) L 05/23/19 06:28 Potassium 3.3 mmol/L (3.5-5.1) L 05/23/19 06:28 Chloride 96 mmol/L (98-107) L 05/23/19 06:28 Carbon Dioxide 26.3 mmol/L (21.0-32.0) 05/23/19 06:28 Anion Gap 6.7 mmol/L (3-11) 05/23/19 06:28 BUN 17 mg/dL (7-18) 05/23/19 06:28 Creatinine 0.99 mg/dL (0.70-1.30) 05/23/19 06:28 Estimated GFR/1.73 m2 >= 60.00 (mL/min/1.73m2) 05/23/19 06:28 Glucose 82 mg/dL (74-106) D 05/23/19 06:28 Lactate 1.5 mmol/L (0.6-1.4) H 05/22/19 19:14 Calcium 7.6 mg/dL (8.5-10.1) L 05/23/19 06:28 Magnesium 1.8 mg/dL (1.8-2.4) 05/23/19 06:28 Total Bilirubin 14.5 mg/dL (0.2-1.0) H 05/22/19 10:20 AST 145 U/L (15-37) H 05/22/19 10:20 ALT 58 U/L (16-63) 05/22/19 10:20 Alkaline Phosphatase 334 U/L (46-116) H 05/22/19 10:20 Ammonia < 10 umol/L (11-32) L 05/22/19 10:20 Total Protein 5.0 g/dL (6.4-8.2) L 05/22/19 10:20 Albumin 1.2 g/dL (3.4-5.0) L 05/22/19 10:20 Lipase 157 U/L (73-393) 05/22/19 10:20 TSH 3.25 uIU/mL (0.36-3.74) 05/22/19 10:20 Urine Color Brown (Yellow) 05/22/19 10:09 Urine Clarity Sl cloudy (Clear) 05/22/19 10:09 Urine pH (5-8) 05/22/19 10:09 Ur Specific [place] 1.021 (1.005-1.025) 05/22/19 10:09 Urine Protein Color interference mg/dL (Negative) 05/22/19 10:09 Urine Ketones Color interference mg/dL (Negative) 05/22/19 10:09 Urine Blood Color interference (Negative) 05/22/19 10:09 Urine Nitrite Color interference (Negative) 05/22/19 10:09 Urine Bilirubin Color interference (Negative) 05/22/19 10:09 Urine Urobilinogen Color interference EU/dL (Up TO 0.2) 05/22/19 10:09 Ur Leukocyte Esterase Color interference (Negative) 05/22/19 10:09 Urine RBC Negative HPF (0-2) 05/22/19 10:09 Urine WBC 20-50 HPF (0-5) H 05/22/19 10:09 Ur Epithelial Cells Moderate HPF (Negative) 05/22/19 10:09 Urine Crystals Negative HPF (Negative) 05/22/19 10:09 Urine Bacteria Many HPF (Negative) 05/22/19 10:09 Urine Casts LPF (Negative) 05/22/19 10:09 Urine Mucus Moderate (Negative) 05/22/19 10:09 Urine Other Few renal (Negative) 05/22/19 10:09 Ur Culture Indicated? C&s done as ordered 05/22/19 10:09 Urine Glucose Color interference mg/dL (Negative) 05/22/19 10:09
--- NOTE | 2019-05-23 11:11 | W.NUTCONSULT ---
Date of service: 05/23/19 Time of Service: 11:12 Nutritional Consult ASSESSMENT: 59 year old male admitted with Ileus/UTI. NPO x 2 days, now advanced to clears. PMH: liver cancer, liver cirrohsis and ascites, DM2 with insulin. Continues to be Full Code at this time. Admit weight most likely an error as weight on 05/13/19 112 kg and is in typical range for him. Awaiting updated weight. Will monitor po intake and weight and adjust diet for optimal intake. INTERVENTION: clear liquid diet MONITORING AND EVALUATION: po intake, weight, labs Time Spent in Nutritional Counseling and Treatment: 0 time spent face to face.
--- NOTE | 2019-05-23 11:52 | PGE_ITS ---
Date of Service Date of service: 05/23/19 Time of Service: 11:10 Assessment and Plan Assessment and plan (1) Ileus: Status: Acute Assessment and plan: resolved with bowel rest, advancing diet as tolerated, continue to monitor. (2) Cirrhosis of liver: Status: Chronic Assessment and plan: chronic, with ascities, will continue spironalactone and lasix, replace electrolytes accordingly and continue to closely monitor. his symptoms are stable so surgery does not recommend paracentesis at this time. Qualifiers: Hepatic cirrhosis type: other cirrhosis Qualified Code(s): K74.69 - Other cirrhosis of liver (3) UTI (urinary tract infection): Status: Acute Assessment and plan: treated with bactrim as outpaient, now of levaquin, urine culture showing less than 10,000 mixed gram positive maureen. will repeat urine today. he's been afebrile and asymptomatic. (4) Hepatocellular carcinoma: Status: Chronic Assessment and plan: Failed treatment, poor prognosis, unrealistic about illness. recently stopped opvido and wants to start a trial medication from [facility]. Palliative care has tried to work with patient in past, will consult t hem again. At this time he wants to remain a full code. (5) Diabetes: Status: Chronic Assessment and plan: blood sugars low as he's been po. will change to ac/hs now he's eating. will continue d5 for now but anticipate shutting off today if tolerating po. will decrease home lantus to 20 units bid from 30 units while hospitalized. Qualifiers: Diabetes mellitus type: type 2 Diabetes mellitus intermediate insulin use: with intermediate use Diabetes mellitus complication status: without complication Qualified Code(s): E11.9 - Type 2 diabetes mellitus without complications; Z79.4 - terminal supervisor (current) use of insulin (6) DVT prophylaxis: Status: Acute Assessment and plan: Will give subcu heparin. Hold for platelet count under 50,000 in a patient with cancer that is high (7) Discharge planning issues: Status: Acute Assessment and plan: home tomorrow if remains medically stable. Subjective Subjective Patient reports: feels better, tolerating liquids well, voiding w/o difficulty and flatus; denies nausea and vomiting Interval history since last seen: states he's hungry, blood sugars have been low, requiring D5w infusion to maintain. Exam Const General: cooperative, comfortable, no acute distress, frail appearing and ill appearing chronically Nutritional Appearance: overweight Orientation: alert, awake and oriented x3 HENMT Head: normal to inspection and atraumatic Mouth: oral mucosae normal Eyes Conjunctivae: conjunctivae normal and conjunctival abnormality Sclera: scleral abnormality bilaterally (icteric) EOM: EOM intact bilaterally Resp Effort & Inspection: normal respiratory effort Auscultation: clear to auscultation bilaterally Cardio Rate: regular rate Rhythm: regular rhythm GI Inspection: edema (ascities) Laterality: bilateral Skin General skin exam: jaundice Neuro General: alert, awake, oriented x3 and moves all extremities Extrem General: edema Laterality: bilateral Objective Objective Clinical Data: Abnormal lab results 05/22/19 05/22/19 05/22/19 Range/Units 10:09 10:20 19:14 WBC (4.4-10.8) k/cumm RBC (4.50-6.00) m/cumm Hgb (13.5-17.5) g/dL Hct (40.0-50.0) % RDW (11.8-14.1) % Plt Count (130-400) x1000/uL Absolute Lymphocytes (1.2-3.4) k/cumm Sodium (136-145) mmol/L Potassium (3.5-5.1) mmol/L Chloride (98-107) mmol/L Lactate 1.5 H (0.6-1.4) mmol/L Calcium (8.5-10.1) mg/dL Magnesium 1.7 L (1.8-2.4) mg/dL Urine WBC 20-50 H (0-5) HPF 05/23/19 05/23/19 Range/Units 06:28 06:28 WBC 3.26 L (4.4-10.8) k/cumm RBC 4.06 L (4.50-6.00) m/cumm Hgb 13.3 L (13.5-17.5) g/dL Hct 37.3 L (40.0-50.0) % RDW 16.5 H (11.8-14.1) % Plt Count 72 L (130-400) x1000/uL Absolute Lymphocytes 0.24 L (1.2-3.4) k/cumm Sodium 129 L (136-145) mmol/L Potassium 3.3 L (3.5-5.1) mmol/L Chloride 96 L (98-107) mmol/L Lactate (0.6-1.4) mmol/L Calcium 7.6 L (8.5-10.1) mg/dL Magnesium (1.8-2.4) mg/dL Urine WBC (0-5) HPF Vital Signs Temperature 36.1 C L 05/23/19 07:20 Temperature Source Tympanic 05/23/19 07:20 Pulse 94 H 05/23/19 07:20 Pulse Rhythm Regular 05/23/19 03:05 Pulse Strength Normal 05/22/19 11:55 Respiratory Rate 17 05/23/19 07:20 Respiratory Effort 05/23/19 03:05 Respiratory Depth Normal 05/23/19 03:05 Respiratory Pattern Normal 05/23/19 03:05 Blood Pressure 106/60 05/23/19 07:20 Blood Pressure Mean 69 05/22/19 13:15 Blood Pressure Position Supine 05/22/19 11:55 Pulse Oximetry 94 L 05/23/19 07:20 Oxygen Delivery Method Room Air 05/23/19 07:20 Oxygen Flow Rate 0 05/23/19 07:20 Pain Level 5 05/22/19 16:26 Comment 05/23/19 03:05 Intake & Output 05/22/19 05/22/19 05/23/19 11:59 23:59 11:59 Intake Total 1419 1400 / 1420 Balance 1419 1400 / 1420 Weight 65.771 kg 65.771 kg Intake: IV 1419 1400 / 1420 Other: Urine Color Yellow Straw Urine Appearance Clear Clear Stool Size Moderate Small Stool Characteristics Liquid Liquid Voiding Methods Bedside Commode Bedside Commode Laboratory Results WBC 3.26 k/cumm (4.4-10.8) L 05/23/19 06:28 RBC 4.06 m/cumm (4.50-6.00) L 05/23/19 06:28 Hgb 13.3 g/dL (13.5-17.5) L 05/23/19 06:28 Hct 37.3 % (40.0-50.0) L 05/23/19 06:28 MCV 91.9 fL (80-95) 05/23/19 06:28 MCH 32.8 pg (27.0-33.0) 05/23/19 06:28 MCHC 35.7 g/dL (32.0-36.0) 05/23/19 06:28 RDW 16.5 % (11.8-14.1) H 05/23/19 06:28 Plt Count 72 x1000/uL (130-400) L 05/23/19 06:28 MPV 10.1 fL (8.0-11.0) 05/23/19 06:28 Immature Gran % 1.2 % 05/23/19 06:28 Neutrophils % 76.7 05/23/19 06:28 Lymphocytes % 7.4 05/23/19 06:28 Monocytes % 12.0 05/23/19 06: Eosinophils % 1.8 05/23/19 06: Basophils % 0.9 05/23/19 06:28 Absolute Neutrophils 2.50 k/cumm (1.2-6.7) 05/23/19 06:28 Absolute Lymphocytes 0.24 k/cumm (1.2-3.4) L 05/23/19 06:28 Absolute Monocytes 0.39 k/cumm (0.11-0.7) 05/23/19 06:28 Absolute Eosinophils 0.06 k/cumm (0.0-0.7) 05/23/19 06:28 Absolute Basophils 0.03 k/cumm (0.0-0.2) 05/23/19 06:28 Differential Comment Rbc morph reviewed 05/23/19 06:28 RBC Morphology See below 05/23/19 06:28 Polychromasia Present 05/23/19 06:28 Poikilocytosis 1+ 05/23/19 06:28 Anisocytosis 1+ 05/23/19 06:28 PT 13.0 sec (9.3-11.0) H 05/22/19 10:20 INR 1.3 (0.9-1.1) H 05/22/19 10:20 APTT 28.9 sec (21.0-31.4) 05/22/19 10:20 VBG pH 7.48 (7.35-7.45) H 05/22/19 10:20 VBG pCO2 39 mm/Hg (34-47) 05/22/19 10:20 VBG pO2 34 mm/Hg (28-44) 05/22/19 10:20 VBG HCO3 29 mmol/L (22-28) H 05/22/19 10:20 VBG Total CO2 26 mmol/L (22-29) 05/22/19 10:20 VBG O2 Saturation 65 % (70-80) L 05/22/19 10:20 VBG Base Excess 5.2 mmol/L (-3-3) H 05/22/19 10:20 Sodium 129 mmol/L (136-145) L 05/23/19 06:28 Potassium 3.3 mmol/L (3.5-5.1) L 05/23/19 06:28 Chloride 96 mmol/L (98-107) L 05/23/19 06:28 Carbon Dioxide 26.3 mmol/L (21.0-32.0) 05/23/19 06:28 Anion Gap 6.7 mmol/L (3-11) 05/23/19 06:28 BUN 17 mg/dL (7-18) 05/23/19 06:28 Creatinine 0.99 mg/dL (0.70-1.30) 05/23/19 06:28 Estimated GFR/1.73 m2 >= 60.00 (mL/min/1.73m2) 05/23/19 06:28 Glucose 82 mg/dL (74-106) D 05/23/19 06:28 Lactate 1.5 mmol/L (0.6-1.4) H 05/22/19 19:14 Calcium 7.6 mg/dL (8.5-10.1) L 05/23/19 06:28 Magnesium 1.8 mg/dL (1.8-2.4) 05/23/19 06:28 Total Bilirubin 14.5 mg/dL (0.2-1.0) H 05/22/19 10:20 AST 145 U/L (15-37) H 05/22/19 10:20 ALT 58 U/L (16-63) 05/22/19 10:20 Alkaline Phosphatase 334 U/L (46-116) H 05/22/19 10:20 Ammonia < 10 umol/L (11-32) L 05/22/19 10:20 Total Protein 5.0 g/dL (6.4-8.2) L 05/22/19 10:20 Albumin 1.2 g/dL (3.4-5.0) L 05/22/19 10:20 Lipase 157 U/L (73-393) 05/22/19 10:20 TSH 3.25 uIU/mL (0.36-3.74) 05/22/19 10:20 Urine Color Brown (Yellow) 05/22/19 10:09 Urine Clarity Sl cloudy (Clear) 05/22/19 10:09 Urine pH (5-8) 05/22/19 10:09 Ur Specific [place] 1.021 (1.005-1.025) 05/22/19 10:09 Urine Protein Color interference mg/dL (Negative) 05/22/19 10:09 Urine Ketones Color interference mg/dL (Negative) 05/22/19 10:09 Urine Blood Color interference (Negative) 05/22/19 10:09 Urine Nitrite Color interference (Negative) 05/22/19 10:09 Urine Bilirubin Color interference (Negative) 05/22/19 10:09 Urine Urobilinogen Color interference EU/dL (Up TO 0.2) 05/22/19 10:09 Ur Leukocyte Esterase Color interference (Negative) 05/22/19 10:09 Urine RBC Negative HPF (0-2) 05/22/19 10:09 Urine WBC 20-50 HPF (0-5) H 05/22/19 10:09 Ur Epithelial Cells Moderate HPF (Negative) 05/22/19 10:09 Urine Crystals Negative HPF (Negative) 05/22/19 10:09 Urine Bacteria Many HPF (Negative) 05/22/19 10:09 Urine Casts LPF (Negative) 05/22/19 10:09 Urine Mucus Moderate (Negative) 05/22/19 10:09 Urine Other Few renal (Negative) 05/22/19 10:09 Ur Culture Indicated? C&s done as ordered 05/22/19 10:09 Urine Glucose Color interference mg/dL (Negative) 05/22/19 10:09
[2019-05-23] MEDS: levoFLOXacin 750 MG/150 ML BAG 100 MG IVPB (12:41)
--- NOTE | 2019-05-23 14:35 | PHA.ADMREV ---
Pharmacy Clinical Review - Admission Clinical Review (Last Reviewed 05/22/19 @ 15:28 by Lisa Cleaning NP) Acute UTI (Acute) Ileus (Acute) Ileus (Acute) UTI (urinary tract infection) (Acute) Immunotherapy (Acute) Ascites (Acute) Discharge planning issues (Acute) DVT prophylaxis (Acute) oxycodone Adverse Reaction (Unknown, Unverified 05/13/19 15:12) Psychosis Height 5 ft 9 in Weight 65.771 kg - Renal Dosing Renal Dosing: BUN 17 mg/dL (7-18) 05/23/19 06:28 Creatinine 0.99 mg/dL (0.70-1.30) 05/23/19 06:28 Medications needing adjustments: N/A (Crcl ~72.8 mL/min current meds okay) - Anticoagulation Anticoagulation: Hgb 13.3 g/dL (13.5-17.5) L 05/23/19 06:28 Hct 37.3 % (40.0-50.0) L 05/23/19 06:28 Plt Count 72 x1000/uL (130-400) L 05/23/19 06:28 INR 1.3 (0.9-1.1) H 05/22/19 10:20 Creatinine 0.99 mg/dL (0.70-1.30) 05/23/19 06:28 DVT Prohphylaxis: Reviewed Medications: Heparin (plt 72 (up); MD aware) Therapeutic Anticoagulation: N/A - Opiate Usage Evaluate Pain Scale/Pains Meds: Reviewed Scheduled Bowel Reg ordered if on Opiates?: No (prn meds ordered) - Relevant Labs Sodium 129 mmol/L (136-145) L 05/23/19 06:28 Potassium 3.3 mmol/L (3.5-5.1) L 05/23/19 06:28 Chloride 96 mmol/L (98-107) L 05/23/19 06:28 Magnesium 1.8 mg/dL (1.8-2.4) 05/23/19 06:28 Electrolytes, C-Reactive P, ESR: Reviewed ( ordered K+ replacement) - Antimicrobial Stewardship Antibiotic appropriateness: Reviewed (levofloxacin for UTI) Surgical Abx d/c within 24 hr: N/A De-escalation: No Culture review/Resistance: Reviewed (blood cultures no growth at 24 hours, C.diff negative, urine culture growing gram positive maureen) IV to PO Switch: N/A C. Diff: No - DM Control DM Control: Glucose 82 mg/dL (74-106) D 05/23/19 06:28 Finger Stick Blood Glucose 124 Finger Stick Blood Glucose 77 Insulin Dosing: Reviewed (scheduled insulin glargine (dose decreased today), and sliding scale aspart. pts own vicotza ordered but has not been brought in. 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 if pt tolerating po) - Heart Failure/[place] EF%, JONY's, B-Blockers, Diuretics: Reviewed - BP Control BP Control: Blood Pressure 106/60 Blood Pressure 100/59 If elevated: N/A - QTc Review If Elevated: N/A (QTc 441) - IV to PO Switch IV Medications: N/A - Home Meds Home Med List reviewed: Reviewed (sucralfate may decrease the serum concentration of furosemide, separate admin by at least 2 hours.) Relevent Home Meds Not ordered & why?: cephalexin and rifaximin (has IV abx ordered); omeprazole (has pantoprazole ordered), opdivo, sucralfate - Current meds Current Medication Order Review: Intervened (adjusted furosemide timing, discontinued iohexol (given yesterday)) - Comments Comments/Follow Ups: watch platelets, K+, BG, and micro results. watch for pts own meds to be brought in
[2019-05-23 14:45] LABS: Bilirubin Large (Negative); Blood Trace-intact (Negative); Clarity Cloudy (Clear); Glucose 100 mg/dL (Negative); Ketones Negative (Negative); Leukocyte Esterase Negative (Negative); Nitrite Negative (Negative); pH 5.5 (5-8)
[2019-05-23] MEDS: Potassium Chloride 20 MEQ TABCR PO ×2 (14:53→20:36)
[2019-05-23 15:03] LABS: Epithelial Cells Rare HPF (Negative); RBC 0-2 HPF (0-2); WBC 0-2 HPF (0-5)
[2019-05-23 15:04] LABS: Bacteria Few HPF (Negative); Crystals Few Amorphous HPF (Negative); Mucus Trace (Negative)
[2019-05-23 15:10] LABS: C & S Indicated? Yes
[2019-05-23 15:30] VITALS: BP 96/54; PULSE 95; RESP 16; TEMP 37.3; O2SAT 92
--- NOTE | 2019-05-23 16:04 | CHAPLAIN ---
Flash was in bed when I visited. A young woman was with him. Flash said he's feeling a little better. He spent much of the day in the ER yesterday. He was anticipating having another patient moving into the room with him and hoping the patient would be noisy so Flash could sleep. Flash mentioned that his daughter is a nurse at [employer] [facility] [facility] [place] young woman with him is an HOSPITALITY DIRECTOR. I will visit again tomorrow.
[2019-05-23 16:16] LABS: Abs Immature Grans 0.05 k/cumm (0.0-0.09); Absolute Basophil Count 0.03 k/cumm (0.0-0.2); Absolute Eosinophil Count 0.03 k/cumm (0.0-0.7); Absolute Lymphocyte Count 0.35 k/cumm (1.2-3.4); Absolute Monocyte Count 0.51 k/cumm (0.11-0.7); Absolute Neutrophil Count 3.94 k/cumm (1.2-6.7); Basophils % 0.6; Eosinophils % 0.6; HCT 39.2 % (40.0-50.0); Lymphocytes % 7.1; Mean Corp. HGB Concentration 35.7 g/dL (32.0-36.0); Mean Corpuscular Hemoglobin 32.6 pg (27.0-33.0); Mean Corpuscular Volume 91.4 fL (80-95); Mean Platelet Volume 11.7 fL (8.0-11.0); Monocytes % 10.4; Neutrophils % 80.3; RBC 4.29 m/cumm (4.50-6.00); RBC Distribution Width 16.8 % (11.8-14.1); White Blood Cell Count 4.91 k/cumm (4.4-10.8)
[2019-05-23 16:31] LABS: ALT 60 U/L (16-63); AST 155 U/L (15-37); Albumin 1.2 g/dL (3.4-5.0); Alkaline Phosphatase 303 U/L (46-116); Anion Gap 12.3 mmol/L (3-11); BUN 18 mg/dL (7-18); CO2 21.7 mmol/L (21.0-32.0); CREATININE 1.27 mg/dL (0.70-1.30); Chloride 91 mmol/L (98-107); Estimated GFR 57.65 (mL/min/1.73m2); Glucose 202 mg/dL (74-106); Magnesium 1.8 mg/dL (1.8-2.4); Potassium 3.8 mmol/L (3.5-5.1); Sodium 125 mmol/L (136-145); Total Protein 5.2 g/dL (6.4-8.2)
[2019-05-23 16:33] LABS: Bilirubin, Total 17.7 mg/dL (0.2-1.0)
[2019-05-23 16:46] LABS: Platelet Count 72 x1000/uL (130-400)
[2019-05-23] MEDS: Insulin Aspart 300 UNITS/3 ML PEN SC ×2 (17:09→22:21)
[2019-05-23] MEDS: Insulin Glargine 300 UNITS/3 ML PEN 20 UNITS SC (17:10)
[2019-05-23] MEDS: HYDROmorphone 2 MG/ML VIAL 1 MG IVP (17:20)
--- NOTE | 2019-05-23 17:21 | CMPROGNOTE_ITS ---
Care Management Progress Note S/O: Flash remains pleasant in interaction. Per provider he may discharge as soon as tomorrow. CM continues to follow. A: 59 year old male admitted to [facility] 05/22/19 for UTI, Ileus P: Flash will return home with no new services anticipated at this time. He will follow up with his PCP and providers at [facility]. Anticipate he will also follow up with Palliative Care as provider reports he is currently not realistic regarding his illness as he failed treatment for hepatocellular carcinoma. Flash will transport via private vehicle with family. CM will continue to provide support to patient, family and discharge planning considerations.
[2019-05-23] MEDS: DEXTROSE 5%-WATER 1,000 ML 50 ML IV (20:20)
[2019-05-23 20:40] VITALS: BP 96/54; PULSE 93; RESP 18; TEMP 36.8; O2SAT 94
[2019-05-23] MEDS: Sucralfate 1 GM TAB PO (22:21)
[2019-05-24] VITALS: BP 96/63; PULSE 93; RESP 16; TEMP 36.7; O2SAT 94
[2019-05-24] MEDS: Heparin 5,000 UNITS/ML VIAL 5000 UNITS SC ×3 (00:18→16:58)
[2019-05-24 07:21] VITALS: BP 92/58; PULSE 78; RESP 18; TEMP 36.6; O2SAT 94
[2019-05-24] MEDS: Insulin Glargine 300 UNITS/3 ML PEN 20 UNITS SC ×2 (08:36→16:57)
[2019-05-24] MEDS: Spironolactone 50 MG TAB 100 MG PO ×2 (08:36→21:07)
[2019-05-24] MEDS: Sucralfate 1 GM TAB PO ×4 (08:36→21:07)
[2019-05-24] MEDS: Potassium Chloride 20 MEQ TABCR PO ×2 (08:37→13:36)
[2019-05-24] MEDS: Pantoprazole 40 MG VIAL IVP (08:37)
[2019-05-24] MEDS: Liraglutide [Victoza 2-Pak] 1.8 MG SC (09:17)
[2019-05-24] MEDS: Furosemide 40 MG TAB 80 MG PO (09:28)
--- NOTE | 2019-05-24 11:06 | PDOC.CMDIS ---
- If Service Date Differs Date of service: 05/25/19 Time of Service: 16:42 LACE Index Scoring Tool - Questions: Length of Stay (in days): 3 Acuity (Admit via E.D.?): Yes Comorbidities: Diabetes w/o Complication, Any Tumor, Liver or Renal Disease E.D. Visits: 9 - Answers: Total Score: 15 Risk of Readmission: High Risk Care Management Discharge Reason for Hospitalization: UTI, Ileus Discharge Plan: Flash will return home with no new services anticipated at this time. He will follow up with his PCP and providers at [facility]. Anticipate he will also follow up with Palliative Care as provider reports he is currently not realistic regarding his illness as he failed treatment for hepatocellular carcinoma. Flash will transport via private vehicle with family. Patient/Family Education Needs: Review discharge instructions, discuss Ask Me Three.
[2019-05-24] MEDS: Insulin Aspart 300 UNITS/3 ML PEN SC (12:00)
[2019-05-24] MEDS: levoFLOXacin 750 MG/150 ML BAG 100 MG IVPB (12:08)
--- NOTE | 2019-05-24 12:08 | W.NUTRFU ---
Date of service: 05/24/19 Time of Service: 12:08 Nutritional Follow up NOTE: Ileus has resolved, has started on regular meal plan today with 75-100% completion. PO intake meeting nutrient and fluid needs at this time. Will be available prn. Time Spent in Nutritional Counseling and Treatment: 0 time spent face to face
--- NOTE | 2019-05-24 14:26 | DSE_ITS ---
Date of service: 05/24/19 Time of Service: 14:27 DS: Diagnosis Discharge Diagnosis (1) Ileus: Status: Acute (2) Cirrhosis of liver: Status: Chronic (3) UTI (urinary tract infection): Status: Acute (4) Hepatocellular carcinoma: Status: Chronic (5) Diabetes: Status: Chronic Discharge Plan Disposition Patient Disposition: HOME Condition: Improving Discharge Details Chief Complaint: Abd Prob Clinical Impression: Acute UTI, Ileus Reason For Visit: UTI, ILEUS Admit Date/Time: 05/22/19 13:03 Admit Provider: Bret Ayers Attending Provider: Bret Ayers Primary Care Provider: Shalonda Neil ED Provider: Hair Peters Hospital Course Hospital Course: This is a 59 y.o male with history of hepatocellular carcinoma, cirrohsis portal hypertension, Esophageal varicies, type 2 DM insulin dependent, hypertension presents to the ED after having diarrhea, weakness and abdominal pain keeping him up overnight. He was seen a week ago in the ED diagnosed with UTI, placed on bactrim for 10 days. Labs in the ED remarkable for 3.3 potassium, mag 1.7, platelets 63,000, UTI unable to be determined, levaquin started in ED will c ontinue. Imaging revealing for ileus with moderate amount ascites. Surgery consulted. Patient is not a surgical candidate given poor prognosis. He is NPO, bowel rest, electrolyte replacement, antiemetics and analgesics for pain. He denies N/V. His ileus resolved with this. his diet was advanced, his bowels continued to function. he had intermittent pain that he associated with the antibiotics he was taking for UTI. cultures remained unrevealing so this was discontinued and his pain did not reoccur overnight. he is now symptom free with stable vitals signs, eating and drinking, voiding with bowels functioning. he will be referred outpatient to palliative care. Home Meds and New Rx's Prescriptions: Continued Xifaxan 550 MG tablet 550 mg PO BID RF: 0 Lantus U-100 Insulin 100 unit/mL Solution 30 unit subcut BID INSULIN RF: 0 spironolactone 100 mg Tablet 100 mg PO QPM RF: 0 tadalafil 20 mg Tablet 40 mg PO DAILY RF: 0 furosemide 40 mg Tablet 80 mg PO DAILY AM RF: 0 sucralfate [Carafate] 1 gram tablet 1 gm PO BID Qty: 20 RF: 0 Victoza 2-Elías 0.6 MG/0.1 ML pen injector 1.8 mg SQ DAILY RF: 0 acetaminophen [Acetaminophen Extra Strength] 500 mg Tablet 1,000 mg PO .Q 24H MDD 1000 PRNRF: 0 Opdivo 240 mg/24 mL Solution 240 mg IV Q2W RF: 0 omeprazole 40 mg capsule,delayed release(DR/EC) 40 mg PO DAILY Qty: 30 RF: 0 Discontinued cephalexin [Keflex] 500 mg capsule 500 mg PO QID Qty: 39 RF: 0 Discharge Instructions Instructions: Ileus (DC) Additional Instructions: continue usual medications Stand Alone Forms: Nursing Discharge Form Referrals: Shalonda Neil [Primary Care Provider] - 05/29/19 11:00 am (one week) Activity:: Activity as Tolerated Equipment/Supplies:: No Equipment Needed Diet:: As Tolerated Discharge Orders Discharge Orders: Discharge Order (Routine); Ordered 05/25/19 Ordered By: Jodee Santamaria DS: Summary Status at Discharge Functional status at discharge: independent ambulation Overall status at discharge: patient is progressing back to baseline Mental Status: mental status grossly normal Speech and Movement: speech and movement normal Mood: congruent mood Affect: normal affect Exam Narrative Exam Narrative: Const General: cooperative, frail appearing and ill appearing chronically Nutritional Appearance: overweight Orientation: alert, awake and oriented x3 HENMT Mouth: oral mucosae normal Eyes Sclera: scleral abnormality bilaterally (icteric) Resp Effort & Inspection: normal respiratory effort Auscultation: clear to auscultation bilaterally Cardio Rate: regular rate Rhythm: regular rhythm GI Inspection: obesity Palpation: soft and ascites Auscultation: normal bowel sounds Skin General skin exam: jaundice Neuro General: alert, awake and oriented x3 Extrem General: edema Psych Mental Status: mental status grossly normal Speech and Movement: speech and movement normal Mood: congruent mood Affect: normal affect DS: Data Vitals/I&O Vitals and I&O: Vital Signs Temperature 36.6 C 05/24/19 07:21 Temperature Source Tympanic 05/24/19 07:21 Pulse 78 05/24/19 07:21 Pulse Rhythm Regular 05/24/19 10:31 Pulse Strength Normal 05/22/19 11:55 Respiratory Rate 18 05/24/19 07:21 Respiratory Effort 05/24/19 10:31 Respiratory Depth Normal 05/24/19 10:31 Respiratory Pattern Normal 05/24/19 10:31 Blood Pressure 92/58 L 05/24/19 07:21 Blood Pressure Mean 69 05/22/19 13:15 Blood Pressure Position Supine 05/22/19 11:55 Pulse Oximetry 94 L 05/24/19 07:21 Oxygen Delivery Method Room Air 05/24/19 07:21 Oxygen Flow Rate 0 05/24/19 07:21 Pain Level 0 05/24/19 07:21 Comment 05/23/19 03:05 Intake & Output 05/23/19 05/24/19 05/24/19 23:59 11:59 23:59 Intake Total 1800 / 2040 1166.667 / 1466.667 300 / 1466.667 Balance 1800 / 2040 1166.667 / 1466.667 300 / 1466.667 Intake: IV 1200 / 1200 806.667 / 806.667 Oral 600 / 840 360 / 660 300 / 660 Other: Urine Appearance Clear Clear Comment pt voiding in toilet. Stool Size Moderate Stool Characteristics Liquid Brown Green Voiding Methods Toilet Toilet Toilet Incontinent Data Completed and Pending Labs on day of discharge: Labs from last 24 hours 05/23/19 05/23/19 05/23/19 14:23 14:06 14:06 WBC 4.91 D RBC 4.29 L Hgb 14.0 Hct 39.2 L MCV 91.4 MCH 32.6 MCHC 35.7 RDW 16.8 H Plt Count 72 L MPV 11.7 H Immature Gran % 1.0 Neutrophils % 80.3 Lymphocytes % 7.1 Monocytes % 10.4 Eosinophils % 0.6 Basophils % 0.6 Absolute Neutrophils 3.94 Absolute Lymphocytes 0.35 L Absolute Monocytes 0.51 Absolute Eosinophils 0.03 Absolute Basophils 0.03 Sodium 125 L Potassium 3.8 Chloride 91 L Carbon Dioxide 21.7 Anion Gap 12.3 H BUN 18 Creatinine 1.27 Estimated GFR/1.73 m2 57.65 Glucose 202 H D Calcium 8.0 L Magnesium 1.8 Total Bilirubin 17.7 H AST 155 H ALT 60 Alkaline Phosphatase 303 H Total Protein 5.2 L Albumin 1.2 L Urine Color Brown Urine Clarity Cloudy Urine pH 5.5 Ur Specific [place] 1.020 Urine Protein Trace H Urine Ketones Negative Urine Blood Trace-intact H Urine Nitrite Negative Urine Bilirubin Large H Urine Urobilinogen 1.0 H Ur Leukocyte Esterase Negative Urine RBC 0-2 Urine WBC 0-2 Ur Epithelial Cells Rare Urine Crystals Few amorphous Urine Bacteria Few Urine Casts 5-10 coarse granular Urine Mucus Trace Ur Culture Indicated? Yes Urine Glucose 100 Preliminary micro results at discharge 05/22/19 10:35 Blood Culture - Preliminary Blood NO GROWTH 48 HOURS 05/22/19 10:20 Blood Culture - Preliminary Blood NO GROWTH 48 HOURS 05/23/19 14:23 Urine Culture - Preliminary Urine - Reflex from [facility] Medical History Ascites (Acute) Cholelithiasis (Chronic) Cirrhosis of liver (Chronic) Diabetes (Chronic) Esophageal varices (Chronic) Goals of care, counseling/discussion (Acute) Hepatocellular carcinoma (Chronic) History of HIDA scan (Acute) Hypertension (Chronic) Immunotherapy (Acute) Obesity (Chronic) Palliative care patient (Acute) Pancreatitis (Resolved) Recurrent abdominal pain (Acute) 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 Social History Smoking/Tobacco Use Status: Never Alcohol Intake: never Drug use: Never Substance use type: does not use Caregiver/Support person: No Household members: family Number of Children: 1 number of grandchildren: 4 What is your relationship status?: How often do you talk on the phone with friends or family?: once per week How often do you get together with friends or relatives?: three or more times per week Panel score (0-1 are the most socially isolated patients): 1 What type of physical activity do you participate in: sedentary lifestyle Seatbelt use: always Do you feel safe at home: Yes Do you feel safe in your relationship?: Yes Additional Social history: His 28 yo female cousin lives with him, along with her kids. They sort of take care of each other. His in April 2018. She of metastatic breast cancer and fought it right up to the end. He is inclined to do the same with his HCC. He doesn't feel he is as sick as everyone else thinks he is.
--- NOTE | 2019-05-24 15:27 | W.PM.PROGNOT ---
Date of Service Date of service: 05/24/19 Time of Service: 15:28 Assessment and Plan Assessment and plan (1) Ileus: Status: Acute Assessment and plan: resolved (2) Acute UTI: Status: Acute Assessment and plan: cultures non-revealing. received 5 days bactrim and 3 days of levaquin. will discontinue antibiotics today (3) Hepatocellular carcinoma: Status: Chronic Assessment and plan: Failed treatment, poor prognosis, unrealistic about illness. recently stopped opvido and wants to start a trial medication from [facility]. Palliative care has tried to work with patient in past, will consult them again. At this time he wants to remain a full code. (4) Diabetes: Status: Chronic Assessment and plan: continue blood sugar checks ac/hs with sliding scale coverage. tolerating decrease home lantus to 20 units bid from 30 units while hospitalized. blood sugars in the 100's. Qualifiers: Diabetes mellitus complication status: without complication Diabetes mellitus penitentiary insulin use: with supervisor intermediates use Diabetes mellitus type: type 2 Qualified Code(s): E11.9 - Type 2 diabetes mellitus without complications; Z79.4 - adjunct faculty for medical terminology (current) use of insulin (5) DVT prophylaxis: Status: Acute Assessment and plan: Will give subcu heparin. Hold for platelet count under 50,000 in a patient with cancer that is high (6) Discharge planning issues: Status: Acute Assessment and plan: home tomorrow if remains medically stable. Subjective Subjective Patient reports: still having pain Interval history since last seen: patient was with no c/o until time for discharge, when he reported he had onset of his abdominal pain, recurrent. he states he received dilaudid last IV last night and would like to receive more. otherwise he is passing flatus, no nausea or vomiting. Exam Const General: cooperative, frail appearing and ill appearing chronically Nutritional Appearance: overweight Orientation: alert, awake and oriented x3 HENMT Mouth: oral mucosae normal Eyes Sclera: scleral abnormality bilaterally (icteric) Resp Effort & Inspection: normal respiratory effort Auscultation: clear to auscultation bilaterally Cardio Rate: regular rate Rhythm: regular rhythm GI Inspection: obesity Palpation: soft and ascites Auscultation: normal bowel sounds Skin General skin exam: jaundice Neuro General: alert, awake and oriented x3 Extrem General: edema Objective Objective Clinical Data: Abnormal lab results 05/23/19 05/23/19 Range/Units 14:06 14:06 RBC 4.29 L (4.50-6.00) m/cumm Hct 39.2 L (40.0-50.0) % RDW 16.8 H (11.8-14.1) % Plt Count 72 L (130-400) x1000/uL MPV 11.7 H (8.0-11.0) fL Absolute Lymphocytes 0.35 L (1.2-3.4) k/cumm Sodium 125 L (136-145) mmol/L Chloride 91 L (98-107) mmol/L Anion Gap 12.3 H (3-11) mmol/L Glucose 202 H D (74-106) mg/dL Calcium 8.0 L (8.5-10.1) mg/dL Total Bilirubin 17.7 H (0.2-1.0) mg/dL AST 155 H (15-37) U/L Alkaline Phosphatase 303 H (46-116) U/L Total Protein 5.2 L (6.4-8.2) g/dL Albumin 1.2 L (3.4-5.0) g/dL Vital Signs Temperature 36.6 C 05/24/19 07:21 Temperature Source Tympanic 05/24/19 07:21 Pulse 78 05/24/19 07:21 Pulse Rhythm Regular 05/24/19 10:31 Pulse Strength Normal 05/22/19 11:55 Respiratory Rate 18 05/24/19 07:21 Respiratory Effort 05/24/19 10:31 Respiratory Depth Normal 05/24/19 10:31 Respiratory Pattern Normal 05/24/19 10:31 Blood Pressure 92/58 L 05/24/19 07:21 Blood Pressure Mean 69 05/22/19 13:15 Blood Pressure Position Supine 05/22/19 11:55 Pulse Oximetry 94 L 05/24/19 07:21 Oxygen Delivery Method Room Air 05/24/19 07:21 Oxygen Flow Rate 0 05/24/19 07:21 Pain Level 0 05/24/19 07:21 Comment 05/23/19 03:05 Intake & Output 05/23/19 05/24/19 05/24/19 23:59 11:59 23:59 Intake Total 1799 1166.667 / 1466.667 300 / 1466.667 Balance 1800 / 2040 1166.667 / 1466.667 300 / 1466.667 Intake: IV 1200 / 1200 806.667 / 806.667 Oral 600 / 840 360 / 660 300 / 660 Other: Urine Appearance Clear Clear Comment pt voiding in toilet. Stool Size Moderate Stool Characteristics Liquid Brown Green Voiding Methods Toilet Toilet Toilet Incontinent Laboratory Results WBC 4.91 k/cumm (4.4-10.8) D 05/23/19 14:06 RBC 4.29 m/cumm (4.50-6.00) L 05/23/19 14:06 Hgb 14.0 g/dL (13.5-17.5) 05/23/19 14:06 Hct 39.2 % (40.0-50.0) L 05/23/19 14:06 MCV 91.4 fL (80-95) 05/23/19 14:06 MCH 32.6 pg (27.0-33.0) 05/23/19 14:06 MCHC 35.7 g/dL (32.0-36.0) 05/23/19 14:06 RDW 16.8 % (11.8-14.1) H 05/23/19 14:06 Plt Count 72 x1000/uL (130-400) L 05/23/19 14:06 MPV 11.7 fL (8.0-11.0) H 05/23/19 14:06 Immature Gran % 1.0 % 05/23/19 14:06 Neutrophils % 80.3 05/23/19 14:06 Lymphocytes % 7.1 05/23/19 14:06 Monocytes % 10.4 05/23/19 14:06 Eosinophils % 0.6 05/23/19 14:06 Basophils % 0.6 05/23/19 14:06 Absolute Neutrophils 3.94 k/cumm (1.2-6.7) 05/23/19 14:06 Absolute Lymphocytes 0.35 k/cumm (1.2-3.4) L 05/23/19 14:06 Absolute Monocytes 0.51 k/cumm (0.11-0.7) 05/23/19 14:06 Absolute Eosinophils 0.03 k/cumm (0.0-0.7) 05/23/19 14:06 Absolute Basophils 0.03 k/cumm (0.0-0.2) 05/23/19 14:06 Differential Comment Rbc morph reviewed 05/23/19 06:28 RBC Morphology See below 05/23/19 06:28 Polychromasia Present 05/23/19 06:28 Poikilocytosis 1+ 05/23/19 06:28 Anisocytosis 1+ 05/23/19 06:28 PT 13.0 sec (9.3-11.0) H 05/22/19 10:20 INR 1.3 (0.9-1.1) H 05/22/19 10:20 APTT 28.9 sec (21.0-31.4) 05/22/19 10:20 VBG pH 7.48 (7.35-7.45) H 05/22/19 10:20 VBG pCO2 39 mm/Hg (34-47) 05/22/19 10:20 VBG pO2 34 mm/Hg (28-44) 05/22/19 10:20 VBG HCO3 29 mmol/L (22-28) H 05/22/19 10:20 VBG Total CO2 26 mmol/L (22-29) 05/22/19 10:20 VBG O2 Saturation 65 % (70-80) L 05/22/19 10:20 VBG Base Excess 5.2 mmol/L (-3-3) H 05/22/19 10:20 Sodium 125 mmol/L (136-145) L 05/23/19 14:06 Potassium 3.8 mmol/L (3.5-5.1) 05/23/19 14:06 Chloride 91 mmol/L (98-107) L 05/23/19 14:06 Carbon Dioxide 21.7 mmol/L (21.0-32.0) 05/23/19 14:06 Anion Gap 12.3 mmol/L (3-11) H 05/23/19 14:06 BUN 18 mg/dL (7-18) 05/23/19 14:06 Creatinine 1.27 mg/dL (0.70-1.30) 05/23/19 14:06 Estimated GFR/1.73 m2 57.65 (mL/min/1.73m2) 05/23/19 14:06 Glucose 202 mg/dL (74-106) H D 02/25/20 14:06 Lactate 1.5 mmol/L (0.6-1.4) H 05/22/19 19:14 Calcium 8.0 mg/dL (8.5-10.1) L 05/23/19 14:06 Magnesium 1.8 mg/dL (1.8-2.4) 05/23/19 14:06 Total Bilirubin 17.7 mg/dL (0.2-1.0) H 05/23/19 14:06 AST 155 U/L (15-37) H 05/23/19 14:06 ALT 60 U/L (16-63) 05/23/19 14:06 Alkaline Phosphatase 303 U/L (46-116) H 05/23/19 14:06 Ammonia < 10 umol/L (11-32) L 05/22/19 10:20 Total Protein 5.2 g/dL (6.4-8.2) L 05/23/19 14:06 Albumin 1.2 g/dL (3.4-5.0) L 05/23/19 14:06 Lipase 157 U/L (73-393) 05/22/19 10:20 TSH 3.25 uIU/mL (0.36-3.74) 05/22/19 10:20 Urine Color Brown (Yellow) 05/23/19 14:23 Urine Clarity Cloudy (Clear) 05/23/19 14:23 Urine pH 5.5 (5-8) 05/23/19 14:23 Ur Specific [place] 1.020 (1.005-1.025) 05/23/19 14:23 Urine Protein Trace mg/dL (Negative) H 05/23/19 14:23 Urine Ketones Negative mg/dL (Negative) 05/23/19 14:23 Urine Blood Trace-intact (Negative) H 05/23/19 14:23 Urine Nitrite Negative (Negative) 05/23/19 14:23 Urine Bilirubin Large (Negative) H 05/23/19 14:23 Urine Urobilinogen 1.0 EU/dL (Up TO 0.2) H 05/23/19 14:23 Ur Leukocyte Esterase Negative (Negative) 05/23/19 14:23 Urine RBC 0-2 HPF (0-2) 05/23/19 14:23 Urine WBC 0-2 HPF (0-5) 05/23/19 14:23 Ur Epithelial Cells Rare HPF (Negative) 05/23/19 14:23 Urine Crystals Few amorphous HPF (Negative) 05/23/19 14:23 Urine Bacteria Few HPF (Negative) 05/23/19 14:23 Urine Casts 5-10 coarse granular LPF (Negative) 05/23/19 14:23 Urine Mucus Trace (Negative) 05/23/19 14:23 Urine Other Few renal (Negative) 05/22/19 10:09 Ur Culture Indicated? Yes 05/23/19 14:23 Urine Glucose 100 mg/dL (Negative) 05/23/19 14:23
[2019-05-24] MEDS: Mylanta Suspension 30 ML CUP PO (15:39)
[2019-05-24] MEDS: traMADol 50 MG TAB PO (15:42)
[2019-05-24 16:07] VITALS: BP 95/60; PULSE 88; RESP 17; TEMP 36.6; O2SAT 94
[2019-05-24] MEDS: HYDROmorphone 2 MG/ML VIAL 1 MG IVP (17:07)
--- NOTE | 2019-05-24 18:00 | PDOC.CMPRO ---
Care Management Progress Note S/O: Flash remains pleasant in interaction, he was lying in the bed, cold and in pain when CM met with him. He had just been provided oral medications by the RN, and remains on IV fluids and medications. Flash was prepared to discharge today but then experienced increased gas and pain. He told this television writer that [facility] told me to go home and , and that there was no further treatment offered for liver cancer. He stated he had self-researched a medication and ordered it from [facility] and anticipates it will arrive tomorrow or Wednesday. Flash anticipates he will return home tomorrow, he does not believe the liver cancer will be painful or cause him pain. Flash shared that he began dating a woman at the end of last year; Marina Kaur who became his on . She works as a caregiver and as the [employer] and he reports feeling very happy. He states his family is no longer residing with him. CM continues to follow. A: 59 year old male admitted to [facility] 05/22/19 for UTI, Ileus P: Flash will return home with no new services anticipated at this time. He will follow up with his PCP and providers at [facility]. Anticipate he will also follow up with Palliative Care as provider reports he is currently not realistic regarding his illness as he failed treatment for hepatocellular carcinoma. Flash will transport via private vehicle with his new , Marina. CM will continue to provide support to patient, family and discharge planning considerations.
[2019-05-24 23:00] VITALS: BP 94/61; PULSE 88; RESP 18; TEMP 36.6; O2SAT 93
[2019-05-25] MEDS: Heparin 5,000 UNITS/ML VIAL 5000 UNITS SC (00:41)
[2019-05-25 08:04] VITALS: BP 102/58; PULSE 94; RESP 18; TEMP 36.6; O2SAT 95
[2019-05-25 08:50] VITALS: O2SAT 95
[2019-05-25] MEDS: Pantoprazole 40 MG VIAL IVP (08:54)
[2019-05-25] MEDS: Furosemide 40 MG TAB 80 MG PO (08:55)
[2019-05-25] MEDS: Spironolactone 50 MG TAB 100 MG PO (08:55)
[2019-05-25] MEDS: Sucralfate 1 GM TAB PO ×2 (08:56→16:09)
[2019-05-25] MEDS: Insulin Glargine 300 UNITS/3 ML PEN 20 UNITS SC (08:57)
[2019-05-25] MEDS: Normal Saline Flush 10 ML SYR IVP (09:08)
[2019-05-25] MEDS: Liraglutide [Victoza 2-Pak] 1.8 MG SC (09:09)
== END 2019-05-25 17:00 | disposition home or self-care (01) | DRG 389 ==
LOC: ER 13:46 → MS 14:04
PROVIDERS: Nurse Practitioner Acute Care; Nurse Practitioner Family; Admitting Provider Internal Medicine; Emergency Provider Student in an Organized Health Care Education/Training Program; PCP Internal Medicine; Visit Provider Internal Medicine
DX: K56.7 Ileus, unspecified (principal); N39.0 Urinary tract infection, site not specified; C22.0 Liver cell carcinoma; R18.8 Other ascites; I85.10 Secondary esophageal varices without bleeding; K76.6 Portal hypertension; D69.59 Other secondary thrombocytopenia; K74.69 Other cirrhosis of liver; E11.9 Type 2 diabetes mellitus without complications; I10 Essential (primary) hypertension; Z79.4 Long term (current) use of insulin; K80.20 Calculus of gallbladder without cholecystitis without obstruction; D73.1 Hypersplenism
CPT/HCPCS: 36415; 80048; 80053; 82805; 83690; 87040; 93005; 96361; 96365; 96368; 96375; 99223; 99231; 99233; 99239; 99285; 74177; 81003; 81015; 82140; 83605; 83735; 84443; 85025; 85610; 85730; 87086; 87324; 93010; J1644; J1815; J1941; J1956; J3480; J3490; J7060

== ENCOUNTER 2019-06-09 20:08 | Inpatient (IN) | payer MEDICARE, SELFPAY ==
[2019-06-09] VITALS (37 sets, daily range): BP systolic 50–99; BP diastolic 26–53; PULSE 74–95; RESP 11–20; TEMP 36.9; O2SAT 93–98
--- NOTE | 2019-06-09 20:17 | W.ED.GENAD ---
Discharge Plan Disposition [facility] Condition: Serious Discharge Details Chief Complaint: GenMedical Clinical Impression: Cirrhosis of liver, Hepatocellular carcinoma, Ascites, Hypotension, Septic shock Admit Date/Time: 06/10/19 01:01 Admit Provider: Tommy Rojas Attending Provider: Tommy Rojas Primary Care Provider: Shalonda Neil ED Provider: Katja Schultz Discharge Data Discharge Date/Time-TO BE ENTERED AT DEPARTURE: 06/10/19 02:27 Medical Decision Making Patient is a pleasant 59-year-old gentleman, coming by his , presenting today, brought in via EMS, with chief complaint of failing at home. I was contacted by the patient's primary care who works at [facility]. She advised that the patient was recently admitted in which time goals of care was discussed at length. Patient was discharged 16 days ago after being hospitalized for UTI and ileus. Patient has history of cirrhosis of liver, hepatocellular carcinoma, diabetes, esophageal varices, cirrhosis portal hypertension, hypertension. At that time, the patient had declined hospice care. However, he has been progressively worsening over the past week with an acute worsening today. Primary care did recheck the patient after he no showed an appointment which is unlike him. He did check his oxygenation at home earlier today and was noted to be 90% on room air. The describes him as lethargic. Primary care so that he is clear mentally but reported being weak. Primary care is main concern at this time with the patient's sudden change in wanting to become hospice is if his acute worsening is associated with progression of his known carcinoma versus an acute infection or other underlying issue. She advised checking labs in evaluating for possible liver dysfunction which would include a since it is being more associated with carcinoma versus other underlying etiology based on exam and evaluation. She advised that once this is been completed a goals of care discussion should be had between us and the patient. At this time, the patient is endorsing fatigue. He denies any pain. No nausea or vomiting. No change in bowel habits. No dysuria. Denies any fevers or chills. No recent travel. Denies any cough, chest pain. He reports that he has been progressively worsening as far shortness of breath and he was having difficulty assessing his oxygenation at home. His noted that he became acutely jaundiced today and had not been so historically. Patient upon discussion with his oncologist today. Patient reports that he was unable to keep his appointment today secondary to difficulty sleeping and increased fatigue. However, patient reports that he has been sleeping very frequently, much more so than his typical. Patient's reports that this afternoon, after discussing patient with his oncologist, she noted sudden increase in his jaundice. Discussion with the oncologist did center around goals of care and at that time, patient had expressed wanting to focus on goals of comfort and not intensive/aggressive medical care. CXR reviewed by radiologist: FINDINGS: Lungs: Increased interstitial lung markings suggesting edema, infection or fibrotic changes. Pleural space: Unremarkable. No pleural effusion. No pneumothorax. Heart/Mediastinum: Unremarkable. No cardiomegaly. Bones/joints: Old left rib fractures. IMPRESSION: Increased interstitial lung markings suggesting edema, infection or fibrotic changes. Patient did have 1+ pedal edema which reports is common. Crackles heard at the bilateral bases. Few curly B-lines were noted by Dr. Peters on ultrasound. Labs reviewed. Notable for a platelet count of 60, patient has been like this historically. PT elevated at 13.4, INR elevated at 1.3. Sodium is low at 128. Creatinine is elevated 1.22, this does indicate an acute kidney injury on this patient as he has not been elevated like this historically. BUN is elevated at 32. Calcium 7.9. Total bili 20.1. Patient has slowly been elevating over quite some time. AST 138, this is baseline for the patient. ALT 51. Alk phos 290, this is been downtrending for the patient. Albumin 1.2, this is baseline the patient. Will obtain conjugated bilirubin and ammonia. Bedside ultrasound was performed by Dr. Peters, no thickening was noted of the gallbladder wall. Patient has no abdominal tenderness, negative Westfall sign both on physical exam as well with ultrasound. Patient's blood pressure continues to be quite low with a map of 52. I did discuss starting pressures for the patient. However, as the patient had indicated to his oncologist earlier today that he wanted to be hospice and to discuss this with the patient again. Patient now reporting that he would like to be a full code. He likely has a fatal diagnosis Patient started on dopamine. Tolerating this well. Consulted with Dr. Gutierrez with oncology at [facility]. We discussed imaging, discussed potentially getting noncontrast CT despite any abdominal complaints at this point for further evaluation of the patient's hypotension. He advised that the patient, with the hypotension, remains concerning for possible infectious etiology despite being afebrile and no leukocytosis. Also advised hepatorenal syndrome and possible albumin challenge. Discussed spontaneous bacterial peritonitis. Discussed these recommendations with the patient and his . Patient continues to want full care. Discuss tach with Dr. Peters and a advised at this point there is such a small amount noted on ultrasound that he finds that the risk associated with having this could be increased. At this point, will hold off on tap for simple peritoneal fluid. Patient does not clinically examine, nor is history or laboratory suggestive of infection. Will discuss antibiotic further with hospitalist. Will discuss admission Patient's pressures are improved on dopamine. Patient tolerating this well. We did have a lengthy discussion with patient again about his current state as well as with his . is very realistic about his current state. Both the patient and his current have had significant other associated with cancer historically. Consulted with Dr. Rojas who evaluated present in the department. He did recommend stopping the dopamine and allowing for some permissive hypertension as the patient is typically hypertensive at baseline. He does agree to admission we will place the orders. Prior to the patient being transferred upstairs, his blood pressure dropped precipitously with a systolic of 50. Dr. Rojas requested that I place an order for the noncontrast CT which were initially going to hold off on. At the time of my departure, patient was still in department but under the care of Dr. Rojas who is in the department with the patient HPI General Mode of arrival: EMS. Date/Time Provider Initiated Documentation: 06/09/19 20:17. Limitations to Documentation: no limitations. Information obtained by: patient, family and RN notes reviewed. HPI Narrative: Patient is a pleasant 59-year-old male, accompanied by his . He was sent in today at the advisement of his primary care. Patient feels that he has been declining rapidly today with significant other feels that this is more of a progressive decline in the associated with his known end-stage hepatocellular carcinoma. He does not have any focal complaints at this point. Endorsing general malaise. Related Data Home Medications Medication Instructions Recorded Confirmed Xifaxan 550 mg PO BID 11/03/12 06/09/19 Victoza 2-Elías 1.8 mg SQ DAILY 09/08/17 06/09/19 Lantus U-100 Insulin 30 unit SUBCUT BID INSULIN 07/02/18 06/09/19 furosemide 80 mg PO DAILY AM 01/15/19 06/09/19 spironolactone 100 mg PO QPM 01/15/19 06/09/19 tadalafil 40 mg PO DAILY 01/15/19 06/09/19 acetaminophen [Acetaminophen Extra 1,000 mg PO .Q 24H PRN MDD 1000 02/20/19 06/09/19 Strength] Opdivo 240 mg IV Q2W 04/01/19 06/09/19 omeprazole 40 mg PO DAILY #30 cap 04/06/19 06/09/19 sucralfate [Carafate] 1 gm PO BID #20 tab 05/01/19 06/09/19 Previous Rx's Medication Instructions Recorded omeprazole 40 mg PO DAILY #30 cap 04/06/19 sucralfate [Carafate] 1 gm PO BID #20 tab 05/01/19 Allergies Allergy/AdvReac Type Severity Reaction Status Date / Time oxycodone AdvReac Unknown Psychosis Unverified 05/13/19 15:12 General KRYSTLE: 3 Review of Systems Constitutional Constitutional: Reports as per HPI, Denies chills, Reports daytime sleepiness, Reports fatigue, Denies fever(s), Denies frequent falls, Denies headache(s), Reports lethargy, Reports malaise, Denies poor appetite and Denies weakness ENT Ears, Nose, Mouth, and Throat: Denies headache(s) Cardiovascular Cardiovascular: Reports as per HPI, Denies chest pain and Denies dyspnea Respiratory Respiratory: Reports as per HPI, Denies cough and Denies dyspnea Gastrointestinal Gastrointestinal: Reports as per HPI Genitourinary Genitourinary: Denies system reviewed and no additional complaints, except as documented (patient denies any change in urinary habits) Musculoskeletal Musculoskeletal: Reports as per HPI and Denies back pain Integumentary/Breasts Skin/Breast: Reports as per HPI and Denies rash Neurologic Neurologic: Reports as per HPI, Denies frequent falls, Denies headache(s) and Denies weakness Endocrine Endocrine: Reports fatigue [facility] Medical History Ascites (Acute) Cholelithiasis (Chronic) Cirrhosis of liver (Chronic) Diabetes (Chronic) Esophageal varices (Chronic) Goals of care, counseling/discussion (Acute) Hepatocellular carcinoma (Chronic) History of HIDA scan (Acute) Hypertension (Chronic) Immunotherapy (Acute) Obesity (Chronic) Palliative care patient (Acute) Pancreatitis (Resolved) Recurrent abdominal pain (Acute) 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 Social History Smoking/Tobacco Use Status: Never Alcohol Intake: never Drug use: Never Substance use type: does not use Caregiver/Support person: No Household members: family Number of Children: 1 number of grandchildren: 4 What is your relationship status?: How often do you talk on the phone with friends or family?: once per week How often do you get together with friends or relatives?: three or more times per week Panel score (0-1 are the most socially isolated patients): 1 What type of physical activity do you participate in: sedentary lifestyle Seatbelt use: always Do you feel safe at home: Yes Do you feel safe in your relationship?: Yes Exam Const General: cooperative, comfortable and ill appearing (Patient is very jaundiced) chronically Nutritional Appearance: average body habitus Orientation: alert and awake [facility] Head: abnormal to inspection (Patient is very jaundiced) Mouth: oropharynx normal (Patient has dentures and making it difficult to see superior aspect of his ) and mucous membranes dry (Patient appears dry on exam) Throat: posterior oropharynx normal, tonsils normal and uvula midline Neck Neck: normal visual inspection, full ROM, no lymphadenopathy and no meningeal signs Resp Effort & Inspection: normal respiratory effort, able to speak in complete sentences and no respiratory distress Auscultation: clear to auscultation bilaterally, no rales, no rhonchi and no wheezes Cardio Rate: regular rate Rhythm: regular rhythm Heart Sounds: S1 normal and S2 normal GI Inspection: edema, no incisions, no visible herniation, no visible pulsation and No caput medusae present Palpation: soft, no aortic enlargement, not firm, no guarding, hepatomegaly, no hernias, no masses and nontender Percussion: normal to percussion Auscultation: normal bowel sounds Back/Spine/Pelvis Back: no CVA tenderness Skin General skin exam: jaundice Neuro General: patient alert, patient awake and patient oriented x3 Cranial Nerves: CN's II-XI intact bilaterally Cognition: normal cognition Speech: speech normal Motor: muscle tone normal throughout Extrem General: capillary refill normal, no joint enlargement, pedal edema present (Patient is 1+ pitting edema) and no calf tenderness Psych Appearance: grossly normal and well kempt Mental Status: mental status grossly normal Speech and Movement: speech and movement normal
[2019-06-09] MEDS: Normal Saline 1,000 ML 150 ML IV (20:36)
[2019-06-09 20:38] LABS: Abs Immature Grans 0.04 k/cumm (0.0-0.09); Absolute Basophil Count 0.01 k/cumm (0.0-0.2); Absolute Eosinophil Count 0.02 k/cumm (0.0-0.7); Absolute Lymphocyte Count 0.18 k/cumm (1.2-3.4); Absolute Monocyte Count 0.26 k/cumm (0.11-0.7); Basophils % 0.2; Eosinophils % 0.4; HCT 37.6 % (40.0-50.0); HGB 13.4 g/dL (13.5-17.5); Immature Grans % 0.8 %; Lymphocytes % 3.6; Mean Corp. HGB Concentration 35.6 g/dL (32.0-36.0); Mean Corpuscular Hemoglobin 33.8 pg (27.0-33.0); Mean Corpuscular Volume 94.9 fL (80-95); Mean Platelet Volume 11.9 fL (8.0-11.0); Monocytes % 5.2; Neutrophils % 89.8; RBC 3.96 m/cumm (4.50-6.00); RBC Distribution Width 15.9 % (11.8-14.1); White Blood Cell Count 5.01 k/cumm (4.4-10.8)
[2019-06-09 20:53] LABS: Platelet Count 60 x1000/uL (130-400)
--- NOTE | 2019-06-09 20:55 | NUR.NOTE ---
Nursing Note: Pt moving at this time, not a true reading.
[2019-06-09 20:57] LABS: ALT 51 U/L (16-63); AST 130 U/L (15-37); Albumin 1.2 g/dL (3.4-5.0); Alkaline Phosphatase 290 U/L (46-116); Anion Gap 8.5 mmol/L (3-11); BUN 32 mg/dL (7-18); CO2 24.5 mmol/L (21.0-32.0); CREATININE 2.22 mg/dL (0.70-1.30); Calcium 7.9 mg/dL (8.5-10.1); Chloride 95 mmol/L (98-107); Estimated GFR 30.26 (mL/min/1.73m2); Glucose 174 mg/dL (74-106); Magnesium 1.9 mg/dL (1.8-2.4); Potassium 3.9 mmol/L (3.5-5.1); Sodium 128 mmol/L (136-145); Total Protein 5.1 g/dL (6.4-8.2); Troponin I < 0.05 ng/Ml (<0.06)
[2019-06-09 21:00] LABS: Bilirubin, Total 20.1 mg/dL (0.2-1.0)
--- NOTE | 2019-06-09 21:36 | DI.RAD_ITS ---
EXAM: XR CHEST 2V PA LATERAL CLINICAL HISTORY: hypoxia TECHNIQUE: 2D digital imaging was performed. COMPARISON: XR CHEST 2V PA LATERAL from 04/02/2019 FINDINGS: MEDIASTINUM: Normal. HEART: Normal. PULMONARY VASCULATURE: Normal. LUNGS: There are increased interstitial lung markings present. They may be mildly increased compared to the prior examination. No focal consolidating infiltrates are present. PLEURAL SPACE: No pleural effusion or pneumothorax. BONE:Old left rib fractures are seen. Degenerative changes are seen in the spine and the shoulders. OTHER FINDINGS:Normal. IMPRESSION: Question of mild increased interstitial lung markings. These are nonspecific and may represent edema , atelectasis or pneumonia. Worsening pulmonary fibrotic changes should also be considered. DATA REPOSITORY: RADIATION DOSE DELIVERED:
[2019-06-09 21:39] LABS: Bilirubin, Direct 15.81 mg/dL (0.00-0.20); INR 1.3 (0.9-1.1); PTT Activated 30.2 sec (21.0-31.4); Prothrombin Time 13.4 sec (9.3-11.0)
--- NOTE | 2019-06-09 21:43 | DI.VRAD_ITS ---
PROCEDURE INFORMATION: Exam: XR Chest, 2 Views Exam date and time: 06/09/2019 9:29 PM Age: 59 years old Clinical indication: Other: Hypoxia TECHNIQUE: Imaging protocol: XR of the chest Views: 2 views. COMPARISON: No relevant prior studies available. FINDINGS: Lungs: Increased interstitial lung markings suggesting edema, infection or fibrotic changes. Pleural space: Unremarkable. No pleural effusion. No pneumothorax. Heart/Mediastinum: Unremarkable. No cardiomegaly. Bones/joints: Old left rib fractures. IMPRESSION: Increased interstitial lung markings suggesting edema, infection or fibrotic changes. Dictated and Authenticated by: Mable Ford MD. Ordering:ALYSSA Hightower MD
[2019-06-09 22:44] LABS: Ammonia < 10 umol/L (11-32)
[2019-06-09] MEDS: DOPamine 400 MG/250 ML BAG 21.188 MG IV (23:17)
[2019-06-09] MEDS: Normal Saline Flush 10 ML SYR IVP (23:59)
[2019-06-10] VITALS (141 sets, daily range): BP systolic 42–155; BP diastolic 16–72; PULSE 68–112; RESP 0–24; TEMP 36.2–37.1; O2SAT 86–99
--- NOTE | 2019-06-10 00:05 | W.PM.HP.N ---
Date of service: 06/10/19 Time of Service: 00:06 Assessment and Plan Assessment and plan (1) Hypotension: Status: Acute Assessment and plan: Hypotension. There does appear to be an element of dehydration but this not likely to account for this degree of hypotension. There may conceivably be an element of adrenal insufficiency though the timeline we have would not be so suggestive of this. hematocrit stable and EKG unrevealing. I think occult sepsis would be of concern at this point and with patient now indicating some abdominal pain will pursue this potential source. CT and U/A pending. Will obtain blood cxx and begin empiric abx. Will update following above. History of Present Illness History of Present Illness Chief Complaint: fatigue and weakness+ Narrative: 74 male with advanced hepatocellular carcinoma. Recently saw oncology who advised that prognosis is poor and life expectancy is considered to be measured in weeks, and that further treatment is not feasible. He appears to have been in some denial about his situation and has recently started taking a Faulk compound called [id number], which seems to be essentially inert ingredients from what I can find. In any case he came to the ER tonight and findings of note for blood pressure approximately 80/sys +/- (baseline in 90s). No fever or leukocytosis, normal EKG and stable HCt of 39. 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 Patient initially placed on Dopamine, BP increased approximately 90/sys. When I first encountered the patient there was an impression of possible dehydration and the Dopamine was held and patient given 250 cc bolus NS (he had been receiving 150/hr). Shortly thereafter BP dropped to 70/sys, then 50 systolic. Dopamine was reinstituted and patient given 100 mg hydrocortisone. BP immediately up to 76/sys. At this point patient began to indicate having some abdominal pain and CT ordered. Verbal from ER is that POC U/S shows only trace ascites, and not accessible to bedside paracentecis. Urine has not been obtained and straight cath has been ordered. It should here be noted that during my initial interview with patient (and ) we reviewed advance directives at great length and after discussion indicated that he would like to be DNR ( concurs). 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 Social History Smoking/Tobacco Use Status: Never Alcohol Intake: never Drug use: Never Substance use type: does not use Caregiver/Support person: No Household members: family Number of Children: 1 number of grandchildren: 4 What is your relationship status?: How often do you talk on the phone with friends or family?: once per week How often do you get together with friends or relatives?: three or more times per week Panel score (0-1 are the most socially isolated patients): 1 What type of physical activity do you participate in: sedentary lifestyle Seatbelt use: always Do you feel safe at home: Yes Do you feel safe in your relationship?: Yes Meds Home Medications and Allergies Home Medications Medication Instructions Recorded Confirmed Type Xifaxan 550 mg PO BID 11/03/12 06/09/19 History Victoza 2-Elías 1.8 mg SQ DAILY 09/08/17 06/09/19 History Lantus U-100 Insulin 30 unit SUBCUT BID INSULIN 07/02/18 06/09/19 History furosemide 80 mg PO DAILY AM 01/15/19 06/09/19 History spironolactone 100 mg PO QPM 01/15/19 06/09/19 History tadalafil 40 mg PO DAILY 01/15/19 06/09/19 History acetaminophen [Acetaminophen Extra 1,000 mg PO .Q 24H PRN MDD 1000 02/20/19 06/09/19 History Strength] Opdivo 240 mg IV Q2W 04/01/19 06/09/19 History omeprazole 40 mg PO DAILY #30 cap 04/06/19 06/09/19 Rx sucralfate [Carafate] 1 gm PO BID #20 tab 05/01/19 06/09/19 Rx Allergies Allergy/AdvReac Type Severity Reaction Status Date / Time oxycodone AdvReac Unknown Psychosis Unverified 05/13/19 15:12 Exam Narrative Exam Narrative: BP 76/sys, pulse 81, 36.9, 11, 94%. HEENT atraumatic, gross jaundice; neck supple; lungs clear from anterior exam (declines to sit up or roll on side); heart RRR w/o MRG; abdomen distended, +BS, soft and NT; extremities trace edema; neuro somewhat sleepy but converses appropriately, moves all 4s Results Labs Result diagrams: 06/09/19 20:30 06/09/19 20:30 Labs: Laboratory Results - last 24 hr 06/09/19 06/09/19 06/09/19 20:30 20:30 20:30 WBC 5.01 RBC 3.96 L Hgb 13.4 L Hct 37.6 L MCV 94.9 MCH 33.8 H MCHC 35.6 RDW 15.9 H Plt Count 60 L MPV 11.9 H Immature Gran % 0.8 Neutrophils % 89.8 Lymphocytes % 3.6 Monocytes % 5.2 Eosinophils % 0.4 Basophils % 0.2 Absolute Neutrophils 4.50 Absolute Lymphocytes 0.18 L Absolute Monocytes 0.26 Absolute Eosinophils 0.02 Absolute Basophils 0.01 PT INR APTT Sodium 128 L Potassium 3.9 Chloride 95 L Carbon Dioxide 24.5 Anion Gap 8.5 BUN 32 H Creatinine 2.22 H Estimated GFR/1.73 m2 30.26 Glucose 174 H Calcium 7.9 L Magnesium 1.9 Total Bilirubin 20.1 H Conjugated Bilirubin 15.81 H AST 130 H ALT 51 Alkaline Phosphatase 290 H Ammonia Troponin I < 0.05 Total Protein 5.1 L Albumin 1.2 L 06/09/19 06/09/19 20:30 22:11 WBC RBC Hgb Hct MCV MCH MCHC RDW Plt Count MPV Immature Gran % Neutrophils % Lymphocytes % Monocytes % Eosinophils % Basophils % Absolute Neutrophils Absolute Lymphocytes Absolute Monocytes Absolute Eosinophils Absolute Basophils PT 13.4 H INR 1.3 H APTT 30.2 Sodium Potassium Chloride Carbon Dioxide Anion Gap BUN Creatinine Estimated GFR/1.73 m2 Glucose Calcium Magnesium Total Bilirubin Conjugated Bilirubin AST ALT Alkaline Phosphatase Ammonia < 10 L Troponin I Total Protein Albumin Last Vital Signs Temp 36.9 C 06/09/19 20:15 Pulse 91 H 06/09/19 23:45 Resp 11 L 06/09/19 23:45 BP 97/53 L 06/09/19 23:45 Pulse Ox 94 L 06/09/19 23:45
[2019-06-10] MEDS: Hydrocortisone SOD SUC. 100 MG VIAL (00:31)
[2019-06-10] MEDS: Normal Saline 250 ML 1000 ML IV ×2 (00:45→00:55)
--- NOTE | 2019-06-10 00:47 | NUR.NOTE ---
Nursing Note: Noted that pt's BP reading in 40's systolically. Retried an automatic BP, then a manual with same reading resulting. Notified Dr. Rojas who was in dept and had ordered to stop the dopamine drip shortly after it began. Assisted MD with obtaining a palpated BP which was in fact with a systolic of 50. Verbal order per Dr. Rojas with Dunia DREW aware to restart dopamine and give 100mg hydrocortisone IV and to give 250mL bolus. BP is stable at this time.
[2019-06-10 00:51] LABS: Bilirubin Large (Negative); Blood Trace-intact (Negative); Clarity Sl Cloudy (Clear); Glucose Negative (Negative); Ketones Negative (Negative); Leukocyte Esterase Negative (Negative); Nitrite Negative (Negative); Urobilinogen 0.2 EU/dL (Up TO 0.2); pH 5.5 (5-8)
[2019-06-10 00:55] LABS: WBC 0-2 HPF (0-5)
[2019-06-10 00:56] LABS: Bacteria Rare HPF (Negative); C & S Indicated? No; Casts 3-5 Fine Granular LPF (Negative); Crystals Negative HPF (Negative); Epithelial Cells Few HPF (Negative); Mucus Trace (Negative)
--- NOTE | 2019-06-10 01:06 | DI.CT_ITS ---
EXAM: CT ABDOMEN PELVIS WO CLINICAL HISTORY: hypotensive patient with mild abdominal pain,KNOWN HEPATIC CARCINOMA TECHNIQUE: Imaging Protocol: Axial computed tomography images with coronal and sagittal reformatted images were created and reviewed. COMPARISON: CT ABDOMEN PELVIS W from 05/22/2019 FINDINGS: ABDOMEN: Lung Bases: Atelectasis in the right lung base. Liver: Liver is small and cirrhotic. There are several low-density lesions seen within the liver. Th e largest is in the caudal aspect of the right lobe of the liver posteriorly. It is unchanged in siz e. Several of the previously seen hypodense lesions were not visualized likely due to lack of IV con trast on the current examination. Gallbladder and biliary tract: Cholelithiasis. The gallbladder wall is not well visualized. Biliary ductal dilatation is present. Pancreas: Normal density, no abnormal calcifications or inflammatory process. Increased attenuation i n the peripancreatic soft tissues. This likely is related to the hepatic cirrhosis and abdominal asc ites. Acute pancreatitis, though, cannot be entirely excluded. Please correlate clinically. Spleen: Marked splenomegaly measuring 19 cm. Kidneys: Normal size, contour and axis. No radiodense stones or obstructive uropathy. No masses seen. Adrenal glands: No masses seen. Lymph nodes: Within normal limits. Abdominal Aorta: Abdominal portion non-dilated. Atherosclerosis. Vasculature: Upper abdominal collaterals are present consistent with hepatic cirrhosis and portal hyp ertension. PELVIS: Bladder: The bladder is not distended. Bowel: There is mild bowel wall thickening involving both the large and small bowel. This likely is r eflective of the patient's hepatic cirrhosis and ascites. Some degree of enteritis or colitis cannot be entirely excluded. No evidence of an acute appendicitis. Peritoneal cavity: Moderate amount of abdominal and pelvic ascites. This appears stable. Reproductive organs: Within normal limits. Bones: Degenerative changes are present. Soft tissues: There is mild generalized edema in the soft tissues suggesting anasarca. Note is made of gynecomastia in the left breast. There is a fat containing right inguinal hernia. IMPRESSION: 1. Findings of severe hepatic cirrhosis. 2. Multiple hypodense lesions within the liver. The largest is in the right lobe which appears stabl e. The lesions were not as well visualized compared to the prior examination likely due to lack of I V contrast on this current examination. 3. Moderately severe splenomegaly with abdominal collaterals consistent with portal hypertension. 4. Abdominal ascites and anasarca. 5. Wall thickening seen in the small and large bowel. This likely reflects the hepatic cirrhosis but enteritis/colitis cannot be entirely excluded. 6. Cholelithiasis and no biliary ductal dilatation. DATA REPOSITORY: All CT scans at this facility are submitted to the National Radiology Data Registry (NRDR) Dose Index Registry (DIR) with the [employer] (A[employer]). RADIATION OPTIMIZATION: All CT scans at this facility use at least one of these dose optimization te chniques: automated exposure control; mA and/or kV adjustment per patient size (includes targeted exa ms where dose is matched to clinical indication); or iterative reconstruction.
--- NOTE | 2019-06-10 01:35 | DI.VRAD_ITS ---
PROCEDURE INFORMATION: Exam: CT Abdomen And Pelvis Without Contrast Exam date and time: 06/10/2019 12:30 AM Age: 59 years old Clinical indication: Patient HX: Known hepatic carcinoma, hypotensive, abdominal pain TECHNIQUE: Imaging protocol: Computed tomography of the abdomen and pelvis without contrast. Radiation optimization: All CT scans at this facility use at least one of these dose optimization techniques: automated exposure control; mA and/or kV adjustment per patient size (includes targeted exams where dose is matched to clinical indication); or iterative reconstruction. COMPARISON: CT ABDOMEN PELVIS W 05/22/2019 11:09 AM FINDINGS: Lungs: Patchy atelectasis or scarring in the right lung base. Heart: Heart size normal. Mediastinum: The visualized distal esophagus is normal. Liver: Severe appendix cirrhosis. 5 x 4.2 cm hypodense mass in the posterior segment of the right hepatic lobe which may represent the patient's clinically described hepatocellular carcinoma. 18 mm nonspecific low-density nodule in the lateral right lobe on image 19, and 11 mm nonspecific low-density nodule in the liver dome posteriorly on image 15. No intrahepatic biliary ductal dilatation. Mild generalized bowel wall thickening involving the small and large bowel, probably representing hepatic enteropathy and colopathy related to hepatic cirrhosis. Cannot exclude elements of enteritis or colitis based on the imaging appearance. No evidence of bowel obstruction, perforation, or abscess. Gallbladder and bile ducts: There are 2 small calcified gallstones in the gallbladder lumen measuring 7 mm each. The gallbladder is difficult to clearly delineate otherwise, with wall thickening/edema which is nonspecific in nature and may relate to hepatic cirrhosis and hypoproteinemia with gallbladder edema. If there is clinical concern for cholecystitis, consider right upper quadrant ultrasound evaluation. Nondilated bile ducts. Pancreas: Mild peripancreatic edema which is nonspecific and may relate to the generalized systemic edema. Cannot exclude an element of pancreatitis. No signs of pancreatic necrosis. No pancreatic ductal dilatation. Spleen: Moderate-severe splenomegaly measuring 19 cm craniocaudal. Adrenals: The adrenal glands are unremarkable. Kidneys and ureters: No acute abnormalities. No hydronephrosis or hydroureter. No urinary tract stones are identified. Stomach and bowel: The stomach is grossly normal. Appendix: The appendix is normal in caliber and demonstrates no evidence of appendicitis. Intraperitoneal space: Moderate volume simple ascites throughout the abdomen and pelvis. Vasculature: Mild atherosclerotic aortoiliac calcification without aneurysm. Very large splenorenal collateral suggesting portosystemic shunting related to portal hypertension. Lymph nodes: No adenopathy. Bladder: The urinary bladder is largely contracted without gross abnormality. Reproductive: Mildly enlarged prostate. Bones/joints: No acute osseous abnormalities. Osteopenia. Soft tissues: Mild diffuse soft tissue stranding in the peripheral subcutaneous tissues suggesting volume overload or anasarca. Small fatty right inguinal hernia with no asociated bowel herniation or bowel obstruction. Gynecomastia noted on the left. The right male breast tissue was above the level of the scan range related to mild tilting in the scanner, making it difficult to assess symmetry. IMPRESSION: 1. Severe hepatic cirrhosis. 2. Low-density hepatic lesions which are nonspecific in nature, including a 5 cm mass in the right hepatic lobe posterior segment which probably represents the patient's clinically described hepatocellular carcinoma. 3. Moderate-severe splenomegaly with prominent splenorenal collaterals consistent with portal hypertension and portosystemic shunting. 4. Generalized anasarca and moderate volume simple ascites throughout the abdomen and pelvis. 5. Mild generalized wall thickening involving the small bowel, large bowel, and gallbladder. This most likely relates to appendix cirrhosis with hepatic enteropathy/colopathy and wall edema. The possibility of enteritis, colitis, or cholecystitis cannot be excluded. 6. There are 2 small calcified gallstones in the gallbladder. If there is strong clinical concern for cholecystitis, right upper quadrant ultrasound could be performed although specificity will be similarly limited. 7. Mild peripancreatic edema/stranding which is nonspecific and probably relates to the generalized anasarca pattern. Cannot exclude a mild element of pancreatitis. Dictated and Authenticated by: Edi Lo MD. Ordering:ALYSSA Hightower MD
[2019-06-10] MEDS: Normal Saline 1,000 ML 150 ML IV ×4 (01:45→23:30)
[2019-06-10] MEDS: PIPERACILLIN/TAZO 2.25 GM in Normal Saline 50 ML IVPB ×4 (02:22→20:05)
[2019-06-10] MEDS: Ibuprofen 600 MG TAB PO (03:25)
[2019-06-10] MEDS: Ondansetron 4 MG/2 ML VIAL IVP (03:25)
[2019-06-10] MEDS: Normal Saline Flush 10 ML SYR IVP ×2 (03:40→16:47)
[2019-06-10 06:55] LABS: BUN 34 mg/dL (7-18); CREATININE 2.09 mg/dL (0.70-1.30); Calcium 7.9 mg/dL (8.5-10.1); Estimated GFR 32.45 (mL/min/1.73m2); Glucose 179 mg/dL (74-106)
[2019-06-10 07:05] LABS: Anion Gap 11.7 mmol/L (3-11); CO2 20.3 mmol/L (21.0-32.0); Chloride 96 mmol/L (98-107); Potassium 4.1 mmol/L (3.5-5.1); Sodium 128 mmol/L (136-145)
[2019-06-10] MEDS: Hydrocortisone SOD SUC. 100 MG VIAL IVP ×3 (08:07→23:36)
[2019-06-10 08:16] LABS: Abs Immature Grans 0.14 k/cumm (0.0-0.09); Absolute Basophil Count 0.02 k/cumm (0.0-0.2); Absolute Eosinophil Count 0.01 k/cumm (0.0-0.7); Absolute Lymphocyte Count 0.23 k/cumm (1.2-3.4); Absolute Monocyte Count 0.35 k/cumm (0.11-0.7); Basophils % 0.3; Eosinophils % 0.1; HGB 14.1 g/dL (13.5-17.5); Immature Grans % 1.8 %; Lymphocytes % 2.9; Mean Corp. HGB Concentration 35.3 g/dL (32.0-36.0); Mean Corpuscular Hemoglobin 33.1 pg (27.0-33.0); Mean Corpuscular Volume 93.9 fL (80-95); Monocytes % 4.4; Neutrophils % 90.5; RBC 4.26 m/cumm (4.50-6.00); RBC Distribution Width 15.9 % (11.8-14.1); White Blood Cell Count 7.97 k/cumm (4.4-10.8)
--- NOTE | 2019-06-10 08:18 | INITIAL_ITS ---
- If Service Date Differs Date of service: 06/10/19 Time of Service: 08:18 Care Management Initial Assess REASON FOR HOSPITALIZATION:: Hypotension PAST MEDICAL HISTORY/PAST SURGICAL HISTORY:: Cirrhosis of the liver, Hepatocellular carinoma,Thromboytopenia due to hyperspleenism, esophageal varcies, DM and ascites. Surgical hx: Circumcision and hernia repair. PREVIOUS FUNCTIONAL STATUS/SOCIAL/FAMILY SUPPORTS:: Flash resides in a farmhouse in [place]. He is . and newley his spouse is Marina. Flash states his oldest daughter is a nurse at [employer] and he stays with her when he goes to [facility] for appointments. He reports that all three of his children are supportive. Flash states he cooks, cleans, drives, and is independent in his ADLs. CURRENT FUNCTIONAL STATUS:: Flash is not able to engage at this time, CM did meet with his spouse Lyla. She states she believes Flash Smith is dying and she is ready to make end of life decisions if needed. She states Luis has been declining at home since his last discharge. She reports he has been sleeping all the time and not able to care for himself. She does not feel that she could care for him at home in his current state. She reports he does not receive any more treatments at [facility] for the cancer and that he has been receiving a holistic medication over the last 9 days. ADVANCE DIRECTIVES:: Not able to complete at this time, patient is now a DNR/DNI Has patient been provided with information about the portal?: No Did the patient sign up for the portal?: No CODE STATUS:: DNR/DNI INSURANCE COVERAGE / FINANCIAL ISSUES:: Medicare CURRENT HOME/COMMUNITY SERVICES/EQUIPMENT:: Bedside commode PRIMARY CARE PHYSICIAN:: Shalonda Neil MD POTENTIAL DISCHARGE NEEDS:: Pending disposition PATIENT/FAMILY EDUCATION NEEDS:: Discharge education, limitations and follow up plan of care community resources and supports ANTICIPATED BARRIERS TO DISCHARGE:: Family ability to care for at home for end of life care. TRANSPORTATION:: Disposition pending PLAN:: Luis is receiving care in the ICU, palliative consult with and spouse this afternoon. He is currently being monitored, receiving medication to treat the hypotension including abx. Goals of care to be determined, spouse is present and will meet with palliative care provider. CM to continue to provide support and ongoing need assessment. Readmission - Within the Past 30 Days Yes or No: Y - Date of First Admission Date of 1st Admission: 05/22/19 - Date of this Admission This admission was: Through ED - ED visits How many ED visits in the past 12 months: 2 - Assessment for Readmission Summary of readmission circumstances, based upon interviews: Flash has hepatocellular cancer with significant jaundice. Per his spouse he has had an increase in confusion, lethargy and inability to care for self. She states they were told there is nothing more to do for the cancer by [facility]. Flash she reports has struggled with this information and king snot want to give up. She is worried that he is dying and not able to accept this. She agrees to palliative care consult and states she believes he is dying. Lyla is not able to relate readmission with a single event. She states he has become much weaker at home and more tired and she states she believes this is related to the cancer.
[2019-06-10 08:34] LABS: Absolute Neutrophil Count 7.21 k/cumm (1.2-6.7)
[2019-06-10 08:35] LABS: Diff Comment PLT Morph Reviewed; Platelet Count 62 x1000/uL (130-400)
[2019-06-10 08:36] LABS: RBC Morphology Normal
[2019-06-10 08:51] LABS: Lactate 1.9 mmol/L (0.6-1.4)
[2019-06-10 09:32] LABS: Procalcitonin 2.6 ng/mL
[2019-06-10] MEDS: Rifaximin 550 MG TAB PO ×2 (09:47→20:05)
[2019-06-10] MEDS: Omeprazole 20 MG CAPCR 40 MG PO (09:47)
[2019-06-10] MEDS: Sucralfate 1 GM TAB PO ×2 (09:48→16:47)
[2019-06-10] MEDS: ALBUMIN HUMAN 25 GM/100 ML BTL IV ×2 (09:49→10:51)
[2019-06-10] MEDS: Insulin Aspart 300 UNITS/3 ML PEN SC ×4 (09:49→23:29)
--- NOTE | 2019-06-10 11:16 | PHA.ADMREV ---
Pharmacy Clinical Review - Admission Clinical Review (Last Reviewed 06/10/19 @ 00:40 by Tommy Rojas MD) Hypotension (Acute) oxycodone Adverse Reaction (Unknown, Unverified 05/13/19 15:12) Psychosis Height 5 ft 9 in Weight 109.2 kg - Renal Dosing Renal Dosing: BUN 34 mg/dL (7-18) H 06/10/19 06:10 Creatinine 2.09 mg/dL (0.70-1.30) H 06/10/19 06:10 Medications needing adjustments: Reviewed (crcl ~37ml/min meds ok) - Anticoagulation Anticoagulation: Hgb 14.1 g/dL (13.5-17.5) 06/10/19 06:10 Hct 40.0 % (40.0-50.0) 06/10/19 06:10 Plt Count 62 x1000/uL (130-400) L 06/10/19 06:10 INR 1.3 (0.9-1.1) H 06/09/19 20:30 Creatinine 2.09 mg/dL (0.70-1.30) H 06/10/19 06:10 DVT Prohphylaxis: Reviewed (palliative care pt. will address with provider if not ordered or addressed) Therapeutic Anticoagulation: N/A - Opiate Usage Evaluate Pain Scale/Pains Meds: Reviewed (pain 0/10, meperidine IM ordered PRN but not used) Scheduled Bowel Reg ordered if on Opiates?: No - Relevant Labs Sodium 128 mmol/L (136-145) L 06/10/19 06:10 Potassium 4.1 mmol/L (3.5-5.1) 06/10/19 06:10 Chloride 96 mmol/L (98-107) L 06/10/19 06:10 Magnesium 1.9 mg/dL (1.8-2.4) 06/09/19 20:30 Electrolytes, C-Reactive P, ESR: Reviewed (NS IVF) - Antimicrobial Stewardship Antibiotic appropriateness: Reviewed (vanco added to pip/tazo) Culture review/Resistance: Reviewed (Bc pending) - DM Control DM Control: Glucose 179 mg/dL (74-106) H 06/10/19 06:10 Finger Stick Blood Glucose 181 Finger Stick Blood Glucose 181 Insulin Dosing: Reviewed (fs 181. insulin aspart SS) - Heart Failure/VA Heart Failure/VA: Troponin I < 0.05 ng/Ml (<0.06) 06/09/19 20:30 - BP Control BP Control: Blood Pressure [Left Arm] 118/67 Blood Pressure 98/51 Blood Pressure 111/70 Blood Pressure 88/45 Blood Pressure 87/58 Blood Pressure 88/48 Blood Pressure 96/56 Blood Pressure 92/51 Blood Pressure 96/54 Blood Pressure 99/55 Blood Pressure 105/58 Blood Pressure 102/57 Blood Pressure 121/67 Blood Pressure 102/59 Blood Pressure 90/51 Blood Pressure 62/38 Blood Pressure 81/44 Blood Pressure 94/53 Blood Pressure 96/57 Blood Pressure 97/54 Blood Pressure 92/53 Blood Pressure 98/57 Blood Pressure 89/56 Blood Pressure 88/56 Blood Pressure 100/60 Blood Pressure 71/51 Blood Pressure 135/71 Blood Pressure 118/67 Blood Pressure 84/42 Blood Pressure 84/42 Blood Pressure 96/48 Blood Pressure 93/50 Blood Pressure 65/43 Blood Pressure 97/54 Blood Pressure 61/39 Blood Pressure 129/69 Blood Pressure 112/57 Blood Pressure 107/56 Blood Pressure 86/38 Blood Pressure 56/16 Blood Pressure 47/23 Blood Pressure 42/31 Blood Pressure 71/30 Blood Pressure 97/53 Blood Pressure 99/52 Blood Pressure 95/51 If elevated: N/A - QTc Review If Elevated: Reviewed (429) - IV to PO Switch IV Medications: Reviewed - Home Meds Home Med List reviewed: Reviewed (home meds not ordered: victoza,lantus insulin, furosemide, opdivo, spironolactone) - Current meds Current Medication Order Review: Reviewed - Comments Comments/Follow Ups: follow FS, watch for possible dvt prophylaxis meds, bowel meds. steriod IV switch to PO. abx narrowing after BC results
--- NOTE | 2019-06-10 11:36 | PGE_ITS ---
Date of Service Date of service: 06/10/19 Time of Service: 11:36 Assessment and Plan Assessment and plan (1) Septic shock: Status: Acute Assessment and plan: In setting of known intraabdominal malignancy and ascites, SBP is high on differential as far as source, especially given the fact that he had abdominal pain yesterday unexplained by CT imaging. Procalcitonin also suggests a bacterial infection. Intensify abx (add vancomycin, continue zosyn). CVL/arterial line to be inserted. Change dopamine to norepinephrine. Receiving albumin this morning which will hopefully at least transiently keep the BP up. Continue stress dose steroids. Continue IVF, carefully monitoring volume/respiratory status. Keep in ICU. Prognosis overall poor. Consulting palliative care. Made DNR/DNI on admission. (2) Hepatocellular carcinoma: Status: Chronic Assessment and plan: He is no longer deemed a candidate for chemotherapy/immunotherapy and, per patient, is getting an infusion of a holistic [place] treatment. Overall, his markers of liver disease are worse, and the patient is very jaundiced. We talked about the fact that this may be how he dies. He is not willing to accept this. He agrees to talk to palliative care, but seems to be set on not going on hospice at this time. Prognosis is poor even without the septic shock, but with the septic shock it is even worse. 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 No evidence thereof at this time. (4) Painless jaundice: Status: Acute Assessment and plan: Due to hepatocellular Ca. Again, prognosis is poor. (5) Discharge planning issues: Status: Acute Assessment and plan: Keep in the ICU. DNR/DNI Palliative care consulted. (6) DVT prophylaxis: Status: Acute Assessment and plan: Contraindiicated due to thrombocytopenia/coagu lopathy/h/o esophageal varices. Total Critical Care Time 1 hour Subjective Subjective Interval history since last seen: Patient remains on pressors (dopamine); despite several attempts to titrate it down, the BP's have not permitted it. Getting albumin this morning. States he feels a lot better than yesterday, but can't tell me what feels better. Denies dizziness, chest pain, shortness of breath, nausea, abdominal pain. We discussed the fact that I think he has an infectious component to this shock, but that the infection is likely related to his cancer (intraabdominal, possibly becoming bacteremia, blood cultures are pending). The patient states he believes that the new holistic infusion he gets from [place] will cure his cancer and does not feel ready for hospice. He consents to CVL placement. Exam Narrative Exam Narrative: General: Obese male, A&Ox3, very jaundiced, laying comfortably in bed, mentally at his baseline HEENT: EOMI, MMM, cleral icterus Heart: RRR, no m/r/g Lungs: CTAB anteriorly Abdomen: soft, distended, nontender Extremities: 1+ BLE edema, symmetric. Objective Objective Clinical Data: Abnormal lab results 06/09/19 06/09/19 06/09/19 Range/Units 20:30 20:30 20:30 RBC 3.96 L (4.50-6.00) m/cumm Hgb 13.4 L (13.5-17.5) g/dL Hct 37.6 L (40.0-50.0) % MCH 33.8 H (27.0-33.0) pg RDW 15.9 H (11.8-14.1) % Plt Count 60 L (130-400) x1000/uL MPV 11.9 H (8.0-11.0) fL Absolute Neutrophils (1.2-6.7) k/cumm Absolute Lymphocytes 0.18 L (1.2-3.4) k/cumm PT (9.3-11.0) sec INR (0.9-1.1) Sodium 128 L (136-145) mmol/L Chloride 95 L (98-107) mmol/L Carbon Dioxide (21.0-32.0) mmol/L Anion Gap (3-11) mmol/L BUN 32 H (7-18) mg/dL Creatinine 2.22 H (0.70-1.30) mg/dL Glucose 174 H (74-106) mg/dL Lactate (0.6-1.4) mmol/L Calcium 7.9 L (8.5-10.1) mg/dL Total Bilirubin 20.1 H (0.2-1.0) mg/dL Conjugated Bilirubin 15.81 H (0.00-0.20) mg/dL AST 130 H (15-37) U/L Alkaline Phosphatase 290 H (46-116) U/L Ammonia (11-32) umol/L Total Protein 5.1 L (6.4-8.2) g/dL Albumin 1.2 L (3.4-5.0) g/dL Urine Blood (Negative) Urine Bilirubin (Negative) Urine RBC (0-2) HPF 06/09/19 06/09/19 06/10/19 Range/Units 20:30 22:11 00:47 RBC (4.50-6.00) m/cumm Hgb (13.5-17.5) g/dL Hct (40.0-50.0) % MCH (27.0-33.0) pg RDW (11.8-14.1) % Plt Count (130-400) x1000/uL MPV (8.0-11.0) fL Absolute Neutrophils (1.2-6.7) k/cumm Absolute Lymphocytes (1.2-3.4) k/cumm PT 13.4 H (9.3-11.0) sec INR 1.3 H (0.9-1.1) Sodium (136-145) mmol/L Chloride (98-107) mmol/L Carbon Dioxide (21.0-32.0) mmol/L Anion Gap (3-11) mmol/L BUN (7-18) mg/dL Creatinine (0.70-1.30) mg/dL Glucose (74-106) mg/dL Lactate (0.6-1.4) mmol/L Calcium (8.5-10.1) mg/dL Total Bilirubin (0.2-1.0) mg/dL Conjugated Bilirubin (0.00-0.20) mg/dL AST (15-37) U/L Alkaline Phosphatase (46-116) U/L Ammonia < 10 L (11-32) umol/L Total Protein (6.4-8.2) g/dL Albumin (3.4-5.0) g/dL Urine Blood Trace-intact H (Negative) Urine Bilirubin Large H (Negative) Urine RBC 3-5 H (0-2) HPF 06/10/19 06/10/19 06/10/19 Range/Units 06:10 06:10 08:30 RBC 4.26 L (4.50-6.00) m/cumm Hgb (13.5-17.5) g/dL Hct (40.0-50.0) % MCH 33.1 H (27.0-33.0) pg RDW 15.9 H (11.8-14.1) % Plt Count 62 L (130-400) x1000/uL MPV (8.0-11.0) fL Absolute Neutrophils 7.21 H (1.2-6.7) k/cumm Absolute Lymphocytes 0.23 L (1.2-3.4) k/cumm PT (9.3-11.0) sec INR (0.9-1.1) Sodium 128 L (136-145) mmol/L Chloride 96 L (98-107) mmol/L Carbon Dioxide 20.3 L (21.0-32.0) mmol/L Anion Gap 11.7 H (3-11) mmol/L BUN 34 H (7-18) mg/dL Creatinine 2.09 H (0.70-1.30) mg/dL Glucose 179 H (74-106) mg/dL Lactate 1.9 H (0.6-1.4) mmol/L Calcium 7.9 L (8.5-10.1) mg/dL Total Bilirubin (0.2-1.0) mg/dL Conjugated Bilirubin (0.00-0.20) mg/dL AST (15-37) U/L Alkaline Phosphatase (46-116) U/L Ammonia (11-32) umol/L Total Protein (6.4-8.2) g/dL Albumin (3.4-5.0) g/dL Urine Blood (Negative) Urine Bilirubin (Negative) Urine RBC (0-2) HPF Vital Signs Temperature 36.3 C L 06/10/19 08:05 Temperature Source Temporal Artery Scan 06/10/19 08:05 Pulse 93 H 06/10/19 10:15 Pulse 90 06/10/19 10:20 Respiratory Rate 17 06/10/19 10:20 Respiratory Effort Non-Labored 06/10/19 08:05 Respiratory Depth Normal 06/10/19 08:05 Respiratory Pattern Normal 06/10/19 08:05 Blood Pressure 98/51 L 06/10/19 10:15 Blood Pressure Mean 63 06/10/19 10:15 Blood Pressure Position Supine 06/10/19 02:30 Pulse Oximetry 96 06/10/19 10:20 Oxygen Delivery Method Nasal Cannula 06/10/19 08:05 Oxygen Flow Rate 2 06/10/19 08:05 Pain Level 0 06/10/19 08:05 Intake & Output 06/09/19 06/09/19 06/10/19 11:59 23:59 11:59 Intake Total 24.832 / 24.832 2681.968 / 2681.968 Output Total 425 / 425 Balance 24.832 / 24.832 2256.968 / 2256.968 Weight 113 kg 109.2 kg Intake: IV 24.832 / 24.832 2356.968 / 2356.968 Oral 325 / 325 Output: Urine 425 / 425 Other: Urine Color Yellow Dark Chrystal Brown Urine Appearance Clear Urine Odor Strong Comment Pt's urine is very dark and bilious Voiding Methods Urinal Laboratory Results WBC 7.97 k/cumm (4.4-10.8) D 06/10/19 06:10 RBC 4.26 m/cumm (4.50-6.00) L 06/10/19 06:10 Hgb 14.1 g/dL (13.5-17.5) 06/10/19 06:10 Hct 40.0 % (40.0-50.0) 06/10/19 06:10 MCV 93.9 fL (80-95) 06/10/19 06:10 MCH 33.1 pg (27.0-33.0) H 06/10/19 06:10 MCHC 35.3 g/dL (32.0-36.0) 06/10/19 06:10 RDW 15.9 % (11.8-14.1) H 06/10/19 06:10 Plt Count 62 x1000/uL (130-400) L 06/10/19 06:10 MPV 11.0 fL (8.0-11.0) 06/10/19 06:10 Immature Gran % 1.8 % 06/10/19 06:10 Neutrophils % 90.5 06/10/19 06:10 Lymphocytes % 2.9 06/10/19 06:10 Monocytes % 4.4 06/10/19 06:10 Eosinophils % 0.1 06/10/19 06:10 Basophils % 0.3 06/10/19 06:10 Absolute Neutrophils 7.21 k/cumm (1.2-6.7) H 06/10/19 06:10 Absolute Lymphocytes 0.23 k/cumm (1.2-3.4) L 06/10/19 06:10 Absolute Monocytes 0.35 k/cumm (0.11-0.7) 06/10/19 06:10 Absolute Eosinophils 0.01 k/cumm (0.0-0.7) 06/10/19 06:10 Absolute Basophils 0.02 k/cumm (0.0-0.2) 06/10/19 06:10 Differential Comment Plt morph reviewed 06/10/19 06:10 RBC Morphology Normal 06/10/19 06:10 PT 13.4 sec (9.3-11.0) H 06/09/19 20:30 INR 1.3 (0.9-1.1) H 06/09/19 20:30 APTT 30.2 sec (21.0-31.4) 06/09/19 20:30 Sodium 128 mmol/L (136-145) L 06/10/19 06:10 Potassium 4.1 mmol/L (3.5-5.1) 06/10/19 06:10 Chloride 96 mmol/L (98-107) L 06/10/19 06:10 Carbon Dioxide 20.3 mmol/L (21.0-32.0) L 06/10/19 06:10 Anion Gap 11.7 mmol/L (3-11) H 06/10/19 06:10 BUN 34 mg/dL (7-18) H 06/10/19 06:10 Creatinine 2.09 mg/dL (0.70-1.30) H 06/10/19 06:10 Estimated GFR/1.73 m2 32.45 (mL/min/1.73m2) 06/10/19 06:10 Glucose 179 mg/dL (74-106) H 06/10/19 06:10 Lactate 1.9 mmol/L (0.6-1.4) H 06/10/19 08:30 Calcium 7.9 mg/dL (8.5-10.1) L 06/10/19 06:10 Magnesium 1.9 mg/dL (1.8-2.4) 06/09/19 20:30 Total Bilirubin 20.1 mg/dL (0.2-1.0) H 06/09/19 20:30 Conjugated Bilirubin 15.81 mg/dL (0.00-0.20) H 06/09/19 20:30 AST 130 U/L (15-37) H 06/09/19 20:30 ALT 51 U/L (16-63) 06/09/19 20:30 Alkaline Phosphatase 290 U/L (46-116) H 06/09/19 20:30 Ammonia < 10 umol/L (11-32) L 06/09/19 22:11 Troponin I < 0.05 ng/Ml (<0.06) 06/09/19 20:30 Total Protein 5.1 g/dL (6.4-8.2) L 06/09/19 20:30 Albumin 1.2 g/dL (3.4-5.0) L 06/09/19 20:30 Procalcitonin 2.6 ng/mL 06/10/19 08:30 Urine Color Yellow (Yellow) 06/10/19 00:47 Urine Clarity Sl cloudy (Clear) 06/10/19 00:47 Urine pH 5.5 (5-8) 06/10/19 00:47 Ur Specific [place] 1.020 (1.005-1.025) 06/10/19 00:47 Urine Protein Negative mg/dL (Negative) 06/10/19 00:47 Urine Ketones Negative mg/dL (Negative) 06/10/19 00:47 Urine Blood Trace-intact (Negative) H 06/10/19 00:47 Urine Nitrite Negative (Negative) 06/10/19 00:47 Urine Bilirubin Large (Negative) H 06/10/19 00:47 Urine Urobilinogen 0.2 EU/dL (Up TO 0.2) 06/10/19 00:47 Ur Leukocyte Esterase Negative (Negative) 06/10/19 00:47 Urine RBC 3-5 HPF (0-2) H 06/10/19 00:47 Urine WBC 0-2 HPF (0-5) 06/10/19 00:47 Ur Epithelial Cells Few HPF (Negative) 06/10/19 00:47 Urine Crystals Negative HPF (Negative) 06/10/19 00:47 Urine Bacteria Rare HPF (Negative) 06/10/19 00:47 Urine Casts 3-5 fine granular LPF (Negative) 06/10/19 00:47 Urine Mucus Trace (Negative) 06/10/19 00:47 Ur Culture Indicated? No 06/10/19 00:47 Urine Glucose Negative mg/dL (Negative) 06/10/19 00:47
[2019-06-10 11:56] LABS: Lactate 2.6 mmol/L (0.6-1.4)
--- NOTE | 2019-06-10 12:20 | DI.RAD_ITS ---
EXAM: XR PORTABLE CHEST AP POST LINE CLINICAL HISTORY: Central Line Placement TECHNIQUE: 2D digital imaging was performed. COMPARISON: CT ABDOMEN PELVIS W from 05/22/2019 XR CHEST 2V PA LATERAL from 06/09/2019 XR CHEST 2V PA LATERAL from 06/09/2019 CT ABDOMEN PELVIS WO from 06/10/2019 FINDINGS: MEDIASTINUM: Normal. HEART: Normal. PULMONARY VASCULATURE: Normal. LUNGS: Interval development of a right basilar infiltrate. PLEURAL SPACE: No pleural effusion or pneumothorax. BONE:Degenerative changes in the spine. Old left rib fractures. OTHER FINDINGS:Interval placement of a central venous catheter. The tip of the catheter appears to l ie in the left brachiocephalic vein. IMPRESSION: 1. Interval development of a right basilar infiltrate which may represent atelectasis or pneumonia. 2. Interval placement of a central venous catheter. The tip of the catheter appears to lie in the le ft brachiocephalic vein. DATA REPOSITORY: RADIATION DOSE DELIVERED:
--- NOTE | 2019-06-10 12:26 | W.SURGCON ---
Date of service: 06/10/19 Time of Service: 12:26 Assessment and Plan Assessment and plan (1) Hypotension: Status: Acute Assessment and plan: A\\59 year old with end stage liver disease who was admitted with hypotension. He has been on pressors since last night. I was asked to place a central line and a-line P\\ Central line and a-line placement under local. Risks, benefits and complications were reviewed. Complications include but are not limited to bleeding, infection, injury to vessels, and pneumothorax. Questions were entertained and answered to their satisfaction and they wished to proceed. No guarantees were given or implied. Qualifiers: Hypotension type: other hypotension type Qualified Code(s): I95.89 - Other hypotension History of Present Illness History of Present Illness Chief Complaint: Hypotension/liver failure Narrative: 74 male with advanced hepatocellular carcinoma. Recently saw oncology who advised that prognosis is poor and life expectancy is considered to be measured in weeks, and that further treatment is not feasible. He appears to have been in some denial about his situation and has recently started taking a [place] compound called [id number], which seems to be essentially inert ingredients from what I can find. In any case he came to the ER tonight and findings of note for blood pressure approximately 80/sys +/- (baseline in 90s). No fever or leukocytosis, normal EKG and stable HCt of 39. Bun 32, creatinine 2.2 (baseline 1.2), bilirubin 20 (slowly progressive over past few months, most recent 17).Note that he was on steroids for a short time a few months ago but this was weaned off about one month [employer] he says. Patient initially placed on Dopamine, BP increased approximately 90/sys. When I first encountered the patient there was an impression of possible dehydration and the Dopamine was held and patient given 250 cc bolus NS (he had been receiving 150/hr). Shortly thereafter BP dropped to 70/sys, then 50 systolic. Dopamine was reinstituted and patient given 100 mg hydrocortisone. BP immediately up to 76/sys. At this point patient began to indicate having some abdominal pain and CT ordered. Verbal from ER is that POC U/S shows only trace ascites, and not accessible to bedside paracenthesis. Urine has not been obtained and straight cath has been ordered. Patient was admitted to the ICU. I was consulted for a central line and a-line placement to assist with better BP monitoring and o give pressors. Consults Consult date: 06/10/19 Requesting physician: Charlotte Hugo Review of Systems Constitutional Constitutional: Denies fever(s), Denies headache(s), Reports malaise and Denies weight loss Eyes Eyes: Denies change in vision ENT Ears, Nose, Mouth, and Throat: Reports system reviewed and no additional complaints, except as documented and Denies headache(s) Cardiovascular Cardiovascular: Denies chest pain, Denies chest pain at rest, Denies irregular heart rhythm, Denies dyspnea and Denies dyspnea on exertion Respiratory Respiratory: Denies chest congestion, Denies cough, Denies dyspnea and Denies dyspnea on exertion Gastrointestinal Gastrointestinal: Denies abdominal pain, Denies dyspepsia and Denies heartburn Genitourinary Genitourinary: Denies hematuria and Denies oliguria Musculoskeletal Musculoskeletal: Denies arthralgias Integumentary/Breasts Skin/Breast: Reports system reviewed and no additional complaints, except as documented Neurologic Neurologic: Denies headache(s) and Denies tremor(s) Endocrine Endocrine: Denies cold intolerance and Denies heat intolerance Hematologic/Lymphatic Hematologic/Lymphatic: Reports easy bleeding, Reports easy bruising and Denies lymphadenopathy [facility] Medical History Ascites (Acute) Cholelithiasis (Chronic) Cirrhosis of liver (Chronic) Diabetes (Chronic) Esophageal varices (Chronic) Goals of care, counseling/discussion (Acute) Hepatocellular carcinoma (Chronic) History of HIDA scan (Acute) Hypertension (Chronic) Immunotherapy (Acute) Obesity (Chronic) Palliative care patient (Acute) Pancreatitis (Resolved) Recurrent abdominal pain (Acute) 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 Social History Smoking/Tobacco Use Status: Never Alcohol Intake: never Drug use: Never Substance use type: does not use Caregiver/Support person: No Household members: family Number of Children: 1 number of grandchildren: 4 What is your relationship status?: How often do you talk on the phone with friends or family?: once per week How often do you get together with friends or relatives?: three or more times per week Panel score (0-1 are the most socially isolated patients): 1 What type of physical activity do you participate in: sedentary lifestyle Seatbelt use: always Do you feel safe at home: Yes Do you feel safe in your relationship?: Yes Exam Const General: cooperative, comfortable and no acute distress Nutritional Appearance: obese Orientation: alert and oriented x3 HENMT Head: normocephalic and atraumatic Eyes Sclera: scleral abnormality bilaterally other (jaundiced) Pupils: PERRL Resp Effort & Inspection: normal respiratory effort Auscultation: clear to auscultation bilaterally Cardio Rate: regular rate Rhythm: regular rhythm GI Inspection: normal to inspection Palpation: soft, no hepatosplenomegaly and nontender Results Last Vital Signs Temp 97.3 F L 06/10/19 08:05 Pulse 93 H 06/10/19 10:15 Resp 17 06/10/19 10:20 BP 98/51 L 06/10/19 10:15 Pulse Ox 96 06/10/19 10:20 Labs Result diagrams: 06/10/19 06:10 06/10/19 06:10 Labs: Laboratory Results - last 24 hr 06/09/19 06/09/19 06/09/19 20:30 20:30 20:30 WBC 5.01 RBC 3.96 L Hgb 13.4 L Hct 37.6 L MCV 94.9 MCH 33.8 H MCHC 35.6 RDW 15.9 H Plt Count 60 L MPV 11.9 H Immature Gran % 0.8 Neutrophils % 89.8 Lymphocytes % 3.6 Monocytes % 5.2 Eosinophils % 0.4 Basophils % 0.2 Absolute Neutrophils 4.50 Absolute Lymphocytes 0.18 L Absolute Monocytes 0.26 Absolute Eosinophils 0.02 Absolute Basophils 0.01 Differential Comment RBC Morphology PT INR APTT Sodium 128 L Potassium 3.9 Chloride 95 L Carbon Dioxide 24.5 Anion Gap 8.5 BUN 32 H Creatinine 2.22 H Estimated GFR/1.73 m2 30.26 Glucose 174 H Lactate Calcium 7.9 L Magnesium 1.9 Total Bilirubin 20.1 H Conjugated Bilirubin 15.81 H AST 130 H ALT 51 Alkaline Phosphatase 290 H Ammonia Troponin I < 0.05 Total Protein 5.1 L Albumin 1.2 L Procalcitonin Urine Color Urine Clarity Urine pH Ur Specific [place] Urine Protein Urine Ketones Urine Blood Urine Nitrite Urine Bilirubin Urine Urobilinogen Ur Leukocyte Esterase Urine RBC Urine WBC Ur Epithelial Cells Urine Crystals Urine Bacteria Urine Casts Urine Mucus Ur Culture Indicated? Urine Glucose 06/09/19 06/09/19 06/10/19 20:30 22:11 00:47 WBC RBC Hgb Hct MCV MCH MCHC RDW Plt Count MPV Immature Gran % Neutrophils % Lymphocytes % Monocytes % Eosinophils % Basophils % Absolute Neutrophils Absolute Lymphocytes Absolute Monocytes Absolute Eosinophils Absolute Basophils Differential Comment RBC Morphology PT 13.4 H INR 1.3 H APTT 30.2 Sodium Potassium Chloride Carbon Dioxide Anion Gap BUN Creatinine Estimated GFR/1.73 m2 Glucose Lactate Calcium Magnesium Total Bilirubin Conjugated Bilirubin AST ALT Alkaline Phosphatase Ammonia < 10 L Troponin I Total Protein Albumin Procalcitonin Urine Color Yellow Urine Clarity Sl cloudy Urine pH 5.5 Ur Specific [place] 1.020 Urine Protein Negative Urine Ketones Negative Urine Blood Trace-intact H Urine Nitrite Negative Urine Bilirubin Large H Urine Urobilinogen 0.2 Ur Leukocyte Esterase Negative Urine RBC 3-5 H Urine WBC 0-2 Ur Epithelial Cells Few Urine Crystals Negative Urine Bacteria Rare Urine Casts 3-5 fine granular Urine Mucus Trace Ur Culture Indicated? No Urine Glucose Negative 06/10/19 06/10/19 06/10/19 06:10 06:10 08:30 WBC 7.97 D RBC 4.26 L Hgb 14.1 Hct 40.0 MCV 93.9 MCH 33.1 H MCHC 35.3 RDW 15.9 H Plt Count 62 L MPV 11.0 Immature Gran % 1.8 Neutrophils % 90.5 Lymphocytes % 2.9 Monocytes % 4.4 Eosinophils % 0.1 Basophils % 0.3 Absolute Neutrophils 7.21 H Absolute Lymphocytes 0.23 L Absolute Monocytes 0.35 Absolute Eosinophils 0.01 Absolute Basophils 0.02 Differential Comment Plt morph reviewed RBC Morphology Normal PT INR APTT Sodium 128 L Potassium 4.1 Chloride 96 L Carbon Dioxide 20.3 L Anion Gap 11.7 H BUN 34 H Creatinine 2.09 H Estimated GFR/1.73 m2 32.45 Glucose 179 H Lactate 1.9 H Calcium 7.9 L Magnesium Total Bilirubin Conjugated Bilirubin AST ALT Alkaline Phosphatase Ammonia Troponin I Total Protein Albumin Procalcitonin Urine Color Urine Clarity Urine pH Ur Specific [place] Urine Protein Urine Ketones Urine Blood Urine Nitrite Urine Bilirubin Urine Urobilinogen Ur Leukocyte Esterase Urine RBC Urine WBC Ur Epithelial Cells Urine Crystals Urine Bacteria Urine Casts Urine Mucus Ur Culture Indicated? Urine Glucose 06/10/19 06/10/19 08:30 11:30 WBC RBC Hgb Hct MCV MCH MCHC RDW Plt Count MPV Immature Gran % Neutrophils % Lymphocytes % Monocytes % Eosinophils % Basophils % Absolute Neutrophils Absolute Lymphocytes Absolute Monocytes Absolute Eosinophils Absolute Basophils Differential Comment RBC Morphology PT INR APTT Sodium Potassium Chloride Carbon Dioxide Anion Gap BUN Creatinine Estimated GFR/1.73 m2 Glucose Lactate 2.6 H* Calcium Magnesium Total Bilirubin Conjugated Bilirubin AST ALT Alkaline Phosphatase Ammonia Troponin I Total Protein Albumin Procalcitonin 2.6 Urine Color Urine Clarity Urine pH Ur Specific [place] Urine Protein Urine Ketones Urine Blood Urine Nitrite Urine Bilirubin Urine Urobilinogen Ur Leukocyte Esterase Urine RBC Urine WBC Ur Epithelial Cells Urine Crystals Urine Bacteria Urine Casts Urine Mucus Ur Culture Indicated? Urine Glucose
--- NOTE | 2019-06-10 12:29 | DI.VRAD_ITS ---
PROCEDURE INFORMATION: Exam: XR Chest, 1 View Exam date and time: 06/10/2019 12:02 PM Age: 59 years old Clinical indication: Device placement; Other: Post central line TECHNIQUE: Imaging protocol: XR of the chest Views: 1 view. COMPARISON: CR XR CHEST 2V PA LATERAL 06/09/2019 9:29 PM FINDINGS: Tubes, catheters and devices: Intervally placed likely left subclavian vein approach dual lumen central catheter with distal tip residing about the left brachiocephalic vein. Lungs: Persistent interstitial and reticular markings. No large focal airspace consolidation. Pleural space: Unremarkable. No pleural effusion. No pneumothorax. Heart/Mediastinum: Unremarkable. No cardiomegaly. Bones/joints: Old left rib fractures. IMPRESSION: 1. Intervally placed likely left subclavian vein approach dual lumen central catheter with distal tip presenting about the left brachiocephalic vein. 2. Stable prominent interstitial lung markings which could represent edema, infection or fibrotic changes. Recommend clinical correlation. Dictated and Authenticated by: Edi Lewis MD. Ordering:NIRAJ Love MD
--- NOTE | 2019-06-10 13:07 | W.PM.OP ---
Date of service: 06/10/19 Time of Service: 13:08 Operative Note Operative Note DATE OF PROCEDURE: 06/10/19 PRE-OP DIAGNOSIS: Hypotension POST-OP DIAGNOSIS: same PROCEDURE: 1. Left subclavian central line 2. Right radial a-line SURGEON: Kate Carreon ANESTHESIA: local (1% Lidocaine) PATHOLOGY: none sent COMPLICATIONS: None Patient was transported to: no change Patient's condition: critical Procedure Description: After informed consent was obtained the patient was placed in a supine position on his ICU bed. The head of the bed was lowered. A time out was done and his name, and procedure to be done were reviewed. Sharps were counted. The left chest wall was then prepped and draped in a standard fashion with chlorhexidine. Next 5 cc of 1% Lidocaine was injected into the dermis and subcutaneous tissue along the left clavicle. The introducer needle was then slowly advanced into the subclavian vein. Once I was able to pull venous blood into the syringe, the syringe was removed from the needle. The guidewire was then placed easily without resistance into the subclavian vein. The needle was removed. A small incision was made with an 11 blade next to the guidewire. The dilator was then placed over the guidewire into the vein. The dilator was removed and the tripple lumen catheter was placed over the guidewire into the vein to 15 cm. The guidewire was removed and needless valves were placed on each lumen. Each lumen was then aspirated and flushed with sterile saline. The Central line was then secured in place with 2-0 silk suture. The skin was cleaned and dried and an antibiotic wheel was applied at the skin entrance. An occlusive dressing was then applied. The drapes were removed. Sharps were counted and were correct at the end of the procedure. Next his right wrist was placed on a side table palm up. A rolled up towel was placed under his wrist. The hand was taped down. The radial pulse was palpated. 1% Lidocaine was injected into the dermis. A a-line kit was opened and a 14 fr a-line was placed without difficulty into the radial artery. The line was attached to the pressure bag. The a-line was secured in place with 3-0 silk. A dry occlusive dressing was applied. The patient tolerated the procedures well. Stat CXR was ordered and was pending at the time of this dictation.
[2019-06-10 14:32] LABS: INR 1.6 (0.9-1.1); Prothrombin Time 15.6 sec (9.3-11.0)
[2019-06-10 14:38] LABS: Lactate 3.5 mmol/L (0.6-1.4)
[2019-06-10] MEDS: Lidocaine 1% Multi-Dose 50 ML VIAL (14:43)
[2019-06-10] MEDS: Gelatin SPONGE 12-7 MM PKT 1 EACH TP (14:43)
[2019-06-10] MEDS: Normal Saline-STERILE FIELD 0.9% 10 ML SYR (14:44)
--- NOTE | 2019-06-10 15:32 | NUR.NOTE ---
I had care of the patient starting at 0700. The patient was on a Dopamine drip 10mcg/kg/min. The patient's BP was 90s-low 100s systolic, 50s diastolic. Throughout the course of the morning, I titrated the dopamine drip up and down. The patient did not tolerate being off of it as his BP hit 60/40s within 7 minutes. Patient was maintaining well for time on 7mcg/kg/min as the lowest maintenance dose I achieved. Dr. Quintanilla came and spent over an hour with the patient placing a central line and arterial line. The patient tolerated this well and had BPs in the 120s systolic. After insertion, the patient began bleeding from his central line and Dr. Ford returned to address it. She applied a pressure dressing and used a clotting gel dressing. Site oozing continued and Dr. Ford opted to order platelets for the patient. After the lines insertion, I spent several hours in the room adjusting lines and titrating the medication. The patient was swithed from dopamine to levophed. The patient has very labile BP control and can drop from 180s sys to 60s sys within minutes. The patient was sitting up talking at one point with Bp 60s/40s and felt no symptoms. The accuracy of the measurement was verified. Final titration of 0.2mcg/kg/min Levophed kept patient at 1teens to 120s systolic. The patient also had two bottles of albumin to help with pressure support. Dr. Crockett came and spent approximately 45 min with the patient and discussing care plans. Patient stable and resting when I left the room and Idalia assumed full care around 1445. Nursing Note:
--- NOTE | 2019-06-10 16:59 | PCNE_ITS ---
Date of service: 06/10/19 Time of Service: 14:28 History of Present Illness Narrative: Luis is a 59-year-old male who has end-stage hepatocellular carcinoma. He has worsened despite all therapies. Recently he has spoken with Dr. Martinez, his oncologist, who states that there are no viable options for him at this time. Per Luis, they tell me I am going to . Despite this grim news but she has found a therapy which she can buy from [facility] called [phone] Martinez was unable to find any information about this. His Lyla says it is nothing, just a bunch of vitamins. I have not seen the label no been able to find anything out about this. Over the last week which has dara tasha significantly. He is no longer driving. His Lyla states that he needs help to do anything such as get to the bathroom dress etc. He came into [facility] yesterday and sepsis, hypotense and extremely weak. He is presently on dopamine, antibiotics and balancing his fluids. He insists that he should be taking some furosemide. He says he is getting better and knows that that medication is making a big difference even though he is only been taking it for 8 days. He also says that the medication from [facility] cost about $500 and lasts about 21 days. We discussed the natural progression of his disease and what the future would look like. He states he will do just fine on this medication that 13 people that he knows have done very very well. I was the palliative and then hospice doctor for but she is who less than a year ago. During that time we got to know each other quite well. He requested that I be his palliative doctor to help him to sort out or rather navigate the next part of his life. He sees himself living in another [address] Martinez had said that he had weeks to live. He said that without the transplant which he is not eligible for that most people live 5 [address]. He also asked Dr. Martinez to continue to monitor him but when we talked he said that Dr. Martinez is very interested in this medication and wants to monitor him. His Lyla is very realistic and sees that he is dying. We talked about his goals for the next part of his life. He said to make it easy on his Lyla. We talked about palliative care and home health versus hospice. I went through the numerous positives with hospice care and also spoke frankly about prognosis being less than 6 months and that it would be expected he would call hospice rather than go to the hospital should he become more ill or have concerning symptoms. He said he wanted the choice to be able to come to the hospital. Consults Consult date: 06/10/19 Requesting physician: Charlotte Hugo Assessment and Plan Assessment and plan (1) Septic shock: Status: Acute Assessment and plan: presently on pressors with central line and a line (2) Hypotension: Status: Acute Assessment and plan: on pressors Qualifiers: Hypotension type: other hypotension type Qualified Code(s): I95.89 - Other hypotension (3) Hyperbilirubinemia: Status: Acute (4) Goals of care, counseling/discussion: Status: Acute Assessment and plan: 59 yo male with hypotension on pressors, sepsis with low platelets and clotting factors, end stage HCC with the further treatment options who thinks he has 5 years to live. He has hopes the medication from [facility] will cure him. completed COLST: he is DNR/DNI. He wants to stay at home and not return to the hospital if possible. He does want antibiotics completed DPOA: Lyla is to make decisions if he cannot Wants to go home with Home Health services and Palliative Care. He feels strongly that the medication he is paying $500./21 days is going to save his life. He fully expects to recover from his disease. He is not ready to consider Hospice. He does understand the advantage that hospice would have to lighten the burden for his Lyla. He just does not think he is ready for it yet. His prognostic awareness is very very low. I will see him tomorrow and again broach the subject's. I have spent more than 50% of time in counseling with this patient. This document was created by [employer] and may contain grammatical and translation errors. (5) Hepatocellular carcinoma: Status: Chronic (6) Cirrhosis of liver: Status: Chronic Qualifiers: Hepatic cirrhosis type: other cirrhosis Qualified Code(s): K74.69 - Other cirrhosis of liver Review of Systems Narrative: Despite the fact that he is bright yellow, he says he feels great, much better than he did prior to starting this new mysterious medicine from [facility]. He does not feel is weak as he did yesterday. He is convinced that the auto[employer]IC blood pressure caps do not work on him and that he needs to have hand taken blood pressure. He has an A-line and now which shows that he is stable. He says he is due for his medication from [employer] and that his needs to get this. His Lyla talks about how hard it would be for him to go home at this point and how she could not care for him by herself. He thinks that they will get along just fine. 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 Social History Smoking/Tobacco Use Status: Never Alcohol Intake: never Drug use: Never Substance use type: does not use Caregiver/Support person: No Household members: family Number of Children: 1 number of grandchildren: 4 What is your relationship status?: How often do you talk on the phone with friends or family?: once per week How often do you get together with friends or relatives?: three or more times per week Panel score (0-1 are the most socially isolated patients): 1 What type of physical activity do you participate in: sedentary lifestyle Seatbelt use: always Do you feel safe at home: Yes Do you feel safe in your relationship?: Yes Exam Narrative Exam Narrative: He is lying in bed but is able to sit up when I asked him to. He is bright yellow. He is speaking in complete sentences and does not become short of breath. His heart is regular in the high normal range. Lungs he has some scattered rales but I hear good lung sounds in all [place]. His abdomen is obese, but nontender. Palliative Performance Scale % Ambulation Activity and Evidence of Disease Self-Care Intake Level of Consciousness 100 Full Normal activity, no evidence of disease Full Normal Full 90 Full Normal activity, some evidence of disease Full Normal Full 80 Full Normal activity with effort, some evidence of disease Full Normal or reduced Full 70 Reduced Unable to do normal work, some evidence of disease Full Normal or reduced Full 60 Reduced Unable to do hobby or some housework, significant disease Occasional assist necessary Normal or reduced Full or confusion 50 Mainly sit/lie Unable to do any work, extensive disease Considerable assistance required Normal or reduced Full or confusion 40 Mainly in bed Unable to do any work, extensive disease Mainly assistance Normal or reduced Full, drowsy, or confusion 30 Totally bed bound Unable to do any work, extensive disease Total care Reduced Full, drowsy, or confusion 20 Totally bed bound Unable to do any work, extensive disease Total care Minimal sips Full, drowsy, or confusion 10 Totally bed bound Unable to do any work, extensive disease Total care Mouth care only Drowsy or coma 0 _ _ _ _ Patient Score: 40% Results Last Vital Signs Temp 97.5 F L 06/10/19 16:26 Pulse 94 H 06/10/19 16:26 Resp 18 06/10/19 16:26 BP 119/57 L 06/10/19 16:26 Pulse Ox 96 06/10/19 16:26 Labs Result diagrams: 06/10/19 06:10 06/10/19 06:10 Labs: Laboratory Results - last 24 hr 06/09/19 06/09/19 06/09/19 20:30 20:30 20:30 WBC 5.01 RBC 3.96 L Hgb 13.4 L Hct 37.6 L MCV 94.9 MCH 33.8 H MCHC 35.6 RDW 15.9 H Plt Count 60 L MPV 11.9 H Immature Gran % 0.8 Neutrophils % 89.8 Lymphocytes % 3.6 Monocytes % 5.2 Eosinophils % 0.4 Basophils % 0.2 Absolute Neutrophils 4.50 Absolute Lymphocytes 0.18 L Absolute Monocytes 0.26 Absolute Eosinophils 0.02 Absolute Basophils 0.01 Differential Comment RBC Morphology PT INR APTT Sodium 128 L Potassium 3.9 Chloride 95 L Carbon Dioxide 24.5 Anion Gap 8.5 BUN 32 H Creatinine 2.22 H Estimated GFR/1.73 m2 30.26 Glucose 174 H Lactate Calcium 7.9 L Magnesium 1.9 Total Bilirubin 20.1 H Conjugated Bilirubin 15.81 H AST 130 H ALT 51 Alkaline Phosphatase 290 H Ammonia Troponin I < 0.05 Total Protein 5.1 L Albumin 1.2 L Procalcitonin Urine Color Urine Clarity Urine pH Ur Specific Hoskins Urine Protein Urine Ketones Urine Blood Urine Nitrite Urine Bilirubin Urine Urobilinogen Ur Leukocyte Esterase Urine RBC Urine WBC Ur Epithelial Cells Urine Crystals Urine Bacteria Urine Casts Urine Mucus Ur Culture Indicated? Urine Glucose Patient ABO/Rh 06/09/19 06/09/19 06/10/19 20:30 22:11 00:47 WBC RBC Hgb Hct MCV MCH MCHC RDW Plt Count MPV Immature Gran % Neutrophils % Lymphocytes % Monocytes % Eosinophils % Basophils % Absolute Neutrophils Absolute Lymphocytes Absolute Monocytes Absolute Eosinophils Absolute Basophils Differential Comment RBC Morphology PT 13.4 H INR 1.3 H APTT 30.2 Sodium Potassium Chloride Carbon Dioxide Anion Gap BUN Creatinine Estimated GFR/1.73 m2 Glucose Lactate Calcium Magnesium Total Bilirubin Conjugated Bilirubin AST ALT Alkaline Phosphatase Ammonia < 10 L Troponin I Total Protein Albumin Procalcitonin Urine Color Yellow Urine Clarity Sl cloudy Urine pH 5.5 Ur Specific Hoskins 1.020 Urine Protein Negative Urine Ketones Negative Urine Blood Trace-intact H Urine Nitrite Negative Urine Bilirubin Large H Urine Urobilinogen 0.2 Ur Leukocyte Esterase Negative Urine RBC 3-5 H Urine WBC 0-2 Ur Epithelial Cells Few Urine Crystals Negative Urine Bacteria Rare Urine Casts 3-5 fine granular Urine Mucus Trace Ur Culture Indicated? No Urine Glucose Negative Patient ABO/Rh 06/10/19 06/10/19 06/10/19 06:10 06:10 08:30 WBC 7.97 D RBC 4.26 L Hgb 14.1 Hct 40.0 MCV 93.9 MCH 33.1 H MCHC 35.3 RDW 15.9 H Plt Count 62 L MPV 11.0 Immature Gran % 1.8 Neutrophils % 90.5 Lymphocytes % 2.9 Monocytes % 4.4 Eosinophils % 0.1 Basophils % 0.3 Absolute Neutrophils 7.21 H Absolute Lymphocytes 0.23 L Absolute Monocytes 0.35 Absolute Eosinophils 0.01 Absolute Basophils 0.02 Differential Comment Plt morph reviewed RBC Morphology Normal PT INR APTT Sodium 128 L Potassium 4.1 Chloride 96 L Carbon Dioxide 20.3 L Anion Gap 11.7 H BUN 34 H Creatinine 2.09 H Estimated GFR/1.73 m2 32.45 Glucose 179 H Lactate 1.9 H Calcium 7.9 L Magnesium Total Bilirubin Conjugated Bilirubin AST ALT Alkaline Phosphatase Ammonia Troponin I Total Protein Albumin Procalcitonin Urine Color Urine Clarity Urine pH Ur Specific [place] Urine Protein Urine Ketones Urine Blood Urine Nitrite Urine Bilirubin Urine Urobilinogen Ur Leukocyte Esterase Urine RBC Urine WBC Ur Epithelial Cells Urine Crystals Urine Bacteria Urine Casts Urine Mucus Ur Culture Indicated? Urine Glucose Patient ABO/Rh 06/10/19 06/10/19 06/10/19 08:30 11:30 14:05 WBC RBC Hgb Hct MCV MCH MCHC RDW Plt Count MPV Immature Gran % Neutrophils % Lymphocytes % Monocytes % Eosinophils % Basophils % Absolute Neutrophils Absolute Lymphocytes Absolute Monocytes Absolute Eosinophils Absolute Basophils Differential Comment RBC Morphology PT INR APTT Sodium Potassium Chloride Carbon Dioxide Anion Gap BUN Creatinine Estimated GFR/1.73 m2 Glucose Lactate 2.6 H* 3.5 H* Calcium Magnesium Total Bilirubin Conjugated Bilirubin AST ALT Alkaline Phosphatase Ammonia Troponin I Total Protein Albumin Procalcitonin 2.6 Urine Color Urine Clarity Urine pH Ur Specific [place] Urine Protein Urine Ketones Urine Blood Urine Nitrite Urine Bilirubin Urine Urobilinogen Ur Leukocyte Esterase Urine RBC Urine WBC Ur Epithelial Cells Urine Crystals Urine Bacteria Urine Casts Urine Mucus Ur Culture Indicated? Urine Glucose Patient ABO/Rh 06/10/19 06/10/19 14:05 14:05 WBC RBC Hgb Hct MCV MCH MCHC RDW Plt Count MPV Immature Gran % Neutrophils % Lymphocytes % Monocytes % Eosinophils % Basophils % Absolute Neutrophils Absolute Lymphocytes Absolute Monocytes Absolute Eosinophils Absolute Basophils Differential Comment RBC Morphology PT 15.6 H INR 1.6 H APTT Sodium Potassium Chloride Carbon Dioxide Anion Gap BUN Creatinine Estimated GFR/1.73 m2 Glucose Lactate Calcium Magnesium Total Bilirubin Conjugated Bilirubin AST ALT Alkaline Phosphatase Ammonia Troponin I Total Protein Albumin Procalcitonin Urine Color Urine Clarity Urine pH Ur Specific [place] Urine Protein Urine Ketones Urine Blood Urine Nitrite Urine Bilirubin Urine Urobilinogen Ur Leukocyte Esterase Urine RBC Urine WBC Ur Epithelial Cells Urine Crystals Urine Bacteria Urine Casts Urine Mucus Ur Culture Indicated? Urine Glucose Patient ABO/Rh O Positive
[2019-06-11] VITALS (48 sets, daily range): BP systolic 83–138; BP diastolic 47–82; PULSE 66–95; RESP 1–22; TEMP 36.3–36.7; O2SAT 90–95
[2019-06-11] MEDS: Insulin Aspart 100 UNITS/ML UNIT SC (00:07)
[2019-06-11] MEDS: VANCOMYCIN 1,000 MG in Normal Saline 250 ML 166.667 MG IV (02:01)
[2019-06-11] MEDS: PIPERACILLIN/TAZO 2.25 GM in Normal Saline 50 ML IVPB ×4 (02:01→20:13)
[2019-06-11] MEDS: Normal Saline 1,000 ML 150 ML IV ×3 (05:45→20:20)
[2019-06-11 06:32] LABS: Abs Immature Grans 0.12 k/cumm (0.0-0.09); Absolute Basophil Count 0.01 k/cumm (0.0-0.2); Absolute Monocyte Count 0.55 k/cumm (0.11-0.7); Basophils % 0.1; HCT 31.7 % (40.0-50.0); HGB 11.4 g/dL (13.5-17.5); Immature Grans % 1.7 %; Lymphocytes % 2.9; Mean Corpuscular Hemoglobin 33.4 pg (27.0-33.0); Mean Platelet Volume 10.3 fL (8.0-11.0); Monocytes % 7.9; Neutrophils % 87.4; RBC 3.41 m/cumm (4.50-6.00); RBC Distribution Width 15.7 % (11.8-14.1); White Blood Cell Count 6.98 k/cumm (4.4-10.8)
[2019-06-11 06:42] LABS: Anion Gap 12.4 mmol/L (3-11); BUN 46 mg/dL (7-18); CO2 19.6 mmol/L (21.0-32.0); CREATININE 2.41 mg/dL (0.70-1.30); Calcium 7.9 mg/dL (8.5-10.1); Chloride 98 mmol/L (98-107); Estimated GFR 27.53 (mL/min/1.73m2); Glucose 294 mg/dL (74-106); Magnesium 1.8 mg/dL (1.8-2.4); Potassium 3.7 mmol/L (3.5-5.1); Sodium 130 mmol/L (136-145)
[2019-06-11 07:15] LABS: Diff Comment PLT Morph Reviewed; Platelet Count 86 x1000/uL (130-400)
[2019-06-11 07:16] LABS: RBC Morphology Normal
[2019-06-11] MEDS: Sucralfate 1 GM TAB PO ×2 (08:03→16:19)
[2019-06-11] MEDS: Rifaximin 550 MG TAB PO ×2 (08:03→20:13)
[2019-06-11] MEDS: Normal Saline Flush 10 ML SYR IVP ×3 (08:03→20:55)
[2019-06-11] MEDS: Omeprazole 20 MG CAPCR 40 MG PO (08:03)
[2019-06-11 08:08] LABS: Lactate 1.6 mmol/L (0.6-1.4)
[2019-06-11] MEDS: Ondansetron 4 MG/2 ML VIAL IVP ×3 (08:34→20:49)
--- NOTE | 2019-06-11 08:34 | PGE_ITS ---
Date of Service Date of service: 06/11/19 Time of Service: 11:15 Assessment and Plan Assessment and plan (1) Septic shock: Status: Acute Assessment and plan: In setting of known intraabdominal malignancy and ascites, SBP is highest on differential. Continue vancomycin and zosyn. Continue levophed via L subclavian CVL (placed 06/10/2019). Taper stress dose steroids. Continue IVF, carefully monitoring volume/respiratory status. Keep in ICU. Prognosis overall poor. Palliative care consulted and I am in total agreement that the patient has poor insight into his prognosis. COLST form with DNR/DNI signed. (2) Hepatocellular carcinoma: Status: Chronic Assessment and plan: He is no longer deemed a candidate for chemotherapy/immunotherapy and, per patient, is getting an infusion of a holistic [place] treatment (which is injected into the femoral vein (!)). We have no evidence to suggest that the treatment is working - quite the opposite. We cannot permit administration of this unkown substance in our facility, and the patient was made aware of this. The patient continues to refuse hospice/comfort measures. Morphine was initiated for pain control. 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 Received 1 unit of plts (and 2 units of FFP) yesterday. Continue to monitor for bleeding. (4) Coagulopathy: Status: Acute Assessment and plan: INR 1.6 yesterday, bleeding post CVL/[place] insertion. Received 2 units of FFP. Seems to have slowed down. Will continue to monitor. (5) Painless jaundice: Status: Acute Assessment and plan: Due to hepatocellular Ca. Again, prognosis is poor. Nothing can be done about this at this point. (6) DVT prophylaxis: Status: Acute Assessment and plan: Contraindiicated due to thrombocytopenia/coagulopathy/h/o esophageal varices. (7) Discharge planning issues: Status: Acute Assessment and plan: Keep in the ICU. DNR/DNI Refuses comfort measures. Total Critical Care Time 45 minutes. Subjective Subjective Interval history since last seen: Complains of a dull abdominal pain all over. Vomited this morning, but then immediately after requested food. Refused steroids this morning, but now tells me he will accept them if we taper them quickly. Denies dizziness, chest pain, shortness of breath, nausea at this time, but does request a nebulizer treatment, stating it helps him at home. Remains on pressors. Got out of bed x1 this am. Norepi is being weaned. Blood cx neg. Comfortable overnight. Afebrile. Edematous. 3 BM's - no blood. UOP adequate overnight. Still leaking at CVL/art line sites. Dressings changed a few times. FBG 279. Mentation same. Exam Narrative Exam Narrative: General: Obese male, A&Ox3, very jaundiced, sitting up in bed, mentating well (but in denial about his condition, which is his baseline) HEENT: EOMI, MMM, cleral icterus; L subclavian CVL with dressing, which is slightly saturated; Heart: RRR, no m/r/g Lungs: quiet expiratory wheezing bilaterally Abdomen: soft, distended, nontender Extremities: 2+ BLE edema, symmetric. Objective Objective Clinical Data: Abnormal lab results 06/10/19 06/10/19 06/10/19 Range/Units 06:10 08:30 11:30 RBC 4.26 L (4.50-6.00) m/cumm Hgb (13.5-17.5) g/dL Hct (40.0-50.0) % MCH 33.1 H (27.0-33.0) pg RDW 15.9 H (11.8-14.1) % Plt Count 62 L (130-400) x1000/uL Absolute Neutrophils 7.21 H (1.2-6.7) k/cumm Absolute Lymphocytes 0.23 L (1.2-3.4) k/cumm PT (9.3-11.0) sec INR (0.9-1.1) Sodium (136-145) mmol/L Carbon Dioxide (21.0-32.0) mmol/L Anion Gap (3-11) mmol/L BUN (7-18) mg/dL Creatinine (0.70-1.30) mg/dL Glucose (74-106) mg/dL Lactate 1.9 H 2.6 H* (0.6-1.4) mmol/L Calcium (8.5-10.1) mg/dL 0306/10/19 06/11/19 Range/Units 14:05 14:05 06:15 RBC (4.50-6.00) m/cumm Hgb (13.5-17.5) g/dL Hct (40.0-50.0) % MCH (27.0-33.0) pg RDW (11.8-14.1) % Plt Count (130-400) x1000/uL Absolute Neutrophils (1.2-6.7) k/cumm Absolute Lymphocytes (1.2-3.4) k/cumm PT 15.6 H (9.3-11.0) sec INR 1.6 H (0.9-1.1) Sodium 130 L (136-145) mmol/L Carbon Dioxide 19.6 L (21.0-32.0) mmol/L Anion Gap 12.4 H (3-11) mmol/L BUN 46 H D (7-18) mg/dL Creatinine 2.41 H (0.70-1.30) mg/dL Glucose 294 H D (74-106) mg/dL Lactate 3.5 H* (0.6-1.4) mmol/L Calcium 7.9 L (8.5-10.1) mg/dL 06/11/19 06/11/19 Range/Units 06:15 07:55 RBC 3.41 L (4.50-6.00) m/cumm Hgb 11.4 L D (13.5-17.5) g/dL Hct 31.7 L D (40.0-50.0) % MCH 33.4 H (27.0-33.0) pg RDW 15.7 H (11.8-14.1) % Plt Count 86 L (130-400) x1000/uL Absolute Neutrophils (1.2-6.7) k/cumm Absolute Lymphocytes 0.20 L (1.2-3.4) k/cumm PT (9.3-11.0) sec INR (0.9-1.1) Sodium (136-145) mmol/L Carbon Dioxide (21.0-32.0) mmol/L Anion Gap (3-11) mmol/L BUN (7-18) mg/dL Creatinine (0.70-1.30) mg/dL Glucose (74-106) mg/dL Lactate 1.6 H (0.6-1.4) mmol/L Calcium (8.5-10.1) mg/dL Vital Signs Temperature 36.7 C 06/11/19 03:26 Temperature Source Temporal Artery Scan 06/11/19 03:26 Pulse 92 H 06/10/19 23:56 Pulse 94 H 06/11/19 05:00 Respiratory Rate 17 06/11/19 05:00 Respiratory Effort Non-Labored 06/11/19 03:26 Respiratory Depth Normal 06/11/19 03:26 Respiratory Pattern Normal 06/11/19 03:26 Blood Pressure 121/49 L 06/11/19 03:26 Blood Pressure Mean 73 06/11/19 03:26 Blood Pressure Position Supine 06/11/19 00:16 Pulse Oximetry 92 L 06/11/19 08:28 Oxygen Delivery Method Nasal Cannula 06/11/19 08:28 Oxygen Flow Rate 1 06/11/19 08:28 Pain Level 0 06/11/19 03:26 Intake & Output 06/10/19 06/10/19 06/11/19 11:59 23:59 11:59 Intake Total 2681.968 / 6151.254 3469.286 / 6151.254 1809.916 / 1809.916 Output Total 425 / 525 100 / 525 750 / 750 Balance 2256.968 / 5626.254 3369.286 / 5626.254 1059.916 / 1059.916 Weight 109.2 kg Intake: IV 2356.968 / 4935.254 2578.286 / 4935.254 1354.916 / 1354.916 Oral 325 / 782 457 / 782 150 / 150 Blood Product 434 / 434 305 / 305 Frozen Plasma Unit 219 / 219 [id number] Frozen Plasma Unit 215 / 215 [id number] Pheresis Platelets Unit 0 / 0 305 / 305 [id number] Output: Urine 425 / 525 100 / 525 750 / 750 Other: Urine Color Yellow Dark Chrystal Dark Chrystal Dark Chrystal Brown Urine Appearance Clear Urine Odor Strong Normal Comment Pt's urine is very dark and bilious mixed with stool mixed with stool Stool Size Moderate Small Stool Characteristics Brown Soft Brown Voiding Methods Urinal Bedside Commode Laboratory Results WBC 6.98 k/cumm (4.4-10.8) 06/11/19 06:15 RBC 3.41 m/cumm (4.50-6.00) L 06/11/19 06:15 Hgb 11.4 g/dL (13.5-17.5) L D 06/11/19 06:15 Hct 31.7 % (40.0-50.0) L D 06/11/19 06:15 MCV 93.0 fL (80-95) 06/11/19 06:15 MCH 33.4 pg (27.0-33.0) H 06/11/19 06:15 MCHC 36.0 g/dL (32.0-36.0) 06/11/19 06:15 RDW 15.7 % (11.8-14.1) H 06/11/19 06:15 Plt Count 86 x1000/uL (130-400) L 06/11/19 06:15 MPV 10.3 fL (8.0-11.0) 06/11/19 06:15 Immature Gran % 1.7 % 06/11/19 06:15 Neutrophils % 87.4 06/11/19 06:15 Lymphocytes % 2.9 06/11/19 06:15 Monocytes % 7.9 06/11/19 06:15 Eosinophils % 0.0 06/11/19 06:15 Basophils % 0.1 06/11/19 06:15 Absolute Neutrophils 6.10 k/cumm (1.2-6.7) 06/11/19 06:15 Absolute Lymphocytes 0.20 k/cumm (1.2-3.4) L 06/11/19 06:15 Absolute Monocytes 0.55 k/cumm (0.11-0.7) 06/11/19 06:15 Absolute Eosinophils 0.00 k/cumm (0.0-0.7) 06/11/19 06:15 Absolute Basophils 0.01 k/cumm (0.0-0.2) 06/11/19 06:15 Differential Comment Plt morph reviewed 06/11/19 06:15 RBC Morphology Normal 06/11/19 06:15 PT 15.6 sec (9.3-11.0) H 06/10/19 14:05 INR 1.6 (0.9-1.1) H 06/10/19 14:05 APTT 30.2 sec (21.0-31.4) 06/09/19 20:30 Sodium 130 mmol/L (136-145) L 06/11/19 06:15 Potassium 3.7 mmol/L (3.5-5.1) 06/11/19 06:15 Chloride 98 mmol/L (98-107) 06/11/19 06:15 Carbon Dioxide 19.6 mmol/L (21.0-32.0) L 06/11/19 06:15 Anion Gap 12.4 mmol/L (3-11) H 06/11/19 06:15 BUN 46 mg/dL (7-18) H D 06/11/19 06:15 Creatinine 2.41 mg/dL (0.70-1.30) H 06/11/19 06:15 Estimated GFR/1.73 m2 27.53 (mL/min/1.73m2) 06/11/19 06:15 Glucose 294 mg/dL (74-106) H D 06/11/19 06:15 Lactate 1.6 mmol/L (0.6-1.4) H 06/11/19 07:55 Calcium 7.9 mg/dL (8.5-10.1) L 06/11/19 06:15 Magnesium 1.8 mg/dL (1.8-2.4) 06/11/19 06:15 Total Bilirubin 20.1 mg/dL (0.2-1.0) H 06/09/19 20:30 Conjugated Bilirubin 15.81 mg/dL (0.00-0.20) H 06/09/19 20:30 AST 130 U/L (15-37) H 06/09/19 20:30 ALT 51 U/L (16-63) 06/09/19 20:30 Alkaline Phosphatase 290 U/L (46-116) H 06/09/19 20:30 Ammonia < 10 umol/L (11-32) L 06/09/19 22:11 Troponin I < 0.05 ng/Ml (<0.06) 06/09/19 20:30 Total Protein 5.1 g/dL (6.4-8.2) L 06/09/19 20:30 Albumin 1.2 g/dL (3.4-5.0) L 06/09/19 20:30 Procalcitonin 2.6 ng/mL 06/10/19 08:30 Urine Color Yellow (Yellow) 06/10/19 00:47 Urine Clarity Sl cloudy (Clear) 06/10/19 00:47 Urine pH 5.5 (5-8) 06/10/19 00:47 Ur Specific [place] 1.020 (1.005-1.025) 06/10/19 00:47 Urine Protein Negative mg/dL (Negative) 06/10/19 00:47 Urine Ketones Negative mg/dL (Negative) 06/10/19 00:47 Urine Blood Trace-intact (Negative) H 06/10/19 00:47 Urine Nitrite Negative (Negative) 06/10/19 00:47 Urine Bilirubin Large (Negative) H 06/10/19 00:47 Urine Urobilinogen 0.2 EU/dL (Up TO 0.2) 06/10/19 00:47 Ur Leukocyte Esterase Negative (Negative) 06/10/19 00:47 Urine RBC 3-5 HPF (0-2) H 06/10/19 00:47 Urine WBC 0-2 HPF (0-5) 06/10/19 00:47 Ur Epithelial Cells Few HPF (Negative) 06/10/19 00:47 Urine Crystals Negative HPF (Negative) 06/10/19 00:47 Urine Bacteria Rare HPF (Negative) 06/10/19 00:47 Urine Casts 3-5 fine granular LPF (Negative) 06/10/19 00:47 Urine Mucus Trace (Negative) 06/10/19 00:47 Ur Culture Indicated? No 06/10/19 00:47 Urine Glucose Negative mg/dL (Negative) 06/10/19 00:47 Patient ABO/Rh O Positive 06/10/19 14:05
[2019-06-11] MEDS: Insulin Aspart 300 UNITS/3 ML PEN SC ×4 (08:47→21:07)
[2019-06-11] MEDS: MORPHine 2 MG/ML SYR IVP (10:35)
--- NOTE | 2019-06-11 11:00 | PCPN_ITS ---
Date of service: 06/11/19 Time of Service: 11:01 Assessment and Plan Assessment and plan (1) Painless jaundice: Status: Acute (2) Hyperbilirubinemia: Status: Acute (3) Hepatocellular carcinoma: Status: Chronic (4) Goals of care, counseling/discussion: Status: Acute Assessment and plan: Luis continues on vasopressors and IV fluids. I did explain at length why he was on prednisone and antibiotics. He wants to be weaned off or stopped on his prednisone as soon as possible. Once lack of infection is confirmed he would like to be off the antibiotics. He blames his present abdominal pain on these. He thinks that if he does not have these medications that he will not have abdominal pain. Dr. Hugo has already advanced his diet Dr. Hugo has also had alternative pain medication besides the Demerol. Discussion regarding hospice?he feels like it is a done deal at this point and that he is not ready for hospice. He is quite upset that he is not getting his experimental drug. I did bring up the possible idea that this was the cause of his sepsis. He would hear nothing of this. I will continue to follow him both inpatient and outpatient. Again his prognostic awareness is very low. His Lyla understands that he is not yet ready to consider dying. At the same time she is very realistic that he probably will. He will need home health when he goes home. I have spent more than 50% of time in counseling with this patient. This document was created by [employer] voice recognition and may contain grammatical and translation errors. Subjective Subjective Interval history since last seen: March is a 59-year-old man with end-stage hepatocellular carcinoma. There are no more medical treatment options for him. He is taking some experimental drug which needs to be injected into his femoral vein on a daily basis. He became septic and hypotensive and was brought to the emergency room. He is presently on pressors, IV fluids, prednisone, antibio tics. He is quite convinced that the prednisone is causing some of his stomachache. He is also convinced that the antibiotics are contributing to this. He states emphatically that it is not his for hepatocellular carcinoma. He also states that he has a lot of pain in the ondansetron did not address it. He would like to eat between retching. He understands that he had nausea and vomiting but really wants to be able to eat. He wants to take his experimental [place] drug and has threatened to leave AMA. (It is a doubtful that he could get out of bed and walk out of the hospital) He wants the antibiotic office soon as possible When I asked him about his decision regarding hospice he stated that we already addressed this yesterday he is not ready for hospice. (Both Lyla his and myself thought that we were going to give it 24 hours and see where he was at. Obviously he is not interested in hospice at this time.) Exam Narrative Exam Narrative: He is lying on his side. He continues to be yellow. His heart is regular. His lungs good aeration throughout. Scattered rales. Abdomen I could not hear any abdominal sounds. He was nontender. He does have a bandage on his left arm where he had a skin tear from home a few days back. He seems grumpy but cooperative. He had many questions about his care and felt strongly that it was the medications being given to him that was causing him to continue to feel so lousy Laboratory Tests 06/10/19 06/10/19 06/11/19 14:05 14:05 06:15 Hct Plt Count INR 1.6 H Sodium 130 L Creatinine 2.41 H Lactate 3.5 H* 06/11/19 06/11/19 06:15 07:55 Hct 31.7 L D Plt Count 86 L INR Sodium Creatinine Lactate 1.6 H COMPARISON: CR XR CHEST 2V PA LATERAL 06/09/2019 9:29 PM FINDINGS: Tubes, catheters and devices: Intervally placed likely left subclavian vein approach dual lumen central catheter with distal tip residing about the left brachiocephalic vein. Lungs: Persistent interstitial and reticular markings. No large focal airspace consolidation. Pleural space: Unremarkable. No pleural effusion. No pneumothorax. Heart/Mediastinum: Unremarkable. No cardiomegaly. Bones/joints: Old left rib fractures. IMPRESSION: 1. Intervally placed likely left subclavian vein approach dual lumen central catheter with distal tip presenting about the left brachiocephalic vein. 2. Stable prominent interstitial lung markings which could represent edema, infection or fibrotic changes. Recommend clinical correlation. Objective Objective Clinical Data: Abnormal lab results 06/10/19 06/10/19 06/10/19 Range/Units 11:30 14:05 14:05 RBC (4.50-6.00) m/cumm Hgb (13.5-17.5) g/dL Hct (40.0-50.0) % MCH (27.0-33.0) pg RDW (11.8-14.1) % Plt Count (130-400) x1000/uL Absolute Lymphocytes (1.2-3.4) k/cumm PT 15.6 H (9.3-11.0) sec INR 1.6 H (0.9-1.1) Sodium (136-145) mmol/L Carbon Dioxide (21.0-32.0) mmol/L Anion Gap (3-11) mmol/L BUN (7-18) mg/dL Creatinine (0.70-1.30) mg/dL Glucose (74-106) mg/dL Lactate 2.6 H* 3.5 H* (0.6-1.4) mmol/L Calcium (8.5-10.1) mg/dL 06/11/19 06/11/19 06/11/19 Range/Units 06:15 06:15 07:55 RBC 3.41 L (4.50-6.00) m/cumm Hgb 11.4 L D (13.5-17.5) g/dL Hct 31.7 L D (40.0-50.0) % MCH 33.4 H (27.0-33.0) pg RDW 15.7 H (11.8-14.1) % Plt Count 86 L (130-400) x1000/uL Absolute Lymphocytes 0.20 L (1.2-3.4) k/cumm PT (9.3-11.0) sec INR (0.9-1.1) Sodium 130 L (136-145) mmol/L Carbon Dioxide 19.6 L (21.0-32.0) mmol/L Anion Gap 12.4 H (3-11) mmol/L BUN 46 H D (7-18) mg/dL Creatinine 2.41 H (0.70-1.30) mg/dL Glucose 294 H D (74-106) mg/dL Lactate 1.6 H (0.6-1.4) mmol/L Calcium 7.9 L (8.5-10.1) mg/dL Vital Signs Temperature 98.1 F 0315/20 08:15 Temperature Source Temporal Artery Scan 06/11/19 08:15 Pulse 73 06/11/19 09:34 Pulse 82 06/11/19 10:00 Respiratory Rate 22 06/11/19 10:00 Respiratory Effort 06/11/19 08:15 Respiratory Depth Normal 06/11/19 08:15 Respiratory Pattern Normal 06/11/19 08:15 Blood Pressure 119/61 06/11/19 09:34 Blood Pressure Mean 75 06/11/19 09:34 Blood Pressure Position Supine 06/11/19 08:15 Pulse Oximetry 93 L 06/11/19 10:00 Oxygen Delivery Method Nasal Cannula 06/11/19 08:28 Oxygen Flow Rate 1 06/11/19 08:28 Pain Level 5 06/11/19 10:35 Intake & Output 06/10/19 06/10/19 06/11/19 11:59 23:59 11:59 Intake Total 2681.968 / 6151.254 3469.286 / 6151.254 2498.174 / 2498.174 Output Total 425 / 525 100 / 525 900 / 900 Balance 2256.968 / 5626.254 3369.286 / 5626.254 1598.174 / 1598.174 Weight 240 lb 11.916 oz Intake: IV 2356.968 / 4935.254 2578.286 / 4935.254 2043.174 / 2043.174 Oral 325 / 782 457 / 782 150 / 150 Blood Product 434 / 434 305 / 305 Frozen Plasma Unit 219 / 219 [id number] Frozen Plasma Unit 215 / 215 [id number] Pheresis Platelets Unit 0 / 0 305 / 305 [id number] Output: Urine 425 / 525 100 / 525 900 / 900 Other: Urine Color Yellow Dark [place] Dark [place]amin[place] Dark [place] Brown Urine Appearance Clear Urine Odor Strong None Comment Pt's urine is very dark and bilious mixed with stool dark kamini urine, dip significant for bilirubin Stool Size Moderate Small Stool Characteristics Brown Soft Brown Voiding Methods Urinal Urinal Laboratory Results WBC 6.98 k/cumm (4.4-10.8) 06/11/19 06:15 RBC 3.41 m/cumm (4.50-6.00) L 06/11/19 06:15 Hgb 11.4 g/dL (13.5-17.5) L D 06/11/19 06:15 Hct 31.7 % (40.0-50.0) L D 06/11/19 06:15 MCV 93.0 fL (80-95) 06/11/19 06:15 MCH 33.4 pg (27.0-33.0) H 06/11/19 06:15 MCHC 36.0 g/dL (32.0-36.0) 06/11/19 06:15 RDW 15.7 % (11.8-14.1) H 06/11/19 06:15 Plt Count 86 x1000/uL (130-400) L 06/11/19 06:15 MPV 10.3 fL (8.0-11.0) 06/11/19 06:15 Immature Gran % 1.7 % 06/11/19 06:15 Neutrophils % 87.4 06/11/19 06:15 Lymphocytes % 2.9 06/11/19 06:15 Monocytes % 7.9 06/11/19 06:15 Eosinophils % 0.0 06/11/19 06:15 Basophils % 0.1 06/11/19 06:15 Absolute Neutrophils 6.10 k/cumm (1.2-6.7) 06/11/19 06:15 Absolute Lymphocytes 0.20 k/cumm (1.2-3.4) L 06/11/19 06:15 Absolute Monocytes 0.55 k/cumm (0.11-0.7) 06/11/19 06:15 Absolute Eosinophils 0.00 k/cumm (0.0-0.7) 06/11/19 06:15 Absolute Basophils 0.01 k/cumm (0.0-0.2) 06/11/19 06:15 Differential Comment Plt morph reviewed 06/11/19 06:15 RBC Morphology Normal 06/11/19 06:15 PT 15.6 sec (9.3-11.0) H 06/10/19 14:05 INR 1.6 (0.9-1.1) H 06/10/19 14:05 APTT 30.2 sec (21.0-31.4) 06/09/19 20:30 Sodium 130 mmol/L (136-145) L 06/11/19 06:15 Potassium 3.7 mmol/L (3.5-5.1) 06/11/19 06:15 Chloride 98 mmol/L (98-107) 06/11/19 06:15 Carbon Dioxide 19.6 mmol/L (21.0-32.0) L 06/11/19 06:15 Anion Gap 12.4 mmol/L (3-11) H 06/11/19 06:15 BUN 46 mg/dL (7-18) H D 06/11/19 06:15 Creatinine 2.41 mg/dL (0.70-1.30) H 06/11/19 06:15 Estimated GFR/1.73 m2 27.53 (mL/min/1.73m2) 06/11/19 06:15 Glucose 294 mg/dL (74-106) H D 06/11/19 06:15 Lactate 1.6 mmol/L (0.6-1.4) H 06/11/19 07:55 Calcium 7.9 mg/dL (8.5-10.1) L 06/11/19 06:15 Magnesium 1.8 mg/dL (1.8-2.4) 06/11/19 06:15 Total Bilirubin 20.1 mg/dL (0.2-1.0) H 06/09/19 20:30 Conjugated Bilirubin 15.81 mg/dL (0.00-0.20) H 06/09/19 20:30 AST 130 U/L (15-37) H 06/09/19 20:30 ALT 51 U/L (16-63) 06/09/19 20:30 Alkaline Phosphatase 290 U/L (46-116) H 06/09/19 20:30 Ammonia < 10 umol/L (11-32) L 06/09/19 22:11 Troponin I < 0.05 ng/Ml (<0.06) 06/09/19 20:30 Total Protein 5.1 g/dL (6.4-8.2) L 06/09/19 20:30 Albumin 1.2 g/dL (3.4-5.0) L 06/09/19 20:30 Procalcitonin 2.6 ng/mL 06/10/19 08:30 Urine Color Yellow (Yellow) 06/10/19 00:47 Urine Clarity Sl cloudy (Clear) 06/10/19 00:47 Urine pH 5.5 (5-8) 06/10/19 00:47 Ur Specific [place] 1.020 (1.005-1.025) 06/10/19 00:47 Urine Protein Negative mg/dL (Negative) 06/10/19 00:47 Urine Ketones Negative mg/dL (Negative) 06/10/19 00:47 Urine Blood Trace-intact (Negative) H 06/10/19 00:47 Urine Nitrite Negative (Negative) 06/10/19 00:47 Urine Bilirubin Large (Negative) H 06/10/19 00:47 Urine Urobilinogen 0.2 EU/dL (Up TO 0.2) 06/10/19 00:47 Ur Leukocyte Esterase Negative (Negative) 06/10/19 00:47 Urine RBC 3-5 HPF (0-2) H 06/10/19 00:47 Urine WBC 0-2 HPF (0-5) 06/10/19 00:47 Ur Epithelial Cells Few HPF (Negative) 06/10/19 00:47 Urine Crystals Negative HPF (Negative) 06/10/19 00:47 Urine Bacteria Rare HPF (Negative) 06/10/19 00:47 Urine Casts 3-5 fine granular LPF (Negative) 06/10/19 00:47 Urine Mucus Trace (Negative) 06/10/19 00:47 Ur Culture Indicated? No 06/10/19 00:47 Urine Glucose Negative mg/dL (Negative) 06/10/19 00:47 Patient ABO/Rh O Positive 06/10/19 14:05
--- NOTE | 2019-06-11 11:17 | PDOC.CMPRO ---
- If Service Date Differs Date of service: 06/11/19 Time of Service: 11:17 Care Management Progress Note S/O: Luis remains in the ICU he continues to need pressers to support his blood pressure, he is also on abx to treat sepsis and IV steroids. He continues to have an central line and arterial line to monitor blood pressures. met with him and his spouse again today. He is not ready to stop treatment at this time. CM spent a significant amount of time with Luis, his family and spouse last evening. I encouraged them to not argue and be supportive of him at the bedside. They agreed. Spouse is concerned about him returning home. His spouse is worried about caring for him at home and his increasing needs. If he is discharged home they will need support through home health services coordinated by CM. Luis is not yet ready to consider hospice care. A: Flash Delacruz) is a 59 year old male admitted with hypotension, r/t sepsis with end stage hepatocellular cancer. P: Luis is receiving care in the ICU, palliative consult with has taken place and she will continue to follow inpatient and outpatient. He is currently being monitored, receiving medication to treat the hypotension including abx. CM to continue to provide support and ongoing need assessment anticipate he will need home health services for nursing, and OT at time of discharge. Spouse Lyla to transport home when medically ready.
[2019-06-11] MEDS: Hydrocortisone SOD SUC. 100 MG VIAL 50 MG IVP ×2 (12:40→18:29)
[2019-06-11] MEDS: Albuterol 2.5 MG/3 ML INH SOLN VIAL UPD (14:15)
[2019-06-11] MEDS: VANCOMYCIN 1,000 MG in Normal Saline 250 ML 167 MG IV (18:28)
[2019-06-11] MEDS: HYDROmorphone 2 MG/ML VIAL 1 MG IVP (20:48)
[2019-06-12] VITALS (34 sets, daily range): BP systolic 73–122; BP diastolic 50–77; PULSE 70–87; RESP 1–25; TEMP 36.5–36.9; O2SAT 88–96
[2019-06-12] MEDS: Hydrocortisone SOD SUC. 100 MG VIAL 50 MG IVP ×4 (00:32→22:56)
[2019-06-12] MEDS: Normal Saline Flush 10 ML SYR IVP ×4 (00:32→08:03)
[2019-06-12] MEDS: PIPERACILLIN/TAZO 2.25 GM in Normal Saline 50 ML IVPB ×4 (01:04→20:10)
[2019-06-12] MEDS: Normal Saline 1,000 ML 150 ML IV (04:12)
[2019-06-12] MEDS: Albuterol 2.5 MG/3 ML INH SOLN VIAL UPD ×2 (04:31→23:09)
[2019-06-12 07:10] LABS: HCT 30.7 % (40.0-50.0); HGB 10.7 g/dL (13.5-17.5); Mean Corp. HGB Concentration 34.9 g/dL (32.0-36.0); Mean Corpuscular Hemoglobin 33.5 pg (27.0-33.0); Mean Corpuscular Volume 96.2 fL (80-95); Mean Platelet Volume 10.9 fL (8.0-11.0); RBC 3.19 m/cumm (4.50-6.00); RBC Distribution Width 16.1 % (11.8-14.1); White Blood Cell Count 3.29 k/cumm (4.4-10.8)
[2019-06-12 07:13] LABS: INR 1.5 (0.9-1.1); Prothrombin Time 14.7 sec (9.3-11.0)
[2019-06-12 07:16] LABS: Anion Gap 12.6 mmol/L (3-11); BUN 52 mg/dL (7-18); C-Reactive Protein 4.21 mg/dL (0.0-0.3); CO2 19.4 mmol/L (21.0-32.0); CREATININE 2.53 mg/dL (0.70-1.30); Calcium 8.3 mg/dL (8.5-10.1); Chloride 101 mmol/L (98-107); Estimated GFR 26.03 (mL/min/1.73m2); Glucose 207 mg/dL (74-106); Potassium 4.1 mmol/L (3.5-5.1); Sodium 133 mmol/L (136-145)
[2019-06-12 07:48] LABS: Platelet Count 50 x1000/uL (130-400)
[2019-06-12 07:49] LABS: Absolute Lymphocyte Count 0.33 k/cumm (1.2-3.4); Absolute Monocyte Count 0.07 k/cumm (0.11-0.7); Absolute Neutrophil Count 2.86 k/cumm (1.2-6.7); Atypical Lymphocytes % 4
[2019-06-12 07:50] LABS: Anisocytosis 1+; Diff Comment Manual Differential
[2019-06-12] MEDS: Rifaximin 550 MG TAB PO ×2 (08:03→20:10)
[2019-06-12] MEDS: Sucralfate 1 GM TAB PO ×4 (08:03→22:56)
[2019-06-12] MEDS: Omeprazole 20 MG CAPCR 40 MG PO (08:03)
[2019-06-12] MEDS: Insulin Aspart 300 UNITS/3 ML PEN SC ×4 (08:13→22:57)
--- NOTE | 2019-06-12 09:19 | W.INDIABCONS ---
Date of service: 06/12/19 Time of Service: 09:20 Diabetes Inpatient Consult DESCRIPTION/ASSESSMENT: Appreciate diabetes consult for Flash Osorio who is hospitalized with ascites, fatigue, weakness, liver complications with poor prognosis for survival per H&P. A1c 7.4 from February; BMI 39 GFR 26 Blood sugars this hospitalization 217-356 taking moderate insulin correction. His usual insulin regimen is 30u Lantus twice daily. He is on hydrocortisone 50u q6 hours. He is eating 75-100% of his meals. Blood sugar inadequately controlled based on blood sugar goals of less than 180mg/dl. INTERVENTION: Given his compromised health condition, unclear if glycemic control is a priority at this time. Initiating half his basal insulin at 30units daily may help his blood sugar during this hospitalization. PLAN: Will follow blood sugars and patient goals Time Spent in Nutritional Counseling and Treatment: 0 minutes face to face
[2019-06-12] MEDS: VANCOMYCIN 1,000 MG in Normal Saline 250 ML 167 MG IV (09:58)
[2019-06-12] MEDS: Pantoprazole 40 MG VIAL IVP ×2 (09:58→22:56)
--- NOTE | 2019-06-12 10:22 | W.NUTCONSULT ---
Date of service: 06/12/19 Time of Service: 10:23 Nutritional Consult ASSESSMENT: 59 year old male admitted to ICU with hypotension and end stage liver cancer. Has hx of esophageal varices and DM. BMI indicates class 2 obesity, typical weight for Flash. Labs indicates mildly elevated blood sugars, DM consult pending. Following Diabetic Diet with 75-100% completion. Not considered at nutritional risk at this time. Time Spent in Nutritional Counseling and Treatment: 0 time spent face to face
--- NOTE | 2019-06-12 10:35 | PGE_ITS ---
Date of Service Date of service: 06/12/19 Time of Service: 10:36 Assessment and Plan Assessment and plan (1) Septic shock: Status: Resolved Assessment and plan: In setting of known intraabdominal malignancy and ascites, SBP is highest on differential. No longer requiring pressors. Blood cultures negative. D/c arterial line; transfer out of ICU. Continue vancomycin and zosyn. Retain L subclavian CVL (placed 06/10/2019). Continue to taper stress dose steroids. Titrate stress dose steroids down. Consult hospice. Prognosis overall poor. DNR/DNI. (2) GI bleeding: Status: Chronic Assessment and plan: Heme + stools (not massive bleeding) in setting of thrombocytopenia, coagulopathy, GI malignancy. Giving vitamin K today, increase PPI - now on protonix 40 IV BID, increase carafate to AC/HS. Continue diet, however, as the patient was very upset yesterday when it was discontinued. At this point, not a candidate for an intervention, and the patient himself refuses it. We will treat him more with a palliative intent. (3) Hepatocellular carcinoma: Status: Chronic Assessment and plan: More encephalopathic today while on rifaxamin. Check ammonia. He is no longer deemed a candidate for chemotherapy/immunotherapy and, per patient, is getting an infusion of a holistic [place] treatment, not FDA approved. We have no evidence to suggest that the treatment is working - quite the opposite. We cannot permit administration of this unknown substance in our facility, and the patient was made aware of this. The patient continues to refuse hospice/comfort measures to me at this time; however, will consult hospice, per 's request. Pain management with IV dilaudid. 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 S/p transfusion of 1 unit of plts on 06/10/2019. Continue to monitor for bleeding. Not planning to transfuse more plts at this time unless bleeding becomes massive. (5) Coagulopathy: Status: Acute Assessment and plan: S/p 2 units of FFP on 06/10/2019. Will also give vitamin K given heme + stools. (6) Painless jaundice: Status: Acute Assessment and plan: Due to hepatocellular Ca. Again, prognosis is poor. Nothing can be done about this at this point. (7) DVT prophylaxis: Status: Acute Assessment and plan: Contraindiicated due to heem + stools/thromboc ytopenia/coagulopathy/h/o esophageal varices. (8) Discharge planning issues: Status: Acute Assessment and plan: Transfer out of ICU. Consult hospice, per family request. DNR/DNI Subjective Subjective Interval history since last seen: Mr Osorio states he is having a great day - however, his states that he is more confused today, and she can really see the difference between yesterday to today. He had a family meeting with care management yesterday where the patient had agreed to going home on hospice - he states he was confused/is confused now. HE states he is interested in palliative care/home health, but refuses hospice at this time. His requests to talk to hospice anyway. The patient denies dizziness, chest pain, shortness of breath, nausea, abdominal pain this am. He did have abdominal pain yesterday, finally relieved with dilaudid. The patient was able to sleep last night. Off pressors as of 3 pm last night. Retaining urine, refuses oliveira. Heme + stools - not interested in interventions for this, nor is he a surgical candidate. Exam Narrative Exam Narrative: General: Obese male, A&Ox3, more confused today and appears to have asterexis, very jaundiced, sitting up in bed. HEENT: EOMI, MMM, scleral icterus; L subclavian CVL with dressing - c/d/i Heart: RRR, no m/r/g Lungs: minimal expiratory wheezing B. Abdomen: soft, distended, nontender Extremities: 2+ BLE edema, symmetric. Objective Objective Clinical Data: Abnormal lab results 06/12/19 06/12/19 06/12/19 Range/Units 06:15 06:15 06:15 WBC 3.29 L D (4.4-10.8) k/cumm RBC 3.19 L (4.50-6.00) m/cumm Hgb 10.7 L (13.5-17.5) g/dL Hct 30.7 L (40.0-50.0) % MCV 96.2 H D (80-95) fL MCH 33.5 H (27.0-33.0) pg RDW 16.1 H (11.8-14.1) % Plt Count 50 L (130-400) x1000/uL Absolute Lymphocytes 0.33 L (1.2-3.4) k/cumm Absolute Monocytes 0.07 L (0.11-0.7) k/cumm PT 14.7 H (9.3-11.0) sec INR 1.5 H (0.9-1.1) Sodium 133 L (136-145) mmol/L Carbon Dioxide 19.4 L (21.0-32.0) mmol/L Anion Gap 12.6 H (3-11) mmol/L BUN 52 H (7-18) mg/dL Creatinine 2.53 H (0.70-1.30) mg/dL Glucose 207 H D (74-106) mg/dL Calcium 8.3 L (8.5-10.1) mg/dL C-Reactive Protein 4.21 H (0.0-0.3) mg/dL Vital Signs Temperature 36.7 C 06/12/19 10:19 Temperature Source Temporal Artery Scan 06/12/19 08:30 Pulse 83 06/12/19 10:19 Pulse 72 06/12/19 09:00 Respiratory Rate 16 06/12/19 10:19 Respiratory Effort 06/12/19 08:30 Respiratory Depth Normal 06/12/19 08:30 Respiratory Pattern Normal 06/12/19 08:30 Blood Pressure 122/60 06/12/19 10:19 Blood Pressure Mean 69 06/12/19 08:30 Blood Pressure Position Supine 06/12/19 08:30 Pulse Oximetry 95 06/12/19 10:19 Oxygen Delivery Method Room Air 06/12/19 10:19 Oxygen Flow Rate 0 06/12/19 10:19 Pain Level 0 06/12/19 08:30 Intake & Output 06/11/19 06/11/19 06/12/19 11:59 23:59 11:59 Intake Total 2758.174 / 5000.056 2241.882 / 5000.056 2107.5 / 2107.5 Output Total 1050 / 1400 350 / 1400 200 / 200 Balance 1708.174 / 3600.056 1891.882 / 3600.056 1907.5 / 1907.5 Weight 120.5 kg Intake: IV 2043.174 / 3865.056 1821.882 / 3865.056 1986.5 / 1986.5 Oral 410 / 830 420 / 830 120 / 120 Blood Product / Pheresis Platelets Unit [id number] Output: Urine 1050 / 1400 350 / 1400 200 / 200 Other: Urine Color Dark [place] Dark [place]amin[place] Yellow Dark [place] Brown Urine Appearance Clear Clear Clear Urine Odor None None Normal Comment dark kamini urine, dip significant for bilirubin Stool Occult Blood Positive Stool Size Small Moderate Stool Characteristics Soft Soft Brown Liquid Voiding Methods Urinal Urinal Urinal Laboratory Results WBC 3.29 k/cumm (4.4-10.8) L D 06/12/19 06:15 RBC 3.19 m/cumm (4.50-6.00) L 06/12/19 06:15 Hgb 10.7 g/dL (13.5-17.5) L 06/12/19 06:15 Hct 30.7 % (40.0-50.0) L 06/12/19 06:15 MCV 96.2 fL (80-95) H D 06/12/19 06:15 MCH 33.5 pg (27.0-33.0) H 06/12/19 06:15 MCHC 34.9 g/dL (32.0-36.0) 06/12/19 06:15 RDW 16.1 % (11.8-14.1) H 06/12/19 06:15 Plt Count 50 x1000/uL (130-400) L 06/12/19 06:15 MPV 10.9 fL (8.0-11.0) 06/12/19 06:15 Immature Gran % 0.0 % 06/12/19 06:15 Neutrophils % 86.0 06/12/19 06:15 Band Neutrophils % 1.0 % 06/12/19 06:15 Lymphocytes % 6.0 06/12/19 06:15 Atypical Lymphs % 4 06/12/19 06:15 Monocytes % 2.0 06/12/19 06:15 Eosinophils % 0.0 06/12/19 06:15 Basophils % 0.0 06/12/19 06:15 Metamyelocytes % 1.0 % 06/12/19 06:15 Absolute Neutrophils 2.86 k/cumm (1.2-6.7) 06/12/19 06:15 Absolute Lymphocytes 0.33 k/cumm (1.2-3.4) L 06/12/19 06:15 Absolute Monocytes 0.07 k/cumm (0.11-0.7) L 06/12/19 06:15 Absolute Eosinophils 0.00 k/cumm (0.0-0.7) 06/12/19 06:15 Absolute Basophils 0.00 k/cumm (0.0-0.2) 06/12/19 06:15 Differential Comment Manual differential 06/12/19 06:15 RBC Morphology Normal 06/11/19 06:15 Anisocytosis 1+ 06/12/19 06:15 PT 14.7 sec (9.3-11.0) H 06/12/19 06:15 INR 1.5 (0.9-1.1) H 06/12/19 06:15 APTT 30.2 sec (21.0-31.4) 06/09/19 20:30 Sodium 133 mmol/L (136-145) L 06/12/19 06:15 Potassium 4.1 mmol/L (3.5-5.1) 06/12/19 06:15 Chloride 101 mmol/L (98-107) 06/12/19 06:15 Carbon Dioxide 19.4 mmol/L (21.0-32.0) L 06/12/19 06:15 Anion Gap 12.6 mmol/L (3-11) H 06/12/19 06:15 BUN 52 mg/dL (7-18) H 06/12/19 06:15 Creatinine 2.53 mg/dL (0.70-1.30) H 06/12/19 06:15 Estimated GFR/1.73 m2 26.03 (mL/min/1.73m2) 06/12/19 06:15 Glucose 207 mg/dL (74-106) H D 06/12/19 06:15 Lactate 1.6 mmol/L (0.6-1.4) H 06/11/19 07:55 Calcium 8.3 mg/dL (8.5-10.1) L 06/12/19 06:15 Magnesium 2.0 mg/dL (1.8-2.4) 06/12/19 06:15 Total Bilirubin 20.1 mg/dL (0.2-1.0) H 06/09/19 20:30 Conjugated Bilirubin 15.81 mg/dL (0.00-0.20) H 06/09/19 20:30 AST 130 U/L (15-37) H 06/09/19 20:30 ALT 51 U/L (16-63) 06/09/19 20:30 Alkaline Phosphatase 290 U/L (46-116) H 06/09/19 20:30 Ammonia < 10 umol/L (11-32) L 06/09/19 22:11 Troponin I < 0.05 ng/Ml (<0.06) 06/09/19 20:30 C-Reactive Protein 4.21 mg/dL (0.0-0.3) H 06/12/19 06:15 Total Protein 5.1 g/dL (6.4-8.2) L 06/09/19 20:30 Albumin 1.2 g/dL (3.4-5.0) L 06/09/19 20:30 Procalcitonin 2.6 ng/mL 06/10/19 08:30 Urine Color Yellow (Yellow) 06/10/19 00:47 Urine Clarity Sl cloudy (Clear) 06/10/19 00:47 Urine pH 5.5 (5-8) 06/10/19 00:47 Ur Specific [place] 1.020 (1.005-1.025) 06/10/19 00:47 Urine Protein Negative mg/dL (Negative) 06/10/19 00:47 Urine Ketones Negative mg/dL (Negative) 06/10/19 00:47 Urine Blood Trace-intact (Negative) H 06/10/19 00:47 Urine Nitrite Negative (Negative) 06/10/19 00:47 Urine Bilirubin Large (Negative) H 06/10/19 00:47 Urine Urobilinogen 0.2 EU/dL (Up TO 0.2) 06/10/19 00:47 Ur Leukocyte Esterase Negative (Negative) 06/10/19 00:47 Urine RBC 3-5 HPF (0-2) H 06/10/19 00:47 Urine WBC 0-2 HPF (0-5) 06/10/19 00:47 Ur Epithelial Cells Few HPF (Negative) 06/10/19 00:47 Urine Crystals Negative HPF (Negative) 06/10/19 00:47 Urine Bacteria Rare HPF (Negative) 06/10/19 00:47 Urine Casts 3-5 fine granular LPF (Negative) 06/10/19 00:47 Urine Mucus Trace (Negative) 06/10/19 00:47 Ur Culture Indicated? No 06/10/19 00:47 Urine Glucose Negative mg/dL (Negative) 06/10/19 00:47 Patient ABO/Rh O Positive 06/10/19 14:05
[2019-06-12 11:13] LABS: Ammonia 44 umol/L (11-32)
[2019-06-12] MEDS: Phytonadione 5 MG TABLET PO (12:57)
[2019-06-12] MEDS: Normal Saline 1,000 ML 75 ML IV (13:19)
--- NOTE | 2019-06-12 14:38 | NUR.NOTE ---
Nursing Note: PT TRANSFERRED OUT TO ROOM 229 FROM ICU. PT JAUNDICE IN COLOR. PT UP WITH STANDBY ASSIST. LUNGS DIM THROUGHOUT. PT HYPOTENSIVE @ 88/58, ASYMPTOMATIC. OTHERWISE VS STABLE. SPOUSE AND DAUGHTER IN ROOM. PT WITH A MEPILEX ON HIS LEFT FA AND PT HAS A SCRATCH ON THE BACK OF HIS LEFT LEG JUST ABOVE HIS KNEE.
--- NOTE | 2019-06-12 15:20 | CHAPLAIN ---
Luis has asked to see me. When I got here his , and two daughters were with him. We spoke for a while and I said I would be back another time to talk with him. He suggested later today or tomorrow. While were talking, Luis said he is on steroids and and blame them for making his stomach upset. He also said that he had been upset with Dr. Martinez (oncologist) when he had placed his late on steroids because she was not able to move around much after that. Dr. Crockett and Fabric Lay Out Worker Zandra Viveros have talked with Luis about Hospice and he is not interested in that yet. He did state that he wants to be DNR/DNI.
--- NOTE | 2019-06-12 17:43 | CMPROGNOTE_ITS ---
- If Service Date Differs Date of service: 06/12/19 Time of Service: 17:43 Care Management Progress Note S/O: Luis remains acute at this time. CM coordinated a hospice consult, Luis states he does not want hospice at home. His spouse and daughters would like him to have this service so that they share time with him. Luis appears more confused today, his answers to questions are more delayed and he looks at his spouse Lyla for the answers. RN Power And Recovery Superintendent has explained visiting hours to family including once family member at a time. Family is upset they want to be able to spend time with him when he is alert and able to engage. CM reviewed with provider the families concerns and will follow up with supervisor yard regarding to new limitations on visitors. I have requested palliative care nurse practitioner who has the patient contact the family if there is a change in mental status or he changes to comfort measures, and able have visitors. It is undetermined if Luis will be able to return home CM will continue to follow. A: Flash Delacruz) is a 59 year old male admitted with hypotension, r/t sepsis with end stage hepatocellular cancer. P: Luis is receiving care as an acute patient. Palliative consult with has taken place and she will continue to follow inpatient and outpatient. He is currently being monitored, He remains on antibiotics. CM to continue to provide support and ongoing need assessment anticipate he will need home health services for nursing, OT and MASSAGE OPERATOR at time of discharge. Spouse Lyla to transport home when medically ready.
[2019-06-13 00:14] VITALS: BP 100/63; PULSE 88; RESP 18; TEMP 36.2; O2SAT 93
[2019-06-13] MEDS: Normal Saline 1,000 ML 75 ML IV (01:53)
[2019-06-13] MEDS: PIPERACILLIN/TAZO 2.25 GM in Normal Saline 50 ML IVPB ×3 (01:53→14:42)
[2019-06-13] MEDS: VANCOMYCIN 1,000 MG in Normal Saline 250 ML 167 MG IV (02:57)
[2019-06-13 03:30] VITALS: BP 147/82; PULSE 89; RESP 18; TEMP 36.8; O2SAT 92
[2019-06-13] MEDS: Hydrocortisone SOD SUC. 100 MG VIAL 50 MG IVP ×2 (06:17→14:43)
[2019-06-13] MEDS: Normal Saline Flush 10 ML SYR IVP ×5 (06:17→21:38)
[2019-06-13 07:13] LABS: Abs Immature Grans 0.08 k/cumm (0.0-0.09); HCT 25.5 % (40.0-50.0); HGB 8.9 g/dL (13.5-17.5); Mean Corp. HGB Concentration 34.9 g/dL (32.0-36.0); Mean Corpuscular Volume 94.4 fL (80-95); Mean Platelet Volume 10.6 fL (8.0-11.0); RBC Distribution Width 15.3 % (11.8-14.1)
[2019-06-13 07:28] LABS: Anion Gap 11.5 mmol/L (3-11); BUN 56 mg/dL (7-18); CO2 19.5 mmol/L (21.0-32.0); CREATININE 2.45 mg/dL (0.70-1.30); Calcium 8.2 mg/dL (8.5-10.1); Chloride 103 mmol/L (98-107); Estimated GFR 27.01 (mL/min/1.73m2); Glucose 203 mg/dL (74-106); Potassium 3.8 mmol/L (3.5-5.1); Sodium 134 mmol/L (136-145)
[2019-06-13 07:29] VITALS: BP 99/64; PULSE 96; RESP 18; TEMP 37.2; O2SAT 90
[2019-06-13 07:48] LABS: White Blood Cell Count 1.43 k/cumm (4.4-10.8)
[2019-06-13 07:51] LABS: Platelet Count 35 x1000/uL (130-400)
[2019-06-13 07:52] LABS: Absolute Monocyte Count 0.13 k/cumm (0.11-0.7); Absolute Neutrophil Count 1.17 k/cumm (1.2-6.7)
[2019-06-13 07:54] LABS: Anisocytosis 1+; Diff Comment Manual Differential
[2019-06-13 07:55] LABS: Poikilocytes 1+
[2019-06-13] MEDS: Rifaximin 550 MG TAB PO (07:55)
[2019-06-13] MEDS: Sucralfate 1 GM TAB PO ×2 (07:56→11:32)
[2019-06-13] MEDS: Insulin Aspart 300 UNITS/3 ML PEN SC ×2 (07:56→11:32)
[2019-06-13 08:12] LABS: Procalcitonin 1.8 ng/mL
[2019-06-13 08:42] VITALS: BP 98/58; PULSE 92; RESP 19; TEMP 36.7; O2SAT 90
[2019-06-13] MEDS: Pantoprazole 40 MG VIAL IVP (09:40)
[2019-06-13 11:26] VITALS: BP 90/52; PULSE 91; RESP 19; TEMP 36.9; O2SAT 91
--- NOTE | 2019-06-13 13:40 | PGE_ITS ---
Date of Service Date of service: 06/13/19 Time of Service: 13:40 Assessment and Plan Assessment and plan (1) Comfort measures only status: Status: Acute Assessment and plan: patient has agreed to comfort care measures and wishes to stay here for end of life care. will transition to comfort care only. prn medications as directed per protocol. case management following. Subjective Subjective Patient reports: no new complaints Interval history since last seen: patient continues to decline. labs worsening with worsening pancytopenia. and patient report that last night he agrees to all 3, DNR/DNI and hospice. reports he has not changed his mind today and is still in agreement with hospice/comfort care as they discussed last night. he is requesting that I stop IV fluids. He has been having some intermittent lower extremity pain which has been ongoing, managed with current pain regimen. no increased sob. urine output down. Exam Eyes Sclera: scleral abnormality bilaterally other (icteric) Resp Auscultation: diminished lung sounds (shallow respirations, dim throughout) Cardio Rate: regular rate Rhythm: regular rhythm GI Inspection: normal to inspection Palpation: soft Auscultation: normal bowel sounds Skin General skin exam: ecchymosis (scattered thoughout) Objective Objective Clinical Data: Abnormal lab results 06/13/19 06/13/19 Range/Units 06:25 06:25 WBC 1.43 L* D (4.4-10.8) k/cumm RBC 2.70 L (4.50-6.00) m/cumm Hgb 8.9 L (13.5-17.5) g/dL Hct 25.5 L (40.0-50.0) % RDW 15.3 H (11.8-14.1) % Plt Count 35 L (130-400) x1000/uL Absolute Neutrophils 1.17 L (1.2-6.7) k/cumm Absolute Lymphocytes 0.10 L (1.2-3.4) k/cumm Sodium 134 L (136-145) mmol/L Carbon Dioxide 19.5 L (21.0-32.0) mmol/L Anion Gap 11.5 H (3-11) mmol/L BUN 56 H (7-18) mg/dL Creatinine 2.45 H (0.70-1.30) mg/dL Glucose 203 H (74-106) mg/dL Calcium 8.2 L (8.5-10.1) mg/dL Vital Signs Temperature 36.9 C 06/13/19 11:26 Temperature Source Temporal Artery Scan 06/13/19 11:26 Pulse 91 H 06/13/19 11:26 Pulse Rhythm Regular 06/13/19 08:00 Pulse 86 06/12/19 13:04 Respiratory Rate 19 06/13/19 11:26 Respiratory Effort Non-Labored 06/13/19 08:00 Respiratory Depth Normal 06/13/19 08:00 Respiratory Pattern Normal 06/13/19 08:00 Blood Pressure 90/52 L 06/13/19 11:26 Blood Pressure Mean 70 06/12/19 13:04 Blood Pressure Position Supine 06/12/19 08:30 Pulse Oximetry 91 L 06/13/19 11:26 Oxygen Delivery Method Room Air 06/13/19 11:26 Oxygen Flow Rate 0 06/13/19 11:26 Pain Level 0 06/13/19 11:26 Comment 06/13/19 08:42 Intake & Output 06/12/19 06/13/19 06/13/19 23:59 11:59 23:59 Intake Total 726.25 / 3083.75 802.5 / 1042.5 240 / 1042.5 Output Total 500 / 800 550 / 550 Balance 226.25 / 2283.75 252.5 / 492.5 240 / 492.5 Intake: IV 726.25 / 2963.75 802.5 / 802.5 Oral 240 / 240 Output: Urine 500 / 800 550 / 550 Other: Urine Color Yellow Yellow [place] Dark [place] Urine Appearance Clear Clear Comment Patient expressed he doesnt want to do straight catheter and that he will ty to void Voiding Methods Urinal Urinal Laboratory Results WBC 1.43 k/cumm (4.4-10.8) L* D 06/13/19 06:25 RBC 2.70 m/cumm (4.50-6.00) L 06/13/19 06:25 Hgb 8.9 g/dL (13.5-17.5) L 06/13/19 06:25 Hct 25.5 % (40.0-50.0) L 06/13/19 06:25 MCV 94.4 fL (80-95) 06/13/19 06:25 MCH 33.0 pg (27.0-33.0) 06/13/19 06:25 MCHC 34.9 g/dL (32.0-36.0) 06/13/19 06:25 RDW 15.3 % (11.8-14.1) H 06/13/19 06:25 Plt Count 35 x1000/uL (130-400) L 06/13/19 06:25 MPV 10.6 fL (8.0-11.0) 06/13/19 06:25 Immature Gran % See Differential 06/13/19 06:25 Neutrophils % 80.0 06/13/19 06:25 Band Neutrophils % 2.0 % 06/13/19 06:25 Lymphocytes % 7.0 06/13/19 06:25 Atypical Lymphs % 4 06/12/19 06:15 Monocytes % 9.0 06/13/19 06:25 Eosinophils % 0.0 06/13/19 06:25 Basophils % 0.0 06/13/19 06:25 Metamyelocytes % 1.0 % 06/13/19 06:25 Myelocytes % 1.0 % 06/13/19 06:25 Absolute Neutrophils 1.17 k/cumm (1.2-6.7) L 06/13/19 06:25 Absolute Lymphocytes 0.10 k/cumm (1.2-3.4) L 06/13/19 06:25 Absolute Monocytes 0.13 k/cumm (0.11-0.7) 06/13/19 06:25 Absolute Eosinophils 0.00 k/cumm (0.0-0.7) 06/13/19 06:25 Absolute Basophils 0.00 k/cumm (0.0-0.2) 06/13/19 06:25 Differential Comment Manual differential 06/13/19 06:25 RBC Morphology See below 06/13/19 06:25 Poikilocytosis 1+ 06/13/19 06:25 Anisocytosis 1+ 06/13/19 06:25 PT 14.7 sec (9.3-11.0) H 06/12/19 06:15 INR 1.5 (0.9-1.1) H 06/12/19 06:15 APTT 30.2 sec (21.0-31.4) 06/09/19 20:30 Sodium 134 mmol/L (136-145) L 06/13/19 06:25 Potassium 3.8 mmol/L (3.5-5.1) 06/13/19 06:25 Chloride 103 mmol/L (98-107) 06/13/19 06:25 Carbon Dioxide 19.5 mmol/L (21.0-32.0) L 06/13/19 06:25 Anion Gap 11.5 mmol/L (3-11) H 06/13/19 06:25 BUN 56 mg/dL (7-18) H 06/13/19 06:25 Creatinine 2.45 mg/dL (0.70-1.30) H 06/13/19 06:25 Estimated GFR/1.73 m2 27.01 (mL/min/1.73m2) 06/13/19 06:25 Glucose 203 mg/dL (74-106) H 06/13/19 06:25 Lactate 1.6 mmol/L (0.6-1.4) H 06/11/19 07:55 Calcium 8.2 mg/dL (8.5-10.1) L 06/13/19 06:25 Magnesium 2.0 mg/dL (1.8-2.4) 06/13/19 06:25 Total Bilirubin 20.1 mg/dL (0.2-1.0) H 06/09/19 20:30 Conjugated Bilirubin 15.81 mg/dL (0.00-0.20) H 06/09/19 20:30 AST 130 U/L (15-37) H 06/09/19 20:30 ALT 51 U/L (16-63) 06/09/19 20:30 Alkaline Phosphatase 290 U/L (46-116) H 06/09/19 20:30 Ammonia 44 umol/L (11-32) H 06/12/19 10:45 Troponin I < 0.05 ng/Ml (<0.06) 06/09/19 20:30 C-Reactive Protein 4.21 mg/dL (0.0-0.3) H 06/12/19 06:15 Total Protein 5.1 g/dL (6.4-8.2) L 06/09/19 20:30 Albumin 1.2 g/dL (3.4-5.0) L 06/09/19 20:30 Procalcitonin 1.8 ng/mL 06/13/19 06:25 Urine Color Yellow (Yellow) 06/10/19 00:47 Urine Clarity Sl cloudy (Clear) 06/10/19 00:47 Urine pH 5.5 (5-8) 06/10/19 00:47 Ur Specific [place] 1.020 (1.005-1.025) 06/10/19 00:47 Urine Protein Negative mg/dL (Negative) 06/10/19 00:47 Urine Ketones Negative mg/dL (Negative) 06/10/19 00:47 Urine Blood Trace-intact (Negative) H 06/10/19 00:47 Urine Nitrite Negative (Negative) 06/10/19 00:47 Urine Bilirubin Large (Negative) H 06/10/19 00:47 Urine Urobilinogen 0.2 EU/dL (Up TO 0.2) 06/10/19 00:47 Ur Leukocyte Esterase Negative (Negative) 06/10/19 00:47 Urine RBC 3-5 HPF (0-2) H 06/10/19 00:47 Urine WBC 0-2 HPF (0-5) 06/10/19 00:47 Ur Epithelial Cells Few HPF (Negative) 06/10/19 00:47 Urine Crystals Negative HPF (Negative) 06/10/19 00:47 Urine Bacteria Rare HPF (Negative) 06/10/19 00:47 Urine Casts 3-5 fine granular LPF (Negative) 06/10/19 00:47 Urine Mucus Trace (Negative) 06/10/19 00:47 Ur Culture Indicated? No 06/10/19 00:47 Urine Glucose Negative mg/dL (Negative) 06/10/19 00:47 Patient ABO/Rh O Positive 06/10/19 14:05
--- NOTE | 2019-06-13 14:26 | CHAPLAIN ---
Luis had several family members visiting when I stopped in this morning. This afternoon he was sleeping and I spoke with his , Lyla, and his brother. Lyla said Luis was told three weeks ago that he had two weeks to a month to live but that he didn't accept that. His brother said that Luis told him he was going home on hospice to . Lyla said that Luis changes his mind about having hospice come in, and also changes his mind about wanting to go home or not. She said he is more confused today, and when he wakes up after falling asleep, he doesn't remember what happened earlier. I will continue to visit.
--- NOTE | 2019-06-13 15:14 | CMPROGNOTE_ITS ---
Care Management Progress Note S/O: Flash was lying in bed surrounded by family throughout the day. He was clear with his provider about no longer wishing to have invasive treatment and wanting to be kept comfortable. CM spoke with Administration regarding visitor policy; Flash was cleared to have multiple visitors at this time due to anticipation that he will pass at [facility] during this admission. CHIRAG spoke with Rakesh of Hospice who also stated her understanding per her discussion with Flash and his was for him to transition to INTELLIGENCE OFFICER BASIC at the hospital for end of life care. CM continues to follow. A: 59 year old male admitted to [facility] 06/10/19 for Hypotension P: Flash transitioned to INTELLIGENCE OFFICER BASIC status today per his and his family's request. He is permitted visitors at this time per administrative determination, anticipate he will remain at [facility] for end of life care. CM will continue to support Flash and his family at this time.
[2019-06-13 15:35] VITALS: BP 93/58; PULSE 79; RESP 22; TEMP 36.4; O2SAT 93
[2019-06-13] MEDS: Scopolamine 1 MG/3 DAYS PATCH TD (16:35)
[2019-06-13] MEDS: HYDROmorphone 2 MG/ML VIAL 1 MG IVP (21:38)
[2019-06-14] MEDS: HYDROmorphone 2 MG/ML VIAL 1 MG IVP (08:39)
[2019-06-14] MEDS: Normal Saline Flush 10 ML SYR IVP (08:39)
--- NOTE | 2019-06-14 08:59 | CMPROGNOTE_ITS ---
Care Management Progress Note S/O: CM met with EVAN Ellsworth and Flash's regarding her concerns with increased pain this morning. Flash was lying in bed, his at his bedside, he remains DEMURRAGE MAN at [facility] for end of life care, Dilaudid drip to start today as a result of meeting. CM continues to follow. A: 59 year old male admitted to [facility] 06/10/19 for Hypotension P: Flash transitioned to DEMURRAGE MAN status per his and his family's request, per provider he will be started on a Dilaudid drip for pain management. He is permitted visitors at this time per administrative determination, anticipate he will remain at [facility] for end of life care. CM will continue to support Flash and his family at this time.
--- NOTE | 2019-06-14 08:59 | PDOC.CMPRO ---
Care Management Progress Note S/O: CM met with EVAN Ellsworth and Flash's regarding her concerns with increased pain this morning. Flash was lying in bed, his at his bedside, he remains SHRIMPING BOAT CAPTAIN at [facility] for end of life care, Dilaudid drip to start today as a result of meeting. CM continues to follow. A: 59 year old male admitted to [facility] 06/10/19 for Hypotension P: Flash transitioned to SHRIMPING BOAT CAPTAIN status per his and his family's request, per provider he will be started on a Dilaudid drip for pain management. He is permitted visitors at this time per administrative determination, anticipate he will remain at [facility] for end of life care. CM will continue to support Flash and his family at this time.
[2019-06-14] MEDS: HYDROmorphone 50 MG in Normal Saline 245 ML IV (10:04)
[2019-06-14 10:09] VITALS: RESP 8
--- NOTE | 2019-06-14 14:17 | CHAPLAIN ---
I've checked in with Luis and Lyla a few times today. Lyla said this morning she met with Care Management and EVAN Ellsworth, and that they were honest and direct and she appreciated that. She explained that yesterday Luis asked her if he was dying and she told him yes. Prior to that he had not wanted to talk about hospice care or end of live care. Today he has not be responsive, even when he was moved by the [place] lift. Lyla said that four years ago, she cared for her previous while he was dying at home. She and Luis have just been a month. We thought we had longer, she said. Luis's daughters were here yesterday and are here again today. Other family members have been visiting as well.
--- NOTE | 2019-06-14 14:28 | PGE_ITS ---
Date of Service Date of service: 06/14/19 Time of Service: 14:29 Assessment and Plan Assessment and plan (1) Comfort measures only status: Status: Acute Assessment and plan: Continues on comfort care measures and wishes to stay here for end of life care. will start with dilaudid drip as feels prn medications as directed per protocol. case management following. Subjective Subjective Interval history since last seen: having some intermittent confusion and agitation. using prn dilaudid with good effect. Exam Narrative Exam Narrative: General: terminally ill appearing, jaundice, obese male Eyes Sclera: scleral abnormality bilaterally other (icteric) Resp Auscultation: diminished lung sounds (shallow respirations, dim throughout) Cardio Rate: regular rate Rhythm: regular rhythm GI Inspection: normal to inspection Palpation: soft Auscultation: normal bowel sounds Skin General skin exam: ecchymosis (scattered thoughout) Objective Objective Clinical Data: Vital Signs Temperature 36.4 C L 06/13/19 15:35 Temperature Source Tympanic 06/13/19 15:35 Pulse 79 06/13/19 15:35 Pulse Rhythm Regular 06/13/19 08:00 Pulse 86 06/12/19 13:04 Respiratory Rate 8 L 06/14/19 10:09 Respiratory Effort 06/14/19 14:01 Respiratory Depth Shallow 06/14/19 14:01 Respiratory Pattern [place]-Sneed 06/14/19 14:01 Blood Pressure 93/58 L 06/13/19 15:35 Blood Pressure Mean 70 06/12/19 13:04 Blood Pressure Position Supine 06/12/19 08:30 Pulse Oximetry 93 L 06/13/19 15:35 Oxygen Delivery Method Room Air 06/13/19 15:35 Oxygen Flow Rate 0 06/13/19 15:35 Pain Level 0 06/14/19 10:09 Comment 06/13/19 08:42 Intake & Output 06/13/19 06/14/19 06/14/19 23:59 11:59 23:59 Intake Total 2170 / 2972.5 Output Total 300 / 1450 300 / 300 Balance 1870 / 1522.5 -300 / -300 Intake: IV 1690 / 2492.5 Oral 480 / 480 Output: Urine 300 / 1450 300 / 300 Other: Urine Color [place] Dark [place] Urine Appearance Cloudy Clear Sediment Urine Odor Normal Laboratory Results WBC Cancelled 06/14/19 05:35 RBC Cancelled 06/14/19 05:35 Hgb Cancelled 06/14/19 05:35 Hct Cancelled 06/14/19 05:35 MCV Cancelled 06/14/19 05:35 MCH Cancelled 06/14/19 05:35 MCHC Cancelled 06/14/19 05:35 RDW Cancelled 06/14/19 05:35 Plt Count Cancelled 06/14/19 05:35 MPV Cancelled 06/14/19 05:35 Immature Gran % Cancelled 06/14/19 05:35 Neutrophils % Cancelled 06/14/19 05:35 Band Neutrophils % Cancelled 06/14/19 05:35 Lymphocytes % Cancelled 06/14/19 05:35 Atypical Lymphs % Cancelled 06/14/19 05:35 Monocytes % Cancelled 06/14/19 05:35 Eosinophils % Cancelled 06/14/19 05:35 Basophils % Cancelled 06/14/19 05:35 Metamyelocytes % Cancelled 06/14/19 05:35 Myelocytes % Cancelled 06/14/19 05:35 Promyelocytes % Cancelled 06/14/19 05:35 Absolute Neutrophils Cancelled 06/14/19 05:35 Absolute Lymphocytes Cancelled 06/14/19 05:35 Absolute Monocytes Cancelled 06/14/19 05:35 Absolute Eosinophils Cancelled 06/14/19 05:35 Absolute Basophils Cancelled 06/14/19 05:35 Nucleated RBCs Cancelled 06/14/19 05:35 Differential Comment Cancelled 06/14/19 05:35 Other Cell Type Cancelled 06/14/19 05:35 RBC Morphology Cancelled 06/14/19 05:35 Polychromasia Cancelled 06/14/19 05:35 Hypochromasia Cancelled 06/14/19 05:35 Poikilocytosis Cancelled 06/14/19 05:35 Basophilic Stippling Cancelled 06/14/19 05:35 Anisocytosis Cancelled 06/14/19 05:35 Microcytosis Cancelled 06/14/19 05:35 Macrocytosis Cancelled 06/14/19 05:35 Spherocytes Cancelled 06/14/19 05:35 Target Cells Cancelled 06/14/19 05:35 Tear Drop Cells Cancelled 06/14/19 05:35 Ovalocytes Cancelled 06/14/19 05:35 Stomatocytes Cancelled 06/14/19 05:35 [place] Bodies Cancelled 06/14/19 05:35 [place] Cells Cancelled 06/14/19 05:35 Acanthocytes (Spur) Cancelled 06/14/19 05:35 Schistocytes Cancelled 06/14/19 05:35 PT 14.7 sec (9.3-11.0) H 06/12/19 06:15 INR 1.5 (0.9-1.1) H 06/12/19 06:15 APTT 30.2 sec (21.0-31.4) 06/09/19 20:30 Sodium Cancelled 06/14/19 05:35 Potassium Cancelled 06/14/19 05:35 Chloride Cancelled 06/14/19 05:35 Carbon Dioxide Cancelled 06/14/19 05:35 Anion Gap Cancelled 06/14/19 05:35 BUN Cancelled 06/14/19 05:35 Creatinine Cancelled 06/14/19 05:35 Estimated GFR/1.73 m2 Cancelled 06/14/19 05:35 Glucose Cancelled 06/14/19 05:35 Lactate 1.6 mmol/L (0.6-1.4) H 06/11/19 07:55 Calcium Cancelled 06/14/19 05:35 Magnesium Cancelled 06/14/19 05:35 Total Bilirubin 20.1 mg/dL (0.2-1.0) H 06/09/19 20:30 Conjugated Bilirubin 15.81 mg/dL (0.00-0.20) H 06/09/19 20:30 AST 130 U/L (15-37) H 06/09/19 20:30 ALT 51 U/L (16-63) 06/09/19 20:30 Alkaline Phosphatase 290 U/L (46-116) H 06/09/19 20:30 Ammonia 44 umol/L (11-32) H 06/12/19 10:45 Troponin I < 0.05 ng/Ml (<0.06) 06/09/19 20:30 C-Reactive Protein 4.21 mg/dL (0.0-0.3) H 06/12/19 06:15 Total Protein 5.1 g/dL (6.4-8.2) L 06/09/19 20:30 Albumin 1.2 g/dL (3.4-5.0) L 06/09/19 20:30 Procalcitonin 1.8 ng/mL 06/13/19 06:25 Urine Color Yellow (Yellow) 06/10/19 00:47 Urine Clarity Sl cloudy (Clear) 06/10/19 00:47 Urine pH 5.5 (5-8) 06/10/19 00:47 Ur Specific [place] 1.020 (1.005-1.025) 06/10/19 00:47 Urine Protein Negative mg/dL (Negative) 06/10/19 00:47 Urine Ketones Negative mg/dL (Negative) 06/10/19 00:47 Urine Blood Trace-intact (Negative) H 06/10/19 00:47 Urine Nitrite Negative (Negative) 06/10/19 00:47 Urine Bilirubin Large (Negative) H 06/10/19 00:47 Urine Urobilinogen 0.2 EU/dL (Up TO 0.2) 06/10/19 00:47 Ur Leukocyte Esterase Negative (Negative) 06/10/19 00:47 Urine RBC 3-5 HPF (0-2) H 06/10/19 00:47 Urine WBC 0-2 HPF (0-5) 06/10/19 00:47 Ur Epithelial Cells Few HPF (Negative) 06/10/19 00:47 Urine Crystals Negative HPF (Negative) 06/10/19 00:47 Urine Bacteria Rare HPF (Negative) 06/10/19 00:47 Urine Casts 3-5 fine granular LPF (Negative) 06/10/19 00:47 Urine Mucus Trace (Negative) 06/10/19 00:47 Ur Culture Indicated? No 06/10/19 00:47 Urine Glucose Negative mg/dL (Negative) 06/10/19 00:47 Vancomycin Trough Cancelled 06/13/19 16:00 Patient ABO/Rh O Positive 06/10/19 14:05
--- NOTE | 2019-06-16 09:23 | W.PM.DDS ---
Date of service: 06/15/19 Time of Service: 09:23 Discharge Sum: Prov Provider Consults: 06/10/19 08:05 Palliative Care Consult [CONS] Routine Consultation Status:: Follow-up needed Clarification:: Manage/follow per spec. Reason for consult:: hepatocellular ca, here with shock of unclear etiology 06/10/19 10:21 Surgical Consult [CONS] Routine Consulting Provider: Kate Carreon Consultation Status:: Contact made by Clarification:: Manage/follow per spec. Reason for consult:: septic shock; consult for CVL 06/12/19 10:34 Hospice Consult [CONS] Routine Consulting Provider: Ruth Crockett Consultation Status:: Follow-up needed Clarification:: Manage/follow per spec. Reason for consult:: Consult per request of . 06/13/19 15:54 [place] Supervisor Consult [CONS] Routine Consultation Status:: Contact made by Clarification:: Manage/follow per spec. Reason for consult:: end of life care Discharge Sum: Diag PCOD Cause of : Hepatocellular carcinoma Contributing Factors (1) Sepsis: Contributing factors: Due to SBP; initially presenting with septic shock (2) SBP (spontaneous bacterial peritonitis): (3) GI bleeding: Contributing factors: portal hypertension, esophageal varices, cirrhosis of the liver, coagulopathy, thrombocytopenia, gastritis (4) Coagulopathy: (5) Painless jaundice: (6) Gastritis: (7) Obesity: (8) Thrombocytopenia due to hypersplenism: (9) Esophageal varices: (10) Cirrhosis of liver: (11) Diabetes: Discharge Sum: Summary Date and Time Admission Date: 06/09/2002/14/20 01:01 Date of : 06/15/19 Time of : 03:28 Summary Details: Mr Osorio is a 59 year old male with h/o end-stage hepatocellular carcinoma with resultant cirrhosis, coagulopathy, thrombocytopenia, encephalopathy, ascites, esophageal varices, who was admitted to [facility] ICU under the hospitalist service on 06/10/2019 with septic shock due to presumed GI source, likely SBP. He was treated with empiric vancomycin/zosyn; blood cultures were negative. He was initiated on IVF, stress dose steroids, and did require vasopressors and infusion of albumin to keep the BP up. He required placement of L subclavian CVL as well as an arterial line by general surgery, but did have post-insertion hemorrhage at both sites. Due to his thrombocytopenia and coagulopathy, he received platelets and FFP, per surgical recommendations. He was able to be weaned off of vasopressors by hospital day 3 and was transferred out of ICU on 06/12/2019 to medical surgical floor. He did become hemoccult positive, but was felt to be too high risk for endoscopy, so he was treated medically with increase of PPI and carafate doses. He met with palliative care and multiple times with care management on this admission to help establish goals of care. It was becoming clear that the patient's underlying malignancy was what was resulting in him actively dying rather than the sepsis process. Ultimately, the patient made a decision to go on comfort measures on 06/13/2019. He did require initiation of dilaudid drip and peacefully on 06/15/2019 at 3:28 am (pronounced at 3:33 am). We appreciate the opportunity to help the patient in his final days and wish the family well. Additional Data Confirmation of as documented by pronouncing clinician: no pulse, no respirations, no heart sounds and pupils fixed and dilated Family: at bedside Attending/PCP notified?: Yes Attending Physician: Tommy Vicente Was code activated?: No Autopsy requested?: No machine cloth examiner notified?: No Organ bank notified?: No Advance directives: Yes Hospice patient?: No
== END 2019-06-15 05:15 | disposition expired | DRG 871 ==
LOC: ER 06-10 00:33 → ICU 06-10 02:28 → MS 06-15 05:43 → ICU 06-16 11:43
PROVIDERS: Admitting Provider General Practice; Emergency Provider Physician Assistant; PCP Internal Medicine; Visit Provider Internal Medicine
DX: A41.9 Sepsis, unspecified organism (principal); K65.2 Spontaneous bacterial peritonitis; R65.21 Severe sepsis with septic shock; G93.41 Metabolic encephalopathy; I85.11 Secondary esophageal varices with bleeding; C22.0 Liver cell carcinoma; K92.2 Gastrointestinal hemorrhage, unspecified; K76.6 Portal hypertension; R18.8 Other ascites; E11.9 Type 2 diabetes mellitus without complications; I10 Essential (primary) hypertension; K74.60 Unspecified cirrhosis of liver; D73.1 Hypersplenism; D69.59 Other secondary thrombocytopenia; R79.1 Abnormal coagulation profile; Z51.5 Encounter for palliative care; Z66 Do not resuscitate; Z79.4 Long term (current) use of insulin
CPT/HCPCS: 36415; 36556; 36591; 36620; 71045; 80048; 80053; 84145; 86900; 86901; 86945; 87040; 93005; 96361; 96365; 96366; 96375; 99221; 99223; 99232; 99233; 99238; 99252; 99255; 99285; 99291; 71046; 74176; 80202; 81003; 81015; 82140; 82248; 83605; 83735; 84484; 85025; 85610; 85730; 86140; 86644; 93010; J1170; J1265; J1720; J2270; J2405; J2543; J3370; J7613; P9035; P9059